=== PATIENT | male | born 1955 | race Caucasian/White ===

== ENCOUNTER → 2017-04-30 05:19 | Outpatient (REF) | payer OTHER, MEDICAID, SELFPAY ==
[2017-04-30 08:34] LABS: Hematocrit 39.9 % (40-54); Hemoglobin 13.7 g/dl (13.0-16.5); Mean Corp Hgb Conc 34.3 g/gl (32-36); Mean Corpuscular Hgb 29.6 pg (27.0-32.0); Mean Corpuscular Volume 86.2 fL (80-94); Mean Platelet Vol. 10.7 fl (6.2-12.0); Platelet Count 256 K/mm3 (150-450); RBC Distribution Width CV 13.8 % (11.6-14.6); RBC Distribution Width SD 42.2 fl (35.1-43.9); Red Blood Count 4.63 M/mm3 (4.6-6.2); White Blood Count 5.7 K/mm3 (4.4-11.0)
[2017-04-30 08:37] LABS: Scan Indicated on CBC? Y/N NO
[2017-04-30 08:46] LABS: Anion Gap 9 (5-15); BUN 22 mg/dL (7-18); BUN/Creat Ratio 26.9 RATIO (10-20); Calcium,Total 8.9 mg/dL (8.5-10.1); Chloride 104 mmol/L (98-107); Creatinine, Serum 0.82 mg/dL (0.70-1.30); EST Glomerular Filtration Rate 102 mL/min (>60); Est Glom Filt Rate - Afr Amer 124 mL/min (>60); Glucose 76 mg/dL (70-110); Magnesium 2.1 mg/dL (1.8-2.4); Potassium 4.1 mmol/L (3.5-5.1); Sodium Level 140 mmol/L (136-145)
[2017-04-30 09:16] LABS: Vitamin D,25 Hydroxy 65.8 ng/mL
== END ==
LOC: OLS.WCC 05:19
PROVIDERS: Visit Provider Family Medicine
DX: I48.91 Unspecified atrial fibrillation (principal); I50.9 Heart failure, unspecified
CPT/HCPCS: 36415; 80048; 82306; 83735; 85027

== ENCOUNTER → 2017-07-31 12:29 | Outpatient (CLI) | payer OTHER, MEDICAID, SELFPAY | PROVIDERS: Family Provider Family Medicine; PCP Family Medicine; Visit Provider Anesthesiology Pain Medicine | DX: Z01.818 Encounter for other preprocedural examination (principal) ==

== ENCOUNTER → 2017-08-03 11:13 | Outpatient (CLI) | payer OTHER, MEDICAID, SELFPAY ==
--- NOTE | 2017-08-03 11:14 | ECHOCS_ITS ---
Reason For Study: Abn.EKG Procedure This was a 2D Doppler, Color Flow transthoracic echocardiogram. The study was technically difficult. Contrast injection was performed. Exam performed in department. Left Ventricle Normal LV size. Left ventricular systolic function is normal. The estimated ejection fraction is 60 %. Transmitral doppler flow suggestive of impaired relaxation of left ventricle. No regional wall motion abnormalities noted. Right Ventricle Normal RV size. Normal systolic function. Atria Normal left atrium. Normal right atrium. No doppler evidence for ASD. Mitral Valve There is no mitral annular calcification. Normal mitral valve. Tricuspid Valve Normal tricuspid valve. Aortic Valve Trisinus/trileaflet aortic valve. Normal aortic valve. Pulmonic Valve The pulmonic valve is not well visualized. Great Vessels Normal sized aortic root. Pericardium/Pleural No pericardial effusion. Medication 22 gauge I.V. with prn adaptor inserted into right arm. Definity0.4ml given slow IV push to enhance endocardial definition. MMode/2D Measurements & Calculations LVIDd: 3.5 cm IVSd: 1.5 cm Ao root diam: 3.6 cm LVIDs: 1.9 cm LVPWd: 0.82 cm LA dimension: 3.5 cm FS: 46.8 % Doppler Measurements & Calculations MV E max matias: 49.4 cm/sec Lat Peak E' Matias: 7.0 cm/sec Med Peak E' Matias: 4.7 cm/sec MV A max matias: 87.9 cm/sec E/E' lat: 7.1 E/E' med: 10.5 MV E/A: 0.56 Ao V2 max: 115.6 cm/sec LV V1 max: 106.1 cm/sec PA V2 max: 64.1 cm/sec Ao max P.3 mmHg LV V1 max P.5 mmHg Interpretation Summary The study was technically difficult. Contrast injection was performed. Left ventricular systolic function is normal. The estimated ejection fraction is 60 %. Transmitral doppler flow suggestive of impaired relaxation of left ventricle Ordering Physician: Ritesh Patel Referring Physician: Odell Morton M.D. Performed By: Keila Patel RDCS
== END ==
PROVIDERS: Family Provider Family Medicine; PCP Family Medicine; Visit Provider Internal Medicine Cardiovascular Disease
DX: R94.31 Abnormal electrocardiogram [ECG] [EKG] (principal)
CPT/HCPCS: 93306; Q9957; A4216; C8929

== ENCOUNTER → 2017-10-11 05:00 | Outpatient (REF) | payer OTHER, MEDICAID, SELFPAY ==
[2017-10-11 07:33] LABS: Hematocrit 40.9 % (40-54); Hemoglobin 13.7 g/dl (13.0-16.5); Mean Corp Hgb Conc 33.5 g/gl (32-36); Mean Corpuscular Hgb 28.9 pg (27.0-32.0); Mean Corpuscular Volume 86.3 fL (80-94); Mean Platelet Vol. 10.4 fl (6.2-12.0); Platelet Count 305 K/mm3 (150-450); RBC Distribution Width CV 14.9 % (11.6-14.6); RBC Distribution Width SD 46.4 fl (35.1-43.9); Red Blood Count 4.74 M/mm3 (4.6-6.2); White Blood Count 6.3 K/mm3 (4.4-11.0)
[2017-10-11 07:36] LABS: Scan Indicated on CBC? Y/N NO
[2017-10-11 07:50] LABS: Anion Gap 6 (5-15); BUN 16 mg/dL (7-18); BUN/Creat Ratio 18.8 RATIO (10-20); Calcium,Total 8.6 mg/dL (8.5-10.1); Chloride 106 mmol/L (98-107); Creatinine, Serum 0.85 mg/dL (0.70-1.30); EST Glomerular Filtration Rate 97 mL/min (>60); Est Glom Filt Rate - Afr Amer 118 mL/min (>60); Glucose 74 mg/dL (74-106); Potassium 4.1 mmol/L (3.5-5.1); Sodium Level 141 mmol/L (136-145)
[2017-10-12 08:42] LABS: Vitamin D,25 Hydroxy 35.2 ng/mL (29.95-100.01)
== END ==
LOC: OLS.WCC 05:00
PROVIDERS: Visit Provider Family Medicine
DX: G35 Multiple sclerosis (principal); M62.838 Other muscle spasm; F41.9 Anxiety disorder, unspecified; F32.9 Major depressive disorder, single episode, unspecified
CPT/HCPCS: 36415; 80048; 82306; 83735; 85027

== ENCOUNTER → 2018-03-01 09:45 | Outpatient (REF) | payer MEDICAID, SELFPAY ==
[2018-03-01 10:19] LABS: Absolute Lymphocyte Count 1.21 X10^3/ul (0.83-4.51); Absolute Neutrophil Count 4.5 X10^3/uL (2.0-7.7); Basophil# 0.06 X10^3/uL; Basophil% 0.9 % (0-1); Eosinophil# 0.28 X10^3/uL; Eosinophils% 4.2 % (0-5); Hematocrit 43.4 % (40-54); Hemoglobin 14.2 g/dl (13.0-16.5); Lymphocyte # 1.21 X10^3/ul (4.0); Lymphocyte % 18.3 % (19-41); Mean Corp Hgb Conc 32.7 g/gl (32-36); Mean Corpuscular Hgb 28.2 pg (27.0-32.0); Mean Corpuscular Volume 86.3 fL (80-94); Mean Platelet Vol. 9.5 fl (6.2-12.0); Monocyte# 0.56 X10^3/uL; Monocyte% 8.5 % (0-10); Neutrophil # 4.48 X10^3/uL (2.7-7.7); Neutrophil % 67.6 % (47-70); Platelet Count 410 K/mm3 (150-450); RBC Distribution Width CV 13.7 % (11.6-14.6); RBC Distribution Width SD 43.2 fl (35.1-43.9); Red Blood Count 5.03 M/mm3 (4.6-6.2); White Blood Count 6.6 K/mm3 (4.4-11.0)
[2018-03-01 10:22] LABS: POSITIVE COUNT NO; POSITIVE DIFFERENTIAL NO; POSITIVE MORPHOLOGY NO
[2018-03-01 10:50] LABS: ALB/GLOB Ratio 0.9 RATIO (0.9-2.4); AST(SGOT) 17 U/L (15-37); Alanine Aminotransfer ALT/SGPT 34 U/L (16-61); Albumin, Serum 3.4 g/dL (3.2-5.0); Alkaline Phosphatase 65 U/L (45-117); Anion Gap 8 (5-15); BUN 14 mg/dL (7-18); BUN/Creat Ratio 16.1 RATIO (10-20); Chloride 103 mmol/L (98-107); Creatinine, Serum 0.87 mg/dL (0.70-1.30); EST Glomerular Filtration Rate 95 mL/min (>60); Est Glom Filt Rate - Afr Amer 115 mL/min (>60); Globulin 3.6 g/dL (2.2-4.2); Glucose 119 mg/dL (74-106); Potassium 4.3 mmol/L (3.5-5.1); Sodium Level 138 mmol/L (136-145)
== END ==
LOC: OLS.WCC 09:45
PROVIDERS: Visit Provider Family Medicine
DX: Z79.899 Other long term (current) drug therapy (principal)
CPT/HCPCS: 36415; 80053; 85025

== ENCOUNTER → 2018-03-15 05:00 | Outpatient (REF) | payer OTHER, MEDICAID, SELFPAY | LOC: OLS.WCC 05:00 | PROVIDERS: Visit Provider Family Medicine | DX: E55.9 Vitamin D deficiency, unspecified (principal) | CPT/HCPCS: 36415; 82306 ==

== ENCOUNTER → 2018-04-29 05:00 | Outpatient (REF) | payer MEDICARE, MEDICAID, OTHER, SELFPAY ==
[2018-04-29 07:44] LABS: Hematocrit 42.9 % (40-54); Hemoglobin 14.5 g/dl (13.0-16.5); Mean Corp Hgb Conc 33.8 g/gl (32-36); Mean Corpuscular Hgb 28.5 pg (27.0-32.0); Mean Corpuscular Volume 84.3 fL (80-94); Mean Platelet Vol. 10.3 fl (6.2-12.0); Platelet Count 293 K/mm3 (150-450); RBC Distribution Width CV 14.5 % (11.6-14.6); RBC Distribution Width SD 44.1 fl (35.1-43.9); Red Blood Count 5.09 M/mm3 (4.6-6.2); White Blood Count 6.7 K/mm3 (4.4-11.0)
[2018-04-29 07:48] LABS: Scan Indicated on CBC? Y/N NO
[2018-04-29 07:59] LABS: Anion Gap 7 (5-15); BUN 12 mg/dL (7-18); BUN/Creat Ratio 16.9 RATIO (10-20); Calcium,Total 8.7 mg/dL (8.5-10.1); Chloride 107 mmol/L (98-107); Creatinine, Serum 0.71 mg/dL (0.70-1.30); EST Glomerular Filtration Rate 120 mL/min (>60); Est Glom Filt Rate - Afr Amer 145 mL/min (>60); Glucose 86 mg/dL (74-106); Potassium 4.1 mmol/L (3.5-5.1); Sodium Level 141 mmol/L (136-145)
[2018-04-29 09:03] LABS: Vitamin D,25 Hydroxy 45.4 ng/mL (29.95-100.01)
== END ==
LOC: OLS.WCC 05:00
PROVIDERS: Visit Provider Family Medicine
DX: E55.9 Vitamin D deficiency, unspecified (principal); Z79.899 Other long term (current) drug therapy
CPT/HCPCS: 36415; 80048; 82306; 83735; 85027

== ENCOUNTER → 2018-06-18 05:00 | Outpatient (REF) | payer MEDICARE, MEDICAID, SELFPAY ==
[2018-06-18 08:40] LABS: ALB/GLOB Ratio 1.1 RATIO (0.9-2.4); AST(SGOT) 22 U/L (15-37); Alanine Aminotransfer ALT/SGPT 33 U/L (16-61); Albumin, Serum 3.2 g/dL (3.2-5.0); Alkaline Phosphatase 52 U/L (45-117); Anion Gap 10 (5-15); BUN 14 mg/dL (7-18); BUN/Creat Ratio 18.8 RATIO (10-20); CRP < 2.90 mg/L (0.0-3.0); Calcium,Total 8.6 mg/dL (8.5-10.1); Chloride 108 mmol/L (98-107); Creatinine, Serum 0.74 mg/dL (0.70-1.30); EST Glomerular Filtration Rate 114 mL/min (>60); Est Glom Filt Rate - Afr Amer 137 mL/min (>60); Globulin 2.9 g/dL (2.2-4.2); Glucose 88 mg/dL (74-106); Potassium 4.4 mmol/L (3.5-5.1); Protein, Total 6.1 g/dL (6.4-8.2); Sodium Level 142 mmol/L (136-145)
[2018-06-18 09:20] LABS: Vitamin B12 962 pg/mL (211-911)
== END ==
LOC: OLS.WCC 05:00
PROVIDERS: Visit Provider Family Medicine
DX: G35 Multiple sclerosis (principal); R29.898 Other symptoms and signs involving the musculoskeletal system
CPT/HCPCS: 36415; 80053; 82607; 84443; 86140

== ENCOUNTER → 2018-06-19 17:30 | Outpatient (REF) | payer MEDICARE, MEDICAID, SELFPAY ==
[2018-06-20 08:09] LABS: Color, Urine Yellow (Yellow); Glucose, Dipstick Normal (Normal); Ketone-Dipstick Negative (Negative); Leukocyte Esterase-Dipstick Negative /ul (Negative); Nitrite-Dipstick Negative (Negative); Occult Blood-Urine Negative /ul (Negative); Protein-Dipstick Negative (Negative); Specific Gravity, Urine 1.015 (1.002-1.030); Urine Bilirubin Dipstick Negative (Negative); Urine Clarity Clear (Clear); Urine Urobilinogen Normal (Normal)
== END ==
LOC: OLS.WCC 17:30
PROVIDERS: Visit Provider Family Medicine
DX: G35 Multiple sclerosis (principal); R53.1 Weakness
CPT/HCPCS: 81002; 87077; 87086; 87088; 87186

== ENCOUNTER → 2018-07-15 04:00 | Outpatient (REF) | payer MEDICARE, MEDICAID, SELFPAY ==
[2018-07-15 08:28] LABS: T4 Free Direct 0.93 ng/dL (0.76-1.46); Thyroid Stim Hormone (TSH) 6.16 uIU/mL (0.358-3.74)
== END ==
LOC: OLS.WCC 04:00
PROVIDERS: Visit Provider Family Medicine
DX: R53.1 Weakness (principal)
CPT/HCPCS: 36415; 84439; 84443

== ENCOUNTER → 2018-08-12 10:30 | Outpatient (CLI) | payer MEDICARE, SELFPAY ==
[2018-08-12 13:13] LABS: Free T3 2.7 pg/mL (2.18-3.98); T4 Total, Thyroxin 8.9 ug/dL (4.5-12.1); Thyroid Stim Hormone (TSH) 5.69 uIU/mL (0.358-3.74)
== END ==
PROVIDERS: Family Provider Family Medicine; PCP Family Medicine; Referring Provider Family Medicine; Visit Provider Family Medicine
DX: E03.9 Hypothyroidism, unspecified (principal)
CPT/HCPCS: 36415; 84436; 84443; 84481

== ENCOUNTER → 2018-09-30 | Outpatient (CLI) | payer MEDICARE, SELFPAY ==
[2018-09-30 12:30] LABS: Absolute Lymphocyte Count 1.43 X10^3/ul (0.83-4.51); Basophil# 0.07 X10^3/uL; Basophil% 1.1 % (0-1); Eosinophil# 0.23 X10^3/uL; Eosinophils% 3.5 % (0-5); Hematocrit 45.7 % (40-54); Hemoglobin 15.7 g/dl (13.0-16.5); Lymphocyte # 1.43 X10^3/ul (4.0); Lymphocyte % 21.7 % (19-41); Mean Corp Hgb Conc 34.4 g/gl (32-36); Mean Corpuscular Hgb 30.4 pg (27.0-32.0); Mean Corpuscular Volume 88.6 fL (80-94); Mean Platelet Vol. 9.9 fl (6.2-12.0); Monocyte# 0.83 X10^3/uL; Monocyte% 12.6 % (0-10); Neutrophil # 4.01 X10^3/uL (2.7-7.7); Neutrophil % 60.9 % (47-70); Platelet Count 287 K/mm3 (150-450); RBC Distribution Width CV 14.2 % (11.6-14.6); RBC Distribution Width SD 45.7 fl (35.1-43.9); Red Blood Count 5.16 M/mm3 (4.6-6.2); White Blood Count 6.6 K/mm3 (4.4-11.0)
[2018-09-30 12:31] LABS: POSITIVE COUNT NO; POSITIVE DIFFERENTIAL NO; POSITIVE MORPHOLOGY NO
[2018-09-30 12:56] LABS: ALB/GLOB Ratio 1.3 RATIO (0.9-2.4); AST(SGOT) 26 U/L (15-37); Alanine Aminotransfer ALT/SGPT 31 U/L (16-61); Alkaline Phosphatase 69 U/L (45-117); Anion Gap 4 (5-15); BUN 13 mg/dL (7-18); BUN/Creat Ratio 15.6 RATIO (10-20); Chloride 107 mmol/L (98-107); Creatinine, Serum 0.84 mg/dL (0.70-1.30); EST Glomerular Filtration Rate 99 mL/min (>60); Est Glom Filt Rate - Afr Amer 120 mL/min (>60); Glucose 106 mg/dL (74-106); Potassium 4.2 mmol/L (3.5-5.1); Sodium Level 138 mmol/L (136-145)
[2018-09-30 14:23] LABS: Color, Urine Yellow (Yellow); Glucose, Dipstick Normal (Normal); Ketone-Dipstick Negative (Negative); Leukocyte Esterase-Dipstick 500 /ul (Negative); Nitrite-Dipstick Positive (Negative); Occult Blood-Urine 25 /ul (Negative); Protein-Dipstick 30 mg/dl (Negative); Specific Gravity, Urine 1.015 (1.002-1.030); Urine Bilirubin Dipstick Negative (Negative); Urine Clarity Sl. Cloudy (Clear); Urine Urobilinogen Normal (Normal)
== END | disposition home or self-care (01) ==
LOC: MTLAB 10:43
PROVIDERS: Family Provider Family Medicine; PCP Family Medicine
DX: G35 Multiple sclerosis (principal)
CPT/HCPCS: 36415; 80053; 81002; 85025

== ENCOUNTER → 2018-11-06 | Outpatient (CLI) | payer MEDICARE, SELFPAY ==
--- NOTE | 2018-11-06 08:47 | RAD_ITS ---
STUDY: X-RAY - RIGHT ANKLE REASON FOR EXAM: Male, 63 years old. Trauma. TECHNIQUE: 3 view(s) of the ankle. COMPARISON: None. FINDINGS: There is diffuse heterogeneous osteoporosis. Otherwise normal visualized distal tibia and fibula. Otherwise normal medial and lateral malleoli. Normal tibiotalar articulation and ankle mortise. Normal visualized talus and calcaneus. The visualized subtalar, talonavicular, calcaneocuboid and tarsal articulations are normal. There is no demonstrated fracture. The soft tissue structures are unremarkable. RAD/Ankle min 3 Views IMPRESSION: Demineralization. No acute abnormality. Electronically Signed: Adam Ramirez MD at 18:01 EDT , Service support ,
== END | disposition home or self-care (01) ==
LOC: MTRAD 08:40
PROVIDERS: Family Provider Family Medicine; PCP Family Medicine; Referring Provider Family Medicine; Visit Provider Family Medicine
DX: S99.911A Unspecified injury of right ankle, initial encounter (principal)
CPT/HCPCS: 73610

== ENCOUNTER 2018-12-23 13:00 | Outpatient (RCR) | payer MEDICARE, SELFPAY ==
--- NOTE | 2018-08-19 17:04 | HP.PTEVAL ---
Patient's Visit Information NICOLASA FISCHER is a 63 year old M referred to Physical Therapy by Odell Morton MD with a diagnosis of MULTIPLE SCLEROSIS WITH LOWER EXTREMITY PARESIS.. Date of Evaluation: 08/19/18 Physical Therapist: Madie Mukherjee PT, Cert MDT - Visit Plan Frequency: 1-2x /Week Duration: 2 Months Plan: GOES BY RYLEE. GAIT TRAINING. TRANSFER TRAINING. FOCUS ON HOME STRENGTHENING PROGRAM. 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 Disability: ABOUT 3 YEARS AGO. MULTIPLE SCLEROSIS. Present symptoms: WEAKNESS LEE LE'S LEFT > RIGHT. CONSTANT PAIN FROM KNEE'S TO ANKLES. PATIENT REPORTS HE IS NOT HERE FOR HIS PAIN - HE IS HERE FOR STRENGTHENING. PATIENT REPORTS THAT STANDING AND WAKLING DO NOT SEEM TO MAKE HIS PAIN WORSE - IN OTHER WORDS THE PAIN DOES NOT LIMIT HIS STANDING/WALKING. Present since: ABOUT 5 YEARS - DX'D 2013. Pain Scale: CONSTANT 3/10. Currently: WORSENING - GETTING WEAKER. Symptoms at onset: LEG WEAKNESS AND SPASM. Previous history/Previous treatment: MEDICATION, PHYSICAL THERPAY - INCLUDING E-STIM WHICH HELPED A LOT. GETTING INFUSIONS EVERY 6 MONTHS. HAS A BACLAFEN PUMP PLACE FEB 2018. Gait/Transfers: PATIENT REPORTS HE CAN STAND WITH +1 ASSIST FROM SOME CHAIRS AND THEN PIVOT ON HIS OWN. STATES HE STRUGGLES TO GET OUT OF THE WHEEL CHAIR EVEN WITH HELP BECAUSE IT DOES NOT RAISE LIKE HIS CHAIR. UNABLE TO STAND WITHOUT LEFT FOOT AFO. Accidents: NO. PMH/Recent major surgery: LEFT SHOULDER - SX OF MS OR FROZEN SHOULDER. LEFT UE APR 2018 WITH MORE LEFT UE INJECTIONS PENDING 09/06/18. NO CANCER. NO STROKE. NO HEART DZ. NO OTHER MAJOR SURGERIES OTHER THAN PUMP PLACEMENT. SOCIAL: LIVES A LONE IN AN BING'T WITH AID 8 HOURS A DAY THAT HELPS WITH COOKING, CLEANING, TOLIETING. OTHER: WAS IN [facility] FROM SEPTEMBER 2016 TO AUG 05 2018. HAS BEEN HOME ABOUT 2 WEEKS. HE REPORTS EACH DAY IS GETTING BETTER. WAITING ON. NEW SHOES FROM [employer] FOR NEW AFO'S. PATIENT REPORTS HE HAS AN BING'T WITH OT AFTER PT. STATES HIS LUE IS LIMITING HIS USE OF A WALKER. PATIENT REPORTS THE PUMP HAS HELPED A LOT WITH HIS LE TONE. HAS SPIN DISC FOR TRANSFERS. HAS SIT TO STAND DEVICE AT HOME NEEDED. NO ACTUAL PHYSICAL THERAPY SINCE JUN 2018 BUT HAS BEEN DOING INDEP EX ABLE/RESTORATIVE. NO WEIGHTS AT HOME FOR EX BUT TRIES TO STAY ACTIVE AND EX MUCH POSSIBLE. THE FURTHEST HE REPORTS HE HAS WALKED WITH A WALKER IS ABOUT 35 FEET IN THERAP[facility] [place] [facility] WITH +2 ASSIST FOR ADVANCING LLE (SLIDING FOOT) AND SAFETY IN JUN 2018. WALKED NO MORE THAN 2 FEET OR SO IN JUL. - Objective THIS PATIENT COMES TO PT SELF PROPELLING HIMSELF BACK TO PT WITH A MOTORIZED WHEELCHAIR. HE IS ALERT AND ORIENTED. HE FOLLOWS COMMANDS WELL AND IS A GOOD HISTORIAN. HE IS PLANNING TO HAVE AN OT CONSULT FOR HIS UE'S POST PT TODAY. HE IS PLEASANT AND COOPERATIVE TO WORK WITH. HE IS WEARING A BRACE ON THE LEFT ANKLE BUT NOT THE RIGHT. ONLY TRACE MVMT IS SEEN IN THE LEFT LE BUT HE HAS RIGHT LE STRENGTH FOLLOWS: HIP 3-/5, KNEE EXT 2/5, ANKLE DORSIFLEX 2-/5. WE DISCUSSED THE PRO'S AND CON'S OF HOLDING THERAPY UNTIL LEFT SHOULDER IS ADDRESSED AND SHOES/AFO'S ARE RECEIVED. THIS THERAPIST RECOMMENDS SCHEDULING ONE TIME A WEEK X 3-4 WEEKS TO MAXIMIZE HOME EX PROGRAM WHILE WAITING FOR SHOULDER TREATMENT AND SHOES/AFO'S. PATIENT IS AGREEABLE. HE HAD ACCESS TO WEIGHTS AND NUSTEP UP UNTIL THE TIME HE WAS DISCHARGE FROM THE [facility] BUT HAS BEEN ABLE TO DO VERY LITTLE IN TERMS OF EX AT HOME SINCE DISCHARGE. PATIENT DEMONSTRATES KNOWLEGE OF AAROM WITH USE OF CANE AT HOME FOR LE'S BUT THIS HAS VERY LIMITED BENEFIT. PATIENT WOULD BENEFIT FROM SKILLED PT FOR GAIT TRAINING, TRANSFER TRAINING AND HOME EX INSTRUCTION FOCUSING ON STRENGTHEING OF LE'S. - Goals Goal 1:: STAND PIVOT TRANSFERS FROM BED TO W/C, W/C TO CHAIR AND W/C TO CAMODE AND REVERSE WITH LEAST ASSIST/SUPERVISION. Goal Time Frame: 8-12 Weeks Goal 2:: INDEP HEP FOR CONTINUED IMPROVEMENT ONCE FORMAL PHYSICAL THERAPY CONCLUDES. Goal Time Frame: 8-12 Weeks Goal 3:: IMPROVE LEE LE FUNCTIONAL STRENGTH Goal Time Frame: 8-12 Weeks - Rehabilitation Potential Rehabilitation Potential: Questionable - Anticipated Interventions Patient/Client Instruction: Educate patient on: Condition, Plan of Care, Risk Factors, Benefits of Fitness Program For the Purpose of:: To improve self management Therapeutic Exercise to Include: Strength training, Endurance training, Balance training, Body mechanics, Postural training, Gait and locomotor training, Active ROM For the Purpose of:: To improve muscle performance and motor function, To increase tolerance to activity/condition/position, To improve performance and independence with ADL's, To improve gait and locomotor functions Thank you for the opportunity to evaluate your patient. For Medicare and Medicare HMO plans, please review the plan of care and approve it. It will need to be FAXED BACK to us at [phone] for Medicare purposes. For Medicare only, by signing this I certify the plan of care. Please let me know if there are questions or concerns regarding this plan of care. Physician Signature: Date:
--- NOTE | 2018-08-21 09:03 | HP.OTEVAL ---
Patient's Visit Information NICOLASA FISCHER is a 63 year old M, referred to Occupational Therapy by Odell Motron MD, with a diagnosis of MS. Date of Evaluation: 08/19/18 Occupational Therapist: JOSE MIGUEL Bhatt/Bhavani, CHT - Subjective Subjective: pt states 2016 pt was injected with some medication to decrease his tone in his left UE. Pt dx. in 2013. Left side more affected pt was left handed- left arm affected in the last year and a half- pt does have a baclafen pump- pt has recently moved in a [employer] [place] apt- states he has aid for 8 hours a day 7 days a week- use of shower chair for bathing- no braces for left UE. - ADLs Comments: pt has assist from HH aids 7x a week for dressing/bathing/meals and home mtg - ROM Shoulder: AROM left shoulder limited to 80* Elbow: left elbow 0/125* Forearm: left foream 45 Wrist: left wrist WNL ROM Comments: pt demo weak left grasp/release - Strength Implement Mechanic: right 75# left 10# Lateral Pinch: right 20# left 2# Tripod Pinch: right 18# left unable - Sensation Sensation Comments: deniens - Movement Muscle Tone: pt demo Mod tone in left shoulder Movement Comments: pt demo with min tone in left wrist and foream - Quick DASH-Disab of Arm,Shoulder& Hand Quick DASH Score: 47.7250 - Goals Goal:: pt will demo a increase in left UE MMT by 1 muscle grade to increase assist with ADLs and IADLS by d/c. PT will demo an increase in supervisor pile driving strength by 20# to increase independent with basic occupations of daily living to return pt to PLOF by D/C. Pt will demo an increase in lateral and tripod pinch by 2# to increase pts independent with opening baggies, containers at PLOF by D/C. Goal:: pt will demo a increase in left UE ROM by 50* or greater to increase pts ind with ADLs by d/c Goal:: pt will demo ability to pickling drum operator large, med. and small objects with left hand demo improvment in left domin. FMS - Rehabilitation General Assessment: pt demo with left UE weakness increasing need of assist from others for self care tasks. pt would benefit from skilled OT services 2x week for 4 weeks to increase pts functional use of left UE for ADLs, ed. on ad. eq for ADLs etc. pt agrees to POC. Rehabilitation Potential: Fair - Anticipated Interventions Anticipated Interventions: A/AAROM/PROM, Strengthening, Modalities, Orthoses, Ergonomic Education, Neuro Reeducation, ADL Training, Education re assistive Equipment, Education re Diagnosis - Visit Plan Frequency: 1x/Week Duration: 4 Weeks TEXT: Thank you for the opportunity to evaluate your patient. For Medicare and Medicare HMO plans, please review the plan of care and approve it. It will need to be FAXED BACK to us at [phone] for Medicare purposes. Please let me know if there are questions or concerns regarding this plan of care. Physician Signature: Date:
--- NOTE | 2018-11-08 09:42 | OTREVAL_ITS ---
Odell Morton MD, It has been my pleasure to treat NICOLASA FISCHER over the last 13 visits for MS. Please see the progress note below for an update on the occupational therapy plan of care! Subjective: Pt states his ankle is a little sore but doing ok. has no questions - states he will have a new aide starting next . Objective/Function: pt arrives following Physical therapy and is tired this AM. Right 75#. left 5#. pt demo a decline in left custodian supervisor strength by 5#. pt demo active shoulder flex to 80* PROM therapist can get pt to 135*. active shoulder abd 90*. active elbow flex at 120( able to touch nose). pt demo better AROM of shoulder abd, and elbow flex when tone is minimal. Pt to cont. with his HEP as he has made gains and not lost ROM or function at this time. Your concerns are with LE at this time. Plan Plan: Due to limited insurance and pt doing well with his HEP- pt to be seen for follow up 1x in november and 1 x in Jan. if pt has concerns prior to apt. pt to call in and schedule earlier. Goals - Goals Goal:: pt will demo a increase in left UE MMT by 1 muscle grade to increase assist with ADLs and IADLS by d/c. PT will demo an increase in custodian supervisor strength by 20# to increase independent with basic occupations of daily living to return pt to PLOF by D/C. Pt will demo an increase in lateral and tripod pinch by 2# to increase pts independent with opening baggies, containers at PLOF by D/C. Goal:: pt will demo a increase in left UE ROM by 50* or greater to increase pts ind with ADLs by d/c Goal:: pt will demo ability to excelsior picker large, med. and small objects with left hand demo improvment in left domin. FMS Anticipated Interventions Anticipated Interventions: A/AAROM/PROM, Strengthening, Modalities, Orthoses, Ergonomic Education, Neuro Reeducation, ADL Training, Education re assistive Equipment, Education re Diagnosis Please do not hesitate to contact me at [phone] by phone or if you have questions or concerns regarding this new plan of care! Sincerely, Marianna Wall, DUYENR/L, CHT
--- NOTE | 2018-11-18 17:25 | HP.PTREVAL ---
Odell Morton MD, It has been my pleasure to treat NICOLASA FISCHER over the last 10 visits for MULTIPLE SCLEROSIS WITH LOWER EXTREMITY PARESIS.. Please see the progress note below for an update on the physical therapy plan of care! Subjective: PATIENT REPORTS THAT SINCE HE HAS COME HOME FROM THE [facility] AND STARTED OUTPATIENT PT HIS LEFT LEG IS STRONGER WHICH IS ALLOWING HIM TO HELP WITH TRANSFERS MORE. HE ALSO FEELS LIKE THE EXERCISES WE HAVE TAUGHT HIM FOR HOME ARE HELPING HIS CORE GET STRONGER HELPING HIM WITH ALL ADLS AND TRANSFERS. HE ALSO REPORTS FEELING IMPROVED STRENGTH AND MOBILITY IN HIS RIGHT LEG. SAW AND HAD X-RAY OF RIGHT ANKLE SUNDAY AND WAS TOLD IF HE DIDN'T HEAR ANYTHING ASSUME NO FX AND SOFT TISSUE DAMAGE ONLY. RECOMMENDED ICE AND ELEVATION AND LIMIT TRANSFERS TOLERATED. ABLE TO GET AFO ON YESTERDAY FOR THE FIRST TIME IN ABOUT A WEEK. PATIENT REPORTS HE ALSO HAS A LOT LESS PAIN IN THE LEFT SHOULDER NOW THAN WHEN HE STARTED PT AND HE FEELS THE MOBILITY IS A LITTLE BETTER TOO. Objective/Function: THIS PATIENT PATIENT HAS MADE SLOW BUT MINIMAL PROGRESS WITH THIS EPISODE OF CARE OF PT. HE IS INDEP WITH MORE HOME EX'S NOW AND ON SOME DAYS IS DOING BETTER WITH TRANSFERS AND STANDING TOLERANCE. HE. COMES TO PT SELF PROPELLING HIMSELF BACK TO PT WITH A MOTORIZED WHEELCHAIR. HE IS ALERT AND ORIENTED. HE FOLLOWS COMMANDS WELL AND IS A GOOD HISTORIAN. HE IS PLEASANT AND COOPERATIVE TO WORK WITH. HE IS WEARING HIS NEW LEE AFO'S AND SHOES. ONLY TRACE MVMT IS SEEN IN THE LEFT LE BUT HE HAS RIGHT LE STRENGTH FOLLOWS: HIP 3-/5, KNEE EXT 2/5, ANKLE DORSIFLEX 2-/5. WE DISCUSSED THE PRO'S AND CON'S OF HOLDING THERAPY UNTIL HIS ANKLE IS FEELING BETTER. THIS PT RECOMMENDS CONTINUED PT ANKLE SYMPTOMS ALLOW DUE TO PROGRESS MADE. PATIENT IS AGREEABLE. PATIENT WOULD BENEFIT FROM CONTINUED SKILLED PT FOR GAIT TRAINING, TRANSFER TRAINING AND HOME EX INSTRUCTION FOCUSING ON STRENGTHEING OF LE'S. CURRENTLY PATIENT REQUIRES +2 ASSIST IN CLINIC WITH TRANSFERS FOR SAFETY ALTHOUGH ONE PERSON DOES MOST OF THE TRANSFER MOD TO MAX ASSIST. Plan Plan: CONT PT 1-2 TIMES A WEEK PER ORIGINAL POC WORKING TOWARD SAME GOALS. Goals Goal 1:: STAND PIVOT TRANSFERS FROM BED TO W/C, W/C TO CHAIR AND W/C TO CAMODE AND REVERSE WITH LEAST ASSIST/SUPERVISION. Goal Time Frame: 8-12 Weeks Goal 2:: INDEP HEP FOR CONTINUED IMPROVEMENT ONCE FORMAL PHYSICAL THERAPY CONCLUDES. Goal Time Frame: 8-12 Weeks Goal 3:: IMPROVE LEE LE FUNCTIONAL STRENGTH Goal Time Frame: 8-12 Weeks Anticipated Interventions Patient/Client Instruction: Educate patient on: Condition, Plan of Care, Risk Factors, Benefits of Fitness Program For the Purpose of:: To improve self management Therapeutic Exercise to Include: Strength training, Endurance training, Balance training, Body mechanics, Postural training, Gait and locomotor training, Active ROM For the Purpose of:: To improve muscle performance and motor function, To increase tolerance to activity/condition/position, To improve performance and independence with ADL's, To improve gait and locomotor functions Please do not hesitate to contact me at [phone] by phone or if you have questions or concerns regarding this new plan of care! Sincerely, Madie Mukherjee, PT, Cert MDT
--- NOTE | 2018-12-16 14:47 | HP.PTREVAL ---
Odell Meza MD, It has been my pleasure to treat NICOLASA FISCHER over the last 12 visits for MULTIPLE SCLEROSIS WITH LOWER EXTREMITY PARESIS.. Please see the progress note below for an update on the physical therapy plan of care! Subjective: PATIENT REPORTS IF HE SNEEZES, COUGHS OR STRETCHES HE GOES INTO FULL BODY SPASMS AND HE IS REALLY SORE FROM IT. HE REPORTS HIS LEGS AND HIS LEFT ARM GO UP AND START SHAKING. HIS DOCTORS HAVE TOLD HIM IT IS THE MS AND THERE IS NOTHING ELSE THEY CAN DO. PATIENT REPORTS HIS PAIN IS USUALLY ABOUT A 3/10 IN HIS LEGS ALL DAY EVERYDAY BUT HE RATES IT A 5/10 NOW FROM ALL THE SPASMS THIS MORNING ALL THE WAY UP BOTH LEGS. STILL HAS HOME HEALTH AIDES ABOUT 3 HOURS IN THE MORNINGS AND ABOUT 3 HOURS AT NIGHT. PATIENT REPORTS HE IS WORKING ON LEG STRENGTHEING AT HOME MUCH HE CAN WITH THE HELP OF HIS BED AND LIFT CHAIR AND SIT TO STAND AND HEP. REPORTS HIS RIGHT ANKLE PAIN AND SWELLING IS A LOT BETTER AND NOT LIMITING HIM WITH TRANSFERS AT HOME NOW. STATES HE HAD TO MISS AN BING'T DUE TO TRYING TO SEE FRIEND ON HOSPICE AND THAT FRIEND . PATIENT REPORTS THAT AT THIS POINT HE FEELS LIKE HE IS LESS FUNCTIONAL THAN HE WAS WHEN HE LEFT [facility]. WAS USING SPIN DISC AT [facility] EVERY DAY TWICE A DAY WITH THE WALKER. PATIENT REPORTS HE ISN'T WEARING HIS RIGHT AFO BECAUSE IT BOTHERS HIM AND IT DOESN'T HELP. PATIENT REPORTS HE DOESN'T THINK THE NUSTEP IS WHAT HE NEEDS BECAUSE HE FEELS HOBBLED LIKE A HORSE AND HIS RIGHT ARM ENDS UP DOING ALL THE WORK. Objective/Function: PATIENT REALLY WANTS TO PURSUE HOME PHYSICAL THERAPY AT THIS TIME. THIS PHYSICAL THERAPIST AGREES. PATIENT MAY BENEFIT FROM AT LEAST A HOME PHYSICAL THERAPY EVALUATION AND HOME HEALTH AIDE TRAINING IN TRANSFERS AND LOWER EXTREMITY ROM AND HEP. UPON EXAM TODAY THERE ARE NO SIGNIFICANT CHANGES SINCE LAST RE-CHECK HOWEVER LE TESTING DID PROVOKE MUSCLE SPASMS THAT HAVE NOT BEEN TYPICAL WITH TESTING IN THE PAST. PATIENT REPORTS THE SPASMS ARE HAPPENING MORE OFTEN AND HIS DOCTORS ARE AWARE AND TRYING MEDICATION CHANGES. I WAS ABLE TO SPEAK WITH AMY AT DR. JARQUIN'S OFFICE TODAY ABOUT THESE RECOMMENDATIONS. SHE REPORTS DR. JARQUIN IS ON MEDICAL LEAVE AND SHE WILL FORWARD THE INFORMATION TO DR. MEZA AND THEN GET BACK WITH ME AND MR. FISCHER. Plan Plan: AWAIT RESPONSE FROM DR. MEZA REGUARDING POSSABILITY OF HOME PHYSICAL THERAPY WITH DR. JARQUIN. OTHERWISE PATIENT IS AGREEABLE TO CONTINUE OUT PATIENT PHYSICAL THERAPY. NEW POC: NO NUSTEP. START SESSIONS WITH A FEW MINUTES OF LE STRETCHING AND STRENGTHENING EX'S TO TRY TO LOOSEN UP A LITTLE BIT THEN FOCUS REST OF APPOINTMENT TIME ON TRANSFERS AND LE WEIGHT BEARING IN PARALLEL BARS TOLERATED. Goals Goal 1:: STAND PIVOT TRANSFERS FROM BED TO W/C, W/C TO CHAIR AND W/C TO CAMODE AND REVERSE WITH LEAST ASSIST/SUPERVISION. Goal Time Frame: 8-12 Weeks Goal Progress: Not Progressing Goal 2:: INDEP HEP FOR CONTINUED IMPROVEMENT ONCE FORMAL PHYSICAL THERAPY CONCLUDES. Goal Time Frame: 8-12 Weeks Goal Progress: Not Progressing Goal 3:: IMPROVE LEE LE FUNCTIONAL STRENGTH Goal Time Frame: 8-12 Weeks Goal Progress: Not Progressing Anticipated Interventions Patient/Client Instruction: Educate patient on: Condition, Plan of Care, Risk Factors, Benefits of Fitness Program For the Purpose of:: To improve self management Therapeutic Exercise to Include: Strength training, Endurance training, Balance training, Body mechanics, Postural training, Gait and locomotor training, Active ROM For the Purpose of:: To improve muscle performance and motor function, To increase tolerance to activity/condition/position, To improve performance and independence with ADL's, To improve gait and locomotor functions Please do not hesitate to contact me at [phone] by phone or if you have questions or concerns regarding this new plan of care! Sincerely, Madie Mukherjee, PT, Cert MDT
--- NOTE | 2019-01-08 16:12 | HP.OT.NRP ---
HP - Discharge Summary - Patient Information NICOLASA FISCHER was seen in my office for initial evaluation on 08/19/18. The following Plan of Care was established for this patient: Initial Frequency: 1x/Week Initial Duration: 4 Weeks Plan: pt demo good ability to keep his left UE PROM fair- - Anticipated Interventions Anticipated Interventions: A/AAROM/PROM, Strengthening, Modalities, Orthoses, Ergonomic Education, Neuro Reeducation, ADL Training, Education re assistive Equipment, Education re Diagnosis This patient was last seen in our office 12/03/18. Pertinent comments regarding their Occupational therapy will appear below: This pt was seen for 14 therapy sessions- He was demo good ability to perform his UB HEP but getting out to therapy services was more trying. It was discussed with pt getting home therapy services, which pt was receptive to and was able to obtain in home therapy services. Pt d/c at this time. At this point I will be discontinuing this patient from occupational therapy. I would be happy to see this patient again in the future if found appropriate by the physician. Thank you! Marianna Wall, OTR/L, CHT
--- NOTE | 2019-01-09 13:51 | HP.PT.NRP ---
HP - Discharge Summary (1) - Patient Information NICOLASA FISCHER was seen in my office for initial evaluation on 08/19/18. The following Plan of Care was established for this patient: Initial Frequency: 1-2x /Week Initial Duration: 2 Months - Anticipated Interventions Patient/Client Instruction: Educate patient on: Condition, Plan of Care, Risk Factors, Benefits of Fitness Program For the Purpose of:: To improve self management Therapeutic Exercise to Include: Strength training, Endurance training, Balance training, Body mechanics, Postural training, Gait and locomotor training, Active ROM For the Purpose of:: To improve muscle performance and motor function, To increase tolerance to activity/condition/position, To improve performance and independence with ADL's, To improve gait and locomotor functions This patient was last seen in our office . Pertinent comments regarding their Physical therapy will appear below: D/C DUE TO PATIENT STARTING HOME HEALTH PHYSICAL THERAPY. At this point I will be discontinuing this patient from physical therapy. I would be happy to see this patient again in the future if found appropriate by the physician. Thank you! Madie Mukherjee, PT, Cert MDT
== END 2018-12-23 19:00 | disposition home or self-care (01) ==
LOC: PT 13:00
PROVIDERS: Family Provider Family Medicine; PCP Family Medicine; Referring Provider Family Medicine; Visit Provider Family Medicine
DX: G35 Multiple sclerosis (principal); G83.10 Monoplegia of lower limb affecting unspecified side; G82.50 Quadriplegia, unspecified
CPT/HCPCS: 97014; 97110; 97162; 97166; 97168; 97530; G0283

== ENCOUNTER → 2019-02-03 | Outpatient (CLI) | payer MEDICARE, SELFPAY ==
--- NOTE | 2019-02-03 10:18 | RAD_ITS ---
STUDY: X-RAY CHEST REASON FOR EXAM: Male, 63 years old. Short of breath TECHNIQUE: PA and lateral COMPARISON: October 04, 2015 FINDINGS: There is minor scarring at the left base associated with pleural thickening.. Normal size heart. Normal mediastinum and vandana. Normal visualized pulmonary arteries. Normal visualized aortic arch and descending thoracic aorta. Dorsal spine demonstrates degenerative change. Normal visualized, clavicles, and shoulders. Multiple old healed left rib fractures There is no demonstrated abnormality of the visualized soft tissue structures of the upper abdomen. RAD/Chest PA and Lateral IMPRESSION: No acute cardiopulmonary pathology Electronically Signed: Colilns Root MD at 16:57 EDT , Service support ,
[2019-02-03 12:48] LABS: Absolute Lymphocyte Count 1.19 X10^3/uL (0.83-4.51); Absolute Neutrophil Count 5.2 X10^3/uL (2.0-7.7); Basophil# 0.09 X10^3/uL; Basophil% 1.2 % (0-1); Eosinophil# 0.36 X10^3/uL; Eosinophils% 4.7 % (0-5); Hematocrit 45.3 % (40-54); Lymphocyte # 1.19 X10^3/ul (4.0); Lymphocyte % 15.4 % (19-41); Mean Corp Hgb Conc 33.1 g/dL (32-36); Mean Corpuscular Hgb 29.5 pg (27.0-32.0); Mean Corpuscular Volume 89.2 fL (80-94); Mean Platelet Vol. 10.2 fl (6.2-12.0); Monocyte# 0.82 X10^3/uL; Monocyte% 10.6 % (0-10); NRBC Flagged by Analyzer 0 % (0-5); Neutrophil # 5.24 X10^3/uL (2.7-7.7); Neutrophil % 67.8 % (47-70); Platelet Count 294 K/mm3 (150-450); RBC Distribution Width CV 13.8 % (11.6-14.6); Red Blood Count 5.08 M/mm3 (4.6-6.2); White Blood Count 7.7 K/mm3 (4.4-11.0)
[2019-02-03 13:07] LABS: Albumin, Serum 3.9 g/dL (3.2-5.0); BUN 11 mg/dL (7-18); BUN/Creat Ratio 12.1 RATIO (10-20); Creatinine, Serum 0.91 mg/dL (0.70-1.30); EST Glomerular Filtration Rate 90 mL/min (>60); Est Glom Filt Rate - Afr Amer 109 mL/min (>60); Glucose 100 mg/dL (74-106); Protein, Total 7.3 g/dL (6.4-8.2)
[2019-02-03 13:08] LABS: ALB/GLOB Ratio 1.1 RATIO (0.9-2.4); AST(SGOT) 23 U/L (15-37); Alanine Aminotransfer ALT/SGPT 28 U/L (16-61); Alkaline Phosphatase 58 U/L (45-117); Anion Gap 6 (5-15); Calcium,Total 9.5 mg/dL (8.5-10.1); Chloride 107 mmol/L (98-107); Globulin 3.4 g/dL (2.2-4.2); Potassium 4.1 mmol/L (3.5-5.1); Sodium Level 139 mmol/L (136-145)
== END | disposition home or self-care (01) ==
LOC: RAD.FUTURE 10:16
PROVIDERS: Family Provider Family Medicine; PCP Family Medicine; Referring Provider Family Medicine; Visit Provider Family Medicine
DX: R06.02 Shortness of breath (principal); Z79.899 Other long term (current) drug therapy
CPT/HCPCS: 36415; 71046; 80053; 85025

== ENCOUNTER → 2019-04-04 10:35 | Outpatient (CLI) | payer MEDICARE, SELFPAY ==
--- NOTE | 2019-04-04 10:41 | VDLE_ITS ---
Reason For Study: edema Procedure LEFT Exam performed in department. GSV is normal. The exam was diagnostic. CFV is compressible, spontaneous, phasic, A preliminary report was called and/or faxed competent, and demonstrates normal to Selena Boyle. augmentation. FV is compressible, spontaneous, phasic, competent and demonstrates normal augmentation. POP V is compressible, spontaneous, phasic, competent and demonstrates normal augmentation. T/P Trunk is compressible. PTV is compressible. LT PerV is compressible. Interpretation Summary Deep veins of the left lower extremity are patent and compressible segmentally. There is no evidence of left lower extremity deep vein thrombosis. Valvular competence appears intact within the proximal deep venous system on the left . The left great saphenous vein appears patent and compressible segmentally. Ordering Physician: SELENA BOYLE Performed By: Moe Antonio RVArlette
== END ==
PROVIDERS: Family Provider Family Medicine; PCP Family Medicine
DX: R60.0 Localized edema (principal)
CPT/HCPCS: 93971

== ENCOUNTER → 2019-04-30 13:58 | Outpatient (CLI) | payer MEDICARE, SELFPAY | PROVIDERS: Family Provider Family Medicine; PCP Family Medicine; Referring Provider Family Medicine; Visit Provider Family Medicine | DX: R30.0 Dysuria (principal) | CPT/HCPCS: 87077; 87086; 87088; 87186 ==

== ENCOUNTER → 2019-08-15 09:46 | Outpatient (CLI) | payer MEDICARE, SELFPAY ==
[2019-08-15 12:55] LABS: Anion Gap 7 (5-15); BUN 15 mg/dL (7-18); BUN/Creat Ratio 18.3 RATIO (10-20); Calcium,Total 9.2 mg/dL (8.5-10.1); Chloride 104 mmol/L (98-107); Cholesterol 265 mg/dL (200); Creatinine, Serum 0.82 mg/dL (0.70-1.30); EST Glomerular Filtration Rate 101 mL/min (>60); Est Glom Filt Rate - Afr Amer 123 mL/min (>60); Free T3 2.4 pg/mL (2.18-3.98); Glucose 83 mg/dL (74-106); High Density Lipoprotein 39 mg/dL; PSA,Total - Annual Screen 0.79 ng/mL (0.00-4.00); Potassium 4.5 mmol/L (3.5-5.1); Sodium Level 137 mmol/L (136-145); Triglycerides 160 mg/dL; Very Low Density Lipoprotein 32 mg/dL (5-40)
== END ==
PROVIDERS: PCP Family Medicine; Referring Provider Family Medicine; Visit Provider Family Medicine
DX: Z00.00 Encounter for general adult medical examination without abnormal findings (principal); E03.9 Hypothyroidism, unspecified; Z12.5 Encounter for screening for malignant neoplasm of prostate
CPT/HCPCS: 36415; 80048; 80061; 82306; 84153; 84436; 84443; 84481; G0103

== ENCOUNTER → 2019-10-24 09:23 | Outpatient (CLI) | payer MEDICARE, MEDICAID, SELFPAY ==
[2019-10-24 13:23] LABS: Cholesterol 128 mg/dL (200); Free T3 2.7 pg/mL (2.18-3.98); High Density Lipoprotein 42 mg/dL; T4 Free Direct 0.98 ng/dL (0.76-1.46); Triglycerides 97 mg/dL; Very Low Density Lipoprotein 19 mg/dL (5-40)
== END ==
PROVIDERS: PCP Family Medicine; Referring Provider Family Medicine; Visit Provider Family Medicine
DX: E03.9 Hypothyroidism, unspecified (principal); E78.5 Hyperlipidemia, unspecified
CPT/HCPCS: 36415; 80061; 84439; 84443; 84481

== ENCOUNTER 2019-11-01 11:52 | Inpatient (IN) | payer MEDICARE, MEDICAID, SELFPAY ==
[2019-11-01] VITALS (19 sets, daily range): BP systolic 111–167; BP diastolic 62–99; PULSE 54–73; RESP 6–20; TEMP 35.7–37.2; O2SAT 93–100; BMI 33.2; BMI 98.2; BMI 32.1
[2019-11-01 12:16] LABS: Bedside Glucose 108 mg/dL (70-110)
--- NOTE | 2019-11-01 12:21 | CT_ITS ---
STUDY: CT BRAIN WITHOUT CONTRAST REASON FOR EXAM: Male, 64 years old. ALTERED MENTAL STATUS RADIATION DOSAGE (If Supplied By Facility): CTDIvol = ( 44.99 ) mGy, DLP = ( 880.47 ) mGycm TECHNIQUE: Transaxial CT imaging of the brain was performed without administration of intravenous contrast material. Individualized dose optimization techniques were used for this CT. COMPARISON: 08/21/2016 FINDINGS: Normal soft tissue structures. Normal calvarium. Normal size ventricles and extra-axial spaces for the patient''s age. Unchanged white matter tracts of the cerebral hemispheres. Normal basal ganglia and thalami. Normal brainstem. Normal cerebellum. There is no intracranial hemorrhage. There are no findings of an acute ischemic infarction. Mild calcifications of the carotid siphons. Normal visualized paranasal sinuses. CT/Brain/Head without Contrast IMPRESSION: No acute intracranial hemorrhage or mass effect. Stable exam. Electronically Signed: Zaid Collado MD (Brooks) at 14:28 EDT , Service support ,
--- NOTE | 2019-11-01 12:22 | EKG12_ITS ---
Test Reason : Blood Pressure : / mmHG Vent. Rate : 069 BPM Atrial Rate : 069 BPM P-R Int : 184 ms QRS Dur : 070 ms QT Int : 412 ms P-R-T Axes : 018 -22 009 degrees QTc Int : 441 ms Normal sinus rhythm Low voltage QRS Inferior infarct , age undetermined Cannot rule out Anterior infarct (cited on or before 04-MAY-2015) Abnormal ECG Confirmed by SHYLA FITCH, ESTHER ([id number]), telegraph editor PELON MEZA ([id number]) on 11/04/2019 3:06:20 PM Referred By: RADHAMES Confirmed By:ESTHER MANSFIELD MD
--- NOTE | 2019-11-01 12:24 | RAD_ITS ---
STUDY: X-RAY CHEST REASON FOR EXAM: Male, 64 years old. ALTERED MENTAL STATUS -- UNABLE TO FOLLOW BREATHING INSTRUCTIONS TECHNIQUE: AP COMPARISON: 12/04/2014 FINDINGS: EKG leads project over the chest. Lungs are less expanded as compared to the prior study. No airspace consolidation is seen. There is no demonstrated pleural abnormality. There is mild cardiac enlargement. Normal mediastinum and vandana. Normal visualized pulmonary arteries. Normal visualized aortic arch and descending thoracic aorta. No acute bony process. There is no demonstrated abnormality of the visualized soft tissue structures of the upper abdomen. RAD/Chest 1 View (Portable) IMPRESSION: 1. No airspace consolidation or pleural effusion. 2. Hypoinflation. 3. Cardiomegaly may be exaggerated by hypoinflation and portable technique. Electronically Signed: Zaid Collado MD (Brooks) at 14:36 EDT , Service support ,
--- NOTE | 2019-11-01 12:31 | ED.DCSUM_ITS ---
History of Present Illness Chief Complaint: Alt LOC Informant: Patient, Clinical Quality Rn Onset: Today Narrative: Is a 64-year-old male with history of MS, left-sided paralysis and intrathecal baclofen pump placed 02/18/2018 presenting with altered mental status. His home health aide came to his house today and found him to be minimally altered. 911 was called he was brought to the ER. Patient is sleeping in the room and denies any complaints at this time. Nursing staff is trying to get a hold of his daughter or home health aide for further information. Daughter is now at the bedside. She states he is normally very sharp and ANO x4. She does note that over the past 2 months he has had 2 intermittent episodes of acute confusion where he will call her to be very confused about everything going on. The last episode was about 3 weeks ago. He receives his neurologic care at the [facility]. Past Medical History - Allergies and Home Meds Allergies/Adverse Reactions: Allergies No Known Allergies Allergy (Verified 08/16/17 08:35) Primary Care Physician: Ritesh Castro MD [Primary Care Provider] - Past Medical History: - - MS, chronic pain, left-sided weakness, depression Surgical History: no surgical history Lives: Alone Smoking Status: Former smoker - Family History Maternal Family History: Family History (Last Reviewed 08/03/17 @ 10:08 by Marianna Hernandez) Mother CVA (cerebral vascular accident) Grandmother CVA (cerebral vascular accident) Family History: Reports: No pertinent history Paternal Family History: Family History (Last Reviewed 08/03/17 @ 10:08 by Marianna Hernandez) Mother CVA (cerebral vascular accident) Grandmother CVA (cerebral vascular accident) Family History: Reports: No pertinent history Review of Systems ROS: Unable to Obtain - Secondary to mental status change Physical Exam Vital Signs/Narrative: Vital Signs Temp Pulse Resp BP Pulse Ox 11/01/19 11:58 96.3 F L 73 16 111/73 98 Inital Vital Signs reviewed: Yes General: Well nourished, Well developed, No Acute Distress Head: Normocephalic, Atraumatic Eyes: Perrl, EOMI, - - No Pinpoint pupils ENT: Moist mucous membranes, No rhinorrhea, TM's clear, Dry mucous membranes, - - No signs of facial trauma Neck: Supple, Nontender, No JVD Cardiovascular: Regular rate, Regular rhythm, No murmurs Respiratory: No distress, CTA bilaterally, Chest nontender Abdomen: Soft, Nontender, Nondistended, Normal bowel sounds Back: Nontender, Normal Inspection Extremities: Nontender. Negative for: Calf Tenderness Skin: Normal color, No rash Neurological: Cranial nerves II-XII grossly intact, Normal Sensation, Disoriented, Lethargic - Patient is obtunded but arousable with strong verbal stimuli or tactile stimuli. His respirations are intermittently sonorous. When he does speak his speech is clear but he answers most things yes or no and does not elaborate, Weakness - Left-sided?chronic, - Psychological: Normal affect, Normal Mood Diagnostic/Tx/Re-eval Chest X-Ray - ED: 1 View, Read by ED Physician, Read by Radiologist, No Acute Disease Clinical Impression(s) from Imaging Studies Brain CT 11/01/19 12:21 IMPRESSION: No acute intracranial hemorrhage or mass effect. Stable exam. Electronically Signed: Zaid Collado MD (Brooks) at 14:28 EDT , Service support , Chest X-Ray 11/01/19 12:24 IMPRESSION: 1. No airspace consolidation or pleural effusion. 2. Hypoinflation. 3. Cardiomegaly may be exaggerated by hypoinflation and portable technique. Electronically Signed: Zaid Collado MD (Brooks) at 14:36 EDT , Service support , Laboratory Data 11/01/19 11/01/19 11/01/19 12:10 12:10 12:10 WBC 7.5 RBC 4.80 Hgb 14.2 Hct 43.1 MCV 89.8 MCH 29.6 MCHC 32.9 RDW Std Deviation 47.3 H RDW Coeff of Isha 14.6 Plt Count 263 MPV 9.3 Immature Gran % (Auto) 0.300 Neut % (Auto) 64.9 Lymph % (Auto) 16.7 L [place] % (Auto) 13.4 H Eos % (Auto) 3.9 Baso % (Auto) 0.8 Absolute Neuts (auto) 4.9 Absolute Lymphs (auto) 1.25 Nucleated RBC % 0 Specimen Type Sample Site pH Bicarbonate Actual POC Total CO2 Base Excess O2 Saturation ABG pCO2 ABG pO2 Joel Test O2 Delivery Device Blood Gas Notified Whom Blood Gas Notified Time Sodium 142 Potassium 4.4 Chloride 110 H Carbon Dioxide 27.0 Anion Gap 5 BUN 11 Creatinine 0.80 Estim Creat Clear Calc 95.74 Est GFR (MDRD) Af Amer 125 Est GFR (MDRD) Non-Af 103 BUN/Creatinine Ratio 13.7 Glucose 107 H Lactic Acid Calcium 8.7 Total Bilirubin 0.50 AST 54 H ALT 32 Alkaline Phosphatase 61 Troponin I 6.880 H* Total Protein 6.5 Albumin 3.2 Globulin 3.3 Albumin/Globulin Ratio 1.0 Urine Color Urine Clarity Urine pH Ur Specific [place] Urine Protein Urine Glucose (UA) Urine Ketones Urine Occult Blood Urine Nitrite Urine Bilirubin Urine Urobilinogen Ur Leukocyte Esterase Ur Drug Screen Comment Ethyl Alcohol POC Glucose 108 11/01/19 11/01/19 11/01/19 12:10 12:10 12:33 WBC RBC Hgb Hct MCV MCH MCHC RDW Std Deviation RDW Coeff of Isha Plt Count MPV Immature Gran % (Auto) Neut % (Auto) Lymph % (Auto) [place] % (Auto) Eos % (Auto) Baso % (Auto) Absolute Neuts (auto) Absolute Lymphs (auto) Nucleated RBC % Specimen Type ART Sample Site L RADIAL pH 7.30 L Bicarbonate Actual 26.6 H POC Total CO2 28 Base Excess 0 O2 Saturation 91 L ABG pCO2 54.2 H ABG pO2 68 L Joel Test POS O2 Delivery Device Room Air Blood Gas Notified Whom ED Blood Gas Notified Time 1233 Sodium Potassium Chloride Carbon Dioxide Anion Gap BUN Creatinine Estim Creat Clear Calc Est GFR (MDRD) Af Amer Est GFR (MDRD) Non-Af BUN/Creatinine Ratio Glucose Lactic Acid 1.2 Calcium Total Bilirubin AST ALT Alkaline Phosphatase Troponin I Total Protein Albumin Globulin Albumin/Globulin Ratio Urine Color Urine Clarity Urine pH Ur Specific [place] Urine Protein Urine Glucose (UA) Urine Ketones Urine Occult Blood Urine Nitrite Urine Bilirubin Urine Urobilinogen Ur Leukocyte Esterase Ur Drug Screen Comment Ethyl Alcohol < 3.0 POC Glucose 11/01/19 11/01/19 15:00 15:00 WBC RBC Hgb Hct MCV MCH MCHC RDW Std Deviation RDW Coeff of Isha Plt Count MPV Immature Gran % (Auto) Neut % (Auto) Lymph % (Auto) [place] % (Auto) Eos % (Auto) Baso % (Auto) Absolute Neuts (auto) Absolute Lymphs (auto) Nucleated RBC % Specimen Type Sample Site pH Bicarbonate Actual POC Total CO2 Base Excess O2 Saturation ABG pCO2 ABG pO2 Joel Test O2 Delivery Device Blood Gas Notified Whom Blood Gas Notified Time Sodium Potassium Chloride Carbon Dioxide Anion Gap BUN Creatinine Estim Creat Clear Calc Est GFR (MDRD) Af Amer Est GFR (MDRD) Non-Af BUN/Creatinine Ratio Glucose Lactic Acid Calcium Total Bilirubin AST ALT Alkaline Phosphatase Troponin I Total Protein Albumin Globulin Albumin/Globulin Ratio Urine Color Yellow Urine Clarity Clear Urine pH 6.0 Ur Specific [place] 1.010 Urine Protein Negative Urine Glucose (UA) Normal Urine Ketones Negative Urine Occult Blood Negative Urine Nitrite Negative Urine Bilirubin Negative Urine Urobilinogen Normal Ur Leukocyte Esterase Negative Ur Drug Screen Comment Ethyl Alcohol POC Glucose - Rhythm Strip Rhythm Strip: Sinus Rhythm Rate: 69 Ectopy: None - EKG Initial EKG Interpretation: Sinus Rhythm, - - Normal sinus rhythm at a rate of 69 Normal intervals Left axis deviation Low voltage amplitude throughout Compared to prior EKG on 10/04/2015 patient's amplitude is diminished throughout but no significant ST segment changes - Medical Decision Making Patient is a 64-year-old male presenting from home for mental status change. He is a nonfocal neurologic exam. He does not have pinpoint pupils or other findings immediately concerning for an opioid overdose. Patient does have a baclofen pump and I question if he could be baclofen overdose. ABG shows a mild respiratory acidosis. Patient is placed on 4 L oxygen. He does not have any improvement of his mentation. EKG does not show any acute ischemic changes. His troponin is 6.88. Discussed this with Dr. Garza who also reviewed his EKG. He recommends a weight-based dose of Lovenox but does not recommend heparin drip or further immediate intervention given his clinical presentation. Lovenox is held until after his head CT comes back negative. Patient is also given ordered rectal aspirin. He is given a dose of Narcan with minimal change in his symptoms. Patient will be admitted to ICU for further logic and cardiopulmonary evaluation. Daughter is agreeable with this plan. Patient remains hemodynamically stable and protecting his airway so i do not that emergent intubation is indicated at this time. - Critical Care Time Critical care time (excluding procedures): 30-74 minutes - 34-, Including time spent:, Discussing w/Patient &/or Family/Lathe Tender, Discussing w/Consultants, Performing Direct Patient Care at Bedside - Patient is encephalopathic with an end STEMI. Discussed the case with cardiology as well as admitting physician. Arranged admission to the ICU. Patient required frequent re-evaluations. ED Disposition - Plan for ED Patient: Disposition: Acute Care [facility] Diagnosis: NSTEMI (non-ST elevated myocardial infarction), AMS (altered mental status) Referrals: Ritesh Castro MD [Primary Care Provider] -
[2019-11-01 12:40] LABS: Base Excess 0 mmol/L (-2 to +2); Bicarbonate 26.6 mmol/L (22-26); PO2 68 mmHG (75-100); SO2 91 % (95-99); Total Carbon Dioxide 28 mmol/L; pCO2 54.2 mmHg (35-45)
[2019-11-01 12:42] LABS: Absolute Lymphocyte Count 1.25 X10^3/uL (0.83-4.51); Absolute Neutrophil Count 4.9 X10^3/uL (2.0-7.7); Alcohol, Blood (Medical)-Serum < 3.0 mg/dL; Basophil# 0.06 X10^3/uL; Basophil% 0.8 % (0-1); Eosinophil# 0.29 X10^3/uL; Eosinophils% 3.9 % (0-5); Hematocrit 43.1 % (40-54); Hemoglobin 14.2 g/dL (13.0-16.5); Lymphocyte # 1.25 X10^3/ul (4.0); Lymphocyte % 16.7 % (19-41); Mean Corp Hgb Conc 32.9 g/dL (32-36); Mean Corpuscular Hgb 29.6 pg (27.0-32.0); Mean Corpuscular Volume 89.8 fL (80-94); Mean Platelet Vol. 9.3 fl (6.2-12.0); Monocyte% 13.4 % (0-10); NRBC Flagged by Analyzer 0 % (0-5); Neutrophil # 4.85 X10^3/uL (2.7-7.7); Neutrophil % 64.9 % (47-70); Platelet Count 263 K/mm3 (150-450); RBC Distribution Width CV 14.6 % (11.6-14.6); RBC Distribution Width SD 47.3 fl (35.1-43.9); White Blood Count 7.5 K/mm3 (4.4-11.0)
[2019-11-01 12:45] LABS: Lactic Acid 1.2 mmol/L (0.4-1.9)
[2019-11-01 12:45] LABS: Allen Test POS; Blood Gas Specimen Type ART; SITE L RADIAL
[2019-11-01 12:46] LABS: O2 Delivery Device Room Air; Time Given 1233
[2019-11-01 12:55] LABS: AST(SGOT) 54 U/L (15-37); Alanine Aminotransfer ALT/SGPT 32 U/L (16-61); Albumin, Serum 3.2 g/dL (3.2-5.0); Alkaline Phosphatase 61 U/L (45-117); Anion Gap 5 (5-15); BUN 11 mg/dL (7-18); BUN/Creat Ratio 13.7 RATIO (10-20); Calcium,Total 8.7 mg/dL (8.5-10.1); Chloride 110 mmol/L (98-107); EST Glomerular Filtration Rate 103 mL/min (>60); Est Glom Filt Rate - Afr Amer 125 mL/min (>60); Estimated Creatinine Clearance 95.74 ml/min; Globulin 3.3 g/dL (2.2-4.2); Glucose 107 mg/dL (74-106); Potassium 4.4 mmol/L (3.5-5.1); Protein, Total 6.5 g/dL (6.4-8.2); Sodium Level 142 mmol/L (136-145)
--- NOTE | 2019-11-01 15:05 | NURSING ---
DR LINDY HOLMAN
--- NOTE | 2019-11-01 15:10 | HP.PCM_ITS ---
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 He was admitted through the ED on 11/01/2019 with a complaint of altered mental status. Patient was found by his home health aide today lethargic and minimally responsive. For called his daughter and called the EMS and he was brought into the ED. History was mainly taken from daughter who was by his bedside. She does not live with him and states she last spoke to him a couple of days ago when he seemed fine and had no complaints. She has over the past month or so he has been calling her occasionally very confused and not knowing where he was there he was at home. He subsequently able to get his bearings. She is however never seen him like this before. Unable to do review of systems as patient is not able to answer questions. Patient was lethargic but arousable; however he could not answer any questions and only answered with hmmm and aaaahh when asked any question. On admission, vitals were essentially stable though when he was being reviewed in the ED, he was noted to be hypopneic with respiratory rate down to as low as 7. However when patient was awoken, respiratory rate went up to 15 and 68. He was saturating at 93% on 4 L of oxygen. Chemistry was unremarkable. Initial troponin was 6.88. CBC was essentially unremarkable. Brain CT showed no acute intracranial hemorrhage or mass-effect. Chest x-ray showed no airspace consolidation or pleural effusion and showed hypoinflation and cardiomegaly which may have been exacerbated by hyperinflation and portable technique. EKG done showed no acute ST changes. Patient is being admitted to be managed for non-STEMI and acute metabolic encephalopathy. Patient also has a baclofen pump and was concerned that his acute metabolic encephalopathy and hypopnea may be due to accidental baclofen overdose. He did receive Narcan in the ED. 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 (Inactive) F32.9, G35 Multiple sclerosis (Inactive) G35 Multiple sclerosis exacerbation (Inactive) G35 Multiple sclerosis, primary chronic progressive (Inactive) G[address] Fernandez at the [facility] Muscle spasticity (Inactive) M62.[address] Ashton for an implanted baclofen pump for spasticity to left upper and lower extremities Neuromyelitis optica (Inactive) G36.0 Allergies No Known Allergies Allergy (Verified 08/16/17 08:35) Home Medications: Ambulatory Orders Medication Instructions Recorded Levothyroxine [Synthroid] 25 mcg PO DAILY 11/01/19 Rosuvastatin Calcium [Crestor] 5 mg PO QHS 11/01/19 Surgical History: Surgical History (Last Reviewed 08/03/17 @ 10:08 by Marianna Hernandez) Hx of appendectomy Z98.890, Z90.49 Surgical History: no surgical history Psychiatric History: No pertinent psych hx Smoking Status: Unknown if ever smoked - *Family History Maternal Family History: Family History (Last Reviewed 08/03/17 @ 10:08 by Marianna Hernandez) Mother CVA (cerebral vascular accident) Grandmother CVA (cerebral vascular accident) History Items: No pertinent history Paternal Family History: Family History (Last Reviewed 08/03/17 @ 10:08 by Marianna Hernandez) Mother CVA (cerebral vascular accident) Grandmother CVA (cerebral vascular accident) History Items: No pertinent history Review of Systems Neurological: Reports: Confusion Unable to obtain accurate/complete ROS d/t: patient's altered mental status VTE Information - Inpt Only VTE Present on Admission: No VTE Pharm Prophylaxis ordered?: Yes Patient Problems: Active and Suspected Problems (Last Reviewed 08/03/17 @ 10:08 by Marianna Hernandez) NSTEMI (non-ST elevated myocardial infarction) (Acute) AMS (altered mental status) (Acute) - Physical Exam Vitals/I&O's: Vital Signs Temp Pulse Resp BP Pulse Ox 98.9 F 66 10 L 123/78 H 100 11/01/19 14:18 11/01/19 14:41 11/01/19 14:41 11/01/19 14:41 11/01/19 14:41 Oxygen Flow Rate (L/min) 4 Oxygen Delivery Method Nasal Cannula Weight: 224 lb 13.944 oz Body Mass Index (BMI) 33.2 Finger Stick Blood Glucose 108 Intake and Output for Last 24 Hours 10/30/19 10/31/19 11/01/19 23:59 23:59 23:59 Intake Total 500 / 500 Balance 500 / 500 General: Confused, Disoriented, Lethargic HEENT: Atraumatic, PERRLA, EOMI, Normocephalic Oral: Dry Mucosa Neck: Supple, No JVD, Negative Carotid Bruits Lungs: Clear to auscultation, Normal air movement, No rhonchi, No wheeze, Periods of apnea, - - on 4L of oxygen Cardiovascular: Regular rate, Regular Rhythm, Normal S1, Normal S2 Abdomen: Bowel Sounds Present, Soft, Non Tender Extremities: No clubbing, No cyanosis, No edema, Capillary Refill Less than 3 Seconds Skin: No rashes, No breakdown Musculoskeletal: No Tenderness to Palpation of Joints or Extremities Lymphatic: No Cervical, Supraclavicular, or Inguinal Adenopathy Neurological: - - has left UE and LLE residual weakness, from MS. Patient very lethargic, CN II-XII appear grossly intact Laboratory Results 11/01/19 12:10: POC Glucose 108 11/01/19 12:10: WBC 7.5, RBC 4.80, Hgb 14.2, Hct 43.1, MCV 89.8, MCH 29.6, MCHC 32.9, RDW Std Deviation 47.3 H, RDW Coeff of Isha 14.6, Plt Count 263, MPV 9.3, Immature Gran % (Auto) 0.300, Neut % (Auto) 64.9, Lymph % (Auto) 16.7 L, [place] % (Auto) 13.4 H, Eos % (Auto) 3.9, Baso % (Auto) 0.8, Absolute Neuts (auto) 4.9, Absolute Lymphs (auto) 1.25, Nucleated RBC % 0 11/01/19 12:10: Sodium 142, Potassium 4.4, Chloride 110 H, Carbon Dioxide 27.0, Anion Gap 5, BUN 11, Creatinine 0.80, Estim Creat Clear Calc 95.74, Est GFR (MDRD) Af Amer 125, Est GFR (MDRD) Non-Af 103, BUN/Creatinine Ratio 13.7, Glucose 107 H, Calcium 8.7, Total Bilirubin 0.50, AST 54 H, ALT 32, Alkaline Phosphatase 61, Troponin I 6.880 H*, Total Protein 6.5, Albumin 3.2, Globulin 3.3, Albumin/Globulin Ratio 1.0 11/01/19 12:10: Ethyl Alcohol < 3.0 11/01/19 12:10: Lactic Acid 1.2 11/01/19 12:33: Specimen Type ART, Sample Site L RADIAL, pH 7.30 L, Bicarbonate Actual 26.6 H, POC Total CO2 28, Base Excess 0, O2 Saturation 91 L, ABG pCO2 54.2 H, ABG pO2 68 L, Joel Test POS, O2 Delivery Device Room Air, Blood Gas Notified Whom ED MD, Blood Gas Notified Time [address] 11/01/19 12:21 IMPRESSION: No acute intracranial hemorrhage or mass effect. Stable exam. Electronically Signed: Zaid Collado MD (Brooks) at 14:28 EDT , Service support , Chest X-Ray 11/01/19 12:24 IMPRESSION: 1. No airspace consolidation or pleural effusion. 2. Hypoinflation. 3. Cardiomegaly may be exaggerated by hypoinflation and portable technique. Electronically Signed: Zaid Collado MD (Brooks) at 14:36 EDT , Service support , Assessment/Plan All Active Problems (Last Reviewed 08/03/17 @ 10:08 by Marianna Hernandez) NSTEMI (non-ST elevated myocardial infarction) (Acute) AMS (altered mental status) (Acute) Abnormal EKG (Acute) Fall (Resolved) Ribs, multiple fractures (Resolved) 64 y/o admitted with a complaint of altered mental status, and found to have elevated troponins 1. Acute metabolic encephalopathy * Due to non-STEMI and probable accidental baclofen overdose. * Admit to ICU for closer monitoring * ABG done showed pH of 7.3 with PCO2 of 54.2 and PO2 of 68. Oxygen saturation was 91%. * Patient received Narcan in the ED. He is arousable and respiratory rate goes up to the mid teens but when he is asleep and apneic, respiratory it goes down single digits. Daughter states apneic episodes have been present for a long time. * Admit to ICU on account of severe confusion and lethargy. * IV Narcan as needed for respiratory depression. * Keep n.p.o. for now until he is more arousable and alert. * Hydrated with IV fluid normal saline. * Critical care consult as he is in ICU. * 2. Nonstemi * admitting troponin was 6.88 * will cycle troponins x 3 * EKG showed no acute ST changes. * will give lovenox therapeutic dose, per cardiology, * SL nitroglycerin prn * rectal aspirin 325mg, as patient is very confused and unable to swallow * loading dose of plavix PO 300mg x 1 * cardiology consult * 2D echo * 3. Primary progessive multiple sclerosis * has residual left sided weakness * stable * has baclofen pump in place * DVT prophylaxis: on therapeutic lovenox o/a of nonstemi total time spent on critical care: 40 mins Code status: full code * Inpatient E&M: 89531 Init Hosp L3 Procedures: 17609 Critial Care 1st Hr
[2019-11-01 15:16] LABS: Bacteria 0 SEEN /hpf (None Seen); Mucous, Urine 0 SEEN /hpf (<or=2+); Red Blood Cells-Urine 0 SEEN /hpf (0-5); White Blood Cells 0 SEEN /hpf (0-5)
--- NOTE | 2019-11-01 15:16 | NURSING ---
ICU KORAM NONSTEMI, ACUTE METABOLIC ENCEPHALOPATHY
--- NOTE | 2019-11-01 15:17 | NURSING ---
ICU 8
[2019-11-01] MEDS: Enoxaparin 100 MG/ML Syringe SC ×2 (15:21→22:07)
[2019-11-01] MEDS: Naloxone 0.4 MG/ML Syringe IV (15:24)
[2019-11-01 15:25] LABS: Color, Urine Yellow (Yellow); Glucose, Dipstick Normal (Normal); Ketone-Dipstick Negative (Negative); Leukocyte Esterase-Dipstick Negative /ul (Negative); Nitrite-Dipstick Negative (Negative); Occult Blood-Urine Negative /ul (Negative); Protein-Dipstick Negative (Negative); Urine Bilirubin Dipstick Negative (Negative); Urine Clarity Clear (Clear); Urine Urobilinogen Normal (Normal)
[2019-11-01] MEDS: Naloxone 2 MG/2 ML Syringe 1 MG IV (15:37)
[2019-11-01 15:52] LABS: Squamous Epithelial Cells - UA 0-5 SEEN /hpf (0-5)
[2019-11-01 16:01] LABS: Amphetamine Urine VISTA NEGATIVE (<1000 ng/mL); Barbiturate Urine VISTA NEGATIVE (< 200 ng/mL); Benzodiazepine Urine VISTA NEGATIVE (< 200 ng/mL); Cocaine Urine VISTA NEGATIVE (< 300 ng/mL); Ecstacy Urine VISTA NEGATIVE (< 500 ng/mL); Methadone Urine VISTA NEGATIVE (< 300 ng/mL); PCP Urine VISTA NEGATIVE (< 25 ng/mL); THC Urine VISTA NEGATIVE (< 50 ng/mL); Vista UDS pH Range 6
[2019-11-01] MEDS: Aspirin 300 MG Suppository RECTAL (16:06)
--- NOTE | 2019-11-01 16:52 | EKG12_ITS ---
Test Reason : ELEVATED TROPONIN Blood Pressure : / mmHG Vent. Rate : 067 BPM Atrial Rate : 067 BPM P-R Int : 182 ms QRS Dur : 066 ms QT Int : 402 ms P-R-T Axes : 031 -28 010 degrees QTc Int : 424 ms Normal sinus rhythm Low voltage QRS Borderline ECG Confirmed by ROJELIO FITCH, NANCY ([id number]), tape editor PELON MEZA ([id number]) on 11/06/2019 2:58:13 PM Referred By: LINDY Confirmed By:NANCY SERRATO MD
--- NOTE | 2019-11-01 16:58 | ED.RN ---
Pt clothing list, dereck shirt, sock shoes, left leg brace all to floor. Daughter preferred to leave with pt.
[2019-11-01 17:40] LABS: Thyroid Stim Hormone (TSH) 5.18 uIU/mL (0.358-3.74)
--- NOTE | 2019-11-01 20:42 | NURSING ---
CARDIAC TROPONIN RESULT NOTED TO BE TRENDING DOWN, 5.42
[2019-11-02] VITALS (23 sets, daily range): BP systolic 115–157; BP diastolic 74–94; PULSE 66–98; RESP 9–17; TEMP 36.6–36.9; O2SAT 94–99
[2019-11-02 04:21] LABS: Absolute Lymphocyte Count 1.15 X10^3/uL (0.83-4.51); Absolute Neutrophil Count 5.2 X10^3/uL (2.0-7.7); Basophil# 0.05 X10^3/uL; Basophil% 0.7 % (0-1); Eosinophil# 0.19 X10^3/uL; Eosinophils% 2.6 % (0-5); Hematocrit 43.7 % (40-54); Hemoglobin 14.7 g/dL (13.0-16.5); Lymphocyte # 1.15 X10^3/ul (4.0); Lymphocyte % 15.6 % (19-41); Mean Corp Hgb Conc 33.6 g/dL (32-36); Mean Corpuscular Hgb 29.6 pg (27.0-32.0); Mean Corpuscular Volume 87.9 fL (80-94); Mean Platelet Vol. 8.8 fl (6.2-12.0); Monocyte% 10.8 % (0-10); NRBC Flagged by Analyzer 0 % (0-5); Neutrophil # 5.17 X10^3/uL (2.7-7.7); Neutrophil % 69.9 % (47-70); Platelet Count 258 K/mm3 (150-450); RBC Distribution Width CV 13.9 % (11.6-14.6); RBC Distribution Width SD 44.9 fl (35.1-43.9); Red Blood Count 4.97 M/mm3 (4.6-6.2); White Blood Count 7.4 K/mm3 (4.4-11.0)
[2019-11-02 04:35] LABS: Anion Gap 5 (5-15); BUN 11 mg/dL (7-18); Calcium,Total 8.9 mg/dL (8.5-10.1); Chloride 108 mmol/L (98-107); Creatinine, Serum 0.65 mg/dL (0.70-1.30); EST Glomerular Filtration Rate 133 mL/min (>60); Est Glom Filt Rate - Afr Amer 161 mL/min (>60); Glucose 86 mg/dL (74-106); Potassium 4.4 mmol/L (3.5-5.1); Sodium Level 141 mmol/L (136-145)
--- NOTE | 2019-11-02 05:55 | ECHOCS_ITS ---
Reason For Study: NSTEMI Procedure This was a 2D Doppler, Color Flow transthoracic echocardiogram. The exam was of poor technical quality due to suboptimal acoustic windows. Exam performed portable in patient room. Left Ventricle Normal LV size. Left ventricular systolic function is normal. The estimated ejection fraction is 65 %. Stage 1 diastolic dysfunction. No regional wall motion abnormalities noted. Right Ventricle Normal RV size. Normal systolic function. Atria Normal left atrium. Normal right atrium. Mitral Valve Normal mitral valve. Tricuspid Valve The tricuspid valve is not well visualized. Mild (1+) tricuspid valve insufficiency. Pulmonary artery systolic pressure is 30 mmHg. Aortic Valve The aortic valve is not well visualized. Pulmonic Valve The pulmonic valve is not well visualized. Great Vessels Normal aortic root. The pulmonary artery is normal size. Normal inferior vena cava. Pericardium/Pleural No pericardial effusion. Medication Diluted definity 5.0ml given slow IV push to enhance endocardial definition. MMode/2D Measurements & Calculations LVIDd: 3.9 cm IVSd: 1.1 cm Ao root diam: 4.0 cm LVIDs: 2.7 cm LVPWd: 0.93 cm FS: 30.5 % LVAd ap4: 32.4 cm2 SV(MOD-sp4): 42.0 ml SV(sp4-el): 45.6 ml EDV(MOD-sp4): 91.6 ml EDV(sp4-el): 101.0 ml LVAs ap4: 22.2 cm2 ESV(MOD-sp4): 49.6 ml ESV(sp4-el): 55.3 ml EF(MOD-sp4): 45.9 % EF(sp4-el): 45.2 % LA dimension(2D): 3.2 cm Time Measurements MV dec time: 0.21 sec Doppler Measurements & Calculations MV E max matias: 62.9 cm/sec Lat Peak E' Matias: 6.6 cm/sec Med Peak E' Matias: 4.6 cm/sec MV A max matias: 119.9 cm/sec E/E' lat: 9.6 E/E' med: 13.5 MV E/A: 0.52 Ao V2 max: 111.9 cm/sec LV V1 max: 110.6 cm/sec TV V2 max: 156.4 cm/sec Ao max P.0 mmHg LV V1 max P.9 mmHg TV max P.8 mmHg TV V2 mean: 95.7 cm/sec TV mean P.1 mmHg TR max matias: 262.0 cm/sec TR max P.4 mmHg Interpretation Summary Normal LV size. Left ventricular systolic function is normal. The estimated ejection fraction is 65 %. Stage 1 diastolic dysfunction. Mild (1+) tricuspid valve insufficiency. Contrast injection was performed. Ordering Physician: Michelle Beltre Referring Physician: NANCY JARQUIN Performed By: Vanessa Holt, ALLAN, RVT
--- NOTE | 2019-11-02 06:15 | CON.PCM_ITS ---
Reason for Consult Date of Consultation: 11/02/19 Reason for Consultation: Acute metabolic encephalopathy History of Present Illness: The patient is a 64-year-old male, with a history as outlined below, who presented to the emergency department on October 31 with encephalopathy. The patient has a baseline history of MS (primary progressive) and does have a baclofen pump in place. He is normally alert and oriented at his baseline. However, per documentation, the patient's daughter did report that the patient has been intermittently confused over the course of the last month. On presentation to the emergency department, the patient was noted to be afebrile and hemodynamically stable. He was maintaining appropriate oxygen saturations on room air. Laboratory evaluation revealed no evidence of leukocytosis. Arterial blood gas obtained on room air revealed a pH of 7.30 with a corresponding PCO2 of 54 and PO2 of 68. Chemistry profile was unremarkable. Initial troponin was elevated to 6.8. Urine analysis was unremarkable. Toxicology screen was unremarkable. CT head revealed no acute findings. Chest x-ray was suboptimal quality with poor inspiratory effort. No focal infiltrate was identified. The patient was placed on weight-based Lovenox therapy due to his troponin elevation, following discussion with cardiology. He was subsequently admitted to the medical intensive care unit for further management. 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 (Inactive) F32.9, G35 Multiple sclerosis (Inactive) G35 Multiple sclerosis exacerbation (Inactive) G35 Multiple sclerosis, primary chronic progressive (Inactive) G[address] Fernandez at the [facility] Muscle spasticity (Inactive) M62.[address] Ashton for an implanted baclofen pump for spasticity to left upper and lower extremities Neuromyelitis optica (Inactive) G36.0 Allergies No Known Allergies Allergy (Verified 08/16/17 08:35) Home Medications: Ambulatory Orders Medication Instructions Recorded Levothyroxine [Synthroid] 25 mcg PO DAILY 11/01/19 Rosuvastatin Calcium [Crestor] 5 mg PO QHS 11/01/19 Surgical History: Surgical History (Last Reviewed 08/03/17 @ 10:08 by Marianna Hernandez) Hx of appendectomy Z98.890, Z90.49 Surgical History: no surgical history Psychiatric History: No pertinent psych hx Lives: Alone Smoking Status: Unknown if ever smoked - *Family History Maternal Family History: Family History (Last Reviewed 08/03/17 @ 10:08 by Marianna Hernandez) Mother CVA (cerebral vascular accident) Grandmother CVA (cerebral vascular accident) History Items: No pertinent history Paternal Family History: Family History (Last Reviewed 08/03/17 @ 10:08 by Marianna Hernandez) Mother CVA (cerebral vascular accident) Grandmother CVA (cerebral vascular accident) History Items: No pertinent history Review of Systems Constitutional: Denies: Chills, Fever HEENT: Denies: Head Aches, Sinus Congestion, Sinus Drainage Cardiovascular: Denies: Chest Pain, Palpitations Respiratory: Denies: Shortness of Breath Gastrointestinal: Denies: Abdominal Pain Genitourinary: Denies: Dysuria Musculoskeletal: Denies: Joint Pain, Joint Tenderness Skin: Denies: Rash, Wounds Neurological: Reports: Confusion Psychiatric: Denies: Anxiety, Depression, Homicidal Ideations, Suicidal Ideations Hematologic/ Lymphatic: Denies: Easy Bruising, Easy Bleeding Patient Problems: Active and Suspected Problems (Last Reviewed 08/03/17 @ 10:08 by Marianna Hernandez) NSTEMI (non-ST elevated myocardial infarction) (Acute) AMS (altered mental status) (Acute) Objective: The patient's most recent lab work, culture data and imaging studies have all been personally reviewed. - Physical Exam Vitals/I&O's: Vital Signs Temp Pulse Resp BP Pulse Ox 97.8 F 66 12 139/94 H 99 11/02/19 04:50 11/02/19 05:00 11/02/19 05:00 11/02/19 05:00 11/02/19 04:50 Oxygen Flow Rate (L/min) 2 Oxygen Delivery Method Room Air Weight: 218 lb 0.595 oz Body Mass Index (BMI) 32.1 Finger Stick Blood Glucose 108 Intake and Output for Last 24 Hours 10/31/19 11/01/19 11/02/19 23:59 23:59 23:59 Intake Total 500 / 500 0 / 0 Balance 500 / 500 0 / 0 General: Alert, Cooperative, Confused, - - The patient is only oriented to person at the present time. HEENT: Atraumatic, Normocephalic Oral: No Gingival or Mucosal Lesions/ Ulcerations Neck: Supple, No Nodes, Trachea Midline Lungs: Normal air movement, No rhonchi, No wheeze, No rales Cardiovascular: Regular rate, Regular Rhythm, Normal S1, Normal S2 Abdomen: Bowel Sounds Present, Soft, Non Tender Extremities: No clubbing, No cyanosis, No edema Skin: No breakdown Musculoskeletal: No Tenderness to Palpation of Joints or Extremities Lymphatic: No Cervical, Supraclavicular, or Inguinal Adenopathy Neurological: - - Chronic left-sided weakness. Alert and appropriately interactive. Psych/Mental Status: Flat Affect Labs (Last 48 Hours) 11/01/19 11/01/19 11/01/19 12:10 12:10 12:10 WBC 7.5 RBC 4.80 Hgb 14.2 Hct 43.1 MCV 89.8 MCH 29.6 MCHC 32.9 RDW Std Deviation 47.3 H RDW Coeff of Isha 14.6 Plt Count 263 MPV 9.3 Immature Gran % (Auto) 0.300 Neut % (Auto) 64.9 Lymph % (Auto) 16.7 L [place] % (Auto) 13.4 H Eos % (Auto) 3.9 Baso % (Auto) 0.8 Absolute Neuts (auto) 4.9 Absolute Lymphs (auto) 1.25 Nucleated RBC % 0 Specimen Type Sample Site pH Bicarbonate Actual POC Total CO2 Base Excess O2 Saturation ABG pCO2 ABG pO2 Joel Test O2 Delivery Device Blood Gas Notified Whom Blood Gas Notified Time Sodium 142 Potassium 4.4 Chloride 110 H Carbon Dioxide 27.0 Anion Gap 5 BUN 11 Creatinine 0.80 Estim Creat Clear Calc 95.74 Est GFR (MDRD) Af Amer 125 Est GFR (MDRD) Non-Af 103 BUN/Creatinine Ratio 13.7 Glucose 107 H Lactic Acid Calcium 8.7 Total Bilirubin 0.50 AST 54 H ALT 32 Alkaline Phosphatase 61 Troponin I 6.880 H* Total Protein 6.5 Albumin 3.2 Globulin 3.3 Albumin/Globulin Ratio 1.0 TSH Urine Color Urine Clarity Urine pH Ur Specific [place] Urine Protein Urine Glucose (UA) Urine Ketones Urine Occult Blood Urine Nitrite Urine Bilirubin Urine Urobilinogen Ur Leukocyte Esterase Urine RBC Urine WBC Ur Squamous Epith Cells Urine Bacteria Urine Mucus Urine Opiates Screen Urine Methadone Screen Ur Barbiturates Screen Ur Phencyclidine Scrn Ur Amphetamines Screen U Methamphetamin-MDMA U Benzodiazepines Scrn Urine Cocaine Screen U Cannabinoids Screen Ur Drug Screen Comment Ethyl Alcohol POC Glucose 108 11/01/19 11/01/19 11/01/19 12:10 12:10 12:33 WBC RBC Hgb Hct MCV MCH MCHC RDW Std Deviation RDW Coeff of Isha Plt Count MPV Immature Gran % (Auto) Neut % (Auto) Lymph % (Auto) [place] % (Auto) Eos % (Auto) Baso % (Auto) Absolute Neuts (auto) Absolute Lymphs (auto) Nucleated RBC % Specimen Type ART Sample Site L RADIAL pH 7.30 L Bicarbonate Actual 26.6 H POC Total CO2 28 Base Excess 0 O2 Saturation 91 L ABG pCO2 54.2 H ABG pO2 68 L Joel Test POS O2 Delivery Device Room Air Blood Gas Notified Whom ED Blood Gas Notified Time 1233 Sodium Potassium Chloride Carbon Dioxide Anion Gap BUN Creatinine Estim Creat Clear Calc Est GFR (MDRD) Af Amer Est GFR (MDRD) Non-Af BUN/Creatinine Ratio Glucose Lactic Acid 1.2 Calcium Total Bilirubin AST ALT Alkaline Phosphatase Troponin I Total Protein Albumin Globulin Albumin/Globulin Ratio TSH Urine Color Urine Clarity Urine pH Ur Specific [place] Urine Protein Urine Glucose (UA) Urine Ketones Urine Occult Blood Urine Nitrite Urine Bilirubin Urine Urobilinogen Ur Leukocyte Esterase Urine RBC Urine WBC Ur Squamous Epith Cells Urine Bacteria Urine Mucus Urine Opiates Screen Urine Methadone Screen Ur Barbiturates Screen Ur Phencyclidine Scrn Ur Amphetamines Screen U Methamphetamin-MDMA U Benzodiazepines Scrn Urine Cocaine Screen U Cannabinoids Screen Ur Drug Screen Comment Ethyl Alcohol < 3.0 POC Glucose 11/01/19 11/01/19 11/01/19 15:00 15:00 17:05 WBC RBC Hgb Hct MCV MCH MCHC RDW Std Deviation RDW Coeff of Isha Plt Count MPV Immature Gran % (Auto) Neut % (Auto) Lymph % (Auto) [place] % (Auto) Eos % (Auto) Baso % (Auto) Absolute Neuts (auto) Absolute Lymphs (auto) Nucleated RBC % Specimen Type Sample Site pH Bicarbonate Actual POC Total CO2 Base Excess O2 Saturation ABG pCO2 ABG pO2 Joel Test O2 Delivery Device Blood Gas Notified Whom Blood Gas Notified Time Sodium Potassium Chloride Carbon Dioxide Anion Gap BUN Creatinine Estim Creat Clear Calc Est GFR (MDRD) Af Amer Est GFR (MDRD) Non-Af BUN/Creatinine Ratio Glucose Lactic Acid Calcium Total Bilirubin AST ALT Alkaline Phosphatase Troponin I 5.710 H* Total Protein Albumin Globulin Albumin/Globulin Ratio TSH 5.18 H Urine Color Yellow Urine Clarity Clear Urine pH 6.0 Ur Specific [place] 1.010 Urine Protein Negative Urine Glucose (UA) Normal Urine Ketones Negative Urine Occult Blood Negative Urine Nitrite Negative Urine Bilirubin Negative Urine Urobilinogen Normal Ur Leukocyte Esterase Negative Urine RBC 0 SEEN Urine WBC 0 SEEN Ur Squamous Epith Cells 0-5 SEEN Urine Bacteria 0 SEEN Urine Mucus 0 SEEN Urine Opiates Screen NEGATIVE Urine Methadone Screen NEGATIVE Ur Barbiturates Screen NEGATIVE Ur Phencyclidine Scrn NEGATIVE Ur Amphetamines Screen NEGATIVE U Methamphetamin-MDMA NEGATIVE U Benzodiazepines Scrn NEGATIVE Urine Cocaine Screen NEGATIVE U Cannabinoids Screen NEGATIVE Ur Drug Screen Comment Ethyl Alcohol POC Glucose 11/01/19 11/02/19 11/02/19 19:53 00:38 04:10 WBC 7.4 RBC 4.97 Hgb 14.7 Hct 43.7 MCV 87.9 MCH 29.6 MCHC 33.6 RDW Std Deviation 44.9 H RDW Coeff of Isha 13.9 Plt Count 258 MPV 8.8 Immature Gran % (Auto) 0.400 Neut % (Auto) 69.9 Lymph % (Auto) 15.6 L [place] % (Auto) 10.8 H Eos % (Auto) 2.6 Baso % (Auto) 0.7 Absolute Neuts (auto) 5.2 Absolute Lymphs (auto) 1.15 Nucleated RBC % 0 Specimen Type Sample Site pH Bicarbonate Actual POC Total CO2 Base Excess O2 Saturation ABG pCO2 ABG pO2 Joel Test O2 Delivery Device Blood Gas Notified Whom Blood Gas Notified Time Sodium Potassium Chloride Carbon Dioxide Anion Gap BUN Creatinine Estim Creat Clear Calc Est GFR (MDRD) Af Amer Est GFR (MDRD) Non-Af BUN/Creatinine Ratio Glucose Lactic Acid Calcium Total Bilirubin AST ALT Alkaline Phosphatase Troponin I 5.420 H* 4.790 H* Total Protein Albumin Globulin Albumin/Globulin Ratio TSH Urine Color Urine Clarity Urine pH Ur Specific [place] Urine Protein Urine Glucose (UA) Urine Ketones Urine Occult Blood Urine Nitrite Urine Bilirubin Urine Urobilinogen Ur Leukocyte Esterase Urine RBC Urine WBC Ur Squamous Epith Cells Urine Bacteria Urine Mucus Urine Opiates Screen Urine Methadone Screen Ur Barbiturates Screen Ur Phencyclidine Scrn Ur Amphetamines Screen U Methamphetamin-MDMA U Benzodiazepines Scrn Urine Cocaine Screen U Cannabinoids Screen Ur Drug Screen Comment Ethyl Alcohol POC Glucose 11/02/19 04:10 WBC RBC Hgb Hct MCV MCH MCHC RDW Std Deviation RDW Coeff of Isha Plt Count MPV Immature Gran % (Auto) Neut % (Auto) Lymph % (Auto) [place] % (Auto) Eos % (Auto) Baso % (Auto) Absolute Neuts (auto) Absolute Lymphs (auto) Nucleated RBC % Specimen Type Sample Site pH Bicarbonate Actual POC Total CO2 Base Excess O2 Saturation ABG pCO2 ABG pO2 Joel Test O2 Delivery Device Blood Gas Notified Whom Blood Gas Notified Time Sodium 141 Potassium 4.4 Chloride 108 H Carbon Dioxide 28.0 Anion Gap 5 BUN 11 Creatinine 0.65 L Estim Creat Clear Calc 114.00 Est GFR (MDRD) Af Amer 161 Est GFR (MDRD) Non-Af 133 BUN/Creatinine Ratio 17.0 Glucose 86 Lactic Acid Calcium 8.9 Total Bilirubin AST ALT Alkaline Phosphatase Troponin I Total Protein Albumin Globulin Albumin/Globulin Ratio TSH Urine Color Urine Clarity Urine pH Ur Specific [place] Urine Protein Urine Glucose (UA) Urine Ketones Urine Occult Blood Urine Nitrite Urine Bilirubin Urine Urobilinogen Ur Leukocyte Esterase Urine RBC Urine WBC Ur Squamous Epith Cells Urine Bacteria Urine Mucus Urine Opiates Screen Urine Methadone Screen Ur Barbiturates Screen Ur Phencyclidine Scrn Ur Amphetamines Screen U Methamphetamin-MDMA U Benzodiazepines Scrn Urine Cocaine Screen U Cannabinoids Screen Ur Drug Screen Comment Ethyl Alcohol POC Glucose Clinical Impression(s) from Imaging Studies Brain CT 11/01/19 12:21 IMPRESSION: No acute intracranial hemorrhage or mass effect. Stable exam. Electronically Signed: Zaid Collado MD ([place]) at 14:28 EDT , Service support , Chest X-Ray 11/01/19 12:24 IMPRESSION: 1. No airspace consolidation or pleural effusion. 2. Hypoinflation. 3. Cardiomegaly may be exaggerated by hypoinflation and portable technique. Electronically Signed: Zaid Collado MD ([place]) at 14:36 EDT , Service support , Current Medications Aspirin (Ecotrin) 81 mg PO DAILY@0800 [facility] Clopidogrel Bisulfate (Plavix) 75 mg PO DAILY [facility] Dextrose (D50w Syringe) 0 gm IV X1 PRN; Protocol PRN Reason: Hypoglycemia Enoxaparin Sodium (Lovenox) 100 mg 1 mg/kg (100 mg) SC Q12 [facility] Last Admin: 11/01/19 22:07 Dose: 100 mg Documented by: Glucagon () 1 mg IM .X1 PRN PRN Reason: Hypoglycemia Sodium Chloride () 250 mls @ 15 mls/hr IV .[id number] PRN PRN Reason: Saline Flush Sodium Chloride () 250 mls @ 15 mls/hr IV .[id number] PRN PRN Reason: Additional IVPB Infusion Nitroglycerin (Nitrostat) 0.4 mg SUBLINGUAL Q5M PRN PRN Reason: CARDIAC/CHEST PAIN Ondansetron HCl (Zofran) 4 mg IV Q8H PRN PRN PRN Reason: NAUSEA/VOMITING Pravastatin Sodium (Pravachol) 40 mg PO QHS [facility] Last Admin: 11/01/19 22:07 Dose: Not Given Documented by: Sodium Chloride () 10 - 40 ml IV UD PRN PRN Reason: SALINE FLUSH Assessment/Plan Active and Suspected Problems (Last Reviewed 08/03/17 @ 10:08 by Marianna Hernandez) NSTEMI (non-ST elevated myocardial infarction) (Acute) AMS (altered mental status) (Acute) RECOMMENDATIONS: 1. Avoid sedating medications. 2. Consider obtaining neurology consultation. 3. Await echocardiogram results. 4. Outpatient pulmonary follow-up to obtain baseline polysomnogram. 5. The patient is medically stable for transfer out of the intensive care unit. IMPRESSIONS: 1. Encephalopathy Unclear etiology. However, baclofen exposure could also be a contributing factor. There does not appear to be a focal source of infection anywhere. CT head was largely unrevealing. Patient does have baseline MS, and therefore, some of the symptoms could be related to his underlying disease. Consider obtaining neurology consultation for further evaluation. The patient is currently alert and appropriately interactive. He is still somewhat confused, nevertheless. 2. Non-ST segment elevation PR The patient has no known history of coronary artery disease. Cardiology is c urrently following. Echocardiogram will be obtained, with possible cardiac catheterization, depending on results. 3. History of primary progressive MS/hypothyroidism/hyperlipidemia/possible sleep disordered breathing Complicates care, management, recovery and prognosis. Continue home medications as indicated. The patient has had witnessed apneic episodes, raising the suspicion for underlying sleep disordered breathing. He should follow-up in the pulmonary medicine clinic upon discharge to undergo a formal sleep evaluation/diagnostic polysomnogram. This note was generated with [employer] dictation software. It may contain incorrect words, spelling, and punctuation that were not noted in checking the note before signing. Inpatient E&M: 68074 Init Hosp L3
[2019-11-02] MEDS: Aspirin E.C. 81 MG Tablet PO (08:45)
[2019-11-02] MEDS: Clopidogrel Bisulfate 300 MG Tablet PO (08:45)
--- NOTE | 2019-11-02 08:51 | CON.PCM_ITS ---
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 He was admitted through the emergency room on 11/01/2019 with altered mental status. He was found by his home health aide to be lethargic and minimally responsive. He was brought to the emergency room. He had denied any chest pain or shortness of breath or paroxysmal nocturnal dyspnea or pedal edema. He appeared to be mildly confused when he was seen in the emergency room. Remarkably his troponin was noted to be over 6 and his EKG was noted to be normal with nonspecific EKG changes. Brain CT demonstrated no evidence of hemorrhage or mass-effect and chest x-ray demonstrates no significant abnormality. He was admitted to the intensive care unit and cardiology was consulted from the emergency room. This morning he is free of any complaints his troponins are trending down and his EKG remains unchanged and normal. His vitals are stable. He still has no complaints. [] Past Medical History Allergies/Adverse Reactions: Allergies No Known Allergies Allergy (Verified 08/16/17 08:35) Home Medications: Ambulatory Orders Medication Instructions Recorded Levothyroxine [Synthroid] 25 mcg PO DAILY 11/01/19 Rosuvastatin Calcium [Crestor] 5 mg PO QHS 11/01/19 Surgical History: no surgical history Psychiatric History: No pertinent psych hx - *Family History Maternal Family History: Family History (Last Reviewed 08/03/17 @ 10:08 by Marianna Hernandez) Mother CVA (cerebral vascular accident) Grandmother CVA (cerebral vascular accident) History Items: No pertinent history Paternal Family History: Family History (Last Reviewed 08/03/17 @ 10:08 by Marianna Hernandez) Mother CVA (cerebral vascular accident) Grandmother CVA (cerebral vascular accident) History Items: No pertinent history Lives: Alone Smoking Status: Unknown if ever smoked Alcohol: None Drugs: None Review of Systems - Review of Systems General: Denies: Fever, Night Sweats, Fatigue HEENT: Denies: Blurred Vision Cardiovascular: Denies: Chest Discomfort, Shortness of Breath, Orthopnea, PND, Peripheral Edema, Palpitations, Lightheadedness, Dizziness, Near Syncope, Syncope Respiratory: Denies: Cough, Sputum Production, Hemoptysis Gastrointestinal: Denies: Hematemesis, Hematochezia, Melena Genitourinary: Denies: Dysuria, Hematuria Skin: Denies: Rash Neurological: Denies: Weakness Psychiatric: Denies: Anxiety Endocrine: Denies: Unexplained Weight Loss Subjectve: Pleasant gentleman in no distress. Pleasantly confused. Objective: Vital Signs Temp Pulse Resp BP Pulse Ox 98.0 F 95 17 144/83 H 95 11/02/19 07:00 11/02/19 08:00 11/02/19 08:00 11/02/19 08:00 11/02/19 08:00 Oxygen Flow Rate (L/min) 2 Oxygen Delivery Method Room Air Weight: 218 lb 0.595 oz Body Mass Index (BMI) 32.1 Finger Stick Blood Glucose 108 Intake and Output for Last 24 Hours 10/31/19 11/01/19 11/02/19 23:59 23:59 23:59 Intake Total 500 / 500 0 / 0 Balance 500 / 500 0 / 0 General: Awake, Alert HEENT: PERRL, EOMI, Sclera Non Icteric Neck: Supple, Good ROM, No Lymph Node Enlargement Lungs: Clear to auscultation Cardiovascular: Regular Rhythm, Normal S1, Normal S2, No Murmurs, No Rubs, No Gallops Vascular: No Carotid Bruits, Normal Femoral Pulses, Normal Radial Pulses, Normal Dorsalis Pedal Pulse, Normal Posterior Tibial Pulses Abdomen: Bowel Sounds Present, Soft, Non Tender, No HSM, No Organomegaly Extremities: No Cyanosis, No Clubbing, No edema Musculoskeletal: No Erythema Skin: No Rashes Lymphatic: No Lymph Node Enlargement Neurological: - - Left-sided hemiplegia Psych/Mental Status: Flat Affect 11/01/19 12:10: WBC 7.5, RBC 4.80, Hgb 14.2, Hct 43.1, MCV 89.8, MCH 29.6, MCHC 32.9, Plt Count 263, MPV 9.3, Immature Gran % (Auto) 0.300, Neut % (Auto) 64.9, Lymph % (Auto) 16.7 L, [place] % (Auto) 13.4 H, Eos % (Auto) 3.9, Baso % (Auto) 0.8, Absolute Neuts (auto) 4.9, Nucleated RBC % 0 11/01/19 12:10: Sodium 142, Potassium 4.4, Chloride 110 H, Carbon Dioxide 27.0, Anion Gap 5, BUN 11, Creatinine 0.80, Est GFR (MDRD) Af Amer 125, Est GFR (MDRD) Non-Af 103, BUN/Creatinine Ratio 13.7, Glucose 107 H, Calcium 8.7, Total Bilirubin 0.50, Troponin I 6.880 H* 11/01/19 12:10: Lactic Acid 1.2 11/01/19 12:33: pH 7.30 L, Bicarbonate Actual 26.6 H, POC Total CO2 28, Base Excess 0, O2 Saturation 91 L, ABG pCO2 54.2 H, ABG pO2 68 L, Joel Test POS 11/01/19 15:00: Urine Color Yellow, Urine Clarity Clear, Urine pH 6.0, Ur Specific [place] 1.010, Urine Protein Negative, Urine Glucose (UA) Normal, Urine Ketones Negative, Urine Occult Blood Negative, Urine Nitrite Negative, Urine Bilirubin Negative, Urine Urobilinogen Normal, Ur Leukocyte Esterase Negative, Urine RBC 0 SEEN, Urine WBC 0 SEEN 11/01/19 17:05: Troponin I 5.710 H* 11/01/19 19:53: Troponin I 5.420 H* 11/02/19 00:38: Troponin I 4.790 H* 11/02/19 04:10: WBC 7.4, RBC 4.97, Hgb 14.7, Hct 43.7, MCV 87.9, MCH 29.6, MCHC 33.6, Plt Count 258, MPV 8.8, Immature Gran % (Auto) 0.400, Neut % (Auto) 69.9, Lymph % (Auto) 15.6 L, [place] % (Auto) 10.8 H, Eos % (Auto) 2.6, Baso % (Auto) 0.7, Absolute Neuts (auto) 5.2, Nucleated RBC % 0 11/02/19 04:10: Sodium 141, Potassium 4.4, Chloride 108 H, Carbon Dioxide 28.0, Anion Gap 5, BUN 11, Creatinine 0.65 L, Est GFR (MDRD) Af Amer 161, Est GFR (MDRD) Non-Af 133, BUN/Creatinine Ratio 17.0, Glucose 86, Calcium 8.9 Rhythm: EKG: Normal sinus rhythm with no acute changes. ECHO: Stress Test: Cardiac Cath: PCI: CT Surgery: Holter monitor: EPS: PPM: CXR: Chest CT Scan: Assessment/Plan 1. Non-ST elevation myocardial infarction * Patient presents with non-ST elevation myocardial infarction. He has not had any prior history of coronary artery disease. * Recommendations will include obtaining an echocardiogram to assess the ventricular function * Will recommend loading with clopidogrel and standard clopidogrel dosing * Will start a beta-yoav, aspirin and high intensity statin. * Depending on the findings of the echocardiogram in a.m. further recommendations will be made as to whether he will be treated with an invasive approach with a left heart catheterization, or medical therapy. * Will discuss further with caregiver. * * Thank you for allowing me to participate in the care of your patient. Please don't hesitate to call if any issues arise.
[2019-11-02] MEDS: Metoprolol Tartrate 25 MG Tablet PO ×2 (09:35→21:03)
[2019-11-02] MEDS: Enoxaparin 100 MG/ML Syringe SC ×2 (09:35→21:03)
--- NOTE | 2019-11-02 10:52 | PN_ITS ---
Patient Problems: Active and Suspected Problems (Last Reviewed 08/03/17 @ 10:08 by Marianna Hernandez) NSTEMI (non-ST elevated myocardial infarction) (Acute) AMS (altered mental status) (Acute) Subjective: Patient seen and examined today. He is more alert today and able to answer questions. He is however alert and oriented to only self. He denied any headache, blurred vision, chest pain, shortness of breath, nausea vomiting or diarrhea. He does not remember how or why he was brought to the hospital. He has remained hemodynamically stable. Labs and vitals reviewed. Troponins trended downwards to a karyn of 4.790. TSH is mildly elevated at 5.18. CBC is unremarkable. Vitals/I&O's: Vital Signs Temp Pulse Resp BP Pulse Ox 98.3 F 98 14 138/89 H 94 11/02/19 10:00 11/02/19 10:00 11/02/19 10:00 11/02/19 10:00 11/02/19 10:00 Oxygen Flow Rate (L/min) 2 Oxygen Delivery Method Room Air Weight: 218 lb 0.595 oz Body Mass Index (BMI) 32.1 Finger Stick Blood Glucose 108 Intake and Output for Last 24 Hours 10/31/19 11/01/19 11/02/19 23:59 23:59 23:59 Intake Total 500 / 500 0 / 0 Balance 500 / 500 0 / 0 General: alert, oriented x 1 (to self), cooperative HEENT: Atraumatic, PERRLA, EOMI, Normocephalic Oral: Dry Mucosa Neck: Supple, No JVD, Negative Carotid Bruits Lungs: Clear to auscultation, Normal air movement, No rhonchi, No wheeze, on room air Cardiovascular: Regular rate, Regular Rhythm, Normal S1, Normal S2 Abdomen: Bowel Sounds Present, Soft, Non Tender Extremities: No clubbing, No cyanosis, No edema, Capillary Refill Less than 3 Seconds Skin: No rashes, No breakdown Musculoskeletal: No Tenderness to Palpation of Joints or Extremities Lymphatic: No Cervical, Supraclavicular, or Inguinal Adenopathy Neurological: - - has left UE and LLE residual weakness, from MS. alert, CN II- XII grossly intact Psychological: normal affect Laboratory Results 11/01/19 12:10: POC Glucose 108 11/01/19 12:10: WBC 7.5, RBC 4.80, Hgb 14.2, Hct 43.1, MCV 89.8, MCH 29.6, MCHC 32.9, RDW Std Deviation 47.3 H, RDW Coeff of Isha 14.6, Plt Count 263, MPV 9.3, Immature Gran % (Auto) 0.300, Neut % (Auto) 64.9, Lymph % (Auto) 16.7 L, [place] % (Auto) 13.4 H, Eos % (Auto) 3.9, Baso % (Auto) 0.8, Absolute Neuts (auto) 4.9, Absolute Lymphs (auto) 1.25, Nucleated RBC % 0 11/01/19 12:10: Sodium 142, Potassium 4.4, Chloride 110 H, Carbon Dioxide 27.0, Anion Gap 5, BUN 11, Creatinine 0.80, Estim Creat Clear Calc 95.74, Est GFR (MDRD) Af Amer 125, Est GFR (MDRD) Non-Af 103, BUN/Creatinine Ratio 13.7, G lucose 107 H, Calcium 8.7, Total Bilirubin 0.50, AST 54 H, ALT 32, Alkaline Phosphatase 61, Troponin I 6.880 H*, Total Protein 6.5, Albumin 3.2, Globulin 3.3, Albumin/Globulin Ratio 1.0 11/01/19 12:10: Ethyl Alcohol < 3.0 11/01/19 12:10: Lactic Acid 1.2 11/01/19 12:33: Specimen Type ART, Sample Site L RADIAL, pH 7.30 L, Bicarbonate Actual 26.6 H, POC Total CO2 28, Base Excess 0, O2 Saturation 91 L, ABG pCO2 54.2 H, ABG pO2 68 L, Joel Test POS, O2 Delivery Device Room Air, Blood Gas Notified Whom ED , Blood Gas Notified Time 1233 11/01/19 15:00: Urine Color Yellow, Urine Clarity Clear, Urine pH 6.0, Ur Specific [place] 1.010, Urine Protein Negative, Urine Glucose (UA) Normal, Urine Ketones Negative, Urine Occult Blood Negative, Urine Nitrite Negative, Urine Bilirubin Negative, Urine Urobilinogen Normal, Ur Leukocyte Esterase Negative, Urine RBC 0 SEEN, Urine WBC 0 SEEN, Ur Squamous Epith Cells 0-5 SEEN, Urine Bacteria 0 SEEN, Urine Mucus 0 SEEN 11/01/19 15:00: Urine Opiates Screen NEGATIVE, Urine Methadone Screen NEGATIVE, Ur Barbiturates Screen NEGATIVE, Ur Phencyclidine Scrn NEGATIVE, Ur Amphetamines Screen NEGATIVE, U Methamphetamin-MDMA NEGATIVE, U Benzodiazepines Scrn NEGATIVE, Urine Cocaine Screen NEGATIVE, U Cannabinoids Screen NEGATIVE, Ur Drug Screen Comment 11/01/19 17:05: Troponin I 5.710 H*, TSH 5.18 H 11/01/19 19:53: Troponin I 5.420 H* 11/02/19 00:38: Troponin I 4.790 H* 11/02/19 04:10: WBC 7.4, RBC 4.97, Hgb 14.7, Hct 43.7, MCV 87.9, MCH 29.6, MCHC 33.6, RDW Std Deviation 44.9 H, RDW Coeff of Isha 13.9, Plt Count 258, MPV 8.8, Immature Gran % (Auto) 0.400, Neut % (Auto) 69.9, Lymph % (Auto) 15.6 L, [place] % (Auto) 10.8 H, Eos % (Auto) 2.6, Baso % (Auto) 0.7, Absolute Neuts (auto) 5.2, Absolute Lymphs (auto) 1.15, Nucleated RBC % 0 11/02/19 04:10: Sodium 141, Potassium 4.4, Chloride 108 H, Carbon Dioxide 28.0, Anion Gap 5, BUN 11, Creatinine 0.65 L, Estim Creat Clear Calc 114.00, Est GFR (MDRD) Af Amer 161, Est GFR (MDRD) Non-Af 133, BUN/Creatinine Ratio 17.0, Glucose 86, Calcium 8.[address] 11/01/19 12:21 IMPRESSION: No acute intracranial hemorrhage or mass effect. Stable exam. Electronically Signed: Zaid Collado MD ([place]) at 14:28 EDT , Service support , Chest X-Ray 11/01/19 12:24 IMPRESSION: 1. No airspace consolidation or pleural effusion. 2. Hypoinflation. 3. Cardiomegaly may be exaggerated by hypoinflation and portable technique. Electronically Signed: Zaid Collado MD ([place]) at 14:36 EDT , Service support , Current Medications Aspirin (Ecotrin) 81 mg PO DAILY@0800 [facility] Last Admin: 11/02/19 08:45 Dose: 81 mg Documented by: Clopidogrel Bisulfate (Plavix) 75 mg PO DAILY [facility] Dextrose (D50w Syringe) 0 gm IV X1 PRN; Protocol PRN Reason: Hypoglycemia Enoxaparin Sodium (Lovenox) 100 mg 1 mg/kg (100 mg) SC Q12 [facility] Last Admin: 11/02/19 09:35 Dose: 100 mg Documented by: Glucagon () 1 mg IM .X1 PRN PRN Reason: Hypoglycemia Sodium Chloride () 250 mls @ 15 mls/hr IV .[id number] PRN PRN Reason: Saline Flush Sodium Chloride () 250 mls @ 15 mls/hr IV .[id number] PRN PRN Reason: Additional IVPB Infusion Metoprolol Tartrate (Lopressor (Beta Milton)) 25 mg PO BID [facility] Last Admin: 11/02/19 09:35 Dose: 25 mg Documented by: Nitroglycerin (Nitrostat) 0.4 mg SUBLINGUAL Q5M PRN PRN Reason: CARDIAC/CHEST PAIN Ondansetron HCl (Zofran) 4 mg IV Q8H PRN PRN PRN Reason: NAUSEA/VOMITING Pravastatin Sodium (Pravachol) 40 mg PO QHS [facility] Last Admin: 11/01/19 22:07 Dose: Not Given Documented by: Sodium Chloride () 10 - 40 ml IV UD PRN PRN Reason: SALINE FLUSH STROKE Vital Signs/Narrative: Vital Signs Temp Pulse Resp BP Pulse Ox 11/02/19 10:00 98.3 F 98 14 138/89 H 94 11/02/19 09:35 87 11/02/19 09:00 85 17 135/89 H 94 11/02/19 08:00 95 17 144/83 H 95 11/02/19 07:21 70 11/02/19 07:00 98.0 F 72 12 133/85 H 98 Medical Necessity - Tobacco Use Smoking Status: Unknown if ever smoked Assessment/Plan All Active Problems (Last Reviewed 08/03/17 @ 10:08 by Marianna Hernandez) NSTEMI (non-ST elevated myocardial infarction) (Acute) AMS (altered mental status) (Acute) Abnormal EKG (Acute) Fall (Resolved) Ribs, multiple fractures (Resolved) 64 y/o admitted with a complaint of altered mental status, and found to have elevated troponins 1. Acute metabolic encephalopathy * Due to non-STEMI and probable accidental baclofen overdose. * patient more alert and oriented today. Able to answer questions * PT/;OT consult * critical care on board * continue gentle hydration with IVF until he passes swallow exam * narcan prn. * 2. Nonstemi * admitting troponin was 6.88; trended down to a karyn of 4.790 * EKG showed no acute ST changes * received loading dose of plavix POO 300mg once today; couldnt take it yesterday as he was too lethargic * on therapeutic lovenox * Po aspirin 81mg daily * cardiology on board * for 2D echo tomorrow * high intensity atorvastatin * 3. Primary progessive multiple sclerosis * has residual left sided weakness * stable * has baclofen pump in place; may need to have baclofen pump reviewed by pain management tomorrow * DVT prophylaxis: on therapeutic lovenox o/a of nonstemi Code status: full code * Inpatient E&M: 02856 Subs Hosp L3
--- NOTE | 2019-11-02 11:20 | NURSING ---
Patient alert and oriented to person and that he is at a hospital. Discussed with patient about updating family on how well he was doing and he said he did not want that done at this time. When asked if I would be able to update them if they called in, and he was agreeable to that. Will discuss again with him later. Also asked patient if he had a POA and he said he does not.
[2019-11-02 12:08] LABS: Free T3 2.1 pg/mL (2.18-3.98); T4 Free Direct 1.11 ng/dL (0.76-1.46)
--- NOTE | 2019-11-02 13:29 | NURSING ---
Report given to Alen JENSEN on PCU. Discussed with pt about calling daughter, any other family, or friend to say he is going to a different floor, but he does not want me to at this time
[2019-11-02] MEDS: Pravastatin 40 MG Tablet PO (21:03)
[2019-11-03] VITALS (11 sets, daily range): BP systolic 145–152; BP diastolic 75–96; PULSE 81–96; RESP 16–18; TEMP 36.7–37.1; O2SAT 96–98
[2019-11-03 06:05] LABS: Absolute Lymphocyte Count 1.46 X10^3/uL (0.83-4.51); Basophil# 0.07 X10^3/uL; Basophil% 0.8 % (0-1); Eosinophils% 1.1 % (0-5); Hematocrit 44.1 % (40-54); Hemoglobin 14.7 g/dL (13.0-16.5); Lymphocyte # 1.46 X10^3/ul (4.0); Lymphocyte % 16.7 % (19-41); Mean Corp Hgb Conc 33.3 g/dL (32-36); Mean Corpuscular Hgb 29.1 pg (27.0-32.0); Mean Corpuscular Volume 87.3 fL (80-94); Mean Platelet Vol. 8.9 fl (6.2-12.0); Monocyte# 1.09 X10^3/uL; Monocyte% 12.4 % (0-10); NRBC Flagged by Analyzer 0 % (0-5); Neutrophil # 6.02 X10^3/uL (2.7-7.7); Neutrophil % 68.8 % (47-70); Platelet Count 293 K/mm3 (150-450); RBC Distribution Width SD 44.2 fl (35.1-43.9); Red Blood Count 5.05 M/mm3 (4.6-6.2); White Blood Count 8.8 K/mm3 (4.4-11.0)
[2019-11-03 06:29] LABS: Anion Gap 8 (5-15); BUN 14 mg/dL (7-18); BUN/Creat Ratio 18.4 RATIO (10-20); Calcium,Total 9.1 mg/dL (8.5-10.1); Chloride 103 mmol/L (98-107); Creatinine, Serum 0.76 mg/dL (0.70-1.30); EST Glomerular Filtration Rate 110 mL/min (>60); Est Glom Filt Rate - Afr Amer 133 mL/min (>60); Glucose 95 mg/dL (74-106); Potassium 3.9 mmol/L (3.5-5.1); Sodium Level 137 mmol/L (136-145)
[2019-11-03] MEDS: Aspirin E.C. 81 MG Tablet PO (08:58)
[2019-11-03] MEDS: Clopidogrel Bisulfate 75 MG Tablet PO (08:59)
[2019-11-03] MEDS: Enoxaparin 100 MG/ML Syringe SC ×2 (08:59→21:31)
[2019-11-03] MEDS: Metoprolol Tartrate 25 MG Tablet PO ×2 (09:01→21:31)
--- NOTE | 2019-11-03 09:19 | PN.CARD_ITS ---
Subjectve: Patient seen and evaluated. Appears to be doing well. Objective: Vital Signs Temp Pulse Resp BP Pulse Ox 98.0 F 94 18 152/96 H 96 11/03/19 04:00 11/03/19 09:01 11/03/19 04:00 11/03/19 04:00 11/03/19 04:00 Oxygen Flow Rate (L/min) 2 Oxygen Delivery Method Room Air Weight: 210 lb 1.608 oz Body Mass Index (BMI) 32.1 Finger Stick Blood Glucose 108 Intake and Output for Last 24 Hours 11/01/19 11/02/19 11/03/19 23:59 23:59 23:59 Intake Total 500 / 500 690 / 690 Output Total 550 / 550 Balance 500 / 500 690 / 690 -550 / -550 General: Awake, Alert, Oriented x 3 HEENT: PERRL, EOMI, Sclera Non Icteric Neck: Supple, Good ROM, No Lymph Node Enlargement Lungs: Clear to auscultation Cardiovascular: Regular Rhythm, Normal S1, Normal S2, No Murmurs, No Rubs, No Gallops Vascular: No Carotid Bruits, Normal Femoral Pulses, Normal Radial Pulses, Normal Dorsalis Pedal Pulse, Normal Posterior Tibial Pulses Abdomen: Bowel Sounds Present, Soft, Non Tender, No HSM, No Organomegaly Extremities: No Cyanosis, No Clubbing, No edema Musculoskeletal: No Erythema Skin: No Rashes Lymphatic: No Lymph Node Enlargement Neurological: No Focal Motor or Sensory Deficit Psych/Mental Status: Appropriate 11/03/19 05:56: WBC 8.8, RBC 5.05, Hgb 14.7, Hct 44.1, MCV 87.3, MCH 29.1, MCHC 33.3, Plt Count 293, MPV 8.9, Immature Gran % (Auto) 0.200, Neut % (Auto) 68.8, Lymph % (Auto) 16.7 L, [place] % (Auto) 12.4 H, Eos % (Auto) 1.1, Baso % (Auto) 0.8, Absolute Neuts (auto) 6.0, Nucleated RBC % 0 11/03/19 05:56: Sodium 137, Potassium 3.9, Chloride 103, Carbon Dioxide 26.0, Anion Gap 8, BUN 14, Creatinine 0.76, Est GFR (MDRD) Af Amer 133, Est GFR (MDRD) Non-Af 110, BUN/Creatinine Ratio 18.4, Glucose 95, Calcium 9.1 Rhythm: EKG: ECHO: Stress Test: Cardiac Cath: PCI: CT Surgery: Holter monitor: EPS: PPM: CXR: Chest CT Scan: Medical Necessity - Tobacco Use Smoking Status: Unknown if ever smoked Assessment/Plan 1. Non-ST elevation myocardial infarction * Patient presents with non-ST elevation myocardial infarction. He has not had any prior history of coronary artery disease. * Recommendations will include obtaining an echocardiogram to assess the ventricular function, which is being obtained today * Will recommend loading with clopidogrel and standard clopidogrel dosing * Will continue a beta-yoav, aspirin and high intensity statin. * Depending on the findings of the echocardiogram . further recommendations will be made as to whether he will be treated with an invasive approach with a left heart catheterization, or medical therapy. * Will discuss further with caregiver. * Tentative plans are for cardiac catheterization in a.m. * Thank you for allowing me to participate in the care of your patient. Please don't hesitate to call if any issues arise.
--- NOTE | 2019-11-03 09:29 | PCM.PN.HOSP ---
Patient Problems: Active and Suspected Problems (Last Reviewed 08/03/17 @ 10:08 by Marianna Hernandez) NSTEMI (non-ST elevated myocardial infarction) (Acute) AMS (altered mental status) (Acute) Subjective: Patient seen and examined. He has no complaints. Review of symptoms otherwise negative. He is awaiting 2D echo today. Labs and vitals reviewed. He has remained hemodynamically stable. Vitals/I&O's: Vital Signs Temp Pulse Resp BP Pulse Ox 98.0 F 94 18 152/96 H 96 11/03/19 04:00 11/03/19 09:01 11/03/19 04:00 11/03/19 04:00 11/03/19 04:00 Oxygen Flow Rate (L/min) 2 Oxygen Delivery Method Room Air Weight: 210 lb 1.608 oz Body Mass Index (BMI) 32.1 Finger Stick Blood Glucose 108 Intake and Output for Last 24 Hours 11/01/19 11/02/19 11/03/19 23:59 23:59 23:59 Intake Total 500 / 500 690 / 690 Output Total 550 / 550 Balance 500 / 500 690 / 690 -550 / -550 General: alert, oriented , cooperative HEENT: Atraumatic, PERRLA, EOMI, Normocephalic Oral: Dry Mucosa Neck: Supple, No JVD, Negative Carotid Bruits Lungs: Clear to auscultation, Normal air movement, No rhonchi, No wheeze, on room air Cardiovascular: Regular rate, Regular Rhythm, Normal S1, Normal S2 Abdomen: Bowel Sounds Present, Soft, Non Tender Extremities: No clubbing, No cyanosis, No edema, Capillary Refill Less than 3 Seconds Skin: No rashes, No breakdown Musculoskeletal: No Tenderness to Palpation of Joints or Extremities Lymphatic: No Cervical, Supraclavicular, or Inguinal Adenopathy Neurological: - - has residual left UE and LLE residual weakness, from MS. alert, CN II-XII grossly intact Psychological: normal affect Laboratory Results 11/02/19 00:38: Free T4 1.11, Free T3 pg/dL 2.1 L 11/03/19 05:56: WBC 8.8, RBC 5.05, Hgb 14.7, Hct 44.1, MCV 87.3, MCH 29.1, MCHC 33.3, RDW Std Deviation 44.2 H, RDW Coeff of Isha 14.0, Plt Count 293, MPV 8.9, Immature Gran % (Auto) 0.200, Neut % (Auto) 68.8, Lymph % (Auto) 16.7 L, [place] % (Auto) 12.4 H, Eos % (Auto) 1.1, Baso % (Auto) 0.8, Absolute Neuts (auto) 6.0, Absolute Lymphs (auto) 1.46, Nucleated RBC % 0 11/03/19 05:56: Sodium 137, Potassium 3.9, Chloride 103, Carbon Dioxide 26.0, Anion Gap 8, BUN 14, Creatinine 0.76, Estim Creat Clear Calc 97.50, Est GFR (MDRD) Af Amer 133, Est GFR (MDRD) Non-Af 110, BUN/Creatinine Ratio 18.4, Glucose 95, Calcium 9.1 Current Medications Aspirin (Ecotrin) 81 mg PO DAILY@0800 [facility] Last Admin: 11/03/19 08:58 Dose: 81 mg Documented by: Clopidogrel Bisulfate (Plavix) 75 mg PO DAILY [facility] Last Admin: 11/03/19 08:59 Dose: 75 mg Documented by: Dextrose (D50w Syringe) 0 gm IV X1 PRN; Protocol PRN Reason: Hypoglycemia Enoxaparin Sodium (Lovenox) 100 mg 1 mg/kg (100 mg) SC Q12 [facility] Last Admin: 11/03/19 08:59 Dose: 100 mg Documented by: Glucagon () 1 mg IM .X1 PRN PRN Reason: Hypoglycemia Sodium Chloride () 250 mls @ 15 mls/hr IV .[id number] PRN PRN Reason: Saline Flush Sodium Chloride () 250 mls @ 15 mls/hr IV .[id number] PRN PRN Reason: Additional IVPB Infusion Sodium Chloride () 1,000 mls @ 0 mls/hr IV .Q0M [facility] Metoprolol Tartrate (Lopressor (Beta Milton)) 25 mg PO BID [facility] Last Admin: 11/03/19 09:01 Dose: 25 mg Documented by: Nitroglycerin (Nitrostat) 0.4 mg SUBLINGUAL Q5M PRN PRN Reason: CARDIAC/CHEST PAIN Ondansetron HCl (Zofran) 4 mg IV Q8H PRN PRN PRN Reason: NAUSEA/VOMITING Pravastatin Sodium (Pravachol) 40 mg PO QHS [facility] Last Admin: 11/02/19 21:03 Dose: 40 mg Documented by: Sodium Chloride () 10 - 40 ml IV UD PRN PRN Reason: SALINE FLUSH STROKE Vital Signs/Narrative: Vital Signs Pulse 11/03/19 09:01 94 Medical Necessity - Tobacco Use Smoking Status: Unknown if ever smoked Assessment/Plan All Active Problems (Last Reviewed 08/03/17 @ 10:08 by Marianna Hernandez) NSTEMI (non-ST elevated myocardial infarction) (Acute) AMS (altered mental status) (Acute) Abnormal EKG (Acute) Fall (Resolved) Ribs, multiple fractures (Resolved) 64 y/o admitted with a complaint of altered mental status, and found to have elevated troponins 1. Acute metabolic encephalopathy Due to non-STEMI and probable accidental baclofen overdose. resolved. patient awake, alert and communicating well PT/OT on board patient tells me he doesnt think there is anything wrong with his baclofen pump, as he just had it changed ~ 1 week ago. wants to follow up with pain management on outpatient basis narcan prn. 2. Nonstemi admitting troponin was 6.88; trended down to a karyn of 4.790 EKG showed no acute ST changes on plavix 75mg daily on therapeutic lovenox Po aspirin 81mg daily cardiology on board for 2D echo today; cardiology to decide further management after reviewing 2D echo high intensity atorvastatin 3. Primary progessive multiple sclerosis has residual left sided weakness stable has baclofen pump in place DVT prophylaxis: on therapeutic lovenox o/a of nonstemi Code status: full code Inpatient E&M: 82892 Subs Hosp L2
--- NOTE | 2019-11-03 10:00 | PN_ITS ---
Subjective: Patient did okay overnight. Patient has remained hemodynamically stable on room air. Patient with no complaints this morning, but does appear to be slightly confused. Patient does understand that he is in the hospital. No abdominal pain is been reported. General: Alert, Cooperative, No apparent distress, - - No conversational dyspnea HEENT: Atraumatic, PERRLA, EOMI, Normocephalic, - - No scleral icterus or injection noted Oral: Moist Mucosa, No Gingival or Mucosal Lesions/ Ulcerations Neck: Supple, No JVD, No Nodes, Trachea Midline Lungs: Clear to auscultation, Normal air movement, No rhonchi, No wheeze, No ral es, - - Symmetric expansion. No dullness to percussion. Cardiovascular: Regular rate, Regular Rhythm, Normal S1, Normal S2, No murmurs, No rub noted, No Gallop Abdomen: Bowel Sounds Present, Soft, Non Tender, Non-Distended Extremities: No clubbing, No cyanosis, No edema Skin: No rashes, No breakdown Musculoskeletal: No Tenderness to Palpation of Joints or Extremities Lymphatic: No Cervical, Supraclavicular, or Inguinal Adenopathy Neurological: Cranial nerves II-XII grossly intact, - - Chronic left-sided weakness. Alert and tracks appropriately. Psych/Mental Status: Flat Affect Vital Signs Temp Pulse Resp BP Pulse Ox 36.7 C 94 18 152/96 H 96 11/03/19 04:00 11/03/19 09:01 11/03/19 04:00 11/03/19 04:00 11/03/19 04:00 Oxygen Flow Rate (L/min) 2 Oxygen Delivery Method Room Air Weight: 95.3 kg Body Mass Index (BMI) 32.1 Finger Stick Blood Glucose 108 Intake and Output for Last 24 Hours 11/01/19 11/02/19 11/03/19 23:59 23:59 23:59 Intake Total 500 / 500 690 / 690 Output Total 550 / 550 Balance 500 / 500 690 / 690 -550 / -550 Labs (Last 48 Hours) 11/01/19 11/01/19 11/01/19 12:10 12:10 12:10 WBC 7.5 RBC 4.80 Hgb 14.2 Hct 43.1 MCV 89.8 MCH 29.6 MCHC 32.9 RDW Std Deviation 47.3 H RDW Coeff of Isha 14.6 Plt Count 263 MPV 9.3 Immature Gran % (Auto) 0.300 Neut % (Auto) 64.9 Lymph % (Auto) 16.7 L Wright % (Auto) 13.4 H Eos % (Auto) 3.9 Baso % (Auto) 0.8 Absolute Neuts (auto) 4.9 Absolute Lymphs (auto) 1.25 Nucleated RBC % 0 Specimen Type Sample Site pH Bicarbonate Actual POC Total CO2 Base Excess O2 Saturation ABG pCO2 ABG pO2 Joel Test O2 Delivery Device Blood Gas Notified Whom Blood Gas Notified Time Sodium 142 Potassium 4.4 Chloride 110 H Carbon Dioxide 27.0 Anion Gap 5 BUN 11 Creatinine 0.80 Estim Creat Clear Calc 95.74 Est GFR (MDRD) Af Amer 125 Est GFR (MDRD) Non-Af 103 BUN/Creatinine Ratio 13.7 Glucose 107 H Lactic Acid Calcium 8.7 Total Bilirubin 0.50 AST 54 H ALT 32 Alkaline Phosphatase 61 Troponin I 6.880 H* Total Protein 6.5 Albumin 3.2 Globulin 3.3 Albumin/Globulin Ratio 1.0 TSH Free T4 Free T3 pg/dL Urine Color Urine Clarity Urine pH Ur Specific [place] Urine Protein Urine Glucose (UA) Urine Ketones Urine Occult Blood Urine Nitrite Urine Bilirubin Urine Urobilinogen Ur Leukocyte Esterase Urine RBC Urine WBC Ur Squamous Epith Cells Urine Bacteria Urine Mucus Urine Opiates Screen Urine Methadone Screen Ur Barbiturates Screen Ur Phencyclidine Scrn Ur Amphetamines Screen U Methamphetamin-MDMA U Benzodiazepines Scrn Urine Cocaine Screen U Cannabinoids Screen Ur Drug Screen Comment Ethyl Alcohol POC Glucose 108 11/01/19 11/01/19 11/01/19 12:10 12:10 12:33 WBC RBC Hgb Hct MCV MCH MCHC RDW Std Deviation RDW Coeff of Isha Plt Count MPV Immature Gran % (Auto) Neut % (Auto) Lymph % (Auto) Wright % (Auto) Eos % (Auto) Baso % (Auto) Absolute Neuts (auto) Absolute Lymphs (auto) Nucleated RBC % Specimen Type ART Sample Site L RADIAL pH 7.30 L Bicarbonate Actual 26.6 H POC Total CO2 28 Base Excess 0 O2 Saturation 91 L ABG pCO2 54.2 H ABG pO2 68 L Joel Test POS O2 Delivery Device Room Air Blood Gas Notified Whom ED Blood Gas Notified Time 1233 Sodium Potassium Chloride Carbon Dioxide Anion Gap BUN Creatinine Estim Creat Clear Calc Est GFR (MDRD) Af Amer Est GFR (MDRD) Non-Af BUN/Creatinine Ratio Glucose Lactic Acid 1.2 Calcium Total Bilirubin AST ALT Alkaline Phosphatase Troponin I Total Protein Albumin Globulin Albumin/Globulin Ratio TSH Free T4 Free T3 pg/dL Urine Color Urine Clarity Urine pH Ur Specific [place] Urine Protein Urine Glucose (UA) Urine Ketones Urine Occult Blood Urine Nitrite Urine Bilirubin Urine Urobilinogen Ur Leukocyte Esterase Urine RBC Urine WBC Ur Squamous Epith Cells Urine Bacteria Urine Mucus Urine Opiates Screen Urine Methadone Screen Ur Barbiturates Screen Ur Phencyclidine Scrn Ur Amphetamines Screen U Methamphetamin-MDMA U Benzodiazepines Scrn Urine Cocaine Screen U Cannabinoids Screen Ur Drug Screen Comment Ethyl Alcohol < 3.0 POC Glucose 11/01/19 11/01/19 11/01/19 15:00 15:00 17:05 WBC RBC Hgb Hct MCV MCH MCHC RDW Std Deviation RDW Coeff of Isha Plt Count MPV Immature Gran % (Auto) Neut % (Auto) Lymph % (Auto) Wright % (Auto) Eos % (Auto) Baso % (Auto) Absolute Neuts (auto) Absolute Lymphs (auto) Nucleated RBC % Specimen Type Sample Site pH Bicarbonate Actual POC Total CO2 Base Excess O2 Saturation ABG pCO2 ABG pO2 Joel Test O2 Delivery Device Blood Gas Notified Whom Blood Gas Notified Time Sodium Potassium Chloride Carbon Dioxide Anion Gap BUN Creatinine Estim Creat Clear Calc Est GFR (MDRD) Af Amer Est GFR (MDRD) Non-Af BUN/Creatinine Ratio Glucose Lactic Acid Calcium Total Bilirubin AST ALT Alkaline Phosphatase Troponin I 5.710 H* Total Protein Albumin Globulin Albumin/Globulin Ratio TSH 5.18 H Free T4 Free T3 pg/dL Urine Color Yellow Urine Clarity Clear Urine pH 6.0 Ur Specific [place] 1.010 Urine Protein Negative Urine Glucose (UA) Normal Urine Ketones Negative Urine Occult Blood Negative Urine Nitrite Negative Urine Bilirubin Negative Urine Urobilinogen Normal Ur Leukocyte Esterase Negative Urine RBC 0 SEEN Urine WBC 0 SEEN Ur Squamous Epith Cells 0-5 SEEN Urine Bacteria 0 SEEN Urine Mucus 0 SEEN Urine Opiates Screen NEGATIVE Urine Methadone Screen NEGATIVE Ur Barbiturates Screen NEGATIVE Ur Phencyclidine Scrn NEGATIVE Ur Amphetamines Screen NEGATIVE U Methamphetamin-MDMA NEGATIVE U Benzodiazepines Scrn NEGATIVE Urine Cocaine Screen NEGATIVE U Cannabinoids Screen NEGATIVE Ur Drug Screen Comment Ethyl Alcohol POC Glucose 11/01/19 11/02/19 11/02/19 19:53 00:38 00:38 WBC RBC Hgb Hct MCV MCH MCHC RDW Std Deviation RDW Coeff of Isha Plt Count MPV Immature Gran % (Auto) Neut % (Auto) Lymph % (Auto) Wright % (Auto) Eos % (Auto) Baso % (Auto) Absolute Neuts (auto) Absolute Lymphs (auto) Nucleated RBC % Specimen Type Sample Site pH Bicarbonate Actual POC Total CO2 Base Excess O2 Saturation ABG pCO2 ABG pO2 Joel Test O2 Delivery Device Blood Gas Notified Whom Blood Gas Notified Time Sodium Potassium Chloride Carbon Dioxide Anion Gap BUN Creatinine Estim Creat Clear Calc Est GFR (MDRD) Af Amer Est GFR (MDRD) Non-Af BUN/Creatinine Ratio Glucose Lactic Acid Calcium Total Bilirubin AST ALT Alkaline Phosphatase Troponin I 5.420 H* 4.790 H* Total Protein Albumin Globulin Albumin/Globulin Ratio TSH Free T4 1.11 Free T3 pg/dL 2.1 L Urine Color Urine Clarity Urine pH Ur Specific [place] Urine Protein Urine Glucose (UA) Urine Ketones Urine Occult Blood Urine Nitrite Urine Bilirubin Urine Urobilinogen Ur Leukocyte Esterase Urine RBC Urine WBC Ur Squamous Epith Cells Urine Bacteria Urine Mucus Urine Opiates Screen Urine Methadone Screen Ur Barbiturates Screen Ur Phencyclidine Scrn Ur Amphetamines Screen U Methamphetamin-MDMA U Benzodiazepines Scrn Urine Cocaine Screen U Cannabinoids Screen Ur Drug Screen Comment Ethyl Alcohol POC Glucose 11/02/19 11/02/19 11/03/19 04:10 04:10 05:56 WBC 7.4 8.8 RBC 4.97 5.05 Hgb 14.7 14.7 Hct 43.7 44.1 MCV 87.9 87.3 MCH 29.6 29.1 MCHC 33.6 33.3 RDW Std Deviation 44.9 H 44.2 H RDW Coeff of Isha 13.9 14.0 Plt Count 258 293 MPV 8.8 8.9 Immature Gran % (Auto) 0.400 0.200 Neut % (Auto) 69.9 68.8 Lymph % (Auto) 15.6 L 16.7 L Wright % (Auto) 10.8 H 12.4 H Eos % (Auto) 2.6 1.1 Baso % (Auto) 0.7 0.8 Absolute Neuts (auto) 5.2 6.0 Absolute Lymphs (auto) 1.15 1.46 Nucleated RBC % 0 0 Specimen Type Sample Site pH Bicarbonate Actual POC Total CO2 Base Excess O2 Saturation ABG pCO2 ABG pO2 Joel Test O2 Delivery Device Blood Gas Notified Whom Blood Gas Notified Time Sodium 141 Potassium 4.4 Chloride 108 H Carbon Dioxide 28.0 Anion Gap 5 BUN 11 Creatinine 0.65 L Estim Creat Clear Calc 114.00 Est GFR (MDRD) Af Amer 161 Est GFR (MDRD) Non-Af 133 BUN/Creatinine Ratio 17.0 Glucose 86 Lactic Acid Calcium 8.9 Total Bilirubin AST ALT Alkaline Phosphatase Troponin I Total Protein Albumin Globulin Albumin/Globulin Ratio TSH Free T4 Free T3 pg/dL Urine Color Urine Clarity Urine pH Ur Specific [place] Urine Protein Urine Glucose (UA) Urine Ketones Urine Occult Blood Urine Nitrite Urine Bilirubin Urine Urobilinogen Ur Leukocyte Esterase Urine RBC Urine WBC Ur Squamous Epith Cells Urine Bacteria Urine Mucus Urine Opiates Screen Urine Methadone Screen Ur Barbiturates Screen Ur Phencyclidine Scrn Ur Amphetamines Screen U Methamphetamin-MDMA U Benzodiazepines Scrn Urine Cocaine Screen U Cannabinoids Screen Ur Drug Screen Comment Ethyl Alcohol POC Glucose 11/03/19 05:56 WBC RBC Hgb Hct MCV MCH MCHC RDW Std Deviation RDW Coeff of Isha Plt Count MPV Immature Gran % (Auto) Neut % (Auto) Lymph % (Auto) Wright % (Auto) Eos % (Auto) Baso % (Auto) Absolute Neuts (auto) Absolute Lymphs (auto) Nucleated RBC % Specimen Type Sample Site pH Bicarbonate Actual POC Total CO2 Base Excess O2 Saturation ABG pCO2 ABG pO2 Joel Test O2 Delivery Device Blood Gas Notified Whom Blood Gas Notified Time Sodium 137 Potassium 3.9 Chloride 103 Carbon Dioxide 26.0 Anion Gap 8 BUN 14 Creatinine 0.76 Estim Creat Clear Calc 97.50 Est GFR (MDRD) Af Amer 133 Est GFR (MDRD) Non-Af 110 BUN/Creatinine Ratio 18.4 Glucose 95 Lactic Acid Calcium 9.1 Total Bilirubin AST ALT Alkaline Phosphatase Troponin I Total Protein Albumin Globulin Albumin/Globulin Ratio TSH Free T4 Free T3 pg/dL Urine Color Urine Clarity Urine pH Ur Specific [place] Urine Protein Urine Glucose (UA) Urine Ketones Urine Occult Blood Urine Nitrite Urine Bilirubin Urine Urobilinogen Ur Leukocyte Esterase Urine RBC Urine WBC Ur Squamous Epith Cells Urine Bacteria Urine Mucus Urine Opiates Screen Urine Methadone Screen Ur Barbiturates Screen Ur Phencyclidine Scrn Ur Amphetamines Screen U Methamphetamin-MDMA U Benzodiazepines Scrn Urine Cocaine Screen U Cannabinoids Screen Ur Drug Screen Comment Ethyl Alcohol POC Glucose Medical Necessity - Tobacco Use Smoking Status: Unknown if ever smoked Assessment/Plan All Active Problems (Last Reviewed 08/03/17 @ 10:08 by Marianna Hernandez) NSTEMI (non-ST elevated myocardial infarction) (Acute) AMS (altered mental status) (Acute) Abnormal EKG (Acute) Fall (Resolved) Ribs, multiple fractures (Resolved) RECOMMENDATIONS: 1. Avoid sedating medications. 2. Consider obtaining neurology consultation. 3. Await heart catheterization results. 4. Outpatient pulmonary follow-up to obtain baseline polysomnogram. 5. Patient is hemodynamically stable on room air. Will sign off from a critical care perspective IMPRESSIONS: 1. Encephalopathy Unclear etiology. However, baclofen exposure could also be a contributing factor. There does not appear to be a focal source of infection anywhere. CT head was largely unrevealing. Patient does have baseline MS, and therefore, some of the symptoms could be related to his underlying disease. Consider obtaining neurology consultation for further evaluation. The patient is currently alert and appropriately interactive. Patient is slightly confused, but redirectable. 2. Non-ST segment elevation IN The patient has no known history of coronary artery disease. Cardiology is currently following. Echocardiogram will be obtained, with cardiac catheterization tomorrow per nursing and patient. 3. History of primary progressive MS/hypothyroidism/hyperlipidemia/possible sleep disordered breathing Complicates care, management, recovery and prognosis. Continue home medications as indicated. The patient has had witnessed apneic episodes, raising the suspicion for underlying sleep disordered breathing. He should follow-up in the pulmonary medicine clinic upon discharge to undergo a formal sleep evaluation/diagnostic polysomnogram. Inpatient E&M: [id number] [facility] Hosp L2
[2019-11-03 11:44] LABS: Bacteria 0 SEEN /hpf (None Seen); Mucous, Urine 0 SEEN /hpf (<or=2+); Red Blood Cells-Urine 0 SEEN /hpf (0-5); Squamous Epithelial Cells - UA 0 SEEN /hpf (0-5); White Blood Cells 0 SEEN /hpf (0-5)
[2019-11-03 11:47] LABS: Color, Urine Yellow (Yellow); Glucose, Dipstick Normal (Normal); Ketone-Dipstick 15 mg/dl (Negative); Leukocyte Esterase-Dipstick Negative /ul (Negative); Nitrite-Dipstick Negative (Negative); Occult Blood-Urine Negative /ul (Negative); Protein-Dipstick Negative (Negative); Specific Gravity, Urine 1.005 (1.002-1.030); Urine Bilirubin Dipstick Negative (Negative); Urine Clarity Clear (Clear); Urine Urobilinogen Normal (Normal)
--- NOTE | 2019-11-03 14:16 | NURSING ---
called daughter ahmet, to obtain consent for heart catheterization. verified with jordon owens RN
[2019-11-03] MEDS: Acetaminophen 325 MG Tablet 650 MG PO ×2 (15:19→21:29)
[2019-11-03] MEDS: Pravastatin 40 MG Tablet PO (21:30)
[2019-11-03] MEDS: Ondansetron 4 MG/2 ML Vial IV (22:31)
[2019-11-03] MEDS: 0.9% Saline Lock 10 ML Syringe IV (22:31)
[2019-11-04] VITALS (20 sets, daily range): BP systolic 136–169; BP diastolic 85–104; PULSE 73–94; RESP 16–18; TEMP 36.6–37.1; O2SAT 96–98
[2019-11-04] MEDS: Clopidogrel Bisulfate 75 MG Tablet PO (05:19)
[2019-11-04] MEDS: Aspirin E.C. 81 MG Tablet PO (05:19)
[2019-11-04] MEDS: Metoprolol Tartrate 25 MG Tablet PO (05:25)
--- NOTE | 2019-11-04 07:38 | NURSING ---
Report called to CAMILA Martinez in [employer].
--- NOTE | 2019-11-04 08:23 | CASEMGMT ---
According to the [facility] website, the following are in-network tertiary facilities: [facility], [place], [facility], [facility], [facility], and . Saul JENSEN CM
--- NOTE | 2019-11-04 08:23 | PN.CARD_ITS ---
Subjectve: Patient seen and evaluated. Appears to be doing well. Objective: Vital Signs Temp Pulse Resp BP Pulse Ox 98.8 F 82 16 153/94 H 98 11/04/19 06:34 11/04/19 06:56 11/04/19 06:34 11/04/19 06:34 11/04/19 06:34 Oxygen Flow Rate (L/min) 2 Oxygen Delivery Method Room Air Weight: 210 lb 11.2 oz Body Mass Index (BMI) 32.1 Finger Stick Blood Glucose 108 Intake and Output for Last 24 Hours 11/02/19 11/03/19 11/04/19 23:59 23:59 23:59 Intake Total 690 / 690 820 / 820 0 / 0 Output Total 1675 / 1675 400 / 400 Balance 690 / 690 -855 / -855 -400 / -400 General: Awake, Alert, Oriented x 3 HEENT: PERRL, EOMI, Sclera Non Icteric Neck: Supple, Good ROM, No Lymph Node Enlargement Lungs: Clear to auscultation Cardiovascular: Regular Rhythm, Normal S1, Normal S2, No Murmurs, No Rubs, No Gallops Vascular: No Carotid Bruits, Normal Femoral Pulses, Normal Radial Pulses, Normal Dorsalis Pedal Pulse, Normal Posterior Tibial Pulses Abdomen: Bowel Sounds Present, Soft, Non Tender, No HSM, No Organomegaly Extremities: No Cyanosis, No Clubbing, No edema Musculoskeletal: No Erythema Skin: No Rashes Lymphatic: No Lymph Node Enlargement Psych/Mental Status: Appropriate 11/03/19 11:05: Urine Color Yellow, Urine Clarity Clear, Urine pH 7.0, Ur Specific [place] 1.005, Urine Protein Negative, Urine Glucose (UA) Normal, Urine Ketones 15 H, Urine Occult Blood Negative, Urine Nitrite Negative, Urine Bilirubin Negative, Urine Urobilinogen Normal, Ur Leukocyte Esterase Negative, Urine RBC 0 SEEN, Urine WBC 0 SEEN Rhythm: EKG: ECHO: Stress Test: Cardiac Cath: PCI: CT Surgery: Holter monitor: EPS: PPM: CXR: Chest CT Scan: Medical Necessity - Tobacco Use Smoking Status: Unknown if ever smoked Assessment/Plan 1. Non-ST elevation myocardial infarction * Patient presents with non-ST elevation myocardial infarction. He has not had any prior history of coronary artery disease. * Cardiac catheterization today demonstrated the following. * Normal left main coronary artery * Diffusely diseased left anterior descending artery with significant calcification with areas of stenosis of up to 70 to 80% * Dominant left circumflex artery with proximal moderate disease, first obtuse marginal branch with 70% stenosis, branch of first obtuse marginal branch which is subtotally occluded; distal circumflex artery with trifurcating 80% stenotic lesion * Nondominant right coronary artery which is subtotally occluded proximally * Preserved left ventricular systolic function * Dilated aortic root * * Based on the above angiographic findings it may be more appropriate for the p atient to undergo coronary bypass surgery. The timing of the above vis-?-vis his overall general condition will need to be taken into consideration. * Will discuss with family members. * Thank you for allowing me to participate in the care of your patient. Please don't hesitate to call if any issues arise.
--- NOTE | 2019-11-04 08:35 | CL.D_ITS ---
Patient Name: NICOLASA FISCHER Study Date: 11/04/2019 Performing: Tye Garza MD Ht: 69 inches 175 cm : 1955 Wt: 211.9 lbs 96 kg Age: 64 Gender: male BSA: 2.11 PROCEDURE(S) PERFORMED [id number] CLINICAL PROFILE AND INDICATIONS Indications: Suspected CAD Heart Failure: None Stress/Imaging Stress/Image Study Performed: No CONCLUSIONS Severe triple-vessel disease involving calcified left anterior descending artery, calcified circumfle x artery with multiple areas of stenosis, and a subtotally occluded nondominant right coronary artery with preserved ejection fraction RECOMMENDATIONS Surgery consult for coronary revascularization DESCRIPTION OF PROCEDURE The patient arrived to the procedure lab. The risks and benefits of the procedure as well as a full d escription of our services here and current unavailability of surgical backup were fully explained to the patient and/or their significant other prior to the catheterization. The Timeout was completed, verifying the correct patient and procedure. The patient's procedural site was prepped and draped in the usual fashion. Local anesthetic was given subcutaneously to right radial region with Lidocaine 2% . Using a modified Seldinger technique, arterial access was obtained via the right radial artery, a 6 Fr sheath was inserted. Left Coronary Artery selective angiography was performed in multiple views u sing a 5 Fr. 4.0 Tarkio catheter. Right Coronary Artery selective angiography was then performed in mu ltiple views using a 5 Fr. 4.0 Tarkio catheter. Left Ventriculography was performed in ELLISON projection using a 5 Fr. Pigtail catheter. LV to AO pullback pressures were then recorded.The arterial sheath was pulled and a TR Band was applied for hemostasis CORONARY ANGIOGRAPHY DOMINANCE: Left Dominant LEFT HEART ASSESSMENT Left Ventricular Ejection Fraction: by LV Gram 70 % Normal LV wall motion Normal Left Ventricular systolic function LEFT MAIN: Mild calcification LEFT ANTERIOR DESCENDING ARTERY: Diffusely calcified and diffusely diseased LAD with moderate proxima l stenosis approximately 50% mid stenosis for long 70 to 80% lesions CIRCUMFLEX ARTERY: Dominant circumflex artery with moderate proximal disease, first obtuse marginal b ranch with 70 to 80% ostial stenosis, side branch of this vessel which is subtotally occluded, mid ci rcumflex artery with 80% stenosis at the trifurcation of the distal circumflex artery.. RIGHT CORONARY ARTERY: PROX RCA: is occluded AORTIC ROOT: Dilated COMPLICATIONS No Complications PROCEDURE MEDICATIONS Versed 1 mg IV Fentanyl 50 mcg IV Oxygen: 2 L/min via nasal cannula Heparin diluted in 23cc Heparinized saline. Patient given 10cc IA of this solution. 11/04/2019 08:05: 17 Verapamil 2.5mg, Ntg 100mcgs, 2000 units of Heparin diluted in 23cc Heparinized saline. Patient give n 10cc IA of this solution. 11/04/2019 08:05:17 SUMMARY OF HEMODYNAMIC DATA Time AIR REST ECG 07:48:24 AO 104/79 (91) SA 08:06:32 LV 110/0, 1 08:14:37 LV 119/0, 2 08:14:43 LV 124/3, 5 08:15:48 LVp 128/4, 0 08:15:51 AOp 131/86 (107) 08:15:56 Signed By Tye Garza MD On 11/04/2019 08:34:56 Tye Garza MD
[2019-11-04] MEDS: 0.9% Normal Saline 1,000 ML 75 ML IV (08:53)
[2019-11-04] MEDS: Enoxaparin 100 MG/ML Syringe SC (09:26)
--- NOTE | 2019-11-04 11:50 | PCM.DC ---
- Discharge Diagnoses Current Active Problems: Current Active and Chronic Problems (Last Reviewed 08/03/17 @ 10:08 by Marianna Hernandez) NSTEMI (non-ST elevated myocardial infarction) (Acute) AMS (altered mental status) (Acute) You will use the following diet at home:: Cardiac Your food should be the consistency of: Regular Your liquids should be the consistency of: Regular/Thin Discharge Activity: Return to Normal Activity Weight Bearing Status: Weight bearing as tolerated Call your doctor if you observe: Shortness of breath, Dizziness, Swelling in the ankles, Chest pain, Increased palpitations (irregular heartbeat) Instructions: ED Heart Disease Risk Factors, ED Confusion, ED ALOC, Heart Attack, Recognizing a Heart Attack or Angina, Medications for Heart Disease Additional Instructions: [facility] will contact patient about CABG Allergies/Adverse Reactions: Allergies No Known Allergies Allergy (Verified 08/16/17 08:35) Medications to take at Discharge Levothyroxine [Synthroid] 25 mcg PO DAILY 11/01/19 Aspirin E.C. [Ecotrin] 81 mg PO DAILY@0800 #30 tab 11/04/19 Atorvastatin Calcium 40 mg PO QHS #30 tab 11/04/19 Metoprolol Tartrate [Lopressor (beta yoav)] 25 mg PO BID #60 tab 11/04/19 The following prescriptions were given: Atorvastatin Calcium 40 mg PO QHS #30 tab Transmission Status: Pending to [facility] Aspirin E.C. [Ecotrin] 81 mg PO DAILY@0800 #30 tab Transmission Status: Pending to [facility] Metoprolol Tartrate [Lopressor (beta yoav)] 25 mg PO BID #60 tab Transmission Status: Pending to [facility] Primary Care Physician: Ritesh Castro MD [Primary Care Provider] - Please follow up with your Primary Care Physician in: 1-2 weeks Test Results: Test results from this visit will be discussed in further detail at your follow-up appointment, if applicable. Please Follow Up With: Tye Garza MD When: 1-2 weeks Proposed Discharge Date: 11/04/19
--- NOTE | 2019-11-04 11:54 | DS.PCM_ITS ---
Discharge Date and Diagnosis - Problem List Patient Problems: Active and Suspected Problems (Last Reviewed 08/03/17 @ 10:08 by Marianna Hernandez) NSTEMI (non-ST elevated myocardial infarction) (Acute) AMS (altered mental status) (Acute) Date of Admission: 11/01/19 Date of Discharge: 11/04/19 - Primary Discharge Diagnosis Acute Problems: Active Problems (Last Reviewed 08/03/17 @ 10:08 by Marianna Hernandez) NSTEMI (non-ST elevated myocardial infarction) (Acute) acute metabolic encephalopathy due to NOnstemi Hospital Course and Treatment Imaging Results: Diagnostic Data Brain CT 11/01/19 12:21 IMPRESSION: No acute intracranial hemorrhage or mass effect. Stable exam. Electronically Signed: Zaid Collado MD (Brooks) at 14:28 EDT , Service support , Chest X-Ray 11/01/19 12:24 IMPRESSION: 1. No airspace consolidation or pleural effusion. 2. Hypoinflation. 3. Cardiomegaly may be exaggerated by hypoinflation and portable technique. 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 He was admitted through the ED on 11/01/2019 with a complaint of altered mental status. Patient was found by his home health aide today lethargic and minimally responsive. For called his daughter and called the EMS and he was brought into the ED. History was mainly taken from daughter who was by his bedside. She does not live with him and states she last spoke to him a couple of days ago when he seemed fine and had no complaints. She has over the past month or so he has been calling her occasionally very confused and not knowing where he was there he was at home. He subsequently able to get his bearings. She is however never seen him like this before. Unable to do review of systems as patient is not able to answer questions. Patient was lethargic but arousable; however he could not answer any questions and only answered [facility] and a[facility]ah when asked any question. On admission, vitals were essentially stable though when he was being reviewed in the ED, he was noted to be hypopneic with respiratory rate do wn to as low as 7. However when patient was awoken, respiratory rate went up to 15 and 68. He was saturating at 93% on 4 L of oxygen. Chemistry was unremarkable. Initial troponin was 6.88. CBC was essentially unremarkable. Brain CT showed no acute intracranial hemorrhage or mass-effect. Chest x-ray showed no airspace consolidation or pleural effusion and showed hypoinflation and cardiomegaly which may have been exacerbated by hyperinflation and portable technique. EKG done showed no acute ST changes. Patient was admitted to be managed for non-STEMI and acute metabolic encephalopathy. Patient also has a baclofen pump and was concerned that his acute metabolic encephalopathy and hypopnea may be due to accidental baclofen overdose. He did receive Narcan in the ED. he was admitted to the ICU. Troponins gradually trended downwards to a karyn of 4.790. he was started on aspirin and plavix, as well as carvedilol and placed on heparin drip.Cardiology was consulted and critical care was also consulted. Patient's acute metabolic encephalopathy gradually resolved and his mentation improved markedly and was back to his baseline. He had 2D echocardiogram which showed EF of 65% with stage I diastolic dysfunction no regional wall motion abnormalities seen. He had cardiac cath on 11/04/2019 which showed severe triple-vessel disease involving calcified left anterior descending artery, calcified circumflex artery with multiple areas of stenosis and subtotally occluded nondominant right coronary artery with preserved ejection fraction. Per discussion with cardiology, decision was made that patient could be discharged home and it will be contacted by [facility] to arrange for CABG. He was discharged home on p.o. aspirin 81 mg daily, p.o. atorvastatin 40 mg nightly and p.o. metoprolol 25 mg twice daily. He is to follow-up with his primary care doctor and cardiology within 1 to 2 weeks. Patient seen and examined prior to discharge. He had no complaints and felt well. Review of systems otherwise negative. Labs and vitals reviewed. Medication reviewed and reconciled. O/E: Vital Signs Temp Pulse Resp BP Pulse Ox 98.6 F 77 16 147/87 H 97 11/04/19 11:00 11/04/19 11:03 11/04/19 11:00 11/04/19 11:00 11/04/19 11:00 General: alert, oriented , cooperative HEENT: Atraumatic, PERRLA, EOMI, Normocephalic Oral: Dry Mucosa Neck: Supple, No JVD, Negative Carotid Bruits Lungs: Clear to auscultation, Normal air movement, No rhonchi, No wheeze, on room air Cardiovascular: Regular rate, Regular Rhythm, Normal S1, Normal S2 Abdomen: Bowel Sounds Present, Soft, Non Tender Extremities: No clubbing, No cyanosis, No edema, Capillary Refill Less than 3 Seconds Skin: No rashes, No breakdown Musculoskeletal: No Tenderness to Palpation of Joints or Extremities Lymphatic: No Cervical, Supraclavicular, or Inguinal Adenopathy Neurological: - - has residual left UE and LLE residual weakness, from MSPalmer segura, CN II-XII grossly intact Psychological: normal affect Plan is for discharge home today, and lucie will be contacted by [facility] to arrange CABG. Patient Problems: Active and Suspected Problems (Last Reviewed 08/03/17 @ 10:08 by Marianna Hernandez) NSTEMI (non-ST elevated myocardial infarction) (Acute) AMS (altered mental status) (Acute) - Physical Exam Vitals/I&O's: Vital Signs Temp Pulse Resp BP Pulse Ox 98.6 F 77 16 147/87 H 97 11/04/19 11:00 11/04/19 11:03 11/04/19 11:00 11/04/19 11:00 11/04/19 11:00 Oxygen Flow Rate (L/min) 2 Oxygen Delivery Method Room Air Weight: 210 lb 11.2 oz Body Mass Index (BMI) 32.1 Finger Stick Blood Glucose 108 Intake and Output for Last 24 Hours 11/02/19 11/03/19 11/04/19 23:59 23:59 23:59 Intake Total 690 / 690 820 / 820 240 / 240 Output Total 1675 / 1675 700 / 700 Balance 690 / 690 -855 / -855 -460 / -460 Microbiology Past 72 Hours 11/03/19 11:05 Urine, Clean Catch Urine Culture - Preliminary Gram negative tommy Current Medications Acetaminophen (Tylenol) 650 mg PO Q6H PRN PRN PRN Reason: Pain Score 1-10/10 Last Admin: 11/03/19 21:29 Dose: 650 mg Documented by: Aspirin (Ecotrin) 81 mg PO DAILY@0800 [facility] Last Admin: 11/04/19 05:19 Dose: 81 mg Documented by: Dextrose (D50w Syringe) 0 gm IV X1 PRN; Protocol PRN Reason: Hypoglycemia Enoxaparin Sodium (Lovenox) 100 mg 1 mg/kg (100 mg) SC Q12 [facility] Last Admin: 11/04/19 09:26 Dose: 100 mg Documented by: Glucagon () 1 mg IM .X1 PRN PRN Reason: Hypoglycemia Sodium Chloride () 250 mls @ 15 mls/hr IV .[id number] PRN PRN Reason: Saline Flush Sodium Chloride () 250 mls @ 15 mls/hr IV .[id number] PRN PRN Reason: Additional IVPB Infusion Sodium Chloride () 1,000 mls @ 0 mls/hr IV .Q0M SCOOTER Sodium Chloride () 1,000 mls @ 75 mls/hr IV .[id number] [facility] Last Admin: 11/04/19 08:53 Dose: 75 mls/hr Documented by: Metoprolol Tartrate (Lopressor (Beta Milton)) 25 mg PO BID [facility] Last Admin: 11/04/19 05:25 Dose: 25 mg Documented by: Nitroglycerin (Nitrostat) 0.4 mg SUBLINGUAL Q5M PRN PRN Reason: CARDIAC/CHEST PAIN Ondansetron HCl (Zofran) 4 mg IV Q8H PRN PRN PRN Reason: NAUSEA/VOMITING Last Admin: 11/03/19 22:31 Dose: 4 mg Documented by: Pravastatin Sodium (Pravachol) 40 mg PO QHS [facility] Last Admin: 11/03/19 21:30 Dose: 40 mg Documented by: Sodium Chloride () 10 - 40 ml IV UD PRN PRN Reason: SALINE FLUSH Last Admin: 11/03/19 22:31 Dose: 10 ml Documented by: Discharge Diet: Low fat/ Low Cholesterol Discharge Activity: Return to Normal Activity Weight Bearing Status: Weight bearing as tolerated Call your doctor if you observe: Shortness of breath, Dizziness, Swelling in the ankles, Chest pain, Increased palpitations (irregular heartbeat) Home Medications: Medications to take at Discharge Levothyroxine [Synthroid] 25 mcg PO DAILY 11/01/19 Aspirin E.C. [Ecotrin] 81 mg PO DAILY@0800 #30 tab 11/04/19 Atorvastatin Calcium 40 mg PO QHS #30 tab 11/04/19 Metoprolol Tartrate [Lopressor (beta milton)] 25 mg PO BID #60 tab 11/04/19 Following Prescrptions Were Given to Patient: Atorvastatin Calcium 40 mg PO QHS #30 tab Transmission Status: Received by [employer] Aspirin E.C. [Ecotrin] 81 mg PO DAILY@0800 #30 tab Transmission Status: Received by [employer] Metoprolol Tartrate [Lopressor (beta milton)] 25 mg PO BID #60 tab Transmission Status: Received by [employer] Primary Care Physician: Ritesh Castro MD [Primary Care Provider] - Please follow up with your Primary Care Physician in: 1-2 weeks Please Follow Up With: Tye Garza MD When: 1-2 weeks Patient Instructions: Recognizing a Heart Attack or Angina, Heart Attack, Medications for Heart Disease, ED ALOC, ED Confusion, ED Heart Disease Risk Factors Disposition: Home with Home Health Minutes spent on discharge:: 45 Patient Condition:: Stable Medical Necessity - Tobacco Use Smoking Status: Unknown if ever smoked Meaningful Use Info Meaningful Use Diagnoses (Choose all that apply): AMI - AMI/Post PCI/Angioplasty Aspirin given w/in 24hrs of arrival?: Yes ASA at discharge?: Yes Antiplatelet Therapy at Discharge:: No Reason Antiplatelet Therapy not ordered:: cardiology decision Statins at discharge?: Yes Jem/ARB at discharge?: Yes Beta Milton at discharge?: Yes Done w/ Acute VA measure.: Yes Documented LVEF (%): 65 Inpatient E&M: 07403 Disch Hosp
--- NOTE | 2019-11-04 12:10 | PHA.DC.MC ---
Pharmacy Service has performed discharge medication reconciliation and counseling for this patient. The patient's discharge medication list was reviewed for discrepancies and discrepancies were resolved. The patient was counseled on the following discharge medications and changes in medications for homegoing were reviewed. 1. LOPRESSOR 2. ATORVASTATIN 3. ASPIRIN The Reason for Use, instructions for use, and potential side effects were reviewed for all new medications. The patient's questions regarding all of their medications were answered. The patient demonstrated some understanding but would benefit from further education and reinforcement. Home Medications Levothyroxine [Synthroid] 25 mcg PO DAILY 11/01/19 Aspirin E.C. [Ecotrin] 81 mg PO DAILY@0800 #30 tab 11/04/19 Atorvastatin Calcium 40 mg PO QHS #30 tab 11/04/19 Metoprolol Tartrate [Lopressor (beta yoav)] 25 mg PO BID #60 tab 11/04/19
--- NOTE | 2019-11-04 12:23 | CASEMGMT ---
Social Work Spoke with pt regarding Advance Directives. Pt confirms he does not have a living will nor a health care POA. SW offered information and pt states he has a packet of information at home and just needs to complete it. Denies assistance at this time. JENNY Huitron
--- NOTE | 2019-11-04 12:27 | CASEMGMT ---
Social Work SW met with pt and introduced self and role. Pt sitting in bed A&Ox3 and willing to speak with SW. Demographics, insurance and providers confirmed. Pt states he does see Dr. Duarte to manage his MS and Jennifer Rodgers for Pump. Pt prefers to use [facility] in [place] for pharmacy. Pt is disabled and has services through the Waiver program and Lucio is his Well Tester. Pt receives aids 4 hours daily with [place] that assist with ADL. Pt also has a emergency response system and receives 14 meals every other week. Pt uses [facility] for transportation and DME includes an electric wheelchair, spin disc, shower chair, cane and walker. Pt lives alone in a one story apartment with no steps to get in. Pt has previously been at [facility] but has not had home health services. Pt plans to return home at time of discharge. Pt expressing that his wheelchair is at his house and he would need time for his children to black pickler his wheelchair and get it here so he can get home. Pt would use [facility] for transportation. Update provided to ZACKERY Oquendo. TAVO spoke with Lucio at [facility] and confirmed pt is in hospital. TAVO will continue to follow for resumption of services. JENNY Huitron
--- NOTE | 2019-11-04 13:56 | CASEMGMT ---
Social Work Phone call placed to [facility] and they would be able to transport pt home today. Lilia at [facility] spoke with pt on the phone and confirms [facility] will shrimp picker at 4:00 and will use their wheelchair. [facility] staff to assist pt with transfer into chair and once home pt can use his sit to stand lift to transfer out of [facility] chair and into his own power chair. Phone call to Natividad at [facility] who confirms that home health aids will be at pt house tomorrow at regularly scheduled time. Pt informed and agreeable to discharge plan. Phone call to Laury at [facility] ([facility]) and made referral for insurance coverage of transport. Laury to be in contact with [facility]. Phone call to Lucio at [facility] and informed of discharge plan. D/C orders faxed to Lucio. JENNY Huitron
[2019-11-04] MEDS: Acetaminophen 325 MG Tablet 650 MG PO (15:42)
== END 2019-11-04 16:45 | disposition home health service (06) | DRG 280 ==
LOC: ED 13:33 → ICU 15:30 → PCU 11-04 07:40
PROVIDERS: Admitting Provider Student in an Organized Health Care Education/Training Program; Emergency Provider Emergency Medicine; PCP Family Medicine; Visit Provider Student in an Organized Health Care Education/Training Program
DX: I21.4 Non-ST elevation (NSTEMI) myocardial infarction (principal); G93.41 Metabolic encephalopathy; T42.8X1A Poisoning by antiparkinsonism drugs and other central muscle-tone depressants, accidental (unintentional), initial encounter; G35 Multiple sclerosis; F32.9 Major depressive disorder, single episode, unspecified; E78.5 Hyperlipidemia, unspecified; E03.9 Hypothyroidism, unspecified; R06.81 Apnea, not elsewhere classified; Z96.89 Presence of other specified functional implants; Z87.891 Personal history of nicotine dependence
CPT/HCPCS: 36415; 36600; 70450; 71045; 80048; 80053; 80307; 80320; 81001; 82803; 82962; 83605; 84439; 84443; 84481; 84484; 85025; 87077; 87086; 87088; 87186; 93005; 93306; 93458; 97802; 99152; 99153; 99285; J7030; J7040; Q9957; A4216; C1769; C1894; C8929; G0480; J2310; J2405; Q9967

== ENCOUNTER → 2019-12-03 20:00 | Outpatient (CLI) | payer MEDICARE, SELFPAY ==
[2019-11-01 16:37] VITALS: BMI 32.1
== END ==
PROVIDERS: PCP Family Medicine; Referring Provider Family Medicine; Visit Provider Family Medicine
DX: G47.30 Sleep apnea, unspecified (principal)
CPT/HCPCS: 95811

== ENCOUNTER → 2019-12-16 09:00 | Outpatient (CLI) | payer MEDICARE, SELFPAY ==
[2019-11-28 10:06] VITALS: BMI 28.5
== END ==
PROVIDERS: PCP Family Medicine; Visit Provider Family Medicine
DX: G47.30 Sleep apnea, unspecified (principal)

== ENCOUNTER → 2019-12-18 14:07 | Outpatient (CLI) | payer MEDICARE, MEDICAID, SELFPAY ==
[2019-11-28 10:06] VITALS: BMI 28.5
== END ==
PROVIDERS: PCP Family Medicine; Visit Provider Family Medicine
DX: G47.30 Sleep apnea, unspecified (principal)

== ENCOUNTER → 2020-02-19 09:42 | Outpatient (CLI) | payer MEDICARE, MEDICAID, SELFPAY ==
[2019-11-28 10:06] VITALS: BMI 28.5
[2020-02-19 13:06] LABS: AST(SGOT) 23 U/L (15-37); Alanine Aminotransfer ALT/SGPT 24 U/L (16-61); Albumin, Serum 3.5 g/dL (3.2-5.0); Alkaline Phosphatase 58 U/L (45-117); Anion Gap 5 (5-15); BUN 16 mg/dL (7-18); BUN/Creat Ratio 19.7 RATIO (10-20); Chloride 105 mmol/L (98-107); Cholesterol 133 mg/dL (200); Creatinine, Serum 0.81 mg/dL (0.70-1.30); EST Glomerular Filtration Rate 102 mL/min (>60); Est Glom Filt Rate - Afr Amer 123 mL/min (>60); Free T3 2.1 pg/mL (2.18-3.98); Globulin 3.4 g/dL (2.2-4.2); Glucose 88 mg/dL (74-106); High Density Lipoprotein 32 mg/dL; Potassium 4.1 mmol/L (3.5-5.1); Protein, Total 6.9 g/dL (6.4-8.2); Sodium Level 140 mmol/L (136-145); T4 Total, Thyroxin 9.6 ug/dL (4.5-12.1); Thyroid Stim Hormone (TSH) 5.06 uIU/mL (0.358-3.74); Triglycerides 160 mg/dL; Very Low Density Lipoprotein 32 mg/dL (5-40)
== END ==
PROVIDERS: PCP Family Medicine; Referring Provider Family Medicine; Visit Provider Family Medicine
DX: E78.5 Hyperlipidemia, unspecified (principal); E03.9 Hypothyroidism, unspecified
CPT/HCPCS: 36415; 80053; 80061; 84436; 84443; 84481

== ENCOUNTER 2020-05-15 06:46 | Observation (INO) | payer MEDICARE, MEDICAID, SELFPAY ==
[2020-03-03 13:24] VITALS: BMI 28.5
[2020-05-15] VITALS (16 sets, daily range): BP systolic 85–160; BP diastolic 55–100; PULSE 96–116; RESP 12–20; TEMP 36.4–37.2; O2SAT 94–99; BMI 27.4; BMI 27.1
--- NOTE | 2020-05-15 06:48 | EKG12_ITS ---
Test Reason : CP Blood Pressure : / mmHG Vent. Rate : 144 BPM Atrial Rate : 101 BPM P-R Int : 146 ms QRS Dur : 064 ms QT Int : 326 ms P-R-T Axes : 022 -23 038 degrees QTc Int : 504 ms Sinus tachycardia with frequent Premature ventricular complexes Low voltage QRS Cannot rule out Anterior infarct , age undetermined Abnormal ECG Confirmed by ROJELIO FITCH, NANCY ([id number]), make up editor PANCHO FONTENOT ([id number]) on 05/17/2020 1:31:28 PM Referred By: Confirmed By:NANCY SERRATO MD
--- NOTE | 2020-05-15 06:48 | RAD_ITS ---
HISTORY: CHEST PAIN AND TIGHTNESS THAT STARTED LAST NIGHT ADDITIONAL HISTORY: None provided. EXAMINATION/TECHNIQUE: XR Chest 1 View AP/PA Number of images including paperwork: 1 COMPARISON: 11/01/2019, 02/03/2019 FINDINGS: LUNGS AND PLEURA: No consolidation, mass or pleural effusion. Linear left basilar opacity appears similar compatible with scarring. CARDIAC SILHOUETTE: Stable. MEDIASTINUM AND PALLAVI: Stable. UPPER ABDOMEN: Unremarkable. SKELETON AND SOFT TISSUES: No acute skeletal findings. Degenerative changes. OTHER DEVICES AND HARDWARE: None. RAD/Chest 1 View (Portable) IMPRESSION: No acute cardiopulmonary abnormality. at 0731 Reported and signed by: Jennifer Briseno MD Electronically Signed: Jennifer Briseno MD at 7:31 EST Tel , Service support ,
[2020-05-15 06:58] LABS: Absolute Lymphocyte Count 1.17 X10^3/uL (0.83-4.51); Absolute Neutrophil Count 6.8 X10^3/uL (2.0-7.7); Basophil# 0.08 X10^3/uL; Basophil% 0.9 % (0-1); Eosinophil# 0.23 X10^3/uL; Eosinophils% 2.5 % (0-5); Hematocrit 42.4 % (40-54); Hemoglobin 14.3 g/dL (13.0-16.5); Lymphocyte # 1.17 X10^3/ul (4.0); Lymphocyte % 12.7 % (19-41); Mean Corp Hgb Conc 33.7 g/dL (32-36); Mean Corpuscular Hgb 30.8 pg (27.0-32.0); Mean Corpuscular Volume 91.2 fL (80-94); Mean Platelet Vol. 9.4 fl (6.2-12.0); Monocyte# 0.88 X10^3/uL; Monocyte% 9.5 % (0-10); NRBC Flagged by Analyzer 0 % (0-5); Neutrophil # 6.83 X10^3/uL (2.7-7.7); Platelet Count 365 K/mm3 (150-450); RBC Distribution Width CV 13.8 % (11.6-14.6); Red Blood Count 4.65 M/mm3 (4.6-6.2); White Blood Count 9.2 K/mm3 (4.4-11.0)
[2020-05-15] MEDS: Ondansetron 4 MG/2 ML Vial IV (07:12)
[2020-05-15] MEDS: Aspirin 325 MG Tablet PO (07:12)
[2020-05-15] MEDS: Morphine 4 MG/ML Syringe IV ×2 (07:12→07:37)
[2020-05-15 07:19] LABS: Anion Gap 6 (5-15); BUN 33 mg/dL (7-18); BUN/Creat Ratio 38.8 RATIO (10-20); Calcium,Total 9.9 mg/dL (8.5-10.1); Chloride 100 mmol/L (98-107); Creatinine, Serum 0.85 mg/dL (0.70-1.30); EST Glomerular Filtration Rate 97 mL/min (>60); Est Glom Filt Rate - Afr Amer 117 mL/min (>60); Estimated Creatinine Clearance 97.63 ml/min; Glucose 64 mg/dL (74-106); Magnesium 2.1 mg/dL (1.6-2.6); Potassium 5.6 mmol/L (3.5-5.1); Sodium Level 130 mmol/L (136-145)
--- NOTE | 2020-05-15 07:21 | ED.VISSUMM ---
- ER Visit Summary Date of Service: 05/15/20 Chief Complaint: Chest pain History of Present Illness: The patient is a 65 M presenting with chest pain. He states it started last night around 10 PM. He had intermittent pain throughout the night. Pain is midsternal and squeezing pain. He also complains of spasms in his left arm. He has chronic left arm weakness secondary to MS. He has history of hypertension, hypercholesterolemia. He had an NSTEMI in October 2019. He is not a smoker. No PE/DVT risk factors. Denies fever or cough. Denies known exposure to Covid. Physical Examination: Vitals are stable. Patient is afebrile. Alert no acute distress. HEENT exam is unremarkable. Neck is supple. Lungs are clear and equal bilaterally. Heart is regular rate and rhythm. Abdomen is soft nontender nondistended. Extremities are unremarkable. Skin is warm and dry. Chronic left arm weakness Remainder of exam is unremarkable. Emergency Department Course and Treatment: EKG is sinus rhythm with no acute ischemic changes. Chest xray shows no acute cardiopulmonary abnormality. CBC, chemistries unremarkable other than sodium 130, potassium 5.6, BUN 33, glucose 64. Troponin is negative. Patient given aspirin, morphine, Zofran. Patient's pain is improved on reevaluation. Discussed with hospitalist for observation. Disposition: Observation Impression: Chest pain This note was generated with [employer] dictation software. It may contain incorrect words, spelling, and punctuation that were not noted in review of the chart prior to signing ED Disposition - Plan for ED Patient: Referrals: Ritesh Castro MD [Primary Care Provider] -
[2020-05-15 07:25] LABS: Bedside Glucose 62 mg/dL (70-110)
--- NOTE | 2020-05-15 07:40 | HP.PCM_ITS ---
History of Present Illness Date of Admission: 05/15/20 Chief Complaint: chest pain The patient is a 65 year old M with an extensive past medical history as outlined was admitted through the ED on 05/15/2020 with a complaint of chest pain. Chest pain started on the night before admission and was retrosternal, p ressure-like and associated with spasms in his left upper arm. He also complained of spasms in his left lower extremity with assisted stiffness which he said was not usually that bad. He does have a history of multiple sclerosis and has chronic left arm weakness due to this. Patient had a non-STEMI in 2019 and he had cardiac cath which showed that he was a candidate for CABG. However in light of his numerous comorbidities, decision was made not to do CABG. He states he was told that he would benefit from medical management and was told that if he had chest pain again, he would need his medication optimized. The ED, vitals show temperature of 97.5 Fahrenheit with blood pressure of 129/85, pulse rate of 100 and respiratory of 18. He was saturating at 94% on room air. Chemistry showed sodium of 130 with potassium of 5.6. Initial troponin was negative and CBC was unremarkable. EKG showed no acute ST changes and chest x- ray showed no acute cardiopulmonary process. He has been admitted to be managed for chest pain to rule out ACS. 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, G35 Muscle spasticity M62.[address] Ashton for an implanted baclofen pump for spasticity to left upper and lower extremities Multiple sclerosis G35 Multiple sclerosis, primary chronic progressive G35 follows [address] Dr Fernandez at the [facility] 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 Depression (Inactive) F32.9 new medication started during admission, lexapro 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 (Inactive) F32.9, G35 Multiple sclerosis (Inactive) G35 Multiple sclerosis exacerbation (Inactive) G35 Multiple sclerosis, primary chronic progressive (Inactive) G[address] Fernandez at the [facility] Muscle spasticity (Inactive) M62.[address] Ashton for an implanted baclofen pump for spasticity to left upper and lower extremities Neuromyelitis optica (Inactive) G36.0 Allergies No Known Allergies Allergy (Verified 03/03/20 12:57) Home Medications: Ambulatory Orders Medication Instructions Recorded baclofen 90 mcg INTRATH DAILY 11/28/19 baclofen 10 mg tablet 10 mg PO TID 11/28/19 cholecalciferol (vitamin D3) 125 125 mcg PO DAILY 11/28/19 mcg (5,000 unit) capsule gabapentin 400 mg capsule 400 mg PO Q6H PRN cap 11/28/19 psyllium husk 3.4 gram/5.4 gram 1 tbsp PO BID g 11/28/19 oral powder sennosides 8.6 mg capsule 8.6 mg PO BID PRN 11/28/19 aspirin 81 mg tablet,delayed 81 mg PO DAILY@0800 #30 tab 12/31/19 release atorvastatin 40 mg tablet 40 mg PO QHS #30 tab 12/31/19 lisinopril 10 mg tablet 10 mg PO DAILY #30 tab 12/31/19 metoprolol tartrate 25 mg tablet 25 mg PO BID #60 tab 12/31/19 Levothyroxine [Synthroid] 50 mcg PO DAILY 05/15/20 Surgical History: Surgical History (Last Reviewed 11/28/19 @ 10:13 by Marianna Hernandez) Hx of appendectomy Z98.890, Z90.49 Surgical History: no surgical history Psychiatric History: No pertinent psych hx Smoking Status: Never smoker - *Family History Maternal Family History: Family History (Last Reviewed 11/28/19 @ 10:13 by Marianna Hernandez) Mother CVA (cerebral vascular accident) Grandmother CVA (cerebral vascular accident) History Items: No pertinent history Paternal Family History: Family History (Last Reviewed 11/28/19 @ 10:13 by Marianna Hernandez) Mother CVA (cerebral vascular accident) Grandmother CVA (cerebral vascular accident) History Items: No pertinent history Review of Systems Constitutional: Denies: Chills, Fever, Malaise, Weakness, Weight Change Eyes: Denies: Blurred vision HEENT: Denies: Head Aches, Sinus Congestion, Sinus Drainage Cardiovascular: Reports: Chest Pain, Chest Pressure, Chest Tightness. Denies: Heaviness, Light Headedness, Orthopnea, Palpitations, Paroxysmal Noc. Dyspnea, Syncope Respiratory: Denies: Cough, Shortness of Breath, Shortness of breath at rest, Sputum production Gastrointestinal: Denies: Abdominal Pain, Nausea, Vomiting Genitourinary: Denies: Dysuria Musculoskeletal: Denies: Joint Pain, Joint Tenderness Skin: Denies: Rash, Wounds Neurological: Denies: Numbness, Tingling, Focal weakness Psychiatric: Denies: Anxiety, Depression, Homicidal Ideations, Suicidal Ideations Hematologic/ Lymphatic: Denies: Easy Bruising, Easy Bleeding VTE Information - Inpt Only VTE Present on Admission: No VTE Pharm Prophylaxis ordered?: Yes - Physical Exam Vitals/I&O's: Vital Signs Temp Pulse Resp BP Pulse Ox 98.9 F 96 17 135/99 H 95 05/15/20 06:47 05/15/20 06:47 05/15/20 06:47 05/15/20 06:47 05/15/20 07:20 Oxygen Delivery Method Room Air Weight: 202 lb 9.677 oz Body Mass Index (BMI) 27.4 Finger Stick Blood Glucose 108 General: Alert, Oriented x3, Cooperative, No apparent distress HEENT: Atraumatic, PERRLA, EOMI, Normocephalic Oral: Dry Mucosa Neck: Supple, No JVD, Negative Carotid Bruits Lungs: Clear to auscultation, Normal air movement, No rhonchi, No wheeze, No rales Cardiovascular: Regular rate, Regular Rhythm, Normal S1, Normal S2, No murmurs Abdomen: Bowel Sounds Present, Soft, Non Tender, Non-Distended, No Hepato- splenomegaly Extremities: No clubbing, No cyanosis, No edema, Capillary Refill Less than 3 Seconds Skin: No rashes, No breakdown Musculoskeletal: No Tenderness to Palpation of Joints or Extremities Lymphatic: No Cervical, Supraclavicular, or Inguinal Adenopathy Neurological: Cranial nerves II-XII grossly intact, Neuro grossly intact, - - spasticity of LUE and LLE. Chronic weakness of LLE Psych/Mental Status: Normal Affect, Appropriate, Alert and oriented to time, place, person, mood and affect Laboratory Results 05/15/20 06:50: WBC 9.2, RBC 4.65, Hgb 14.3, Hct 42.4, MCV 91.2, MCH 30.8, MCHC 33.7, RDW Std Deviation 46.0 H, RDW Coeff of Isha 13.8, Plt Count 365, MPV 9.4, Immature Gran % (Auto) 0.400, Neut % (Auto) 74.0 H, Lymph % (Auto) 12.7 L, [place] % (Auto) 9.5, Eos % (Auto) 2.5, Baso % (Auto) 0.9, Absolute Neuts (auto) 6.8, Absolute Lymphs (auto) 1.17, Nucleated RBC % 0 05/15/20 06:50: Sodium 130 L, Potassium 5.6 H, Chloride 100, Carbon Dioxide 24.0, Anion Gap 6, BUN 33 H, Creatinine 0.85, Estim Creat Clear Calc 97.63, Est GFR (MDRD) Af Amer 117, Est GFR (MDRD) Non-Af 97, BUN/Creatinine Ratio 38.8 H, Glucose 64 L, Calcium 9.9, Magnesium 2.1, Troponin I < 0.015 05/15/20 07:21: POC Glucose 62 L Diagnostic Data Chest X-Ray 05/15/20 06:48 IMPRESSION: No acute cardiopulmonary abnormality. at 0731 Reported and signed by: Jennifer Briseno MD Electronically Signed: Jennifer Briseno MD at 7:31 EST Tel , Service support , Assessment/Plan All Active Problems (Last Reviewed 11/28/19 @ 10:13 by Marianna Hernandez) NSTEMI (non-ST elevated myocardial infarction) (Resolved 11/01/19) AMS (altered mental status) (Acute) Abnormal EKG (Acute) Fall (Resolved) Ribs, multiple fractures (Resolved) 65 y/o admitted with a complaint of chest pain. #Chest pain * Admit to PCU with telemetry. Cycle troponins x3. * Consult cardiology as patient had non-STEMI in October 2019 and was told he needed CABG but surgery was not done in light of his numerous comorbidities as was not felt he would do well with surgery. He is for medical management and will need optimization of his medical management. * I do not see the utility in doing a stress test in light of patient's symptoms and known history of CAD requiring CABG. * Sinew aspirin, statin and beta-yoav as well as SAMI inhibitor. * Cardiology consulted to adjust medications as needed. * Sublingual nitroglycerin as needed. * #Multiple sclerosis * Has a baclofen pump in place. Patient complains of increased spasticity of his left upper and left lower extremity. He did say was more stiff than usual. * Neurology consulted to review patient in light of increased stiffness. However per neurology, this appears to be a chronic problem. * Neurology recommends that patient gets increase in his baclofen dose by 10 mg as needed for worsening spasticity. Neurology also recommends that patient should have an MRI of his brain and thoracic and lumbar spine as follow-up for his MS as he has not had this in a long time. He is also to follow-up with his neurologist on outpatient basis for medications to be adjusted as needed. * #Hyperkalemia: Potassium is 5.6. Will hold lisinopril and give Kayexalate as needed. *Hypothyroidism: On Synthroid DVT prophylaxis: Lovenox OBSV E&M: [id number] Initial observation care L2
[2020-05-15 08:16] LABS: Bedside Glucose 77 mg/dL (70-110)
--- NOTE | 2020-05-15 08:31 | EKG12_ITS ---
Test Reason : CP Blood Pressure : / mmHG Vent. Rate : 183 BPM Atrial Rate : 102 BPM P-R Int : 000 ms QRS Dur : 066 ms QT Int : 278 ms P-R-T Axes : 000 -22 010 degrees QTc Int : 485 ms Supraventricular tachycardia with frequent Premature ventricular complexes Low voltage QRS Abnormal ECG Confirmed by ROJELIO FITCH, NANCY ([id number]), newspaper photo editor MICHAEL SULLIVAN ([id number]) on 05/19/2020 1:19:46 PM Referred By: LINDY Confirmed By:NANCY SERRATO MD
--- NOTE | 2020-05-15 08:41 | TELEMED_ITS ---
[facility] has confirmed receipt of a request for visit. This document confirms receipt of the order initiating the consult. To find the results of the consultation, please view the patient's reports for the scanned Telemed Consult.
--- NOTE | 2020-05-15 11:22 | CON.PCM_ITS ---
Problem List (1) Atherosclerosis of coronary artery without angina pectoris Status: Chronic Qualifiers: Coronary Disease-Associated Artery/Lesion type: samish artery [place] vs. transplanted heart: samish heart Qualified Code(s): I25.10 - Atherosclerotic heart disease of samish coronary artery without angina pectoris Reason for Consult Date of Consultation: 05/15/20 History of Present Illness: The patient is a 65 year old white male with a past medical history of CAD status post non-ST segment elevation [place]-remote, status post referral for CABG- declined secondary to patient's noncardiovascular comorbidities, who presents for evaluation of chest discomfort superimposed upon his multiple comorbidities. He states that recently he took an generic Cymbalta agent. Since that time he noted not feeling right, having visual changes, having issues with his left upper extremity and hand, feeling stiffer in the lower extremities, and then having intermittent lower sternal chest discomfort. He states there was no radiation of his discomfort. He had no associated acute nausea, emesis, diaphoresis, or dyspnea. He denies any loss of consciousness. Based upon his symptoms he elected to present to the emergency department for further evaluation. He was brought into the hospital for further evaluation and care per internal medicine with cardiovascular consultation based on his cardiovascular history and his symptoms while he undergoes neurologic evaluation as well. [] Past Medical History Allergies/Adverse Reactions: Allergies No Known Allergies Allergy (Verified 03/03/20 12:57) Home Medications: Ambulatory Orders Medication Instructions Recorded baclofen 90 mcg INTRATH DAILY 11/28/19 baclofen 10 mg tablet 10 mg PO TID 11/28/19 cholecalciferol (vitamin D3) 125 125 mcg PO DAILY 11/28/19 mcg (5,000 unit) capsule gabapentin 400 mg capsule 400 mg PO Q6H PRN cap 11/28/19 psyllium husk 3.4 gram/5.4 gram 1 tbsp PO BID g 11/28/19 oral powder sennosides 8.6 mg capsule 8.6 mg PO BID PRN 11/28/19 aspirin 81 mg tablet,delayed 81 mg PO DAILY@0800 #30 tab 12/31/19 release atorvastatin 40 mg tablet 40 mg PO QHS #30 tab 12/31/19 lisinopril 10 mg tablet 10 mg PO DAILY #30 tab 12/31/19 metoprolol tartrate 25 mg tablet 25 mg PO BID #60 tab 12/31/19 Levothyroxine [Synthroid] 50 mcg PO DAILY 05/15/20 Past Medical History (Chronic Problems): Chronic Problems (Last Reviewed 11/28/19 @ 10:13 by Marianna Hernandez) Atherosclerosis of coronary artery without angina pectoris (Chronic) Surgical History: no surgical history Psychiatric History: No pertinent psych hx - *Family History Maternal Family History: Family History (Last Reviewed 11/28/19 @ 10:13 by Marianna Hernandez) Mother CVA (cerebral vascular accident) Grandmother CVA (cerebral vascular accident) History Items: No pertinent history Paternal Family History: Family History (Last Reviewed 11/28/19 @ 10:13 by Marianna Hernandez) Mother CVA (cerebral vascular accident) Grandmother CVA (cerebral vascular accident) History Items: No pertinent history Smoking Status: Never smoker Alcohol: None Drugs: None Review of Systems - Review of Systems General: Denies: Fever, Night Sweats, Fatigue Cardiovascular: Reports: Chest Discomfort, Chest Discomfort at Rest. Denies: Shortness of Breath, Orthopnea, PND, Peripheral Edema, Palpitations, Lightheadedness, Dizziness, Near Syncope, Syncope Respiratory: Denies: Cough, Sputum Production, Hemoptysis Gastrointestinal: Denies: Hematemesis, Hematochezia, Melena Genitourinary: Denies: Dysuria, Hematuria Skin: Denies: Rash Subjectve: This is a 65-year-old white male who appears to be resting comfortably at the moment in no acute distress. Objective: Vital Signs Temp Pulse Resp BP Pulse Ox 97.5 F L 100 18 129/85 H 94 05/15/20 08:57 05/15/20 08:57 05/15/20 08:57 05/15/20 08:57 05/15/20 08:57 Oxygen Delivery Method Room Air Weight: 200 lb Body Mass Index (BMI) 27.4 Finger Stick Blood Glucose 108 General: Awake, Alert, Oriented x 3, Cooperative, No Acute Distress HEENT: Atraumatic, Normocephalic, PERRL, EOMI, Sclera Non Icteric Neck: No JVD Lungs: Clear to auscultation Cardiovascular: Regular Rhythm, Normal S1, Normal S2 Vascular: No Carotid Bruits Abdomen: Bowel Sounds Present, Soft Extremities: No edema Psych/Mental Status: Appropriate 05/15/20 06:50: WBC 9.2, RBC 4.65, Hgb 14.3, Hct 42.4, MCV 91.2, MCH 30.8, MCHC 33.7, Plt Count 365, MPV 9.4, Immature Gran % (Auto) 0.400, Neut % (Auto) 74.0 H , Lymph % (Auto) 12.7 L, [place] % (Auto) 9.5, Eos % (Auto) 2.5, Baso % (Auto) 0.9, Absolute Neuts (auto) 6.8, Nucleated RBC % 0 05/15/20 06:50: Sodium 130 L, Potassium 5.6 H, Chloride 100, Carbon Dioxide 24.0, Anion Gap 6, BUN 33 H, Creatinine 0.85, Est GFR (MDRD) Af Amer 117, Est GFR (MDRD) Non-Af 97, BUN/Creatinine Ratio 38.8 H, Glucose 64 L, Calcium 9.9, Magnesium 2.1, Troponin I < 0.015 05/15/20 09:50: Troponin I < 0.015 Rhythm: Sinus rhythm EKG: Sinus rhythm; leftward axis; low voltage QRS; poor R wave progression- anterior my of indeterminate age cannot be excluded ECHO: 11-02-2019 Interpretation Summary Normal LV size. Left ventricular systolic function is normal. The estimated ejection fraction is 65 %. Stage 1 diastolic dysfunction. Mild (1+) tricuspid valve insufficiency. Contrast injection was performed. Cardiac Cath: 11-04-2019 CONCLUSIONS Severe triple-vessel disease involving calcified left anterior descending artery, calcified circumflex artery with multiple areas of stenosis, and a subtotally occluded nondominant right coronary artery with preserved ejection fraction RECOMMENDATIONS Surgery consult for coronary revascularization DESCRIPTION OF PROCEDURE The patient arrived to the procedure lab. The risks and benefits of the procedure as well as a full description of our services here and current unavailability of surgical backup were fully explained to the patient and/or their significant other prior to the catheterization. The Timeout was completed, verifying the correct patient and procedure. The patient's procedural site was prepped and draped in the usual fashion. Local anesthetic was given subcutaneously to right radial region with Lidocaine 2%. Using a modified Seldinger technique, arterial access was obtained via the right radial artery, a 6Fr sheath was inserted. Left Coronary Artery selective angiography was performed in multiple views using a 5 Fr. 4.0 [place] catheter. Right Coronary Artery selective angiography was then performed in multiple views using a 5 Fr. 4.0 [place] catheter. Left Ventriculography was performed in ELLISON projection using a 5 Fr. Pigtail catheter. LV to AO pullback pressures were then recorded.The arterial sheath was pulled and a TR Band was applied for hemostasis CORONARY ANGIOGRAPHY DOMINANCE: Left Dominant LEFT HEART ASSESSMENT Left Ventricular Ejection Fraction: by LV Gram 70 % Normal LV wall motion Normal Left Ventricular systolic function LEFT MAIN: Mild calcification LEFT ANTERIOR DESCENDING ARTERY: Diffusely calcified and diffusely diseased LAD with moderate proximal stenosis approximately 50% mid stenosis for long 70 to 80% lesions CIRCUMFLEX ARTERY: Dominant circumflex artery with moderate proximal disease, first obtuse marginal branch with 70 to 80% ostial stenosis, side branch of this vessel which is subtotally occluded, mid circumflex artery with 80% stenosis at the trifurcation of the distal circumflex artery.. RIGHT CORONARY ARTERY: PROX RCA: is occluded AORTIC ROOT: Dilated CXR: Preliminary evaluation: No acute cardiopulmonary disease process appreciated: Please see official report Assessment/Plan 1. CAD The patient has a history of CAD. He has experienced previous non-ST segment elevation [place]. He was referred to [facility] for evaluation for CABG. He was declined at that time based upon his multiple comorbidities with respect to a history of multiple sclerosis, wheelchair confinement, inability to utilize his upper extremities with concerns of postoperative/recovery related issues, etc. He states all in all he has been content to continue medical therapy. He states he does not want to pursue repeat aggressive cardiovascular evaluation or repeat tertiary care center evaluation for revascularization therapy. Thus with respect to his symptoms, which are somewhat atypical, he will continue to be monitored. His cardiac enzymes will be followed. His ECG can be followed. He will continue medical therapy. Based upon his previous outpatient cardiovascular visit he had been on medications including aspirin, beta- blockers, SAMI inhibitor's, and lipid-lowering agents/statins. His medicines can be continued with agents such as those noted with adjustment of dose as needed as well as additional agents if needed such as nitrates or Ranexa to assist with symptom relief. Comment: The above was discussed and reviewed with the patient. He was agreeable to this approach.
[2020-05-15] MEDS: Baclofen 10 MG Tablet PO ×2 (14:40→23:03)
[2020-05-15] MEDS: Gabapentin 400 MG Capsule PO ×2 (14:40→23:03)
[2020-05-15] MEDS: Isosorbide Mononitrate 30 MG Tablet PO (14:40)
[2020-05-15] MEDS: 0.9% Normal Saline 1,000 ML 999 ML IV (15:10)
[2020-05-15] MEDS: 0.9% Normal Saline 1,000 ML 150 ML IV ×2 (17:32→23:52)
[2020-05-15] MEDS: Sodium Polystyrene Sulfonate 15 GM/60 ML UDC PO (17:32)
[2020-05-15 17:45] LABS: Bedside Glucose 92 mg/dL (70-110)
[2020-05-15] MEDS: Menthol/Lanolin/Calamine/Znox 113 GM Tube 1 APPLIC TOPICAL (23:02)
[2020-05-15] MEDS: Metoprolol Tartrate 50 MG Tablet PO (23:02)
[2020-05-15] MEDS: Psyllium 1 PACKET PO (23:02)
[2020-05-15] MEDS: Atorvastatin Calcium 40 MG Tablet PO (23:03)
[2020-05-16] VITALS (11 sets, daily range): BP systolic 108–116; BP diastolic 59–67; PULSE 66–96; RESP 14–18; TEMP 36.3–36.9; O2SAT 94–95
[2020-05-16] MEDS: Baclofen 10 MG Tablet PO ×3 (05:12→22:15)
[2020-05-16] MEDS: Levothyroxine 25 MCG TABLET PO (05:12)
[2020-05-16 05:46] LABS: Absolute Lymphocyte Count 1.01 X10^3/uL (0.83-4.51); Absolute Neutrophil Count 6.3 X10^3/uL (2.0-7.7); Basophil# 0.06 X10^3/uL; Basophil% 0.7 % (0-1); Eosinophil# 0.11 X10^3/uL; Eosinophils% 1.3 % (0-5); Hematocrit 35.4 % (40-54); Hemoglobin 11.6 g/dL (13.0-16.5); Lymphocyte # 1.01 X10^3/ul (4.0); Lymphocyte % 11.8 % (19-41); Mean Corp Hgb Conc 32.8 g/dL (32-36); Mean Corpuscular Hgb 30.3 pg (27.0-32.0); Mean Corpuscular Volume 92.4 fL (80-94); Mean Platelet Vol. 9.7 fl (6.2-12.0); Monocyte# 1.03 X10^3/uL; NRBC Flagged by Analyzer 0 % (0-5); Neutrophil # 6.32 X10^3/uL (2.7-7.7); Platelet Count 309 K/mm3 (150-450); RBC Distribution Width CV 14.1 % (11.6-14.6); RBC Distribution Width SD 47.2 fl (35.1-43.9); Red Blood Count 3.83 M/mm3 (4.6-6.2); White Blood Count 8.6 K/mm3 (4.4-11.0)
[2020-05-16 06:06] LABS: Anion Gap 7 (5-15); BUN 26 mg/dL (7-18); BUN/Creat Ratio 32.2 RATIO (10-20); Calcium,Total 8.8 mg/dL (8.5-10.1); Chloride 102 mmol/L (98-107); Creatinine, Serum 0.81 mg/dL (0.70-1.30); EST Glomerular Filtration Rate 103 mL/min (>60); Est Glom Filt Rate - Afr Amer 124 mL/min (>60); Estimated Creatinine Clearance 102.46 ml/min; Glucose 90 mg/dL (74-106); Sodium Level 133 mmol/L (136-145)
[2020-05-16] MEDS: Acetaminophen 325 MG Tablet 650 MG PO ×3 (08:52→22:24)
[2020-05-16] MEDS: Aspirin E.C. 81 MG Tablet PO (08:53)
--- NOTE | 2020-05-16 09:47 | PN.CARD_ITS ---
Subjectve: The patient is awake and alert. He denies any acute cardiovascular symptoms at this time. Objective: Vital Signs Temp Pulse Resp BP Pulse Ox 97.8 F 77 15 116/67 95 05/16/20 09:06 05/16/20 09:06 05/16/20 09:06 05/16/20 09:06 05/16/20 09:06 Oxygen Delivery Method Room Air Weight: 200 lb Body Mass Index (BMI) 27.4 Finger Stick Blood Glucose 108 Intake and Output for Last 24 Hours 05/14/20 05/15/20 05/16/20 23:59 23:59 23:59 Intake Total 2490 / 2490 1000 / 1000 Output Total 600 / 600 1000 / 1000 Balance 1890 / 1890 0 / 0 General: Awake, Alert, Oriented x 3, Cooperative, No Acute Distress HEENT: Atraumatic, Normocephalic, PERRL, EOMI, Sclera Non Icteric Neck: Supple, Good ROM, No JVD Lungs: Clear to auscultation Cardiovascular: Regular Rhythm, Normal S1, Normal S2 Abdomen: Bowel Sounds Present, Soft Extremities: No edema Psych/Mental Status: Appropriate 05/15/20 09:50: Troponin I < 0.015 05/15/20 12:50: Troponin I < 0.015 05/16/20 04:54: WBC 8.6, RBC 3.83 L, Hgb 11.6 L, Hct 35.4 L, MCV 92.4, MCH 30.3, MCHC 32.8, Plt Count 309, MPV 9.7, Immature Gran % (Auto) 0.200, Neut % (Auto) 74.0 H, Lymph % (Auto) 11.8 L, [place] % (Auto) 12.0 H, Eos % (Auto) 1.3, Baso % (Auto) 0.7, Absolute Neuts (auto) 6.3, Nucleated RBC % 0 05/16/20 04:54: Sodium 133 L, Potassium 5.0, Chloride 102, Carbon Dioxide 24.0, Anion Gap 7, BUN 26 H, Creatinine 0.81, Est GFR (MDRD) Af Amer 124, Est GFR (MD RD) Non-Af 103, BUN/Creatinine Ratio 32.2 H, Glucose 90, Calcium 8.8 Rhythm: Sinus rhythm Medical Necessity - Tobacco Use Smoking Status: Never smoker Assessment/Plan 1. CAD The patient has a history of CAD. He has experienced previous non-ST segment elevation [place]. He was referred to [facility] for evaluation for CABG. He was declined at that time based upon his multiple comorbidities with respect to a history of multiple sclerosis, wheelchair confinement, inability to utilize his upper extremities with concerns of postoperative/recovery related issues, etc. He states all in all he has been content to continue medical therapy. He states he does not want to pursue repeat aggressive cardiovascular evaluation or repeat tertiary care center evaluation for revascularization therapy. He will continue medical therapy. This has included the addition of nitrates and the elevation of his beta-yoav dose. He is to be tolerating both thus far. Overall he will continue conservative medical management at this time. He has undergone, from a noncardiac standpoint a neurology consultation. He states he is pending further evaluation with an MRI. Comment: The above was discussed and reviewed with the patient. He was agreeable to this approach. This note was generated using a voice recognition system and there may be incorrect words, spelling or punctuation that were not noted when reviewing the office note prior to saving.
[2020-05-16] MEDS: Menthol/Lanolin/Calamine/Znox 113 GM Tube 1 APPLIC TOPICAL ×2 (10:52→22:16)
[2020-05-16] MEDS: Isosorbide Mononitrate 30 MG Tablet PO (10:52)
[2020-05-16] MEDS: Psyllium 1 PACKET PO ×2 (10:53→22:15)
[2020-05-16] MEDS: Metoprolol Tartrate 50 MG Tablet PO ×2 (10:53→22:15)
[2020-05-16] MEDS: Gabapentin 400 MG Capsule PO ×3 (11:00→23:33)
--- NOTE | 2020-05-16 13:11 | PN_ITS ---
<KgMackenzie CAREER GUIDANCE COUNSELOR - Last Filed: 05/16/20 13:18> Subjective: Patient seen and examined. Denies further chest pain. Reports ongoing lower extremity stiffness which she is very concerned about. Denies new symptoms or complaints. - Physical Exam Vitals/I&O's: Vital Signs Temp Pulse Resp BP Pulse Ox 97.8 F 70 15 116/67 95 05/16/20 09:06 05/16/20 12:00 05/16/20 09:06 05/16/20 09:06 05/16/20 09:06 Oxygen Delivery Method Room Air Weight: 200 lb Body Mass Index (BMI) 27.4 Finger Stick Blood Glucose 108 Intake and Output for Last 24 Hours 05/14/20 05/15/20 05/16/20 23:59 23:59 23:59 Intake Total 2490 / 2490 1480 / 1480 Output Total 600 / 600 2800 / 2800 Balance 1890 / 1890 -1320 / -1320 General: Alert, Oriented x3, Cooperative HEENT: Atraumatic, PERRLA, EOMI, Normocephalic Neck: Supple, No JVD, Negative Carotid Bruits Lungs: Clear to auscultation, Normal air movement Cardiovascular: Regular rate, No murmurs Abdomen: Bowel Sounds Present, Soft, Non Tender Extremities: No clubbing, No cyanosis, No edema, Capillary Refill Less than 3 Seconds Skin: No rashes, No breakdown Musculoskeletal: No Tenderness to Palpation of Joints or Extremities, Muscle Wasting, - - Chronic lower extremity and upper extremity weakness secondary to MS Neurological: Cranial nerves II-XII grossly intact, Neuro grossly intact Psych/Mental Status: Normal Affect, Appropriate Laboratory Results 05/15/20 17:41: POC Glucose 92 05/16/20 04:54: WBC 8.6, RBC 3.83 L, Hgb 11.6 L, Hct 35.4 L, MCV 92.4, MCH 30.3, MCHC 32.8, RDW Std Deviation 47.2 H, RDW Coeff of Isha 14.1, Plt Count 309, MPV 9.7, Immature Gran % (Auto) 0.200, Neut % (Auto) 74.0 H, Lymph % (Auto) 11.8 L, [place] % (Auto) 12.0 H, Eos % (Auto) 1.3, Baso % (Auto) 0.7, Absolute Neuts (auto) 6.3, Absolute Lymphs (auto) 1.01, Nucleated RBC % 0 05/16/20 04:54: Sodium 133 L, Potassium 5.0, Chloride 102, Carbon Dioxide 24.0, Anion Gap 7, BUN 26 H, Creatinine 0.81, Estim Creat Clear Calc 102.46, Est GFR (MDRD) Af Amer 124, Est GFR (MDRD) Non-Af 103, BUN/Creatinine Ratio 32.2 H, Glucose 90, Calcium 8.8 Current Medications Acetaminophen (Acetaminophen 325 Mg Tablet) 650 mg PO Q6H PRN PRN PRN Reason: Pain 1-10 or Fever Last Admin: 05/16/20 08:52 Dose: 650 mg Documented by: Aspirin (Aspirin E.C. 81 Mg Tablet) 81 mg PO DAILY@0800 [facility] Last Admin: 05/16/20 08:53 Dose: 81 mg Documented by: Atorvastatin Calcium (Atorvastatin Calcium 40 Mg Tablet) 40 mg PO QHS [facility] Last Admin: 05/15/20 23:03 Dose: 40 mg Documented by: Baclofen (Baclofen 10 Mg Tablet) 10 mg PO TID [facility] Last Admin: 05/16/20 05:12 Dose: 10 mg Documented by: Calamine/Phenol (Menthol/Lanolin/Calamine/Znox 113 Gm Tube) 1 applic TOPICAL BID [facility]; Protocol Last Admin: 05/16/20 10:52 Dose: 1 applicatio Documented by: Gabapentin (Gabapentin 400 Mg Capsule) 400 mg PO Q6H PRN PRN Reason: Leg pain Last Admin: 05/15/20 23:03 Dose: 400 mg Documented by: Isosorbide Mononitrate (Isosorbide Mononitrate 30 Mg Tablet) 30 mg PO DAILY [facility] Last Admin: 05/16/20 10:52 Dose: 30 mg Documented by: Levothyroxine Sodium (Levothyroxine 25 Mcg Tablet) 25 mcg PO DAILY@0600 [facility] Last Admin: 05/16/20 05:12 Dose: 25 mcg Documented by: Metoprolol Tartrate (Metoprolol Tartrate 50 Mg Tablet) 50 mg PO BID [facility] Last Admin: 05/16/20 10:53 Dose: 50 mg Documented by: Nitroglycerin (Nitroglycerin (Inpatient Use) 0.4 Mg Tab.Subl) 0.4 mg SUBLINGUAL Q5M PRN PRN Reason: CARDIAC/CHEST PAIN Non-Formulary Medication (Baclofen) 90 mcg [facility] DAILY [facility] Last Admin: 05/16/20 10:50 Dose: Not Given Documented by: Ondansetron HCl (Ondansetron 4 Mg/2 Ml Vial) 4 mg IV Q8H PRN PRN PRN Reason: NAUSEA/VOMITING Psyllium Hydrophilic Mucilloid (Psyllium 1 Packet) 1 packet PO BID [facility] Last Admin: 05/16/20 10:53 Dose: 1 packet Documented by: Senna (Senna Tablet) 8.6 tablet PO BID PRN PRN Reason: Constipation Sodium Chloride (0.9% Saline Lock 10 Ml Syringe) 10 - 40 ml IV UD PRN PRN Reason: SALINE FLUSH Medical Necessity - Tobacco Use Smoking Status: Never smoker Assessment/Plan All Active Problems (Last Reviewed 11/28/19 @ 10:13 by Marianna Hernandez) NSTEMI (non-ST elevated myocardial infarction) (Resolved 11/01/19) AMS (altered mental status) (Acute) Abnormal EKG (Acute) Fall (Resolved) Ribs, multiple fractures (Resolved) 1. Chest pain, known CAD-troponin negative. Cardiology consulted. Patient previously evaluated for CABG at [facility] however was declined due to his underlying comorbidities. Continue medical management. Continue home aspirin, statin, metoprolol, lisinopril. Patient initiated on isosorbide. 2. MS with chronic debility-patient reports increasing lower extremity stiffness and weakness. Neurology consulted. Recommending full spine MRI and brain MRI for further evaluation however unclear if baclofen pump is compatible. Will attempt to call patient's primary neurologist, Dr. Duarte as well as discuss with MRI staff in a.m. Increase as needed baclofen regimen. PT/OT. Patient lives home alone and has home health aides, denies further home needs at this time. 3. Hypertension-stable, continue isosorbide, metoprolol. 4. Hyperlipidemia-continue statin. 5. Hypothyroidism-continue Synthroid regimen. DVT prophylaxis-Lovenox subcu This patient was seen by SAMARA Arrington under the supervision of Dr. Beltre. <Michelle Beltre - Last Filed: 05/16/20 14:31> - Physical Exam Vitals/I&O's: Vital Signs Temp Pulse Resp BP Pulse Ox 97.8 F 70 15 116/67 95 05/16/20 09:06 05/16/20 12:00 05/16/20 09:06 05/16/20 09:06 05/16/20 09:06 Oxygen Delivery Method Room Air Weight: 200 lb Body Mass Index (BMI) 27.4 Finger Stick Blood Glucose 108 Intake and Output for Last 24 Hours 05/14/20 05/15/20 05/16/20 23:59 23:59 23:59 Intake Total 2490 / 2490 1480 / 1480 Output Total 600 / 600 2800 / 2800 Balance 1890 / 1890 -1320 / -1320 Laboratory Results 05/15/20 17:41: POC Glucose 92 05/16/20 04:54: WBC 8.6, RBC 3.83 L, Hgb 11.6 L, Hct 35.4 L, MCV 92.4, MCH 30.3, MCHC 32.8, RDW Std Deviation 47.2 H, RDW Coeff of Isha 14.1, Plt Count 309, MPV 9.7, Immature Gran % (Auto) 0.200, Neut % (Auto) 74.0 H, Lymph % (Auto) 11.8 L, [place] % (Auto) 12.0 H, Eos % (Auto) 1.3, Baso % (Auto) 0.7, Absolute Neuts (auto) 6.3, Absolute Lymphs (auto) 1.01, Nucleated RBC % 0 05/16/20 04:54: Sodium 133 L, Potassium 5.0, Chloride 102, Carbon Dioxide 24.0, Anion Gap 7, BUN 26 H, Creatinine 0.81, Estim Creat Clear Calc 102.46, Est GFR (MDRD) Af Amer 124, Est GFR (MDRD) Non-Af 103, BUN/Creatinine Ratio 32.2 H, Glucose 90, Calcium 8.8 Current Medications Acetaminophen (Acetaminophen 325 Mg Tablet) 650 mg PO Q6H PRN PRN PRN Reason: Pain 1-10 or Fever Last Admin: 05/16/20 08:52 Dose: 650 mg Documented by: Aspirin (Aspirin E.C. 81 Mg Tablet) 81 mg PO DAILY@0800 [facility] Last Admin: 05/16/20 08:53 Dose: 81 mg Documented by: Atorvastatin Calcium (Atorvastatin Calcium 40 Mg Tablet) 40 mg PO QHS [facility] Last Admin: 05/15/20 23:03 Dose: 40 mg Documented by: Baclofen (Baclofen 10 Mg Tablet) 10 mg PO TID [facility] Last Admin: 05/16/20 05:12 Dose: 10 mg Documented by: Calamine/Phenol (Menthol/Lanolin/Calamine/Znox 113 Gm Tube) 1 applic TOPICAL BID [facility]; Protocol Last Admin: 05/16/20 10:52 Dose: 1 applicatio Documented by: Gabapentin (Gabapentin 400 Mg Capsule) 400 mg PO Q6H PRN PRN Reason: Leg pain Last Admin: 05/15/20 23:03 Dose: 400 mg Documented by: Isosorbide Mononitrate (Isosorbide Mononitrate 30 Mg Tablet) 30 mg PO DAILY [facility] Last Admin: 05/16/20 10:52 Dose: 30 mg Documented by: Levothyroxine Sodium (Levothyroxine 25 Mcg Tablet) 25 mcg PO DAILY@0600 [facility] Last Admin: 05/16/20 05:12 Dose: 25 mcg Documented by: Metoprolol Tartrate (Metoprolol Tartrate 50 Mg Tablet) 50 mg PO BID [facility] Last Admin: 05/16/20 10:53 Dose: 50 mg Documented by: Nitroglycerin (Nitroglycerin (Inpatient Use) 0.4 Mg Tab.Subl) 0.4 mg SUBLINGUAL Q5M PRN PRN Reason: CARDIAC/CHEST PAIN Non-Formulary Medication (Baclofen) 90 mcg [facility] DAILY [facility] Last Admin: 05/16/20 10:50 Dose: Not Given Documented by: Ondansetron HCl (Ondansetron 4 Mg/2 Ml Vial) 4 mg IV Q8H PRN PRN PRN Reason: NAUSEA/VOMITING Psyllium Hydrophilic Mucilloid (Psyllium 1 Packet) 1 packet PO BID [facility] Last Admin: 05/16/20 10:53 Dose: 1 packet Documented by: Senna (Senna Tablet) 8.6 tablet PO BID PRN PRN Reason: Constipation Sodium Chloride (0.9% Saline Lock 10 Ml Syringe) 10 - 40 ml IV UD PRN PRN Reason: SALINE FLUSH Assessment/Plan Patient seen by SAMARA Arrington under my supervision Patient seen and examined. He still complains of stiffness in the left upper and left lower extremities. Chest pain did not recur overnight. Neurology reviewed patient and recommended a full spine MRI and brain MRI for evaluation of multiple sclerosis. Review of systems otherwise negative. O/E: Vital Signs Temp Pulse Resp BP Pulse Ox 97.8 F 70 15 116/67 95 05/16/20 09:06 05/16/20 12:00 05/16/20 09:06 05/16/20 09:06 05/16/20 09:06 General: Alert, Oriented x3, Cooperative HEENT: Atraumatic, PERRLA, EOMI, Normocephalic Neck: Supple, No JVD, Negative Carotid Bruits Lungs: Clear to auscultation, Normal air movement Cardiovascular: Regular rate, No murmurs Abdomen: Bowel Sounds Present, Soft, Non Tender Extremities: No clubbing, No cyanosis, No edema, Capillary Refill Less than 3 Seconds Skin: No rashes, No breakdown Musculoskeletal: No Tenderness to Palpation of Joints or Extremities, Muscle Wasting, - - Chronic lower extremity and upper extremity weakness secondary to MS Neurological: Cranial nerves II-XII grossly intact, Neuro grossly intact Psych/Mental Status: Normal Affect, Appropriate Plan is continue aspirin and high intensity statin/metoprolol and Imdur. Lisinopril was held on admission on account of elevated potassium. To consider resuming upon discharge. Neurology reviewed patient and recommend full spine MRI and brain MRI to stay severity of multiple sclerosis. Patient states he has not had an MRI in 2 years and was told after his baclofen pump insertion that having an MRI could affect the baclofen pump. We will therefore need to clarify if the baclofen pump is compatible with having an MRI. We may need to consult pain management for review of baclofen pump if he is able to have the MRI. PT OT on board. Of note, patient would prefer to be discharged on Sunday so he can arrange all the help he needs at home prior to going home. He lives alone and has home health aide to come in to help. Rest as per SAMARA Arrington's notes which I have reviewed and endorsed. OBSV E&M: 70413 Subsequent observation care L2
[2020-05-16] MEDS: Ondansetron 4 MG/2 ML Vial IV (20:21)
[2020-05-16] MEDS: 0.9% Saline Lock 10 ML Syringe IV (20:21)
[2020-05-16] MEDS: Atorvastatin Calcium 40 MG Tablet PO (22:15)
[2020-05-17] VITALS (10 sets, daily range): BP systolic 118–133; BP diastolic 63–77; PULSE 57–81; RESP 15–16; TEMP 36.4–37; O2SAT 94–96
[2020-05-17] MEDS: Magnesium Hydroxide 30 ML UDC 15 ML PO (01:56)
[2020-05-17] MEDS: Polyethylene Glycol 3350 17 GM PACKET PO ×2 (01:57→10:06)
[2020-05-17] MEDS: Gabapentin 400 MG Capsule PO ×3 (06:06→20:18)
[2020-05-17] MEDS: Levothyroxine 25 MCG TABLET PO (06:06)
[2020-05-17] MEDS: Baclofen 10 MG Tablet PO ×3 (06:06→20:18)
[2020-05-17 06:42] LABS: Hematocrit 34.5 % (40-54); Hemoglobin 11.7 g/dL (13.0-16.5); Mean Corp Hgb Conc 33.9 g/dL (32-36); Mean Corpuscular Hgb 30.7 pg (27.0-32.0); Mean Corpuscular Volume 90.6 fL (80-94); Mean Platelet Vol. 9.2 fl (6.2-12.0); Platelet Count 270 K/mm3 (150-450); RBC Distribution Width CV 13.6 % (11.6-14.6); RBC Distribution Width SD 45.1 fl (35.1-43.9); Red Blood Count 3.81 M/mm3 (4.6-6.2); White Blood Count 8.3 K/mm3 (4.4-11.0)
[2020-05-17 07:15] LABS: Anion Gap 6 (5-15); BUN 12 mg/dL (7-18); BUN/Creat Ratio 19.9 RATIO (10-20); Calcium,Total 9.1 mg/dL (8.5-10.1); Chloride 100 mmol/L (98-107); EST Glomerular Filtration Rate 144 mL/min (>60); Est Glom Filt Rate - Afr Amer 174 mL/min (>60); Estimated Creatinine Clearance 138.31 ml/min; Glucose 85 mg/dL (74-106); Potassium 4.4 mmol/L (3.5-5.1); Sodium Level 132 mmol/L (136-145)
[2020-05-17] MEDS: Aspirin E.C. 81 MG Tablet PO (08:19)
[2020-05-17] MEDS: Acetaminophen 325 MG Tablet 650 MG PO ×3 (08:20→23:44)
--- NOTE | 2020-05-17 09:30 | CASEMGMT ---
TAVO called [facility] and spoke with person on the coverage line and SW was told he is not active with them. Siria GIRALDO SEAT COVER CUTTER
[2020-05-17] MEDS: Senna Tablet 8.6 TABLET PO (10:07)
[2020-05-17] MEDS: Isosorbide Mononitrate 30 MG Tablet PO (10:07)
[2020-05-17] MEDS: Metoprolol Tartrate 50 MG Tablet PO ×2 (10:07→20:17)
[2020-05-17] MEDS: Psyllium 1 PACKET PO ×2 (10:08→20:17)
[2020-05-17] MEDS: Fluticasone 0.05% 1 SPRAY NASAL.SRY NASAL (10:08)
[2020-05-17] MEDS: Menthol/Lanolin/Calamine/Znox 113 GM Tube 1 APPLIC TOPICAL ×2 (10:09→20:18)
--- NOTE | 2020-05-17 12:51 | PCM.PROGNOTE ---
<KgMackenzie IMPORT/EXPORT ADMINISTRATOR - Last Filed: 05/17/20 12:55> Subjective: Patient seen and examined. Denies further chest pain. Reports continued lower extremity stiffness and spasticity which he reports has been ongoing for the past few months however worsened recently. Unable to complete MRI at this time due to baclofen pump. Patient requesting discussion with primary neurologist on treatment prior to discharge. - Physical Exam Vitals/I&O's: Vital Signs Temp Pulse Resp BP Pulse Ox 98.5 F 81 15 118/63 94 05/17/20 10:03 05/17/20 12:10 05/17/20 10:03 05/17/20 10:07 05/17/20 10:03 Oxygen Delivery Method Room Air Weight: 200 lb Body Mass Index (BMI) 27.4 Finger Stick Blood Glucose 108 Intake and Output for Last 24 Hours 05/15/20 05/16/20 05/17/20 23:59 23:59 23:59 Intake Total 2490 / 2490 1960 / 1960 1280 / 1280 Output Total 600 / 600 5050 / 5050 1475 / 1475 Balance 1890 / 1890 -3090 / -3090 -195 / -195 General: Alert, Oriented x3, Cooperative HEENT: Atraumatic, PERRLA, EOMI, Normocephalic Neck: Supple, No JVD, Negative Carotid Bruits Lungs: Clear to auscultation, Normal air movement Cardiovascular: Regular rate, No murmurs Abdomen: Bowel Sounds Present, Soft, Non Tender Extremities: No clubbing, No cyanosis, No edema, Capillary Refill Less than 3 Seconds Skin: No rashes, No breakdown Musculoskeletal: No Tenderness to Palpation of Joints or Extremities, Cachexia, Muscle Wasting Neurological: Cranial nerves II-XII grossly intact, Neuro grossly intact, - - Chronic lower extremity and upper extremity weakness secondary to MS Psych/Mental Status: Flat Affect Laboratory Results 05/17/20 06:23: WBC 8.3, RBC 3.81 L, Hgb 11.7 L, Hct 34.5 L, MCV 90.6, MCH 30.7, MCHC 33.9, RDW Std Deviation 45.1 H, RDW Coeff of Isha 13.6, Plt Count 270, MPV 9.2 05/17/20 06:23: Sodium 132 L, Potassium 4.4, Chloride 100, Carbon Dioxide 26.0, Anion Gap 6, BUN 12, Creatinine 0.60 L, Estim Creat Clear Calc 138.31, Est GFR (MDRD) Af Amer 174, Est GFR (MDRD) Non-Af 144, BUN/Creatinine Ratio 19.9, Glucose 85, Calcium 9.1 Current Medications Acetaminophen (Acetaminophen 325 Mg Tablet) 650 mg PO Q6H PRN PRN PRN Reason: Pain 1-10 or Fever Last Admin: 05/17/20 08:20 Dose: 650 mg Documented by: Aspirin (Aspirin E.C. 81 Mg Tablet) 81 mg PO DAILY@0800 [facility] Last Admin: 05/17/20 08:19 Dose: 81 mg Documented by: Atorvastatin Calcium (Atorvastatin Calcium 40 Mg Tablet) 40 mg PO QHS [facility] Last Admin: 05/16/20 22:15 Dose: 40 mg Documented by: Baclofen (Baclofen 10 Mg Tablet) 10 mg PO TID [facility] Last Admin: 05/17/20 06:06 Dose: 10 mg Documented by: Calamine/Phenol (Menthol/Lanolin/Calamine/Znox 113 Gm Tube) 1 applic TOPICAL BID [facility]; Protocol Last Admin: 05/17/20 10:09 Dose: 1 applicatio Documented by: Fluticasone Propionate (Fluticasone 0.05% 1 [place] Nasal.Sry) 1 spray NASAL BID [facility] Last Admin: 05/17/20 10:08 Dose: 1 spray Documented by: Gabapentin (Gabapentin 400 Mg Capsule) 400 mg PO Q6H PRN PRN Reason: Leg pain Last Admin: 05/17/20 06:06 Dose: 400 mg Documented by: Isosorbide Mononitrate (Isosorbide Mononitrate 30 Mg Tablet) 30 mg PO DAILY [facility] Last Admin: 05/17/20 10:07 Dose: 30 mg Documented by: Levothyroxine Sodium (Levothyroxine 25 Mcg Tablet) 25 mcg PO DAILY@0600 [facility] Last Admin: 05/17/20 06:06 Dose: 25 mcg Documented by: Metoprolol Tartrate (Metoprolol Tartrate 50 Mg Tablet) 50 mg PO BID [facility] Last Admin: 05/17/20 10:07 Dose: 50 mg Documented by: Nitroglycerin (Nitroglycerin (Inpatient Use) 0.4 Mg Tab.Subl) 0.4 mg SUBLINGUAL Q5M PRN PRN Reason: CARDIAC/CHEST PAIN Non-Formulary Medication (Baclofen) 90 mcg MC DAILY [facility] Last Admin: 05/17/20 10:14 Dose: Not Given Documented by: Nutritional Formula (Lactose Free) (Ensure Enlive 120 Ml Liquid) 120 ml PO 4X/DAY [facility] Last Admin: 05/17/20 09:47 Dose: Not Given Documented by: Ondansetron HCl (Ondansetron 4 Mg/2 Ml Vial) 4 mg IV Q8H PRN PRN PRN Reason: NAUSEA/VOMITING Last Admin: 05/16/20 20:21 Dose: 4 mg Documented by: Polyethylene Glycol (Polyethylene Glycol 3350 17 Gm Packet) 17 gm PO DAILY [facility] Last Admin: 05/17/20 10:06 Dose: 17 gm Documented by: Psyllium Hydrophilic Mucilloid (Psyllium 1 Packet) 1 packet PO BID [facility] Last Admin: 05/17/20 10:08 Dose: 1 packet Documented by: Senna (Senna Tablet) 8.6 tablet PO BID PRN PRN Reason: Constipation Last Admin: 05/17/20 10:07 Dose: 1 tablet Documented by: Sodium Chloride (0.9% Saline Lock 10 Ml Syringe) 10 - 40 ml IV UD PRN PRN Reason: SALINE FLUSH Last Admin: 05/16/20 20:21 Dose: 10 ml Documented by: Medical Necessity - Tobacco Use Smoking Status: Never smoker Assessment/Plan All Active Problems (Last Reviewed 11/28/19 @ 10:13 by Marianna Hernandez) NSTEMI (non-ST elevated myocardial infarction) (Resolved 11/01/19) AMS (altered mental status) (Acute) Abnormal EKG (Acute) Fall (Resolved) Ribs, multiple fractures (Resolved) 1. Chest pain, known CAD-troponin negative. Cardiology consulted. Patient previously evaluated for CABG at [facility] however was declined due to his underlying comorbidities. Continue medical management. Continue home aspirin, statin, metoprolol, lisinopril. Patient initiated on isosorbide. 2. MS with chronic debility-patient reports increasing lower extremity stiffness and weakness. Neurology consulted. Recommending full spine MRI and brain MRI for further evaluation however unclear if baclofen pump is compatible. MRI is continuing to look into baclofen compatibility although it appears doubtful this can be completed at this time. Left message with patient's primary neurologist, Dr. Duarte to discuss patient's worsening symptoms. Increase as needed baclofen regimen. PT/OT. Patient lives home alone and has home health aides, denies further home needs at this time. Anticipate discharge 05/18/2020. 3. Hypertension-stable, continue isosorbide, metoprolol. 4. Hyperlipidemia-continue statin. 5. Hypothyroidism-continue Synthroid regimen. DVT prophylaxis-Lovenox subcu This patient was seen by SAMARA Arrington under the supervision of Dr. Bhardwaj. <Wilber Bhardwaj F - Last Filed: 05/17/20 17:43> - Physical Exam Vitals/I&O's: Vital Signs Temp Pulse Resp BP Pulse Ox 98.6 F 64 16 119/71 96 05/17/20 15:54 05/17/20 15:54 05/17/20 15:54 05/17/20 15:54 05/17/20 15:54 Oxygen Delivery Method Room Air Weight: 200 lb Body Mass Index (BMI) 27.4 Finger Stick Blood Glucose 108 Intake and Output for Last 24 Hours 05/15/20 05/16/20 05/17/20 23:59 23:59 23:59 Intake Total 2490 / 2490 1960 / 1960 1280 / 1280 Output Total 600 / 600 5050 / 5050 1475 / 1475 Balance 1890 / 1890 -3090 / -3090 -195 / -195 Laboratory Results 05/17/20 06:23: WBC 8.3, RBC 3.81 L, Hgb 11.7 L, Hct 34.5 L, MCV 90.6, MCH 30.7, MCHC 33.9, RDW Std Deviation 45.1 H, RDW Coeff of Isha 13.6, Plt Count 270, MPV 9.2 05/17/20 06:23: Sodium 132 L, Potassium 4.4, Chloride 100, Carbon Dioxide 26.0, Anion Gap 6, BUN 12, Creatinine 0.60 L, Estim Creat Clear Calc 138.31, Est GFR (MDRD) Af Amer 174, Est GFR (MDRD) Non-Af 144, BUN/Creatinine Ratio 19.9, Glucose 85, Calcium 9.1 Current Medications Acetaminophen (Acetaminophen 325 Mg Tablet) 650 mg PO Q6H PRN PRN PRN Reason: Pain 1-10 or Fever Last Admin: 05/17/20 16:17 Dose: 650 mg Documented by: Aspirin (Aspirin E.C. 81 Mg Tablet) 81 mg PO DAILY@0800 [facility] Last Admin: 05/17/20 08:19 Dose: 81 mg Documented by: Atorvastatin Calcium (Atorvastatin Calcium 40 Mg Tablet) 40 mg PO QHS [facility] Last Admin: 05/16/20 22:15 Dose: 40 mg Documented by: Baclofen (Baclofen 10 Mg Tablet) 10 mg PO TID [facility] Last Admin: 05/17/20 13:40 Dose: 10 mg Documented by: Calamine/Phenol (Menthol/Lanolin/Calamine/Znox 113 Gm Tube) 1 applic TOPICAL BID [facility]; Protocol Last Admin: 05/17/20 10:09 Dose: 1 applicatio Documented by: Enoxaparin Sodium (Enoxaparin 40 Mg/0.4 Ml Syringe) 40 mg SC DAILY [facility] Fluticasone Propionate (Fluticasone 0.05% 1 [place] Nasal.Sry) 1 spray NASAL BID [facility] Last Admin: 05/17/20 10:08 Dose: 1 spray Documented by: Gabapentin (Gabapentin 400 Mg Capsule) 400 mg PO Q6H PRN PRN Reason: Leg pain Last Admin: 05/17/20 13:40 Dose: 400 mg Documented by: Isosorbide Mononitrate (Isosorbide Mononitrate 30 Mg Tablet) 30 mg PO DAILY [facility] Last Admin: 05/17/20 10:07 Dose: 30 mg Documented by: Levothyroxine Sodium (Levothyroxine 25 Mcg Tablet) 25 mcg PO DAILY@0600 [facility] Last Admin: 05/17/20 06:06 Dose: 25 mcg Documented by: Metoprolol Tartrate (Metoprolol Tartrate 50 Mg Tablet) 50 mg PO BID [facility] Last Admin: 05/17/20 10:07 Dose: 50 mg Documented by: Nitroglycerin (Nitroglycerin (Inpatient Use) 0.4 Mg Tab.Subl) 0.4 mg SUBLINGUAL Q5M PRN PRN Reason: CARDIAC/CHEST PAIN Non-Formulary Medication (Baclofen) 90 mcg MC DAILY [facility] Last Admin: 05/17/20 10:14 Dose: Not Given Documented by: Nutritional Formula (Lactose Free) (Ensure Enlive 120 Ml Liquid) 120 ml PO 4X/DAY [facility] Last Admin: 05/17/20 13:40 Dose: Not Given Documented by: Ondansetron HCl (Ondansetron 4 Mg/2 Ml Vial) 4 mg IV Q8H PRN PRN PRN Reason: NAUSEA/VOMITING Last Admin: 05/16/20 20:21 Dose: 4 mg Documented by: Polyethylene Glycol (Polyethylene Glycol 3350 17 Gm Packet) 17 gm PO DAILY [facility] Last Admin: 05/17/20 10:06 Dose: 17 gm Documented by: Psyllium Hydrophilic Mucilloid (Psyllium 1 Packet) 1 packet PO BID [facility] Last Admin: 05/17/20 10:08 Dose: 1 packet Documented by: Senna (Senna Tablet) 8.6 tablet PO BID PRN PRN Reason: Constipation Last Admin: 05/17/20 10:07 Dose: 1 tablet Documented by: Sodium Chloride (0.9% Saline Lock 10 Ml Syringe) 10 - 40 ml IV UD PRN PRN Reason: SALINE FLUSH Last Admin: 05/16/20 20:21 Dose: 10 ml Documented by: Addendum: Dr. Bhardwaj I personally examined the patient and reviewed the chart. I agree with the above. 65-year-old male with a history of multiple sclerosis with a baclofen pump in place as well as coronary artery disease presents to the hospital with chest pain. He had a history of needing a CABG however given his condition one was not performed at an outside hospital. He does not want any aggressive cardiac intervention, and states that his chest pain is much improved. Cardiology was consulted and made medication improvements. We were able to get in touch with his neurologist who did not feel that prednisone was necessary at this time and did not think that MRIs would make any changes to his course. Inpatient E&M: [id number] [facility] L2
--- NOTE | 2020-05-17 13:13 | PN.CARD_ITS ---
Subjectve: The patient appears to be awake and alert. He denies any acute cardiovascular symptoms or concerns. Objective: Vital Signs Temp Pulse Resp BP Pulse Ox 98.5 F 81 15 118/63 94 05/17/20 10:03 05/17/20 12:10 05/17/20 10:03 05/17/20 10:07 05/17/20 10:03 Oxygen Delivery Method Room Air Weight: 200 lb Body Mass Index (BMI) 27.4 Finger Stick Blood Glucose 108 Intake and Output for Last 24 Hours 05/15/20 05/16/20 05/17/20 23:59 23:59 23:59 Intake Total 2490 / 2490 1960 / 1960 1280 / 1280 Output Total 600 / 600 5050 / 5050 1475 / 1475 Balance 1890 / 1890 -3090 / -3090 -195 / -195 General: Awake, Alert, Oriented x 3, Cooperative, No Acute Distress HEENT: Atraumatic, Normocephalic, PERRL, EOMI, Sclera Non Icteric Neck: Supple, Good ROM, No JVD Lungs: Clear to auscultation Cardiovascular: Regular Rhythm, Normal S1, Normal S2 Abdomen: Bowel Sounds Present, Soft Extremities: No edema Psych/Mental Status: Appropriate 05/17/20 06:23: WBC 8.3, RBC 3.81 L, Hgb 11.7 L, Hct 34.5 L, MCV 90.6, MCH 30.7, MCHC 33.9, Plt Count 270, MPV 9.2 05/17/20 06:23: Sodium 132 L, Potassium 4.4, Chloride 100, Carbon Dioxide 26.0, Anion Gap 6, BUN 12, Creatinine 0.60 L, Est GFR (MDRD) Af Amer 174, Est GFR (MDRD) Non-Af 144, BUN/Creatinine Ratio 19.9, Glucose 85, Calcium 9.1 Rhythm: Sinus rhythm Medical Necessity - Tobacco Use Smoking Status: Never smoker Assessment/Plan 1. CAD The patient has a history of CAD. He has experienced previous non-ST segment elevation AL. He was referred to [facility] for evaluation for CABG. He was declined at that time based upon his multiple comorbidities with respect to a history of multiple sclerosis, wheelchair confinement, inability to utilize his upper extremities with concerns of postoperative/recovery related issues, etc. He states all in all he has been content to continue medical therapy. He states he does not want to pursue repeat aggressive cardiovascular evaluation or repeat tertiary care center evaluation for revascularization therapy. He will continue medical therapy. He has been placed on nitrates and his beta- yoav dose has been adjusted. He is to be tolerating both thus far. Overall he will continue conservative medical management at this time. At the present time there are no immediate plans for any additional cardiovascular diagnostic studies/therapeutic intervention. He will continue to be followed by internal medicine for his noncardiovascular issues. He will be asked to have continued future outpatient cardiovascular follow-up. Comment: The above was discussed and reviewed with the patient. He was agreeable to this approach. This note was generated using a voice recognition system and there may be incorrect words, spelling or punctuation that were not noted when reviewing the office note prior to saving.
--- NOTE | 2020-05-17 14:10 | CASEMGMT ---
CAMILA ESPINOZA ASSESSMENT 1050: CAMILA ESPINOZA to room to meet with patient for initial transition planning/care coordination assessment. CAMILA ESPINOZA introduced self and role at [facility]. Pt voices understanding and consents to assessment at this time. Pt resting in bed in no distress at this time. Pt is A/O at this time and answers all questions appropriately. Care providers, pharmacy, and demographics verified/updated at this time. PCP: Dr Castro Specialists: Dr Randal Zamora--[facility] for MS, Dr Ritesh Delong--neurologist, Dr Mendoza--for Baclofen pump Preferred Pharmacy: [facility] retail @ d/c. Otherwise, uses [facility] [place]. Insurance:My Care [facility] Community Plan/[facility] Prescription Benefit: Yes Living Will/HPOA: Pt does not currently have LW/HCPOA but states his daughter Rose is working on it now. He was provided w/[employer] card if further assistance is needed. He states he would like Rose to be his POA. LNOK: 4 adult children. Rose Maurer is listed on demographics. Living Arrangements: Lives alone in one-story home w/no steps to enter. Pt is W/C bound. Uses [id number] device. Has aides from [facility] through Waiver program: 2 x's/day from 7-11 AM and 4-8 PM. They assist w/bathing/dressing, getting OOB in AM, and assisting to bed @ HS, meals, grocery shopping, laundry, and other household tasks. Transportation: [place] DME: States has the following DME: shower chair, hospital bed, grab bars, hand held shower, walker, W/C, medical alert, [id number] device, CPAP. Pt states no need for further DME at this time. HHC/SNF: Hx: [facility], [facility]. Pt states would like [facility] @ d/c. Call placed to Yue @ [facility] and referral made for SN, PT/OT. She states they are able to accept pt. Pt wishes to return home w/[facility] and resumption of aides through [facility]. He states concerns w/being discharged today and not having aides available when he gets home to assist him. CAMILA ESPINOZA to work on coordinating transportation and aides through [facility] to ensure a safe discharge once pt is medically ready for d/c. CM to follow for any further discharge planning/needs. Pt voices no further concerns/needs at this time. Advised pt to ask for CM if any further questions/concerns/needs arise. Voices understanding. 1410: Plan is for discharge home tomorrow. Spoke w/Erma @ [facility]. She states she can arrange to have aide available at pt's home at any time tomorrow. Pt states he prefers to arrive home @ 4 PM, if possible and if transportation can be arranged at that time. Erma made aware of tentative d/c time. PHARMACEUTICAL SALES REPRESENTATIVE, Mackenzie Saul, made aware and states will plan on this tomorrow. CAMILA CM to contact [facility] once d/c time is known tomorrow 05/18 so aides can be arranged at pt's home when he arrives. Yue @ [facility] made anticipate pt will discharge home tomorrow 05/18. Brittney FLORES RN CM
[2020-05-17] MEDS: Atorvastatin Calcium 40 MG Tablet PO (20:18)
[2020-05-18 02:59] VITALS: PULSE 53
[2020-05-18 03:00] VITALS: BP 136/77; PULSE 69; RESP 16; TEMP 36.6; O2SAT 96
[2020-05-18] MEDS: Levothyroxine 25 MCG TABLET PO (06:13)
[2020-05-18] MEDS: Baclofen 10 MG Tablet PO ×2 (06:13→14:55)
[2020-05-18 06:59] VITALS: PULSE 60
--- NOTE | 2020-05-18 08:32 | CASEMGMT ---
Addendum entered by Siria Floyd 05/18/20 08:53: Chad also said patient has 14 meals delivered every other week, 56 hours of aide services through [place], medical alert button, and incontinence supplies. Siria CAMPBELL Original Note: SW looked back at patient's previous admission and he was active with [facility] and his case repairer was Chad. SW called her and left her a voice mail requesting a return call. TAVO received a voice mail from Chad and she confirmed patient is one of her clients. Siria CAMPBELL
[2020-05-18 08:41] VITALS: BP 132/76; PULSE 66; RESP 16; TEMP 36.8; O2SAT 96
--- NOTE | 2020-05-18 08:58 | CASEMGMT ---
TAVO called [employer] and arranged for patient to get picked up at 1530. TAVO notified them that patient does not have his wheelchair with him so they will need to bring one. [facility] as patient has [place] and they require transport be set up through this company. TAVO was told they do not provide wheelchairs. TAVO told her never mind and patient will utilize his taxi passes. Siria GIRALDO MSW
[2020-05-18] MEDS: Menthol/Lanolin/Calamine/Znox 113 GM Tube 1 APPLIC TOPICAL (09:00)
[2020-05-18] MEDS: Fluticasone 0.05% 1 SPRAY NASAL.SRY NASAL (09:00)
--- NOTE | 2020-05-18 09:01 | CASEMGMT ---
CAMILA ESPINOZA NOTE: Transportation has been arranged through [employer]--draft roller picker @ 3:30. Call placed to Erma @ [place] ([phone]) and she was made aware. She states she will have aides at his home when he arrives. Call placed to Yue @ [facility] and she was made aware of plan for pt discharge home today @ 3:30 PM. She states start of care will be tomorrow. Pt made aware of all of the above. He denies having any other concerns/needs at this time. Brittney FLORES RN CM
[2020-05-18 09:02] VITALS: BP 132/76; PULSE 66
[2020-05-18] MEDS: Polyethylene Glycol 3350 17 GM PACKET PO (09:02)
[2020-05-18] MEDS: Isosorbide Mononitrate 30 MG Tablet PO (09:02)
[2020-05-18] MEDS: Aspirin E.C. 81 MG Tablet PO (09:02)
[2020-05-18] MEDS: Metoprolol Tartrate 50 MG Tablet PO (09:02)
[2020-05-18] MEDS: Psyllium 1 PACKET PO (09:03)
[2020-05-18] MEDS: Gabapentin 400 MG Capsule PO (09:06)
[2020-05-18] MEDS: Acetaminophen 325 MG Tablet 650 MG PO (11:09)
--- NOTE | 2020-05-18 11:30 | PCM.DC ---
- Discharge Diagnoses Current Active Problems: Current Active and Chronic Problems (Last Reviewed 11/28/19 @ 10:13 by Marianna Hernandez) Atherosclerosis of coronary artery without angina pectoris (Chronic) You will use the following diet at home:: Cardiac Discharge Activity: Return to Normal Activity Call your doctor if you observe: Shortness of breath, Dizziness, Fainting spells, Chest pain Allergies/Adverse Reactions: Allergies No Known Allergies Allergy (Verified 03/03/20 12:57) Medications to take at Discharge baclofen 90 mcg INTRATH DAILY 11/28/19 cholecalciferol (vitamin D3) 125 mcg (5,000 unit) capsule 125 mcg PO DAILY 11/28/19 gabapentin 400 mg capsule 400 mg PO Q6H PRN cap 11/28/19 psyllium husk 3.4 gram/5.4 gram oral powder 1 tbsp PO BID g 11/28/19 sennosides 8.6 mg capsule 8.6 mg PO BID PRN 11/28/19 aspirin 81 mg tablet,delayed release 81 mg PO DAILY@0800 #30 tab 12/31/19 atorvastatin 40 mg tablet 40 mg PO QHS #30 tab 12/31/19 Levothyroxine [Synthroid] 50 mcg PO DAILY 05/15/20 Baclofen 15 mg PO TID #30 tab 05/18/20 Isosorbide Mononitrate [Imdur] 30 mg PO DAILY #60 tab 05/18/20 Lisinopril 2.5 mg PO DAILY #60 tab 05/18/20 Metoprolol Tartrate [Lopressor (beta yoav)] 50 mg PO BID #120 tab 05/18/20 The following prescriptions were given: Baclofen 15 mg PO TID #30 tab Transmission Status: Pending to [facility] Isosorbide Mononitrate [Imdur] 30 mg PO DAILY #60 tab Transmission Status: Pending to [facility] Lisinopril 2.5 mg PO DAILY #60 tab Transmission Status: Pending to [facility] Metoprolol Tartrate [Lopressor (beta yoav)] 50 mg PO BID #120 tab Transmission Status: Pending to [facility] Primary Care Physician: Ritesh Castro MD [Primary Care Provider] - Please follow up with your Primary Care Physician in: 1 Week Test Results: Test results from this visit will be discussed in further detail at your follow-up appointment, if applicable. Please Follow Up With: Neurology/Dr. Mendoza When: As scheduled 05/28 Please Follow Up With: Marianna Rashid, PA When: As scheduled 07/23/2020 Proposed Discharge Date: 05/18/20
--- NOTE | 2020-05-18 11:33 | CASEMGMT ---
Per RN patient needs cot transport home as he usually utilizes a sit to stand to get in his wheelchair. We do not have one readily available so he needs a cot. TAVO called [facility] and canceled. TAVO called [facility] and arranged for patient to get picked up via cot at 1530. SW notified RN. TAVO completed ambulance form and gave to psychiatric secretary. SW to fax d/c information to [facility] once completed. Siria GIRALDO MSW
--- NOTE | 2020-05-18 11:34 | PCM.DC.SUM ---
<Mackenzie Saul [employer] EXAMINER MACHINE - Last Filed: 05/18/20 11:46> Discharge Date and Diagnosis Date of Admission: 05/15/20 Date of Discharge: 05/18/20 - Primary Discharge Diagnosis Acute Problems: 1. Chest pain, known CAD-ACS ruled out 2. MS with chronic debility 3. Hypertension 4. Hyperlipidemia 5. Hypothyroidism - Secondary Discharge Diagnosis Chronic Problems: Chronic Problems (Last Reviewed 11/28/19 @ 10:13 by Marianna Hernandez) Atherosclerosis of coronary artery without angina pectoris (Chronic) Hospital Course and Treatment Imaging Results: Diagnostic Data Chest X-Ray 05/15/20 06:48 IMPRESSION: No acute cardiopulmonary abnormality. at 0731 Reported and signed by: Jennifer Briseno MD Electronically Signed: Jennifer Briseno MD at 7:31 EST Tel , Service support , Dr. Patel- Cardiology SOC neurology Operations: None Procedures: None Summary of Care Provided: The patient is a 65 year old M admitted 05/15/2020 due to chest pain. 1. Chest pain, known CAD-troponin negative. Cardiology consulted during admission. Patient previously evaluated for CABG at [facility] however was declined due to his underlying comorbidities. Patient does not want further aggressive evaluation or intervention at this time. Continue medical management. Continue home aspirin, statin, metoprolol. Initiated on isosorbide. Metoprolol increased to 50 mg twice a day. Due to increased beta-yoav and addition of nitrate, home lisinopril decreased to 2.5 mg daily to avoid hypotension. Patient has follow-up with cardiology 07/23/2020. 2. MS with chronic debility-patient reports increasing lower extremity stiffness and weakness for the past few months. SOC Neurology consulted. Recommending full spine MRI and brain MRI for further evaluation however baclofen pump is not compatible. Spoke with patient's primary neurologist, Dr. Duarte who does not feel imaging is necessary at this time. He also did not recommend any treatment with steroids. Patient has follow-up with Dr. Mendoza who manages his baclofen pump 05/28/2020. Patient's primary neurologist feels stiffness and spasticity will improve with adjustment of baclofen pump. In the meantime, we will increase oral baclofen regimen to 15 mg 3 times daily pending scheduled follow-up. Home with home care attendant services and addition of home health at discharge. 3. Hypertension-stable, medication adjustments per #1. 4. Hyperlipidemia-continue statin. 5. Hypothyroidism-continue Synthroid regimen. General: Alert, Oriented x3, Cooperative HEENT: Atraumatic, PERRLA, EOMI, Normocephalic Neck: Supple, No JVD, Negative Carotid Bruits Lungs: Clear to auscultation, Normal air movement Cardiovascular: Regular rate, No murmurs Abdomen: Bowel Sounds Present, Soft, Non Tender Extremities: No clubbing, No cyanosis, No edema, Capillary Refill Less than 3 Seconds Skin: No rashes, No breakdown Musculoskeletal: No Tenderness to Palpation of Joints or Extremities, Cachexia, Muscle Wasting Neurological: Cranial nerves II-XII grossly intact, Neuro grossly intact, Chronic lower extremity and upper extremity weakness secondary to MS Psych/Mental Status: Flat Affect Patient seen and examined prior to discharge. Physical assessment as noted above. Patient is stable for discharge with follow up recommendations as noted above. This patient was seen by SAMARA Arrington under the supervision of Dr. Bhardwaj. - Physical Exam Vitals/I&O's: Vital Signs Temp Pulse Resp BP Pulse Ox 98.2 F 66 16 132/76 H 96 05/18/20 08:41 05/18/20 09:02 05/18/20 08:41 05/18/20 09:02 05/18/20 08:41 Oxygen Delivery Method Room Air Weight: 200 lb Body Mass Index (BMI) 27.4 Finger Stick Blood Glucose 108 Intake and Output for Last 24 Hours 05/16/20 05/17/20 05/18/20 23:59 23:59 23:59 Intake Total 1960 / 1960 1280 / 1280 50 / 50 Output Total 5050 / 5050 2325 / 2650 825 / 825 Balance -3090 / -3090 -1045 / -1370 -775 / -775 Current Medications Acetaminophen (Acetaminophen 325 Mg Tablet) 650 mg PO Q6H PRN PRN PRN Reason: Pain 1-10 or Fever Last Admin: 05/18/20 11:09 Dose: 650 mg Documented by: Aspirin (Aspirin E.C. 81 Mg Tablet) 81 mg PO DAILY@0800 COUNTS INCLUDE 234 BEDS AT THE [facility] Last Admin: 05/18/20 09:02 Dose: 81 mg Documented by: Atorvastatin Calcium (Atorvastatin Calcium 40 Mg Tablet) 40 mg PO QHS COUNTS INCLUDE 234 BEDS AT THE [facility] Last Admin: 05/17/20 20:18 Dose: 40 mg Documented by: Baclofen (Baclofen 10 Mg Tablet) 10 mg PO TID COUNTS INCLUDE 234 BEDS AT THE [facility] Last Admin: 05/18/20 06:13 Dose: 10 mg Documented by: Calamine/Phenol (Menthol/Lanolin/Calamine/Znox 113 Gm Tube) 1 applic TOPICAL BID COUNTS INCLUDE 234 BEDS AT THE [facility]; Protocol Last Admin: 05/18/20 09:00 Dose: 1 applicatio Documented by: Enoxaparin Sodium (Enoxaparin 40 Mg/0.4 Ml Syringe) 40 mg SC DAILY COUNTS INCLUDE 234 BEDS AT THE [facility] Last Admin: 05/18/20 10:52 Dose: Not Given Documented by: Fluticasone Propionate (Fluticasone 0.05% 1 Pringle Nasal.Sry) 1 spray NASAL BID COUNTS INCLUDE 234 BEDS AT THE [facility] Last Admin: 05/18/20 09:00 Dose: 1 spray Documented by: Gabapentin (Gabapentin 400 Mg Capsule) 400 mg PO Q6H PRN PRN Reason: Leg pain Last Admin: 05/18/20 09:06 Dose: 400 mg Documented by: Isosorbide Mononitrate (Isosorbide Mononitrate 30 Mg Tablet) 30 mg PO DAILY COUNTS INCLUDE 234 BEDS AT THE [facility] Last Admin: 05/18/20 09:02 Dose: 30 mg Documented by: Levothyroxine Sodium (Levothyroxine 25 Mcg Tablet) 25 mcg PO DAILY@0600 COUNTS INCLUDE 234 BEDS AT THE [facility] Last Admin: 05/18/20 06:13 Dose: 25 mcg Documented by: Metoprolol Tartrate (Metoprolol Tartrate 50 Mg Tablet) 50 mg PO BID COUNTS INCLUDE 234 BEDS AT THE [facility] Last Admin: 05/18/20 09:02 Dose: 50 mg Documented by: Nitroglycerin (Nitroglycerin (Inpatient Use) 0.4 Mg Tab.Subl) 0.4 mg SUBLINGUAL Q5M PRN PRN Reason: CARDIAC/CHEST PAIN Non-Formulary Medication (Baclofen) 90 mcg MC DAILY COUNTS INCLUDE 234 BEDS AT THE [facility] Last Admin: 05/18/20 10:52 Dose: Not Given Documented by: Nutritional Formula (Lactose Free) (Ensure Enlive 120 Ml Liquid) 120 ml PO 4X/DAY COUNTS INCLUDE 234 BEDS AT THE [facility] Last Admin: 05/18/20 10:52 Dose: Not Given Documented by: Ondansetron HCl (Ondansetron 4 Mg/2 Ml Vial) 4 mg IV Q8H PRN PRN PRN Reason: NAUSEA/VOMITING Last Admin: 05/16/20 20:21 Dose: 4 mg Documented by: Polyethylene Glycol (Polyethylene Glycol 3350 17 Gm Packet) 17 gm PO DAILY COUNTS INCLUDE 234 BEDS AT THE [facility] Last Admin: 05/18/20 09:02 Dose: 17 gm Documented by: Psyllium Hydrophilic Mucilloid (Psyllium 1 Packet) 1 packet PO BID COUNTS INCLUDE 234 BEDS AT THE [facility] Last Admin: 05/18/20 09:03 Dose: 1 packet Documented by: Senna (Senna Tablet) 8.6 tablet PO BID PRN PRN Reason: Constipation Last Admin: 05/17/20 10:07 Dose: 1 tablet Documented by: Sodium Chloride (0.9% Saline Lock 10 Ml Syringe) 10 - 40 ml IV UD PRN PRN Reason: SALINE FLUSH Last Admin: 05/16/20 20:21 Dose: 10 ml Documented by: Discharge Diet: Low fat/ Low Cholesterol Discharge Activity: Return to Normal Activity Call your doctor if you observe: Shortness of breath, Dizziness, Fainting spells, Chest pain Home Medications: Medications to take at Discharge baclofen 90 mcg INTRATH DAILY 11/28/19 cholecalciferol (vitamin D3) 125 mcg (5,000 unit) capsule 125 mcg PO DAILY 11/28/19 gabapentin 400 mg capsule 400 mg PO Q6H PRN cap 11/28/19 psyllium husk 3.4 gram/5.4 gram oral powder 1 tbsp PO BID g 11/28/19 sennosides 8.6 mg capsule 8.6 mg PO BID PRN 11/28/19 aspirin 81 mg tablet,delayed release 81 mg PO DAILY@0800 #30 tab 12/31/19 atorvastatin 40 mg tablet 40 mg PO QHS #30 tab 12/31/19 Levothyroxine [Synthroid] 50 mcg PO DAILY 05/15/20 Baclofen 15 mg PO TID #30 tab 05/18/20 Isosorbide Mononitrate [Imdur] 30 mg PO DAILY #60 tab 05/18/20 Lisinopril 2.5 mg PO DAILY #60 tab 05/18/20 Metoprolol Tartrate [Lopressor (beta yoav)] 50 mg PO BID #120 tab 12/08/20 Following Prescriptions Were Given to Patient: Baclofen 15 mg PO TID #30 tab Transmission Status: Received by [facility] Isosorbide Mononitrate [Imdur] 30 mg PO DAILY #60 tab Transmission Status: Received by [facility] Lisinopril 2.5 mg PO DAILY #60 tab Transmission Status: Received by [facility] Metoprolol Tartrate [Lopressor (beta yoav)] 50 mg PO BID #120 tab Transmission Status: Received by [facility] Primary Care Physician: Ritesh Castro MD [Primary Care Provider] - Please follow up with your Primary Care Physician in: 1 Week Please Follow Up With: Neurology/Dr. Mendoza When: As scheduled 05/28 Please Follow Up With: Marianna Rashid, PA When: As scheduled 07/23/2020 Disposition: Home with Home Health Minutes spent on discharge:: 35 Patient Condition:: Stable Medical Necessity - Tobacco Use Smoking Status: Never smoker Meaningful Use Info Meaningful Use Diagnoses (Choose all that apply): None applicable <Wilber Bhardwaj - Last Filed: 05/18/20 12:36> Discharge Date and Diagnosis - Secondary Discharge Diagnosis Chronic Problems: Chronic Problems (Last Reviewed 11/28/19 @ 10:13 by Marianna Hernandez) Atherosclerosis of coronary artery without angina pectoris (Chronic) Hospital Course and Treatment Summary of Care Provided: The patient is a 65 year old M [] - Physical Exam Vitals/I&O's: Vital Signs Temp Pulse Resp BP Pulse Ox 98.2 F 66 16 132/76 H 96 05/18/20 08:41 05/18/20 09:02 05/18/20 08:41 05/18/20 09:02 05/18/20 08:41 Oxygen Delivery Method Room Air Weight: 200 lb Body Mass Index (BMI) 27.4 Finger Stick Blood Glucose 108 Intake and Output for Last 24 Hours 05/16/20 05/17/20 05/18/20 23:59 23:59 23:59 Intake Total 1960 / 1960 1280 / 1280 50 / 50 Output Total 5050 / 5050 2325 / 2650 825 / 825 Balance -3090 / -3090 -1045 / -1370 -775 / -775 Current Medications Acetaminophen (Acetaminophen 325 Mg Tablet) 650 mg PO Q6H PRN PRN PRN Reason: Pain 1-10 or Fever Last Admin: 05/18/20 11:09 Dose: 650 mg Documented by: Aspirin (Aspirin E.C. 81 Mg Tablet) 81 mg PO DAILY@0800 COUNTS INCLUDE 234 BEDS AT THE [facility] Last Admin: 05/18/20 09:02 Dose: 81 mg Documented by: Atorvastatin Calcium (Atorvastatin Calcium 40 Mg Tablet) 40 mg PO QHS COUNTS INCLUDE 234 BEDS AT [facility] Last Admin: 05/17/20 20:18 Dose: 40 mg Documented by: Baclofen (Baclofen 10 Mg Tablet) 10 mg PO TID COUNTS INCLUDE 234 BEDS AT THE [facility] Last Admin: 05/18/20 06:13 Dose: 10 mg Documented by: Calamine/Phenol (Menthol/Lanolin/Calamine/Znox 113 Gm Tube) 1 applic TOPICAL BID COUNTS INCLUDE 234 BEDS AT THE [facility]; Protocol Last Admin: 05/18/20 09:00 Dose: 1 applicatio Documented by: Enoxaparin Sodium (Enoxaparin 40 Mg/0.4 Ml Syringe) 40 mg SC DAILY COUNTS INCLUDE 234 BEDS AT THE [facility] Last Admin: 05/18/20 10:52 Dose: Not Given Documented by: Fluticasone Propionate (Fluticasone 0.05% 1 Pringle Nasal.Sry) 1 spray NASAL BID COUNTS INCLUDE 234 BEDS AT THE [facility] Last Admin: 05/18/20 09:00 Dose: 1 spray Documented by: Gabapentin (Gabapentin 400 Mg Capsule) 400 mg PO Q6H PRN PRN Reason: Leg pain Last Admin: 05/18/20 09:06 Dose: 400 mg Documented by: Isosorbide Mononitrate (Isosorbide Mononitrate 30 Mg Tablet) 30 mg PO DAILY COUNTS INCLUDE 234 BEDS AT [facility] Last Admin: 05/18/20 09:02 Dose: 30 mg Documented by: Levothyroxine Sodium (Levothyroxine 25 Mcg Tablet) 25 mcg PO DAILY@0600 COUNTS INCLUDE 234 BEDS AT THE [facility] Last Admin: 05/18/20 06:13 Dose: 25 mcg Documented by: Metoprolol Tartrate (Metoprolol Tartrate 50 Mg Tablet) 50 mg PO BID COUNTS INCLUDE 234 BEDS AT THE [facility] Last Admin: 05/18/20 09:02 Dose: 50 mg Documented by: Nitroglycerin (Nitroglycerin (Inpatient Use) 0.4 Mg Tab.Subl) 0.4 mg SUBLINGUAL Q5M PRN PRN Reason: CARDIAC/CHEST PAIN Non-Formulary Medication (Baclofen) 90 mcg MC DAILY COUNTS INCLUDE 234 BEDS AT THE [facility] Last Admin: 05/18/20 10:52 Dose: Not Given Documented by: Nutritional Formula (Lactose Free) (Ensure Enlive 120 Ml Liquid) 120 ml PO 4X/DAY COUNTS INCLUDE 234 BEDS AT THE [facility] Last Admin: 05/18/20 10:52 Dose: Not Given Documented by: Ondansetron HCl (Ondansetron 4 Mg/2 Ml Vial) 4 mg IV Q8H PRN PRN PRN Reason: NAUSEA/VOMITING Last Admin: 05/16/20 20:21 Dose: 4 mg Documented by: Polyethylene Glycol (Polyethylene Glycol 3350 17 Gm Packet) 17 gm PO DAILY SCOOTER Last Admin: 05/18/20 09:02 Dose: 17 gm Documented by: Psyllium Hydrophilic Mucilloid (Psyllium 1 Packet) 1 packet PO BID SCOOTER Last Admin: 05/18/20 09:03 Dose: 1 packet Documented by: Senna (Senna Tablet) 8.6 tablet PO BID PRN PRN Reason: Constipation Last Admin: 05/17/20 10:07 Dose: 1 tablet Documented by: Sodium Chloride (0.9% Saline Lock 10 Ml Syringe) 10 - 40 ml IV UD PRN PRN Reason: SALINE FLUSH Last Admin: 05/16/20 20:21 Dose: 10 ml Documented by: Addendum: Dr. Bhardwaj I personally examined the patient and reviewed the chart. I agree with the above. 65-year-old male with a history of multiple sclerosis with a baclofen pump in place as well as coronary artery disease presents to the hospital with chest pain. He had a history of needing a CABG however given his condition one was not performed at an outside hospital. He does not want any aggressive cardiac intervention, and states that his chest pain is much improved. Cardiology was consulted and made medication improvements. We were able to get in touch with his neurologist who did not feel that prednisone was necessary at this time and did not think that MRIs would make any changes to his course. 05/18/2020: Feels about the same today as he did yesterday. No further chest pain therefore discussed the discharge plan with him and he expressed understanding the risk benefits of going home. He will be discharged with the medication adjustments made by cardiology. Furthermore, will increase his p.o. baclofen to 15 3 times daily on discharge he says that he has follow-up next Sunday for increased baclofen from his baclofen pump, however will increase his baclofen to tide him over as he is having increasing spasms in his upper extremity. He states that he the physician who put in his baclofen pump told him that it works by gravity and therefore it only affects a spasticity in his lower extremities. I did discuss with him that he could increase his baclofen to 20 mg p.o. 3 times daily and to let his neurologist know of the changes as well as the doctor who could will evaluate him for increasing his baclofen pump next Sunday. OBSV E&M: [id number] Observation care discharge
--- NOTE | 2020-05-18 12:10 | CASEMGMT ---
TAVO faxed d/c instructions and summary to Chad with [facility]. Siria GIRALDO MSW
--- NOTE | 2020-05-18 12:19 | PHA.DC.MC ---
Pharmacy Service has performed discharge medication reconciliation and counseling for this patient. 1. ISOSORBIDE MONONITRATE 30MG PO DAILY The patient's discharge medication list was reviewed for discrepancies and discrepancies were resolved. Home Medications baclofen 90 mcg INTRATH DAILY 11/28/19 cholecalciferol (vitamin D3) 125 mcg (5,000 unit) capsule 125 mcg PO DAILY 11/28/19 gabapentin 400 mg capsule 400 mg PO Q6H PRN cap 11/28/19 psyllium husk 3.4 gram/5.4 gram oral powder 1 tbsp PO BID g 11/28/19 sennosides 8.6 mg capsule 8.6 mg PO BID PRN 11/28/19 aspirin 81 mg tablet,delayed release 81 mg PO DAILY@0800 #30 tab 12/31/19 atorvastatin 40 mg tablet 40 mg PO QHS #30 tab 12/31/19 Levothyroxine [Synthroid] 50 mcg PO DAILY 05/15/20 Baclofen 15 mg PO TID #30 tab 05/18/20 Isosorbide Mononitrate [Imdur] 30 mg PO DAILY #60 tab 05/18/20 Lisinopril 2.5 mg PO DAILY #60 tab 05/18/20 Metoprolol Tartrate [Lopressor (beta yoav)] 50 mg PO BID #120 tab 05/18/20 The patient was counseled on the following discharge medications and changes in medications for homegoing were reviewed. The Reason for Use, instructions for use, and potential side effects were reviewed for all new medications. The patient's questions regarding all of their medications were answered. The patient was able to verbally demonstrate an understanding of their discharge medications.
[2020-05-18 14:48] VITALS: BP 123/77; PULSE 62; RESP 14; TEMP 36.7; O2SAT 95
== END 2020-05-18 16:03 | disposition home health service (06) ==
LOC: ED 07:43 → PCU 08:08
PROVIDERS: Emergency Medicine; Nurse Practitioner Family; Admitting Provider Student in an Organized Health Care Education/Training Program; Emergency Provider Emergency Medicine; PCP Family Medicine; Visit Provider Family Medicine
DX: R07.89 Other chest pain (principal); G35 Multiple sclerosis; I10 Essential (primary) hypertension; I25.2 Old myocardial infarction; Z79.899 Other long term (current) drug therapy; I25.10 Atherosclerotic heart disease of native coronary artery without angina pectoris; Z79.82 Long term (current) use of aspirin; E87.5 Hyperkalemia; E03.9 Hypothyroidism, unspecified; E78.5 Hyperlipidemia, unspecified
CPT/HCPCS: 36415; 71045; 80048; 82962; 83735; 84484; 85025; 85027; 93005; 96361; 96374; 96375; 96376; 97110; 97162; 97166; 97530; 97535; 97802; 99218; 99285; J7030; A4216; G0378; J2405

== ENCOUNTER → 2020-05-24 12:02 | Outpatient (CLI) | payer MEDICARE, MEDICAID, SELFPAY ==
[2020-05-15 06:47] VITALS: BMI 27.4
[2020-05-24 16:07] LABS: Free T3 2.1 pg/mL (2.18-3.98); T4 Total, Thyroxin 9.5 ug/dL (4.5-12.1); Thyroid Stim Hormone (TSH) 4.85 uIU/mL (0.358-3.74)
== END ==
PROVIDERS: PCP Family Medicine; Referring Provider Family Medicine; Visit Provider Family Medicine
DX: E03.9 Hypothyroidism, unspecified (principal)
CPT/HCPCS: 36415; 84436; 84443; 84481

== ENCOUNTER 2020-07-08 13:30 | Outpatient (RCR) | payer MEDICARE, MEDICAID, SELFPAY ==
[2020-05-15 06:47] VITALS: BMI 27.4
[2020-06-24 13:06] VITALS: BP 96/60; PULSE 48; TEMP 36.1; BMI 27.4
--- NOTE | 2020-06-24 14:41 | HP.PCM_ITS ---
(1) Excoriation of multiple sites of buttock Status: Acute Code(s): S30.810A - Abrasion of lower back and pelvis, initial encounter (2) Multiple sclerosis Status: Acute Code(s): G35 - Multiple sclerosis (3) Candidal dermatitis Status: Acute Code(s): B37.2 - Candidiasis of skin and nail (4) Atherosclerosis of coronary artery without angina pectoris Status: Chronic Qualifiers: Code(s): I25.10 - Atherosclerotic heart disease of [place] coronary artery without angina pectoris (5) NSTEMI (non-ST elevated myocardial infarction) Status: Resolved Code(s): I21.4 - Non-ST elevation (NSTEMI) myocardial infarction History of Present Illness Date of Service: 06/24/20 Chief Complaint: Excoriation of buttocks since April 2020 History of Wound: This is a 65-year-old white male who presents to the wound healing center today after being referred from his primary care for excoriation of buttock since April 2020. He has a past medical history significant for hypertension, previous STEMI and CAD, and multiple sclerosis currently nonambulatory and wheelchair-bound. He states that since April 2020 he had a red moist appearing rash on his bilateral buttocks. He states that he was diagnosed with a yeast infection and was placed on an oral course of fluconazole and then on nystatin powder. He states that symptomatically his excoriation/rash to the bilateral buttocks is gradually improving. There is no open areas. He denies any systemic signs of infection such as fever, chills, or large amounts of drainage. Denies any other wound treatments. Denies any other aggravating relieving factors. Past medical, family, and social history reviewed and not pertinent to the current visit and all other systems reviewed and negative with exception of those listed above. Past Medical History Past Medical History: Chronic Problems (Last Reviewed 11/28/19 @ 10:13 by Marianna Hernandez) Atherosclerosis of coronary artery without angina pectoris (Chronic) Surgical History: no surgical history Allergies/Adverse Reactions: Allergies No Known Allergies Allergy (Verified 03/03/20 12:57) Home Medications: Ambulatory Orders Medication Instructions Recorded baclofen 90 mcg INTRATH DAILY 11/28/19 cholecalciferol (vitamin D3) 125 125 mcg PO DAILY 11/28/19 mcg (5,000 unit) capsule gabapentin 400 mg capsule 400 mg PO Q6H PRN cap 11/28/19 psyllium husk 3.4 gram/5.4 gram 1 tbsp PO BID g 11/28/19 oral powder aspirin 81 mg tablet,delayed 81 mg PO DAILY@0800 #30 tab 12/31/19 release atorvastatin 40 mg tablet 40 mg PO QHS #30 tab 12/31/19 Levothyroxine [Synthroid] 50 mcg PO DAILY 05/15/20 Baclofen 15 mg PO TID #30 tab 05/18/20 Isosorbide Mononitrate [Imdur] 30 mg PO DAILY #60 tab 05/18/20 Lisinopril 2.5 mg PO DAILY #60 tab 05/18/20 Metoprolol Tartrate [Lopressor 50 mg PO BID #120 tab 05/18/20 (beta yoav)] - Family History Maternal Family History: Family History (Last Reviewed 11/28/19 @ 10:13 by Marianna Hernandez) Mother CVA (cerebral vascular accident) Grandmother CVA (cerebral vascular accident) No pertinent history Paternal Family History: Family History (Last Reviewed 11/28/19 @ 10:13 by Marianna Hernandez) Mother CVA (cerebral vascular accident) Grandmother CVA (cerebral vascular accident) No pertinent history Smoking Status: Never smoker Review of Systems Constitutional: Denies: Chills, Fever, Weight Change Eyes: Denies: Pain, Vision Change HEENT: Denies: Difficulty Hearing, Difficulty Swallowing, Sinus Congestion Cardiovascular: Denies: Chest Pain, Palpitations Respiratory: Denies: Cough, Shortness of Breath Gastrointestinal: Denies: Diarrhea, Nausea, Vomiting Genitourinary: Denies: Dysuria, Hematuria Skin: Reports: Wounds - Excoriation on bilateral buttocks, see HPI Endocrine: Denies: Heat/ Cold Intolerance, Polydipsia, Polyuria Hematologic/ Lymphatic: Denies: Easy Bruising, Easy Bleeding - Physical Exam Vital Signs Temp Pulse BP 97.0 F L 48 L 96/60 06/24/20 13:06 06/24/20 13:06 06/24/20 13:06 General: Alert, Oriented x3, Cooperative, No apparent distress HEENT: Atraumatic Oral: Moist Mucosa Neck: Supple Lungs: Clear to auscultation, Normal air movement Cardiovascular: Regular rate, Regular Rhythm Abdomen: Soft, Non Tender, Obese Extremities: No clubbing, No cyanosis, No edema Skin: Ulcer/ Wound - Mild excoriation noted to bilateral buttocks, no open wounds at this time Wound Measurements and Assessment WC - Nurse 1 - General Ulcer Measurement Start: 06/24/20 13:06 Freq: Status: Active Protocol: Activity Type Activity Date Activity User E-Sign Co-Sign Detail Recorded Client Recorded Date Recorded By Document 06/24/20 13:06 KR [id number] 06/24/20 13:35 KR 06/24/20 13:06 Wound Center Nurse 1 [Ulcer Assessment] #1 Bi Lateral Buttocks Cluster -Current Size (cm) - Length 13.5 -Current Size (cm) - Width 13 -Current Size (cm) - Depth 0.1 -Total Square Cm 175.5 -Wound Margin Flat & Intact -Granulation Amt Medium (34-66%) -Granulation Quality Red -Necrosis Amt None Present (0 %) -Texture (Odilia-wound Skin Appearance) Assessed, Scarring,Rash -Moisture (Od[place]-wound Skin Appearance No Abnormality, ) Assessed -Color (Od[place]-wound Skin Appearance) No Abnormality, Assessed -Temperature (Od[place]-wound Skin No Abnormality Appearance) (Pt Warm) -Tenderness on Palpation (Odilia-wound No Skin Appearance) -Ulcer Cleansing soap and water -Foul Odor after Cleansing No -Anesthetic Used 4% Lidocaine Solution WC - Nurse 2 - General Ulcer CM Notes Start: 06/24/20 13:06 Freq: Status: Active Protocol: Activity Type Activity Date Activity User E-Sign Co-Sign Detail Recorded Client Recorded Date Recorded By Document 06/24/20 13:59 MW [id number] 06/24/20 14:04 MW 06/24/20 13:59 Wound Center Nurse 2 [Procedure/Treatment] -Time 14:01 -Correct Patient Yes -Correct Side, Site, Position Yes -Correct Procedure Yes -Procedure Performed No -Wound/Ulcer Outcome Not Healed [See Physician Procedure note for Specifics] Pain Scale: 0-10 Numeric [Pain] -Is Patient Pain Free? Yes KARMA - Nurse 3 - General Ulcer D/C NN Start: 06/24/20 13:06 Freq: Status: Active Protocol: Activity Type Activity Date Activity User E-Sign Co-Sign Detail Recorded Client Recorded Date Recorded By Document 06/24/20 14:14 DL [id number] 06/24/20 14:16 DL 06/24/20 14:14 Wound Care Nurse 3 [Wound Dressing] #1 Bi Lateral Buttocks Cluster -Ulcer Cleansing Rinsed/ Irrigated with Saline -Foul Odor after Cleansing No -Other Dressing Alterenate Nystatin powder and Barrier cream QOD -Other Covering Calmoseptine today [Post Procedure Tolerated] -Treatment Response Procedure Tolerated Well Pain Scale: 0-10 Numeric [Pain] -Is Patient Pain Free? Yes - Visit Discharge [Visit Discharge Information] -Discharge Condition Stable -Ambulatory Status Wheelchair -Transportation Private Auto Musculoskeletal: Arthritic Changes, Muscle Wasting Neurological: Neuro grossly intact Psych/Mental Status: Normal Affect, Appropriate, Alert and oriented to time, place, person, mood and affect Debridement Note Post-Debridement Measurements/Treatment - Nurse 2 - General Ulcer CM Notes Start: 06/24/20 13:06 Freq: Status: Active Protocol: Activity Type Activity Date Activity User E-Sign Co-Sign Detail Recorded Client Recorded Date Recorded By Document 06/24/20 13:59 MW [id number] 06/24/20 14:04 MW 06/24/20 13:59 Wound Center Nurse 2 #1 Bi Lateral Buttocks Cluster -Time 14:01 -Correct Patient Yes -Correct Side, Site, Position Yes -Correct Procedure Yes -Procedure Performed No -Wound/Ulcer Outcome Not Healed Pain Scale: 0-10 Numeric Is Patient Pain Free? Yes - Nurse 3 - General Ulcer D/C NN Start: 06/24/20 13:06 Freq: Status: Active Protocol: Activity Type Activity Date Activity User E-Sign Co-Sign Detail Recorded Client Recorded Date Recorded By Document 06/24/20 14:14 DL [id number] 06/24/20 14:16 DL 06/24/20 14:14 Wound Care Nurse 3 #1 Bi Lateral Buttocks Cluster -Ulcer Cleansing Rinsed/ Irrigated with Saline -Foul Odor after Cleansing No -Other Dressing Alterenate Nystatin powder and Barrier cream QOD -Other Covering Calmoseptine today Treatment Response Procedure Tolerated Well Pain Scale: 0-10 Numeric Is Patient Pain Free? Yes - Visit Discharge Discharge Condition Stable Ambulatory Status Wheelchair Transportation Private Auto No debridement was completed today - No debridement was indicated Assessment/Plan Assessment: Excoriation of bilateral buttocks. Candidal dermatitis of bilateral buttocks. Multiple sclerosis/immobility/CAD Plan: The patient was seen and examined at the wound center today and was updated on the plan of care. No debridement was indicated today. The patients wound care will consist of: Alternating days between applying the nystatin powder and then applying the barrier cream, hopefully this controls moisture balance. Educated on the importance of offloading. Patient educated on the importance of diet on wound healing and instructed to increase protein and vitamin C intake. Patient verbalized understanding. Patient will follow up at wound healing center in 2 week or sooner if needed. This note was generated with [employer] dictation software. It may contain incorrect words, spelling, and punctuation that were not noted in checking the note before signing. I spent 35 minutes today educating patient on plan of care, reviewing past medical history, and documentation. Office Visits / Consults: [id number] OV L4 Est
[2020-07-08 13:28] VITALS: BP 97/70; PULSE 62; RESP 18; TEMP 36.2; BMI 27.4
--- NOTE | 2020-07-08 14:41 | PCM.WC.PN ---
(1) Excoriation of multiple sites of buttock Status: Acute Code(s): S30.810A - Abrasion of lower back and pelvis, initial encounter (2) Multiple sclerosis Status: Acute Code(s): G35 - Multiple sclerosis (3) Candidal dermatitis Status: Acute Code(s): B37.2 - Candidiasis of skin and nail (4) Atherosclerosis of coronary artery without angina pectoris Status: Chronic Qualifiers: Code(s): I25.10 - Atherosclerotic heart disease of [place] coronary artery without angina pectoris (5) NSTEMI (non-ST elevated myocardial infarction) Status: Resolved Code(s): I21.4 - Non-ST elevation (NSTEMI) myocardial infarction Type of Wound Date of Service: 07/08/20 Chief Complaint: Excoriation of buttocks since April 2020 History of Wound: This is a 65-year-old white male who presents to the wound healing center today after being referred from his primary care for excoriation of buttock since April 2020. He has a past medical history significant for hypertension, previous STEMI and CAD, and multiple sclerosis currently nonambulatory and wheelchair-bound. He states that since April 2020 he had a red moist appearing rash on his bilateral buttocks. He states that he was diagnosed with a yeast infection and was placed on an oral course of fluconazole and then on nystatin powder. He states that symptomatically his excoriation/rash to the bilateral buttocks is gradually improving. There is no open areas. He denies any systemic signs of infection such as fever, chills, or large amounts of drainage. Denies any other wound treatments. Denies any other aggravating relieving factors. Past medical, family, and social history reviewed and not pertinent to the current visit and all other systems reviewed and negative with exception of those listed above. Progress of Wound: Stable, surrounding dermatitis is somewhat improved. Patient does note increased in itching and dryness of skin around the buttocks. He does have an open pressure injury on the right buttock now. Cultures collected, no other concerns. - Physical Exam Vital Signs Temp Pulse Resp BP 97.2 F L 62 18 97/70 07/08/20 13:28 07/08/20 13:28 07/08/20 13:28 07/08/20 13:28 General: Alert, Oriented x3, Cooperative, No apparent distress HEENT: Atraumatic Oral: Moist Mucosa Lungs: Clear to auscultation Cardiovascular: Regular rate Abdomen: Soft, Obese Extremities: No clubbing, No cyanosis, No edema Skin: Ulcer/ Wound - See nursing documentation, slough and devitalized tissue present, patient does have surrounding area of dermatitis around the bilateral buttocks that appears somewhat improved from his last visit, however there are still patchy dry and erythematous areas Wound Measurements and Assessment WC - Nurse 1 - General Ulcer Measurement Start: 06/24/20 13:06 Freq: Status: Active Protocol: Activity Type Activity Date Activity User E-Sign Co-Sign Detail Recorded Client Recorded Date Recorded By Document 07/08/20 13:28 PL [id number] 07/08/20 13:40 PL 07/08/20 13:28 Wound Center Nurse 1 [Ulcer Assessment] #1 Right Buttock -Combined with other wound No -Current Size (cm) - Length 0.2 -Current Size (cm) - Width 0.5 -Current Size (cm) - Depth 0.1 -Total Square Cm 0.10 -Photo Taken No -Epithelialization None Present -Tunneling No -Undermining/Tunneling No -Circular Undermining No -Exudate Amt Small -Exudate Type Serosanguineous -Granulation Amt Large (67-100%) -Granulation Quality [place] -Slough/Fibrin Yes -Necrosis Amt Small (1-33%) -Necrotic Tissue Type Adherent Slough -Texture (Odilia-wound Skin Appearance) Excoriation -Moisture (Odilia-wound Skin Appearance No Abnormality ) -Color (Odilia-wound Skin Appearance) Erythema -Temperature (Odilia-wound Skin No Abnormality Appearance) (Pt Warm) -Ulcer Cleansing Rinsed/ Irrigated with Saline -Foul Odor after Cleansing No WC - Nurse 2 - General Ulcer CM Notes Start: 06/24/20 13:06 Freq: Status: Active Protocol: Activity Type Activity Date Activity User E-Sign Co-Sign Detail Recorded Client Recorded Date Recorded By Document 07/08/20 13:48 MW [id number] 07/08/20 13:54 MW 07/08/20 13:48 Wound Center Nurse 2 [Procedure/Treatment] -Time 13:48 -Correct Patient Yes -Correct Side, Site, Position Yes -Correct Procedure Yes -Procedure Performed Yes -Type of Procedure Debridement -Clinical Debridement Subcutaneous -Tissue Removed Subcutaneous -Post Debridement (cm) - Length 4.5 -Post Debridement (cm) - Width 0.5 -Post Debridement (cm) - Depth 0.1 -Total Square (Post) (cm) 2.25 -Area of Debridement (cm) - Length 4.5 -Area of Debridement (cm) - Width 0.5 -Total Square (Area) (cm) 2.25 -Tunneling No -Undermining/Tunneling No -Circular Undermining No -Wound/Ulcer Outcome Not Healed -Ulcer Cleansing Rinsed/ Irrigated with Saline -Foul Odor after Cleansing No -Bioengineered Tissue No -Bleeding Controlled with Pressure -Offloading No -Debridement - Subq, 1st 20sq cm Yes [See Physician Procedure note for Specifics] Pain Scale: 0-10 Numeric [Pain] -Is Patient Pain Free? Yes Musculoskeletal: Arthritic Changes, Muscle Wasting Neurological: Neuro grossly intact Psych/Mental Status: Normal Affect, Appropriate, Alert and oriented to time, place, person, mood and affect Debridement Note Post-Debridement Measurements/Treatment WC - Nurse 2 - General Ulcer CM Notes Start: 06/24/20 13:06 Freq: Status: Active Protocol: Activity Type Activity Date Activity User E-Sign Co-Sign Detail Recorded Client Recorded Date Recorded By Document 06/24/20 13:59 MW [id number] 06/24/20 14:04 MW Document 07/08/20 13:48 MW [id number] 07/08/20 13:54 MW 06/24/20 07/08/20 13:59 13:48 Wound Center Nurse 2 #1 Right Buttock -Time 14:01 13:48 -Correct Patient Yes Yes -Correct Side, Site, Position Yes Yes -Correct Procedure Yes Yes -Procedure Performed No Yes -Type of Procedure Debridement -Clinical Debridement Subcutaneous -Tissue Removed Subcutaneous -Post Debridement (cm) - Length 4.5 -Post Debridement (cm) - Width 0.5 -Post Debridement (cm) - Depth 0.1 -Total Square (Post) (cm) 2.25 -Area of Debridement (cm) - Length 4.5 -Area of Debridement (cm) - Width 0.5 -Total Square (Area) (cm) 2.25 -Tunneling No -Undermining/Tunneling No -Circular Undermining No -Wound/Ulcer Outcome Not Healed Not Healed -Ulcer Cleansing Rinsed/ Irrigated with Saline -Foul Odor after Cleansing No -Bioengineered Tissue No -Bleeding Controlled with Pressure -Offloading No -Debridement - Subq, 1st 20sq cm Yes Pain Scale: 0-10 Numeric Is Patient Pain Free? Yes Yes WC - Nurse 3 - General Ulcer D/C NN Start: 06/24/20 13:06 Freq: Status: Active Protocol: Activity Type Activity Date Activity User E-Sign Co-Sign Detail Recorded Client Recorded Date Recorded By Document 06/24/20 14:14 DL [id number] 06/24/20 14:16 DL 06/24/20 14:14 Wound Care Nurse 3 #1 Right Buttock -Ulcer Cleansing Rinsed/ Irrigated with Saline -Foul Odor after Cleansing No -Other Dressing Alterenate Nystatin powder and Barrier cream QOD -Other Covering Calmoseptine today Treatment Response Procedure Tolerated Well Pain Scale: 0-10 Numeric Is Patient Pain Free? Yes WC - Visit Discharge Discharge Condition Stable Ambulatory Status Wheelchair Transportation Private Auto Wound debrided: Stage II pressure injury right buttock Laterality: Right Type of Debridement: Excisional debridement Anesthesia Used: 5% Lidocaine Gel Depth: in the subcutaneous layer Percentage of wound debrided: 100 Instrument Used: 5mm curette Tissue Removed: Slough and devitalized tissue Severity: Fat Layer Exposed Amount of bleeding with debridement: Mild Bleeding Controlled with: Pressure Patient tolerated procedure well Assessment/Plan Active Problems (Last Reviewed 11/28/19 @ 10:13 by Marianna Hernandez) Multiple sclerosis (Acute) Candidal dermatitis (Acute) Excoriation of multiple sites of buttock (Acute) Atherosclerosis of coronary artery without angina pectoris (Chronic) Assessment: Excoriation of bilateral buttocks. Candidal dermatitis of bilateral buttocks. Multiple sclerosis/immobility/CAD Plan: The patient was seen and examined at the wound center today and was updated on the plan of care. A subcutaneous debridement was done today and patient tolerated well. The patients wound care will consist of: Applying Fibracol and covering with gauze to the pressure injury and with the surrounding chronic dermatitis, trialing clotrimazole betamethasone cream apply sparingly daily. Educated on the importance of offloading, he does currently utilize an offloading pressure-relief cushion for his wheelchair. Patient educated on the importance of diet on wound healing and instructed to increase protein and vitamin C intake. Patient verbalized understanding. Patient will follow up at wound healing center in 1 week or sooner if needed. This note was generated with [employer] software. It may contain incorrect words, spelling, and punctuation that were not noted in checking the note before signing. [id number]: [id number] Liliya subq tissue 20 sq cm/<
== END 2020-07-11 23:59 ==
LOC: WC 13:30
PROVIDERS: PCP Family Medicine; Referring Provider Family Medicine; Visit Provider Nurse Practitioner Family
DX: L89.312 Pressure ulcer of right buttock, stage 2 (principal); S30.810A Abrasion of lower back and pelvis, initial encounter; B37.2 Candidiasis of skin and nail; G35 Multiple sclerosis; I25.10 Atherosclerotic heart disease of native coronary artery without angina pectoris; I25.2 Old myocardial infarction; I10 Essential (primary) hypertension; Z99.3 Dependence on wheelchair; Z79.82 Long term (current) use of aspirin; Z79.890 Hormone replacement therapy; Z79.899 Other long term (current) drug therapy
CPT/HCPCS: 11042; 87070; 87075; 87077; 87186; 87205; 99213; G0463

== ENCOUNTER 2020-07-15 13:30 | Outpatient (RCR) | payer MEDICARE, MEDICAID, SELFPAY ==
[2020-07-12 00:36] VITALS: BP 97/70; PULSE 62; RESP 18; TEMP 36.2
[2020-07-15 13:42] VITALS: BP 120/75; PULSE 54; RESP 18; TEMP 36.6; BMI 27.4
--- NOTE | 2020-07-15 15:12 | PCM.WC.PN ---
(1) Excoriation of multiple sites of buttock Status: Acute Code(s): S30.810A - Abrasion of lower back and pelvis, initial encounter (2) Candidal dermatitis Status: Acute Code(s): B37.2 - Candidiasis of skin and nail (3) Multiple sclerosis Status: Acute Code(s): G35 - Multiple sclerosis (4) Atherosclerosis of coronary artery without angina pectoris Status: Chronic Qualifiers: Code(s): I25.10 - Atherosclerotic heart disease of [place] coronary artery without angina pectoris (5) NSTEMI (non-ST elevated myocardial infarction) Status: Resolved Code(s): I21.4 - Non-ST elevation (NSTEMI) myocardial infarction Type of Wound Date of Service: 07/15/20 Chief Complaint: Excoriation of buttocks since April 2020 History of Wound: This is a 65-year-old white male who presents to the wound healing center today after being referred from his primary care for excoriation of buttock since April 2020. He has a past medical history significant for hypertension, previous STEMI and CAD, and multiple sclerosis currently nonambulatory and wheelchair-bound. He states that since April 2020 he had a red moist appearing rash on his bilateral buttocks. He states that he was diagnosed with a yeast infection and was placed on an oral course of fluconazole and then on nystatin powder. He states that symptomatically his excoriation/rash to the bilateral buttocks is gradually improving. There is no open areas. He denies any systemic signs of infection such as fever, chills, or large amounts of drainage. Denies any other wound treatments. Denies any other aggravating relieving factors. Past medical, family, and social history reviewed and not pertinent to the current visit and all other systems reviewed and negative with exception of those listed above. Progress of Wound: wound has healed, dermatitis has improved, patient wound cultures were reviewed and patient was placed on cipro and doxy which he is tolerating. He denies any signs of infection at this time. Past medical, family, and social history reviewed and not pertinent to the current visit and all other systems reviewed and negative with exception of those listed above. - Physical Exam Vital Signs Temp Pulse Resp BP 97.8 F 54 L 18 120/75 07/15/20 13:42 07/15/20 13:42 07/15/20 13:42 07/15/20 13:42 General: Alert, Oriented x3, Cooperative, No apparent distress HEENT: Atraumatic Oral: Moist Mucosa Lungs: Clear to auscultation, Normal air movement Cardiovascular: Regular rate, Regular Rhythm Abdomen: Soft Extremities: No clubbing, No cyanosis, No edema Skin: Ulcer/ Wound - wound have healed, surrounding dermatitis improving, still some dark purple areas around the b/l buttocks relating to pressure Wound Measurements and Assessment WC - Nurse 1 - General Ulcer Measurement Start: 07/15/20 13:42 Freq: Status: Discharge Protocol: Activity Type Activity Date Activity User E-Sign Co-Sign Detail Recorded Client Recorded Date Recorded By Document 07/15/20 13:42 PL [id number] 07/15/20 13:44 PL Edit Status 07/15/20 14:32 BKG DAEMON Active=>Discharge [id number] 07/15/20 14:32 BKG DAEMON 07/15/20 13:42 Wound Center Nurse 1 [Ulcer Assessment] #1 Right Buttock -Current Size (cm) - Length 0 -Current Size (cm) - Width 0 -Current Size (cm) - Depth 0 -Total Square Cm 0 -Exudate Amt None Present -Granulation Amt Large (67-100%) -Granulation Quality Patriot -Slough/Fibrin No -Necrosis Amt None Present (0 %) -Texture ([place]-wound Skin Appearance) No Abnormality -Moisture ([place]-wound Skin Appearance No Abnormality ) -Color ([place]-wound Skin Appearance) No Abnormality -Temperature ([place]-wound Skin No Abnormality Appearance) (Pt Warm) -Ulcer Cleansing Rinsed/ Irrigated with Saline -Foul Odor after Cleansing No WC - Nurse 2 - General Ulcer CM Notes Start: 07/15/20 13:42 Freq: Status: Discharge Protocol: Activity Type Activity Date Activity User E-Sign Co-Sign Detail Recorded Client Recorded Date Recorded By Document 07/15/20 13:52 MW [id number] 07/15/20 13:53 MW Edit Status 07/15/20 14:32 BKG DAEMON Active=>Discharge [id number] 07/15/20 14:32 BKG DAEMON 07/15/20 13:52 Wound Center Nurse 2 [Procedure/Treatment] -Time 13:52 -Correct Patient Yes -Correct Side, Site, Position Yes -Correct Procedure Yes -Procedure Performed No -Post Debridement (cm) - Length 0 -Post Debridement (cm) - Width 0 -Post Debridement (cm) - Depth 0 -Total Square (Post) (cm) 0 -Wound/Ulcer Outcome Healed- Epithelialized [See Physician Procedure note for Specifics] Pain Scale: 0-10 Numeric [Pain] -Is Patient Pain Free? Yes - Nurse 3 - General Ulcer D/C NN Start: 07/15/20 13:42 Freq: Status: Discharge Protocol: Activity Type Activity Date Activity User E-Sign Co-Sign Detail Recorded Client Recorded Date Recorded By Document 07/15/20 13:54 MW [id number] 07/15/20 13:55 MW Edit Status 07/15/20 14:32 BKG DAEMON Active=>Discharge [id number] 07/15/20 14:32 BKG DAEMON 07/15/20 13:54 Wound Care Nurse 3 [Post Procedure Tolerated] -Treatment Response Procedure Tolerated Well Pain Scale: 0-10 Numeric [Pain] -Is Patient Pain Free? Yes Teaching: Wound Center [Wound Center Education] (Items with an * have Printed Materials Available- Please identify what is given to patient under the Teaching materials given to patient and caregiver Section. Discharge Instructions -Person Taught Patient -Teaching Method Discussion -Response to teaching Verbalize understanding - Visit Discharge [Visit Discharge Information] -Discharge Condition Stable -Ambulatory Status Ambulatory -Transportation [place] -Accompanied by self -Medication Reconcilliation completed No & provided to patient/care provider -Clinical Summary of Care Provided Yes Neurological: Neuro grossly intact Psych/Mental Status: Normal Affect, Appropriate, Alert and oriented to time, place, person, mood and affect Debridement Note Post-Debridement Measurements/Treatment - Nurse 2 - General Ulcer CM Notes Start: 07/15/20 13:42 Freq: Status: Discharge Protocol: Activity Type Activity Date Activity User E-Sign Co-Sign Detail Recorded Client Recorded Date Recorded By Document 07/15/20 13:52 MW [id number] 07/15/20 13:53 MW 07/15/20 13:52 Wound Center Nurse 2 #1 Right Buttock -Time 13:52 -Correct Patient Yes -Correct Side, Site, Position Yes -Correct Procedure Yes -Procedure Performed No -Post Debridement (cm) - Length 0 -Post Debridement (cm) - Width 0 -Post Debridement (cm) - Depth 0 -Total Square (Post) (cm) 0 -Wound/Ulcer Outcome Healed- Epithelialized Pain Scale: 0-10 Numeric Is Patient Pain Free? Yes WC - Nurse 3 - General Ulcer D/C NN Start: 07/15/20 13:42 Freq: Status: Discharge Protocol: Activity Type Activity Date Activity User E-Sign Co-Sign Detail Recorded Client Recorded Date Recorded By Document 07/15/20 13:54 MW [id number] 07/15/20 13:55 MW 07/15/20 13:54 Wound Care Nurse 3 Treatment Response Procedure Tolerated Well Pain Scale: 0-10 Numeric Is Patient Pain Free? Yes Teaching: Wound Center Discharge Instructions -Person Taught Patient -Teaching Method Discussion -Response to teaching Verbalize understanding WC - Visit Discharge Discharge Condition Stable Ambulatory Status Ambulatory Transportation [place] Accompanied by self Medication Reconcilliation completed & No provided to patient/care provider Clinical Summary of Care Provided Yes No debridement was completed today Assessment/Plan Assessment: Excoriation of bilateral buttocks. Candidal dermatitis of bilateral buttocks. Multiple sclerosis/immobility/CAD Plan: The patient was seen and examined at the wound center today and was updated on the plan of care. The patient's wounds are now healed without any signs of infection at this time. Did discuss in detail the patient's wound culture results and that he should continue the entire course of antibiotics as prescribed to him. He does have some surrounding dermatitis and therefore was instructed that he may continue to utilize as needed clotrimazole betamethasone cream apply sparingly daily. Educated on the importance of offloading, he does currently utilize an offloading pressure-relief cushion for his wheelchair. Patient educated on the importance of diet on wound healing and instructed to increase protein and vitamin C intake. Patient verbalized understanding. Patient will be discharged from the wound healing center. This note was generated with [employer] dictation software. It may contain incorrect words, spelling, and punctuation that were not noted in checking the note before signing. 35 minutes was spent today on discussing with patient the plan of care and also physically examining the patient. Office Visits / Consults: [id number] OV L4 Est
== END 2020-07-15 14:32 | disposition home or self-care (01) ==
LOC: WC 13:30
PROVIDERS: PCP Family Medicine; Referring Provider Family Medicine; Visit Provider Nurse Practitioner Family
DX: Z09 Encounter for follow-up examination after completed treatment for conditions other than malignant neoplasm (principal); B37.2 Candidiasis of skin and nail; I25.10 Atherosclerotic heart disease of native coronary artery without angina pectoris; I10 Essential (primary) hypertension; I25.2 Old myocardial infarction; G35 Multiple sclerosis; Z99.3 Dependence on wheelchair; Z79.82 Long term (current) use of aspirin; Z79.899 Other long term (current) drug therapy
CPT/HCPCS: 99213; G0463

== ENCOUNTER 2020-08-20 13:42 | Outpatient (RCR) | payer MEDICARE, SELFPAY ==
[2020-08-02 15:51] VITALS: BMI 28.5
[2020-08-20] MEDS: COVID-19 VACC, MRNA(PFIZER)/PF 30 MCG/0.3 ML SYRINGE IM (13:43)
[2020-09-10] MEDS: COVID-19 VACC, MRNA(PFIZER)/PF 30 MCG/0.3 ML SYRINGE IM (13:20)
== END 2020-11-16 23:59 ==
LOC: IMMUN 13:42
PROVIDERS: PCP Family Medicine; Visit Provider Family Medicine
DX: Z23 Encounter for immunization (principal)
CPT/HCPCS: 0001A; 0002A; 91300

== ENCOUNTER 2020-09-23 13:00 | Outpatient (RCR) | payer MEDICARE, MEDICAID, SELFPAY ==
[2020-08-02 15:51] VITALS: BMI 28.5
--- NOTE | 2020-08-16 12:24 | HP.OTEVAL_ITS ---
Patient's Visit Information NICOLASA FISCHER is a 65 year old M, referred to Occupational Therapy by OK BERKOWITZ, with a diagnosis of MS left UE. Date of Evaluation: 08/16/20 Occupational Therapist: Marianna Wall, JOSE MIGUEL/Bhavani, CHT - Subjective This 65 year old male was seen for OT eval with dx. of MS spasticity s/p dysport treatment. Pt states he may have spastic/cramping that can last one day and not return for a few. Pt states since he started wearing night brace he feels his hand has less cramping. pt states he gets dysport injections every 12 weeks. last injection was done to left forearm for flexion and this was done 6 weeks ago. pt states since the injection he has noticed a improvement in his muslce contractures/spacticity. pt would like to increase his grasp function for increase ind. with meal prep and ADLS. - ADLs Comments: pt states he has an aide 2x week for a total of 6 hours MW TTH 8 hours Sat. & sunday for about 2 hours. ( hour in am and pm). live in ind. handicap acessible apt. uses power chair-. pt states aides perform his bathing/dressing/ dishes/ laundry/cleaning as needed. pt orders food on line and staff picks up his groceries. and staff puts them away. - ROM Shoulder: right WFL left PROM increase tone limites flex at 90* Elbow: right WNL left PROM 0/125 tone limites PROM Forearm: right WNL left supination to 0 pronation to 70 Wrist: right 70/70 left 10/35 ROM Comments: pt demo need to support left UE with right to demo left digit ROM pt demo left composite fist. delayed response and increase time needed to complete task. pt demo with no active scapular retraction or protraction and min. scapular elevation - Strength Drier Tender Naphthalene: right 60 # left attempted but pt unable Lateral Pinch: right 18# left unable Tripod Pinch: right 14# left unable - Sensation Sensation Comments: denies - Movement Muscle Tone: left shoulder MOD/MAX elbow MOD forearm min wrist min digits min - Quick DASH-Disab of Arm,Shoulder& Hand Quick DASH Score: 37.5000 - Goals Goal:: Pt will pravin full ROM of left shoulder/elbow to decrase tone and prevent muscle contractures of left UE to increase pts ease of dressing/bating etc. by d/c. pt will demo a increase in left wrist ext by 40* to increase assist with ADLs and IADLs by d/c. pt will demo tenodesis of left wirst to allow for a grasp release of med/and large object. Goal:: pt will demo a reduction in shoulder/elbow tone to min/mod to allow for staff to perform PROM to left UE with good ability. - Rehabilitation General Assessment: pt c/o of left hand cramp/spaaums limited his PROM or active use of his left UE as an assistive devices with ADLs. Pts increase spacticity increases difficulty with using his left hand with meal prep. pt would benefit from skilled OT services 2x week for 4 weeks to initiate left wrist extensor strengthening to counter flexion contracture. Rehabilitation Potential: Questionable - Anticipated Interventions A/AAROM/PROM, Strengthening, Neuro Reeducation, Education re assistive Equip ment, Home Program - Visit Plan Frequency: 2-3x /Week Duration: 4 Weeks TEXT: Thank you for the opportunity to evaluate your patient. For Medicare and Medicare HMO plans, please review the plan of care and approve it. It will need to be FAXED BACK to us at [phone] for Medicare purposes. Please let me know if there are questions or concerns regarding this plan of care. Physician Signature: Date:
--- NOTE | 2020-09-23 13:32 | HP.OTDCSUM ---
It has been my pleasure to treat NICOLASA FISCHER under orders from OK BERKOWITZ, for the diagnosis of MS left UE for a total of 8 visit(s). Please see the following information for a summary of their discharge status. % Improvement: 50 Objective/Function: pt demo need to support left UE with right to demo left digit ROM pt demo left composite fist. delayed response and increase time needed to complete task. pt demo with no active scapular retraction or protraction and min. scapular elevation-. pt demo with PROM of left shoulder to 90* with MOD. elbow flex/ext at mod tone. foearm supination at mod tone and wrist flex/ext at min tone- pt demo wrist ext and closure of fingers but no ability to have forced charging operator for grasping objects. Patient Goals: Regain Mobility, Increase ROM, Decrease Muscle Tone Goal:: Pt will pravin full ROM of left shoulder/elbow to decrase tone and prevent muscle contractures of left UE to increase pts ease of dressing/bating etc. by d/c. pt will demo a increase in left wrist ext by 40* to increase assist with ADLs and IADLs by d/c. pt will demo tenodesis of left wirst to allow for a grasp release of med/and large object. Goal:: pt will demo a reduction in shoulder/elbow tone to min/mod to allow for staff to perform PROM to left UE with good ability. Plan: D/C with [facility]P Discharge Comments: pt was seen for 8 OT visits. Therapy focus on PROM and AAROM to initiate grasp/release of left hand for ADls- pt made little progress and would benefit from HEP at this time.pt communicated he would teach his care staff to perform the PROM 2 x a day as they are there for 8 hours 5x week and less time on weekends- pt demo good understanding and is d/c with HEP. If there are questions or concerns regarding this patient's occupational therapy, please fell free to call me at [phone]. Thank you for the referral of this patient. Sincerely, Marianna Wall, OTR/L, CHT
== END 2020-09-23 14:16 | disposition home or self-care (01) ==
LOC: OT 13:00
PROVIDERS: PCP Family Medicine
DX: R25.2 Cramp and spasm (principal)
CPT/HCPCS: 97140; 97166; 97530

== ENCOUNTER → 2020-11-24 10:38 | Outpatient (CLI) | payer MEDICARE, MEDICAID, SELFPAY ==
[2020-08-02 15:51] VITALS: BMI 28.5
[2020-11-24 12:32] LABS: Absolute Lymphocyte Count 1.29 X10^3/uL (0.83-4.51); Absolute Neutrophil Count 6.2 X10^3/uL (2.0-7.7); Basophil# 0.07 X10^3/uL; Basophil% 0.8 % (0-1); Eosinophil# 0.28 X10^3/uL; Eosinophils% 3.3 % (0-5); Hematocrit 40.4 % (40-54); Hemoglobin 13.2 g/dL (13.0-16.5); Lymphocyte # 1.29 X10^3/ul (0.83-4.51); Lymphocyte % 15.1 % (19-41); Mean Corp Hgb Conc 32.7 g/dL (32-36); Mean Corpuscular Hgb 29.5 pg (27.0-32.0); Mean Corpuscular Volume 90.4 fL (80-94); Mean Platelet Vol. 10.4 fl (6.2-12.0); Monocyte# 0.71 X10^3/uL; Monocyte% 8.3 % (0-10); NRBC Flagged by Analyzer 0 % (0-5); Neutrophil # 6.17 X10^3/uL (2.7-7.7); Platelet Count 286 K/mm3 (150-450); RBC Distribution Width CV 13.4 % (11.6-14.6); RBC Distribution Width SD 44.5 fl (35.1-43.9); Red Blood Count 4.47 M/mm3 (4.6-6.2); White Blood Count 8.6 K/mm3 (4.4-11.0)
[2020-11-24 13:02] LABS: AST(SGOT) 24 U/L (15-37); Alanine Aminotransfer ALT/SGPT 26 U/L (16-61); Albumin, Serum 3.5 g/dL (3.2-5.0); Alkaline Phosphatase 76 U/L (45-117); Anion Gap 5 (5-15); BUN 22 mg/dL (7-18); BUN/Creat Ratio 25.1 RATIO (10-20); Calcium,Total 9.2 mg/dL (8.5-10.1); Chloride 107 mmol/L (98-107); Creatinine, Serum 0.88 mg/dL (0.70-1.30); EST Glomerular Filtration Rate 93 mL/min (>60); Est Glom Filt Rate - Afr Amer 113 mL/min (>60); Globulin 3.6 g/dL (2.2-4.2); Glucose 95 mg/dL (74-106); LDH 175 U/L (87-241); Phosphorus 3.3 mg/dL (2.5-4.9); Potassium 4.8 mmol/L (3.5-5.1); Protein, Total 7.1 g/dL (6.4-8.2); Sodium Level 138 mmol/L (136-145); Uric Acid 6.4 mg/dL (3.5-7.2)
[2020-11-24 13:06] LABS: Hepatitis B Surface Antibody Non-Reactive
[2020-11-24 13:17] LABS: Cholesterol 127 mg/dL (200); Free T3 1.6 pg/mL (2.18-3.98); High Density Lipoprotein 34 mg/dL; T4 Free Direct 1.13 ng/dL (0.76-1.46); Triglycerides 118 mg/dL; Very Low Density Lipoprotein 24 mg/dL (5-40)
[2020-11-25 13:48] LABS: Hepatitis B Surface Antigen Non-Reactive (Nonreactive)
[2020-11-25 14:00] LABS: Hepatitis B Core Ab Total Negative (Negative)
== END ==
PROVIDERS: PCP Family Medicine; Referring Provider Family Medicine
DX: Z00.00 Encounter for general adult medical examination without abnormal findings (principal); G35 Multiple sclerosis; E03.9 Hypothyroidism, unspecified
CPT/HCPCS: 36415; 80053; 80061; 83615; 83735; 84100; 84439; 84443; 84481; 84550; 85025; 86704; 86706; 87340

== ENCOUNTER → 2021-05-25 09:39 | Outpatient (CLI) | payer MEDICARE, MEDICAID, SELFPAY ==
[2021-05-25 12:39] LABS: Anion Gap 5 (5-15); BUN 18 mg/dL (7-18); BUN/Creat Ratio 23.3 RATIO (10-20); Calcium,Total 9.6 mg/dL (8.5-10.1); Chloride 103 mmol/L (98-107); Cholesterol 159 mg/dL (200); Creatinine, Serum 0.77 mg/dL (0.70-1.30); EST Glomerular Filtration Rate 107 mL/min (>60); Est Glom Filt Rate - Afr Amer 130 mL/min (>60); Free T3 2.2 pg/mL (2.18-3.98); Glucose 101 mg/dL (74-106); High Density Lipoprotein 53 mg/dL; Potassium 5.2 mmol/L (3.5-5.1); Sodium Level 136 mmol/L (136-145); T4 Free Direct 1.33 ng/dL (0.76-1.46); Thyroid Stim Hormone (TSH) 4.59 uIU/mL (0.358-3.74); Triglycerides 61 mg/dL; Very Low Density Lipoprotein 12 mg/dL (5-40)
== END ==
PROVIDERS: PCP Family Medicine; Referring Provider Family Medicine; Visit Provider Family Medicine
DX: E78.5 Hyperlipidemia, unspecified (principal); E03.9 Hypothyroidism, unspecified
CPT/HCPCS: 36415; 80048; 80061; 84439; 84443; 84481

== ENCOUNTER 2021-07-05 18:38 | Emergency (ER) | payer MEDICAID, SELFPAY ==
[2021-07-05] VITALS (10 sets, daily range): BP systolic 127–177; BP diastolic 84–99; PULSE 72–111; RESP 10–18; TEMP 36.2–36.9; O2SAT 94–98; BMI 33.4
--- NOTE | 2021-07-05 19:05 | EKG12_ITS ---
Test Reason : CP Blood Pressure : / mmHG Vent. Rate : 063 BPM Atrial Rate : 063 BPM P-R Int : 194 ms QRS Dur : 062 ms QT Int : 370 ms P-R-T Axes : 011 -24 001 degrees QTc Int : 378 ms Normal sinus rhythm Low voltage QRS Inferior infarct (cited on or before 05-JUL-2021) Abnormal ECG Confirmed by SHYLA FITCH, ESTHER ([id number]), editor newspaper SETH MUNOZ ([id number]) on 07/07/2021 9:07:55 AM Referred By: DAVID Confirmed By:ESTHER MANSFIELD MD
--- NOTE | 2021-07-05 19:06 | ED.VIS.CHEST ---
HPI History of Present Illness Chief Complaint: Chest Pain Informant: patient Narrative Narrative: 66-year-old male states that today he has been experiencing a tightness in his chest. He notes tightness in his neck like his muscles are tight and into the left arm. He states it is hard for him to take a breath because of the tightness. He has a history of an NSTEMI and multiple sclerosis. No fevers or cough. He states that he does not know what type of symptoms he had when he had his NSTEMI. Family in the room tells me that it was silent. He notes that he has had tightness in the shoulder which is related to the progression of his MS. The tightness in his neck and his chest and certainly no. He is worried that he is having another WI. He sees Dr. Patel and he was evaluated for CABG but is not a surgical candidate due to his MS. [facility] Medical History (Updated 07/05/21 @ 21:[address] 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 Multiple sclerosis Multiple sclerosis Multiple sclerosis exacerbation Multiple sclerosis, primary chronic progressive Multiple sclerosis, primary chronic progressive Muscle spasticity Muscle spasticity Neuromyelitis optica Neuromyelitis optica NSTEMI (non-ST elevated myocardial infarction) (11/01/19) Home Medications baclofen 90 mcg INTRATH DAILY 11/28/19 [History Last Taken Unknown] cholecalciferol (vitamin D3) 125 mcg (5,000 unit) capsule 125 mcg PO DAILY 11/28/19 [History Last Taken Unknown] psyllium husk 3.4 gram/5.4 gram oral powder 1 tbsp PO BID g 11/28/19 [History Last Taken Unknown] aspirin 81 mg tablet,delayed release 81 mg PO DAILY@0800 #30 tab 12/31/19 [Rx Last Taken Unknown] isosorbide mononitrate 30 mg tablet,extended release 24 hr 30 mg PO DAILY #90 tab 07/14/20 [Rx Last Taken Unknown] lisinopril 2.5 mg tablet 2.5 mg PO DAILY #90 tab 07/14/20 [Rx Last Taken Unknown] levothyroxine 75 mcg capsule 75 mcg PO DAILY 07/23/20 [History Last Taken Unknown] atorvastatin 40 mg tablet See Rx Instructions .ROUTE .COMPLEX #30 tab 12/31/20 [Rx Last Taken Unknown] baclofen 5 mg tablet 15 mg PO Q6H PRN tab 03/10/21 [History Last Taken Unknown] gabapentin 400 mg capsule 400 mg PO Q8H PRN cap 03/10/21 [History Last Taken Unknown] metoprolol tartrate 25 mg tablet 25 mg PO BID #60 tab 06/27/21 [Rx Last Taken Unknown] Allergy/AdvReac Type Severity Reaction Status Date / Time No Known Allergies Allergy Verified 03/10/21 11:25 Family History Mother CVA (cerebral vascular accident) Grandmother CVA (cerebral vascular accident) Surgical History Hx of appendectomy Social History Smoking Status: Never smoker alcohol intake: current details: rare substance use type: does not use ROS ROS ED Constitutional Constitutional ED: Denies chills or weight loss Eyes Eyes: Denies change in vision or diplopia ENT ENT ED: Denies ear pain, rhinorrhea or sore throat Cardiovascular Cardiovascular: Reports chest pain; Denies orthopnea, palpitations or racing heartbeat Respiratory/Chest Respiratory/Chest: Reports dyspnea; Denies cough or orthopnea Gastrointestinal Gastrointestinal: Denies abdominal pain, diarrhea, nausea or vomiting Genitourinary Genitourinary ED: Denies dysuria, hematuria or urinary frequency Musculoskeletal Musculoskeletal: Reports neck pain; Denies arthralgias or myalgias Integumentary Denies abscess or rash Neurologic Neurologic: Reports other Details: Confusion ; Denies headache(s) or weakness Psychiatric Psychiatric: Denies anxiety, depression, suicidal ideation or suicidal thoughts Endocrine Endocrinology: Denies polydipsia, polyphagia or polyuria Allergic/Immunologic Allergic/Immunologic ED: Denies mouth swelling, tongue swelling or urticaria EXAM Physical Exam Const Vital Signs: 07/05/21 18:40 07/05/21 18:44 07/05/21 18:46 Temperature 97.1 F L 97.1 F L Temperature Source Temporal Temporal Pulse Rate 72 79 Respiratory Rate 18 18 Respiratory Effort Normal Respiratory Pattern Normal Blood Pressure 177/99 H Blood Pressure Mean 125 Pulse Ox 95 96 Oxygen Delivery Method Room Air Room Air 07/05/21 19:28 07/05/21 19:33 07/05/21 19:39 Temperature Temperature Source Pulse Rate 110 H 111 H 111 H Respiratory Rate Respiratory Effort Respiratory Pattern Blood Pressure 163/93 H 154/95 H 149/96 H Blood Pressure Mean Pulse Ox Oxygen Delivery Method 07/05/21 19:40 07/05/21 19:41 07/05/21 20:10 Temperature 98.5 F Temperature Source Temporal Pulse Rate 86 97 Respiratory Rate 13 10 L Respiratory Effort Respiratory Pattern Blood Pressure 141/94 H Blood Pressure Mean 109 Pulse Ox 94 96 Oxygen Delivery Method Room Air Room Air 07/05/21 21:11 Temperature Temperature Source Pulse Rate 87 Respiratory Rate 14 Respiratory Effort Respiratory Pattern Blood Pressure 139/93 H Blood Pressure Mean 108 Pulse Ox 98 Oxygen Delivery Method Room Air Positive well nourished, well developed and obese General Appearance ED: well developed Nutritional Appearance: obese HEENT Reports normocephalic, head/scalp atraumatic, TM's clear and moist mucous membranes normocephalic and atraumatic Tympanic Membrane ED: Yes TM's clear Eyes PERRL and EOMs intact bilaterally Neck no lymphadenopathy, supple and no JVD Resp normal respiratory effort and clear to auscultation bilaterally Cardio regular rate, regular rhythm and no murmurs GI normal to inspection, nondistended, normoactive bowel sounds and non-tender Palpation: soft Back/Spine no CVA tenderness and normal ROM Extremity General Extremety ED: Negative for edema or tenderness General Extremity: Negative for edema Neuro oriented x3 Sensorium / Orientation: alert Psych mental status grossly normal Mood & Affect: Negative for depressed or tearful Skin no rashes or lesions noted Heart Score History: Slightly/Non-Suspicious ECG: Normal Age: >45 - <65 years Risk Factors: >/= 3 Risk Factors or History of CAD Troponin: </= Normal Limit Score: 3 MDM MDM MDM Narrative Medical decision making narrative: My interpretation of the chest x-ray is no acute process. CBC is normal. D-dimer is elevated 1.97 and a CTA of the chest was obtained which is negative for dissection/pulmonary embolism. 2 sets of high-sensitivity troponins are negative. Patient received baclofen and Ativan for his muscle spasms. This point I would recommend the patient talk to his neurologist. He has known coronary artery disease and is not a candidate for surgical intervention (CABG). Given his history and 2 sets of heart enzymes I think it is reasonable to discharge the patient home. Lab Data Attestation: I reviewed the patient's lab results. Labs: Laboratory Results - last 24 hr 07/05/21 07/05/21 07/05/21 18:46 18:46 18:46 WBC 7.6 RBC 4.44 L Hgb 13.8 Hct 39.9 L MCV 89.9 MCH 31.1 MCHC 34.6 RDW Std Deviation 48.8 H RDW Coeff of Isha 15.0 H Plt Count 249 MPV 10.2 Immature Gran % (Auto) 0.300 Neut % (Auto) 78.3 H Lymph % (Auto) 12.1 L [place] % (Auto) 6.6 Eos % (Auto) 2.2 Baso % (Auto) 0.5 Absolute Neuts (auto) 6.0 Absolute Lymphs (auto) 0.92 Nucleated RBC % 0 D-Dimer Quant (PE/DVT) Cancelled Sodium 132 L Potassium 5.5 H Chloride 100 Carbon Dioxide 26.0 Anion Gap 6 BUN 19 H Creatinine 0.89 Estim Creat Clear Calc 92.03 Est GFR (MDRD) Af Amer 111 Est GFR (MDRD) Non-Af 91 BUN/Creatinine Ratio 21.3 H Glucose 96 Calcium 9.3 Troponin I High Sens 8 07/05/21 07/05/21 19:17 20:57 WBC RBC Hgb Hct MCV MCH MCHC RDW Std Deviation RDW Coeff of Isha Plt Count MPV Immature Gran % (Auto) Neut % (Auto) Lymph % (Auto) [place] % (Auto) Eos % (Auto) Baso % (Auto) Absolute Neuts (auto) Absolute Lymphs (auto) Nucleated RBC % D-Dimer Quant (PE/DVT) 1.97 H* Sodium Potassium Chloride Carbon Dioxide Anion Gap BUN Creatinine Estim Creat Clear Calc Est GFR (MDRD) Af Amer Est GFR (MDRD) Non-Af BUN/Creatinine Ratio Glucose Calcium Troponin I High Sens 11 Radiography Diagnostic Testing: Clinical Impression(s) from Imaging Studies Chest X-Ray 07/05/21 19:12 IMPRESSION: Question mild cardiomegaly. There is no acute pulmonary disease or other interval change. Electronically Signed: Chris Rabago DO at 19:30 EST Reading Location ID and State: [address] [place] [address] Tel [phone], Service support , Chest CTA 07/05/21 20:02 IMPRESSION: 1. Normal CTA chest examination, without a demonstrated pulmonary embolism or arterial dissection. Electronically Signed: Chris Rabago DO at 20:51 EST Reading Location ID and State: [address] [place] [address] Tel [phone], Service support , EKG Initial EKG: Attestation: I personally reviewed and interpreted this EKG as follows: Comments: Normal sinus rhythm with a ventricular rate of 63 bpm. No concerning features of ACS noted Discharge Plan Triage Chief Complaint: Chest Pain ED Provider: Orlin La Dx/Rx/DC Orders Clinical Impression: Multiple sclerosis, Chest pain Prescriptions: No Action baclofen 10,000 mcg/20mL (500 mcg/mL) solution 90 mcg INTRATH DAILY RF: 0 cholecalciferol (vitamin D3) 125 mcg (5,000 unit) capsule 125 mcg PO DAILY RF: 0 Metamucil 3.4 gram/5.4 gram powder 1 tbsp PO BID RF: 0 gabapentin 400 mg capsule 400 mg PO Q8H PRN (Reason: Leg pain) RF: 0 levothyroxine 75 mcg capsule 75 mcg PO DAILY RF: 0 baclofen 5 mg tablet 15 mg PO Q6H PRNRF: 0 aspirin 81 mg tablet,delayed release (DR/EC) 81 mg PO DAILY@0800 Qty: 30 RF: 11 lisinopril 2.5 mg tablet 2.5 mg PO DAILY Qty: 90 RF: 3 isosorbide mononitrate 30 mg tablet extended release 24 hr 30 mg PO DAILY Qty: 90 RF: 3 atorvastatin 40 mg tablet See Rx Instructions .ROUTE .COMPLEX Qty: 30 RF: 11 metoprolol tartrate 25 mg tablet 25 mg PO BID Qty: 60 RF: 11 Primary Care Provider: Ritesh Castro Referrals: Ritesh Castro MD [Primary Care Provider] -
--- NOTE | 2021-07-05 19:12 | RAD_ITS ---
STUDY: X-RAY CHEST REASON FOR EXAM: Male, 66 years old. Chest pain and tightness. Tightness in the neck. TECHNIQUE: Single AP portable view of the chest. COMPARISON: 05/15/2020. FINDINGS: Decreased inspiratory effort. There is no new mass or infiltrate. There is no demonstrated pleural abnormality. The heart appears mildly enlarged on this poor inspiratory AP portable projection. Normal mediastinum and vandana. Normal visualized pulmonary arteries. Normal visualized aortic arch and descending thoracic aorta. There are diffuse degenerative changes of the visualized thoracic spine. There is degenerative osteoarthritis of the bilateral shoulders. There is no demonstrated abnormality of the visualized soft tissue structures of the upper abdomen. RAD/Chest 1 View (Portable) IMPRESSION: Question mild cardiomegaly. There is no acute pulmonary disease or other interval change. Electronically Signed: Chris Rabago DO at 19:30 EST ,
[2021-07-05 19:17] LABS: Absolute Lymphocyte Count 0.92 X10^3/uL (0.83-4.51); Basophil# 0.04 X10^3/uL; Basophil% 0.5 % (0-1); Eosinophil# 0.17 X10^3/uL; Eosinophils% 2.2 % (0-5); Hematocrit 39.9 % (40-54); Hemoglobin 13.8 g/dL (13.0-16.5); Lymphocyte # 0.92 X10^3/ul (0.83-4.51); Lymphocyte % 12.1 % (19-41); Mean Corp Hgb Conc 34.6 g/dL (32-36); Mean Corpuscular Hgb 31.1 pg (27.0-32.0); Mean Corpuscular Volume 89.9 fL (80-94); Mean Platelet Vol. 10.2 fl (6.2-12.0); Monocyte% 6.6 % (0-10); NRBC Flagged by Analyzer 0 % (0-5); Neutrophil # 5.97 X10^3/uL (2.7-7.7); Neutrophil % 78.3 % (47-70); Platelet Count 249 K/mm3 (150-450); RBC Distribution Width SD 48.8 fl (35.1-43.9); Red Blood Count 4.44 M/mm3 (4.6-6.2); White Blood Count 7.6 K/mm3 (4.4-11.0)
[2021-07-05] MEDS: Aspirin 325 MG Tablet PO (19:28)
[2021-07-05] MEDS: Nitroglycerin SL (ED/IMG/CATH) 0.4 MG TABLET SL ×3 (19:28→19:39)
[2021-07-05 19:56] LABS: D-Dimer Quantitative (DVT/PE) 1.97 FEU/ug/m (0.27-0.49)
[2021-07-05 19:59] LABS: Anion Gap 6 (5-15); BUN 19 mg/dL (7-18); BUN/Creat Ratio 21.3 RATIO (10-20); Calcium,Total 9.3 mg/dL (8.5-10.1); Chloride 100 mmol/L (98-107); Creatinine, Serum 0.89 mg/dL (0.70-1.30); EST Glomerular Filtration Rate 91 mL/min (>60); Est Glom Filt Rate - Afr Amer 111 mL/min (>60); Estimated Creatinine Clearance 92.03 ml/min; Glucose 96 mg/dL (74-106); Potassium 5.5 mmol/L (3.5-5.1); Sodium Level 132 mmol/L (136-145); Troponin-I HS 8 pg/mL (3.0-78.0)
--- NOTE | 2021-07-05 20:02 | CT_ITS ---
STUDY: CTA CHEST REASON FOR EXAM: Male, 66 years old. Pulmonary embolism. Chest tightness. Patient takes anticoagulant. RADIATION DOSAGE (If Supplied By Facility): CTDIvol = ( 18.44 ) mGy, DLP = ( 489.90 ) mGycm TECHNIQUE: The examination was performed with the intravenous administration of IV 100mL Isovue-370. Post-processing of the angiographic images was performed, with multiplanar reformation and 3D reconstruction. Individualized dose optimization techniques were used for this CT. COMPARISON: Chest, 07/05/2021. FINDINGS: Normal enhancement of the main pulmonary artery and right and left pulmonary arteries. Normal enhancement of the bilateral peripheral pulmonary arteries. There is no demonstrated pulmonary embolism. Mild atherosclerotic changes of the thoracic aorta without aneurysm. There is no demonstrated aortic dissection. Normal heart and pericardium. There are calcifications of the coronary arteries. Normal mediastinum. Normal hilar regions. Normal visualized trachea and bronchi. The lungs are well expanded. Normal pulmonary parenchyma. Normal pleura. Normal chest wall structures. There are degenerative changes of thoracic spine. Normal visualized upper abdomen. CT/CTA Chest W/WO Contrast IMPRESSION: 1. Normal CTA chest examination, without a demonstrated pulmonary embolism or arterial dissection. Electronically Signed: Chris Rabago DO at 20:51 EST ,
[2021-07-05] MEDS: LORazepam 2 MG/ML Syringe 1 MG IV (21:08)
[2021-07-05] MEDS: Baclofen 10 MG Tablet 15 MG PO (21:08)
[2021-07-05 21:20] LABS: Troponin-I HS 11 pg/mL (3.0-78.0)
--- NOTE | 2021-07-05 21:51 | ED.RN ---
CALLED [facility] SO THE ETA WOULD BE EITHER THEY TAKE THIS PERSON BEFORE ALL OUR PSYCHS, OR HE WILL HAVE TO WAIT UNTIL THE 6AM CREW TO COME IN.
== END 2021-07-05 23:13 | disposition home or self-care (01) ==
PROVIDERS: Emergency Provider Emergency Medicine; PCP Family Medicine; Visit Provider Emergency Medicine
DX: R07.9 Chest pain, unspecified (principal); G35 Multiple sclerosis; I25.10 Atherosclerotic heart disease of native coronary artery without angina pectoris; I25.2 Old myocardial infarction; E66.9 Obesity, unspecified; Z79.899 Other long term (current) drug therapy; Z79.82 Long term (current) use of aspirin
CPT/HCPCS: 71045; 71275; 80048; 84484; 85025; 85379; 93005; 96374; 99285; Q9967; A4216

== ENCOUNTER 2021-07-06 20:19 | Observation (INO) | payer MEDICARE, MEDICAID, SELFPAY ==
[2021-07-06] VITALS (8 sets, daily range): BP systolic 127–169; BP diastolic 80–114; PULSE 77–90; RESP 16–18; TEMP 36.4–36.6; O2SAT 94–99; BMI 32.8; BMI 31.4
--- NOTE | 2021-07-06 20:31 | EKG12_ITS ---
Test Reason : CP Blood Pressure : / mmHG Vent. Rate : 090 BPM Atrial Rate : 090 BPM P-R Int : 186 ms QRS Dur : 072 ms QT Int : 338 ms P-R-T Axes : 039 -24 005 degrees QTc Int : 413 ms Normal sinus rhythm Low voltage QRS Borderline ECG Confirmed by HUMBERTO FITCH, JACK ([id number]), medical transcription editor MICHAEL SULLIVAN ([id number]) on 07/08/2021 1:09:12 PM Referred By: PAULO Confirmed By:VICKY PAUL MD
--- NOTE | 2021-07-06 20:41 | EDS_ITS ---
HPI History of Present Illness Chief Complaint: Chest Pain Informant: patient Onset/Context/Timing Onset: Today and Yesterday Timing: Intermittent Quality: Positive for Heaviness Location: Substernal Current Severity: Mild Maximum Severity: Mild Worsened By: Nothing Relieved By: Nothing Associated Symptoms: Negative for Vomiting, Diaphoresis, Dyspnea, Cough, Fever, Lightheadedness, Acid Reflux and Palpitations Narrative Narrative: 66-year-old male with severe MS to the point that he is in a powered wheelchair he is unable to walk and has almost no use of his left arm. Also history of a prior non-ST elevation PA. He had a prior cardiac cath but did not need any stenting. He has been treated medically for his PA. Was seen last night had a negative work-up including a CTA of his chest showing no PE nor dissection. He describes chest heaviness like a weight. Really limited. No pain. Took a nitro at home which he did not think it made a significant difference. He denies any hemoptysis. Prior Similar Symptoms: Yes Recent Illness/Hospitalization: No CVD Risk Factors: Negative for Diabetes, Hypercholesterolemia and Smoking PE Risk Factors: Negative for Recent Travel/Surgery, Recent Immobilization, Pr ior DVT or PE, Cancer and OCP + Smoking + >/=35 TAD Risk Factors: Negative for Marfan's Syndrome [facility] Medical History (Updated 07/06/21 @ 22:[address] 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 Multiple sclerosis Multiple sclerosis Multiple sclerosis exacerbation Multiple sclerosis, primary chronic progressive Multiple sclerosis, primary chronic progressive Muscle spasticity Muscle spasticity Neuromyelitis optica Neuromyelitis optica NSTEMI (non-ST elevated myocardial infarction) (11/01/19) Home Medications baclofen 90 mcg INTRATH DAILY 11/28/19 [History Last Taken Unknown] cholecalciferol (vitamin D3) 125 mcg (5,000 unit) capsule 125 mcg PO DAILY 11/28/19 [History Last Taken Unknown] psyllium husk 3.4 gram/5.4 gram oral powder 1 tbsp PO BID g 11/28/19 [History Last Taken Unknown] aspirin 81 mg tablet,delayed release 81 mg PO DAILY@0800 #30 tab 12/31/19 [Rx Last Taken Unknown] lisinopril 2.5 mg tablet 2.5 mg PO DAILY #90 tab 07/14/20 [Rx Last Taken Unknown] levothyroxine 75 mcg capsule 88 mcg PO DAILY 07/23/20 [History Last Taken Unknown] atorvastatin 40 mg tablet See Rx Instructions .ROUTE .COMPLEX #30 tab 12/31/20 [Rx Last Taken Unknown] baclofen 5 mg tablet 15 mg PO Q6H PRN tab 03/10/21 [History Last Taken Unknown] gabapentin 400 mg capsule 400 mg PO Q8H PRN cap 03/10/21 [History Last Taken Unknown] metoprolol tartrate 25 mg tablet 25 mg PO BID #60 tab 06/27/21 [Rx Last Taken Unknown] isosorbide mononitrate 60 mg tablet,extended release 24 hr 60 mg PO DAILY #90 tab 07/06/21 [Rx Last Taken Unknown] nitroglycerin 0.4 mg sublingual tablet 0.4 mg SUBLINGUAL Q5M PRN #25 tab 07/06/21 [Rx Last Taken Unknown] Allergy/AdvReac Type Severity Reaction Status Date / Time No Known Allergies Allergy Verified 07/06/21 20:21 Family History Mother CVA (cerebral vascular accident) Grandmother CVA (cerebral vascular accident) Surgical History Hx of appendectomy Social History Smoking Status: Never smoker alcohol intake: current details: rare substance use type: does not use ROS ROS ED ROS Narrative Chest discomfort. Review of Systems ROS Unobtainable: Denies due to encephalopathy Constitutional Constitutional ED: Denies chills, fever(s) or subjective Eyes Eyes: Denies none ENT ENT ED: Denies ear pain or rhinorrhea Cardiovascular Cardiovascular: Reports as per HPI and chest pain; Denies palpitations Respiratory/Chest Respiratory/Chest: Denies cough or dyspnea Gastrointestinal Gastrointestinal: Denies abdominal pain, diarrhea, nausea or vomiting Genitourinary Genitourinary ED: Denies dysuria Musculoskeletal Musculoskeletal: Denies myalgias Integumentary Denies rash Neurologic Neurologic: Reports weakness; Denies headache(s) Psychiatric Psychiatric: Denies depression Endocrine Endocrinology: Denies polyuria Hematologic/Lymphatic Hematologic/Lymphatic: Denies easy bruising Allergic/Immunologic Allergic/Immunologic ED: Denies urticaria EXAM Physical Exam Narrative Exam Narrative: 66-year-old male no acute distress. Vital signs stable afebrile. Pulse ox 94% on room air no hypoxia. H EENT exam unremarkable. Neck nontender. No lymphadenopathy. Lungs clear to auscultation bilaterally. Heart regular rhythm rate about 90 no murmur. Chest wall nontender. No ecchymosis or bruising. No sign abdomen soft nontender normal bowel sounds no peritoneal signs. Nondistended. Extremities are nontender. Extremely weak in his left upper extremity and both legs. He cannot lift any of those off the bed. He has 4-5 strength in his right hand. Equal symmetrical radial pulses. Calves are nontender without edema. Neurologically is awake and alert. He has severe weakness to the left upper both lower extremities from his MS. He is awake alert answering questions and following commands. Const Vital Signs: 07/06/21 20:21 07/06/21 20:48 07/06/21 21:20 Temperature 98 F Temperature Source Temporal Pulse Rate 90 Respiratory Rate 16 17 Blood Pressure 169/97 H 155/94 H Blood Pressure Mean 121 114 Pulse Ox 94 94 99 Oxygen Delivery Method Room Air Room Air 07/06/21 22:00 07/06/21 22:05 07/06/21 22:13 Temperature Temperature Source Pulse Rate 85 90 Respiratory Rate Blood Pressure 150/114 H 139/83 H 132/85 H Blood Pressure Mean 100 Pulse Ox 96 Oxygen Delivery Method Room Air Positive well nourished, well developed and obese; Negative for cachectic, contractures or unkempt General Appearance ED: well developed and NAD; Negative for unkempt, cachectic, contractures or pallor Nutritional Appearance: obese; Negative for cachectic HEENT Reports moist mucous membranes normocephalic and atraumatic; Negative for trauma or tenderness Eyes PERRL and EOMs intact bilaterally Neck no lymphadenopathy, supple and no JVD General: Negative for tenderness Chest Wall inspection of chest normal and palpation of chest normal Chest: Negative for tenderness or other Resp normal respiratory effort and clear to auscultation bilaterally Effort and Inspection: respiratory distress Auscultation: Negative for rales, rhonchi or wheezes Cardio regular rate, regular rhythm, S1 normal heart sound, S2 normal heart sound and no murmurs Rate: Negative for bradycardia or tachycardic Rhythm: Negative for abnormal rhythm GI normal to inspection, nondistended, normoactive bowel sounds, soft to palpation, non-tender, non-distended and no masses; Negative for hepatosplenomegaly Auscultation: Negative for hyperactive bowel sounds Palpation: Negative for mass Neuro oriented x3 Neuro Narrative: Severe weakness left arm and both lower extremities from his MS. Sensorium / Orientation: awake, alert, oriented to person, oriented to place and oriented to time; Negative for lethargic or stuporous Motor Exam: strength abnormal; Negative for strength 5/5 throughout Psych mental status grossly normal Appearance: Negative for unkempt Mood & Affect: Negative for depressed or tearful Skin no rashes or lesions noted and no wounds General Skin Exam: Negative for jaundice or pallor Heart Score History: Moderately Suspicious ECG: Normal Age: >45 - <65 years Risk Factors: >/= 3 Risk Factors or History of CAD Troponin: </= Normal Limit Score: 4 MDM MDM MDM Narrative Medical decision making narrative: 66-year-old male prior non-ST elevation PA treated medically. No stents. Also history of severe MS. Has chest discomfort. Underwent a work-up last night that was unremarkable. Including a CTA of his chest that showed no dissection or PE. He will undergo a cardiac work-up again tonight. His imaging yesterday was unremarkable CTA of his chest. Patient was treated with sublingual nitro on repeat exam. He has improved his pain. Second EKG was unremarkable. Second troponin is pending. I reviewed his old cath report he had significant coronary disease. Lesions of 80%. I spoke with the hospitalist he will be admitted overnight for further evaluation and cardiology consultation. Lab Data Attestation: I reviewed the patient's lab results. Lab results narrative: CBC White count 8. Hemoglobin 13.7. Hematocrit 40. Electrolytes sodium 133. Potassium 5.3. Gap of 8. Normal BUN and creatinine is 0.9. Glucose 91. Troponin 13. Labs: Laboratory Results - last 24 hr 07/06/21 07/06/21 20:35 20:35 WBC 8.0 RBC 4.46 L Hgb 13.7 Hct 40.0 MCV 89.7 MCH 30.7 MCHC 34.3 RDW Std Deviation 48.3 H RDW Coeff of Isha 14.8 H Plt Count 300 MPV 10.0 Immature Gran % (Auto) 0.400 Neut % (Auto) 78.4 H Lymph % (Auto) 11.3 L [place] % (Auto) 8.5 Eos % (Auto) 0.8 Baso % (Auto) 0.6 Absolute Neuts (auto) 6.3 Absolute Lymphs (auto) 0.90 Nucleated RBC % 0 Sodium 133 L Potassium 5.3 H Chloride 100 Carbon Dioxide 25.0 Anion Gap 8 BUN 16 Creatinine 0.90 Estim Creat Clear Calc 91.01 Est GFR (MDRD) Af Amer 110 Est GFR (MDRD) Non-Af 91 BUN/Creatinine Ratio 17.9 Glucose 91 Calcium 9.4 Troponin I High Sens 13 Radiography Diagnostic Testing: I reviewed the patient's x-rays from last night these were unremarkable. Rhythm Strip Rhythm Strip: Sinus Rhythm Rate: 90 Ectopy: None EKG Initial EKG: Attestation: I personally reviewed and interpreted this EKG as follows: Interpretation: Sinus Rhythm and No Acute Injury Pattern Comments: Normal sinus rhythm rate of 90 no acute signs of PA or ischemia. Prior EKG tracings: available for review Prior: Unchanged Follow-up EKG: Attestation: I personally reviewed and interpreted this EKG as follows: Interpretation: Sinus Rhythm and No Acute Injury Pattern Comments: Repeat EKG showed a sinus rhythm rate of 87 no acute signs of PA or ischemia. Low voltage and unchanged from the initial EKG done tonight at 826. Prior EKG tracings: available for review Prior: Unchanged Discharge Plan Triage Chief Complaint: Chest Pain ED Provider: Ildefonso Daley Dx/Rx/DC Orders Clinical Impression: Chest pain, History of PA (myocardial infarction), History of acquired heart disease, History of muscular dystrophy Prescriptions: No Action baclofen 10,000 mcg/20mL (500 mcg/mL) solution 90 mcg INTRATH DAILY RF: 0 cholecalciferol (vitamin D3) 125 mcg (5,000 unit) capsule 125 mcg PO DAILY RF: 0 Metamucil 3.4 gram/5.4 gram powder 1 tbsp PO BID RF: 0 gabapentin 400 mg capsule 400 mg PO Q8H PRN (Reason: Leg pain) RF: 0 levothyroxine 75 mcg capsule 88 mcg PO DAILY RF: 0 baclofen 5 mg tablet 15 mg PO Q6H PRNRF: 0 aspirin 81 mg tablet,delayed release (DR/EC) 81 mg PO DAILY@0800 Qty: 30 RF: 11 lisinopril 2.5 mg tablet 2.5 mg PO DAILY Qty: 90 RF: 3 atorvastatin 40 mg tablet See Rx Instructions .ROUTE .COMPLEX Qty: 30 RF: 11 metoprolol tartrate 25 mg tablet 25 mg PO BID Qty: 60 RF: 11 isosorbide mononitrate 60 mg tablet extended release 24 hr 60 mg PO DAILY Qty: 90 RF: 3 nitroglycerin 0.4 mg tablet, sublingual 0.4 mg sublingual Q5M PRN (Reason: chest pain) Qty: 25 RF: 3 Primary Care Provider: Ritesh Castro Referrals: Ritesh Castro MD [Primary Care Provider] - Disposition Disposition: Acute Care Hospital [facility]
[2021-07-06 20:48] LABS: Absolute Neutrophil Count 6.3 X10^3/uL (2.0-7.7); Basophil# 0.05 X10^3/uL; Basophil% 0.6 % (0-1); Eosinophil# 0.06 X10^3/uL; Eosinophils% 0.8 % (0-5); Hemoglobin 13.7 g/dL (13.0-16.5); Lymphocyte % 11.3 % (19-41); Mean Corp Hgb Conc 34.3 g/dL (32-36); Mean Corpuscular Hgb 30.7 pg (27.0-32.0); Mean Corpuscular Volume 89.7 fL (80-94); Monocyte# 0.68 X10^3/uL; Monocyte% 8.5 % (0-10); NRBC Flagged by Analyzer 0 % (0-5); Neutrophil # 6.26 X10^3/uL (2.7-7.7); Neutrophil % 78.4 % (47-70); Platelet Count 300 K/mm3 (150-450); RBC Distribution Width CV 14.8 % (11.6-14.6); RBC Distribution Width SD 48.3 fl (35.1-43.9); Red Blood Count 4.46 M/mm3 (4.6-6.2)
[2021-07-06] MEDS: Aspirin 81 MG TAB.CHEW 324 MG PO (20:51)
[2021-07-06 21:05] LABS: Anion Gap 8 (5-15); BUN 16 mg/dL (7-18); BUN/Creat Ratio 17.9 RATIO (10-20); Calcium,Total 9.4 mg/dL (8.5-10.1); Chloride 100 mmol/L (98-107); EST Glomerular Filtration Rate 91 mL/min (>60); Est Glom Filt Rate - Afr Amer 110 mL/min (>60); Estimated Creatinine Clearance 91.01 ml/min; Glucose 91 mg/dL (74-106); Potassium 5.3 mmol/L (3.5-5.1); Sodium Level 133 mmol/L (136-145); Troponin-I HS 13 pg/mL (3.0-78.0)
--- NOTE | 2021-07-06 21:37 | EKG12_ITS ---
Test Reason : DYSRHYTHMIA Blood Pressure : / mmHG Vent. Rate : 087 BPM Atrial Rate : 087 BPM P-R Int : 188 ms QRS Dur : 066 ms QT Int : 350 ms P-R-T Axes : 038 -24 -01 degrees QTc Int : 421 ms Normal sinus rhythm Low voltage QRS Inferior infarct , age undetermined Abnormal ECG Confirmed by HUMBERTO FITCH, JACK ([id number]), field map editor MICHAEL SULLIVAN ([id number]) on 07/08/2021 1:09:28 PM Referred By: LOLY Confirmed By:VICKY PAUL MD
[2021-07-06] MEDS: Nitroglycerin SL (ED/IMG/CATH) 0.4 MG TABLET SL ×2 (22:00→22:05)
--- NOTE | 2021-07-06 22:12 | ED.RN ---
Per dr. segundo not to give 3rd dose of nitro d/t not helping pain.
--- NOTE | 2021-07-06 22:20 | PCM.HP.STD ---
HPI - General General Date of Admission: 07/06/21 Date of Service: 07/06/21 Chief Complaint: Chest pain HPI Narrative The patient is a 66 y/o M w/ PMHx: Primary chronic progressive MS w/ Neuromyelitis optica, Depression and Anxiety, Hx NSTEMI w/ multivessel CAD considered not a candidate for CABG, HTN, HLD who initially presented to the [facility] ED on 07/05/21 with history of onset chest discomfort described primarily as a tightness sensation, left sided with similar sensation in his left neck and left arm with difficulty taking a full breath as a result prompting ED evaluation at that time with no marked finding on CXR, CTPA with trop x 2 not marked appearing with mild improvement in his discomfort with ED interventions discharged to home; however, he now returns to the [facility] ED on 07/06/21 with ongoing symptoms, recurrent, rates his discomfort 7/10 in severity. He notes preference for medical management as he notes there was some discussion prior for possible PCI for his multivessel disease since he was not considered a CABG candidate. ED evaluation on 07/05/21 with noted CBC with WC 7.6, hemoglobin 13.8, platelet 249 without marked shift, D-dimer 1.97, BMP with sodium 132, potassium 5.5, BUN/creatinine 19/0.89 otherwise not marked appearing, high-sensitivity cardiac troponin 8 with repeat 11, EKG SR without acute evidence of ischemia, CXR with mild cardiomegaly with no acute cardiopulmonary findings, CTPA with no acute PE or dissection. Currently 07/06/21 ED evaluation w/ work-up including T 98, heart rate 90, BP 169/97, respiratory rate 16, 94 to 99% on room air, CBC with WC 8, hemoglobin 13.7, platelet 300 without marked shift, BMP with sodium 133, potassium 5.3 otherwise not marked appearing, troponin initial 13 with repeat 16, EKG with sinus rhythm with no acute evidence of ischemia. In the ED patient ministered sublingual nitroglycerin, aspirin 324 mg p.o. x1 as well as Tylenol 650 p.o. x1. [facility] Medical History (Updated 07/06/21 @ 23:[address] 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 Multiple sclerosis Multiple sclerosis Multiple sclerosis exacerbation Multiple sclerosis, primary chronic progressive Multiple sclerosis, primary chronic progressive Muscle spasticity Muscle spasticity Neuromyelitis optica Neuromyelitis optica NSTEMI (non-ST elevated myocardial infarction) (11/01/19) Home Medications baclofen 90 mcg INTRATH DAILY 11/28/19 [History Last Taken Unknown] cholecalciferol (vitamin D3) 125 mcg (5,000 unit) capsule 125 mcg PO DAILY 11/28/19 [History Last Taken Unknown] psyllium husk 3.4 gram/5.4 gram oral powder 1 tbsp PO BID g 11/28/19 [History Last Taken Unknown] aspirin 81 mg tablet,delayed release 81 mg PO DAILY@0800 #30 tab 12/31/19 [Rx Last Taken Unknown] lisinopril 2.5 mg tablet 2.5 mg PO DAILY #90 tab 07/14/20 [Rx Last Taken Unknown] levothyroxine 75 mcg capsule 88 mcg PO DAILY 07/23/20 [History Last Taken Unknown] atorvastatin 40 mg tablet See Rx Instructions .ROUTE .COMPLEX #30 tab 12/31/20 [Rx Last Taken Unknown] baclofen 5 mg tablet 15 mg PO Q6H PRN tab 03/10/21 [History Last Taken Unknown] gabapentin 400 mg capsule 400 mg PO Q8H PRN cap 03/10/21 [History Last Taken Unknown] metoprolol tartrate 25 mg tablet 25 mg PO BID #60 tab 06/27/21 [Rx Last Taken Unknown] isosorbide mononitrate 60 mg tablet,extended release 24 hr 60 mg PO DAILY #90 tab 07/06/21 [Rx Last Taken Unknown] nitroglycerin 0.4 mg sublingual tablet 0.4 mg SUBLINGUAL Q5M PRN #25 tab 07/06/21 [Rx Last Taken Unknown] Allergy/AdvReac Type Severity Reaction Status Date / Time No Known Allergies Allergy Verified 07/06/21 20:21 Family History (Updated 07/06/21 @ 23:[address] Cady Addison MD) Mother CVA (cerebral vascular accident) Grandmother CVA (cerebral vascular accident) Father Liver disease due to alcohol Surgical History Hx of appendectomy Social History (Updated 07/06/21 @ 23:[address] Cady Addison MD) household members: none Smoking Status: Never smoker alcohol intake: current details: rare substance use type: does not use ROS ROS Narrative Admission Review of Systems: CONSTITUTIONAL: No weight loss, fever, chills, + weakness or fatigue. HEENT: Eyes: No visual loss, blurred vision, double vision or yellow sclerae. Ears, Nose, Throat: No hearing loss, sneezing, congestion, runny nose or sore throat. SKIN: No rash or itching, lesions, wounds. CARDIOVASCULAR:+ Chest pain, edema, orthopnea, syncopal events. RESPIRATORY: + Shortness of breath, No cough or sputum, wheezing, hemoptysis. GASTROINTESTINAL: No anorexia, nausea, vomiting or diarrhea, abdominal pain, melena, BRBPR. GENITOURINARY: No dysuria, frequency, urgency or retention. NEUROLOGICAL: + Chronic deficits with MS. No headache, dizziness, syncope, change in bowel or bladder control, seizure. MUSCULOSKELETAL: + muscle, back pain, joint pain or stiffness. HEMATOLOGIC: No anemia, bleeding or bruising. LYMPHATICS: No enlarged nodes. No history of splenectomy. PSYCHIATRIC: + history of depression or anxiety. ENDOCRINOLOGIC: No reports of sweating, cold or heat intolerance. No polyuria or polydipsia. ALLERGIES: No history of asthma, hives, eczema or rhinitis. Vital Signs Vital Signs Vital Signs: 07/06/21 20:21 07/06/21 20:48 07/06/21 21:20 Temperature 98 F Temperature Source Temporal Pulse Rate 90 Respiratory Rate 16 17 Blood Pressure 169/97 H 155/94 H Blood Pressure Mean 121 114 Pulse Ox 94 94 99 Oxygen Delivery Method Room Air Room Air 07/06/21 22:00 07/06/21 22:05 07/06/21 22:13 Temperature Temperature Source Pulse Rate 85 90 Respiratory Rate Blood Pressure 150/114 H 139/83 H 132/85 H Blood Pressure Mean 100 Pulse Ox 96 Oxygen Delivery Method Room Air Weight Weight: 242 lb 8.136 oz Body Mass Index (BMI) 32.8 Physical Exam Narrative Physical Examination: General: Awake, alert, oriented x 3 and cooperative, seated upright in the ED bed, fatigued, notes still some distress discomfort. Skin: Normal color, normal turgor, no icterus, no cyanosis. HEENT: AT/NC, EOMI, PERRLA, mildly dry MM, no carotid bruits or JVD noted. Lungs: Diminished, greater bases, moderate effort, no rales, ronchi or wheezing. Heart: Currently regular rate and rhythm; no gallop, rub audible. Abdomen: Soft, obese, NTTP, ND, mildly distant normal BS, no HSM. Extremities: No cyanosis, no clubbing, mild bilateral ankle to distal mtz edema, underlying MS with significant bilateral lower extremity and left upper extremity weakness. Neurological: Patient awake, alert, oriented as noted, cognitive function intact; pupils equally reactive to light and accommodation, cranial nerves II-XII grossly normal, patient with severe chronic deficits secondary to underlying MS especially to the left upper extremity and bilateral lower extremity, unable to even bear weight or pivot, able to primarily move right upper extremity, strength accordingly severely global decreased. Psychiatric: Affect appears fatigued, no acute evidence of depressive or anxiety feelings. Results Lab / Micro Data Result Diagrams: 07/06/21 20:35 07/06/21 20:35 Labs: Laboratory Results - last 24 hr 07/06/21 20:35: WBC 8.0, RBC 4.46 L, Hgb 13.7, Hct 40.0, MCV 89.7, MCH 30.7, MCHC 34.3, RDW Std Deviation 48.3 H, RDW Coeff of Isha 14.8 H, Plt Count 300, MPV 10.0, Immature Gran % (Auto) 0.400, Neut % (Auto) 78.4 H, Lymph % (Auto) 11.3 L, Harnett % (Auto) 8.5, Eos % (Auto) 0.8, Baso % (Auto) 0.6, Absolute Neuts (auto) 6.3, Absolute Lymphs (auto) 0.90, Nucleated RBC % 0 07/06/21 20:35: Sodium 133 L, Potassium 5.3 H, Chloride 100, Carbon Dioxide 25.0, Anion Gap 8, BUN 16, Creatinine 0.90, Estim Creat Clear Calc 91.01, Est GFR (MDRD) Af Amer 110, Est GFR (MDRD) Non-Af 91, BUN/Creatinine Ratio 17.9, Glucose 91, Calcium 9.4, Troponin I High Sens 13 Rhythm Strip Rhythm Strip: Sinus Rhythm Rate: 90 Ectopy: None Assessment & Plan Assessment/Plan (1) Chest pain: QUALIFIERS: Chest pain type: unspecified Qualified Code(s): R07.9 - Chest pain, unspecified PLAN: The patient is a 66 y/o M w/ PMHx: Primary chronic progressive MS w/ Neuromyelitis optica, Depression and Anxiety, Hx NSTEMI w/ multivessel CAD considered not a candidate for CABG, HTN, HLD who initially presented to the [facility] ED on 07/05/21 with history of onset chest discomfort described primarily as a tightness sensation, left sided with similar sensation in his left neck and left arm with difficulty taking a full breath as a result prompting ED evaluation at that time with no marked finding on CXR, CTPA with trop x 2 not marked appearing with mild improvement in his discomfort with ED interventions discharged to home; however, he now returns to the [facility] ED on 07/06/21 with ongoing symptoms, recurrent, rates his discomfort 7/10 in severity. #1. Chest Pain w/ known triple vessel CAD: ED evaluation with CXR with mild cardiomegaly with no acute cardiopulmonary findings, recent 07/05/21 CTPA with no acute PE or dissection, current evaluation with trop x 2 normal. Will admit to PCU, place on a monitored bed to assure no acute myocardial infarction with serial cardiac enzymes and EKGs. FLP in AM. Magnesium pending. Consult Cardiology for evaluation of patient for consideration PCI versus medical management. 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 ASA, NG, morphine. #2. Hyperkalemia, mild: Admission potassium 5.3, not hemolyzed per lab report, will continue judicious hydration, trending downward, repeat level in AM. #3. CAD w/ Hx prior NSTEMI: Per Cardiology records patient s/p NSTEMI 10/2019 w/ severe triple-vessel disease involving calcified left anterior descending artery, calcified circumflex artery with multiple areas of stenosis, and a subtotally occluded nondominant right coronary artery with preserved ejection fraction. Patient was evaluated following catheterization with CABG evaluation which was declined secondary patient's nonvascular medical diagnosis of multiple sclerosis, chronic wheelchair confinement, severe debility with inability to use extremities which would make postop recovery very difficult with decision for medical management. We will continue aspirin, statin, metoprolol, lisinopril, isosorbide regimen. #4. Primary chronic progressive multiple sclerosis with hx neuromyelitis optica: We will continue patient baclofen regimen in addition to as needed baclofen, maintain on fall precautions. #5. Depression and anxiety: Noted in the history however patient is not on any chronic regimen, encourage continued outpatient follow-up. #6. Hypertension: Continue home regimen including metoprolol, lisinopril, isosorbide with hold parameters as needed, PRN hydralazine. #7. Hyperlipidemia: Continue home statin regimen. AM FLP. #8. Hypothyroidism: Continue home synthroid regimen. #9. DVT prophylaxis: SCDs, Lovenox. #10. CODE status: Patient HCPOA and living will is not formally set up yet but he notes this is in process and his intention is to have his eldest daughter as his healthcare power of erisa attorney. Discussed CODE status at length including difference between FULL code, DNR-CCA and DNR-CC status. Following discussions about the differences in these status, requested DNR-CCA, no intubation status. Advanced Care Planning Face to Face Time: 16 minutes. Charges/Coding Visit Charges OBSV E&M: 65831 Initial observation care L3 Procedures Hospitalists Procedures: [id number] Advncd Care Plan 30 Min
[2021-07-06] MEDS: Acetaminophen 325 MG Tablet 650 MG PO (22:40)
[2021-07-06 23:04] LABS: Troponin-I HS 16 pg/mL (3.0-78.0)
--- NOTE | 2021-07-06 23:46 | EKG12_ITS ---
Test Reason : CP ADMISSION Blood Pressure : / mmHG Vent. Rate : 105 BPM Atrial Rate : 078 BPM P-R Int : 194 ms QRS Dur : 064 ms QT Int : 356 ms P-R-T Axes : 020 -21 000 degrees QTc Int : 470 ms Sinus rhythm with frequent Premature ventricular complexes Low voltage QRS Inferior infarct , age undetermined Abnormal ECG When compared with ECG of 06-JUL-2021 21:52, MANUAL COMPARISON REQUIRED, DATA IS UNCONFIRMED Confirmed by HUMBERTO FITCH, JACK ([id number]), editor in chief MICHAEL SULLIVAN ([id number]) on 07/11/2021 10:04:13 A M Referred By: SWATI Confirmed By:VICKY PAUL MD
[2021-07-07] VITALS (12 sets, daily range): BP systolic 138–155; BP diastolic 78–94; PULSE 77–94; RESP 18–20; TEMP 36.4–37; O2SAT 92–95
[2021-07-07] MEDS: 0.9% Normal Saline 1,000 ML 100 ML IV (00:10)
--- NOTE | 2021-07-07 01:26 | PCS.PANDOC ---
PANDEMIC DOCUMENTATION INITIATED: Date: 01/24/2021 Time: 190
[2021-07-07 02:09] LABS: Absolute Lymphocyte Count 1.08 X10^3/uL (0.83-4.51); Absolute Neutrophil Count 5.8 X10^3/uL (2.0-7.7); Basophil# 0.05 X10^3/uL; Basophil% 0.7 % (0-1); Eosinophil# 0.06 X10^3/uL; Eosinophils% 0.8 % (0-5); Hematocrit 36.5 % (40-54); Hemoglobin 12.6 g/dL (13.0-16.5); Lymphocyte # 1.08 X10^3/ul (0.83-4.51); Lymphocyte % 14.1 % (19-41); Mean Corp Hgb Conc 34.5 g/dL (32-36); Mean Corpuscular Hgb 30.9 pg (27.0-32.0); Mean Corpuscular Volume 89.5 fL (80-94); Mean Platelet Vol. 10.2 fl (6.2-12.0); Monocyte% 9.1 % (0-10); NRBC Flagged by Analyzer 0 % (0-5); Neutrophil # 5.75 X10^3/uL (2.7-7.7); Platelet Count 248 K/mm3 (150-450); Red Blood Count 4.08 M/mm3 (4.6-6.2); White Blood Count 7.7 K/mm3 (4.4-11.0)
[2021-07-07] MEDS: Baclofen 10 MG Tablet 15 MG PO ×2 (02:25→21:26)
[2021-07-07 02:32] LABS: ALB/GLOB Ratio 0.9 RATIO (0.9-2.4); AST(SGOT) 36 U/L (15-37); Alanine Aminotransfer ALT/SGPT 38 U/L (16-61); Albumin, Serum 3.2 g/dL (3.2-5.0); Alkaline Phosphatase 92 U/L (45-117); Anion Gap 6 (5-15); BUN 17 mg/dL (7-18); BUN/Creat Ratio 19.1 RATIO (10-20); Calcium,Total 9.2 mg/dL (8.5-10.1); Chloride 102 mmol/L (98-107); Creatinine, Serum 0.89 mg/dL (0.70-1.30); EST Glomerular Filtration Rate 92 mL/min (>60); Est Glom Filt Rate - Afr Amer 111 mL/min (>60); Estimated Creatinine Clearance 92.03 ml/min; Globulin 3.7 g/dL (2.2-4.2); Glucose 101 mg/dL (74-106); Potassium 4.7 mmol/L (3.5-5.1); Protein, Total 6.9 g/dL (6.4-8.2); Sodium Level 134 mmol/L (136-145); Troponin-I HS 21 pg/mL (3.0-78.0)
[2021-07-07] MEDS: LORazepam 2 MG/ML Syringe 0.5 MG IV (04:46)
[2021-07-07] MEDS: Levothyroxine 88 MCG Tablet PO (06:23)
[2021-07-07] MEDS: Menthol/Lanolin/Calamine/Znox 113 GM Tube 1 APPLIC TOPICAL ×4 (08:53→21:32)
[2021-07-07] MEDS: Cholecalciferol (VIT D3) 25 MCG TABLET (1,000 UNITS) 125 MCG PO (08:54)
[2021-07-07] MEDS: Enoxaparin 40 MG/0.4 ML Syringe SC (08:54)
[2021-07-07] MEDS: Isosorbide Mononitrate 60 MG Tablet PO ×2 (08:55→21:26)
[2021-07-07] MEDS: Lisinopril 2.5 MG Tablet PO (08:55)
[2021-07-07] MEDS: Aspirin E.C. 81 MG Tablet PO (08:55)
[2021-07-07] MEDS: Metoprolol Tartrate 25 MG Tablet PO ×2 (08:55→21:27)
--- NOTE | 2021-07-07 09:12 | CON.PCM.CA_ITS ---
Assessment & Plan Assessment/Plan (1) Unstable angina pectoris: PLAN: The patient presents with symptoms of unstable angina pectoris. At the moment his rule out SC protocol is negative by cardiac enzymes and negative by obvious ECG changes. He will continue medical therapy. This will include agents such as aspirin, nitrates, beta-blockers, lipid-lowering agents, and consideration to additional agents such as Ranexa. If the patient is not considered at a tertiary care center for further PCI or CABG then potentially the addition of antiplatelet agents such as clopidogrel/Plavix and/or low-dose anticoagulant agents such as rivaroxaban/Xarelto (2.5 mg p.o. daily) may be an option. (2) CAD (coronary artery disease): PLAN: The patient does have CAD as previously described. He had been evaluated at [facility] for possible CABG. He was declined secondary to the comments noted above. It may not be unreasonable to obtain another interventional/revascularization opinion from another tertiary care center. This was discussed with him. He was agreeable to this approach. Thus his previous cardiac catheterization images are going to be forwarded to [facility] for review by the cardiovascular team for a comment as to whether or not they think the patient may be a candidate for any type of revascularization procedure noting his noncardiac comorbidities. (3) NSTEMI (non-ST elevated myocardial infarction): PLAN: The patient has a history of previous non-ST segment elevation SC. At the moment his cardiac enzymes are negative. He will continue to be monitored. He will continue medical therapy. (4) Multiple sclerosis: PLAN: The patient does have multiple sclerosis which has been debilitating to him. This has raised concerns as his ability to recover from a surgical type procedure. Thus his case will be reviewed by interventional cardiology at [facility] as to whether or not he may be a candidate for any type of percutaneous revascularization. Addt'l Comments The patient's case has been discussed and reviewed with the patient and Dr. Live. This note was generated using a voice recognition system and there may be incorrect words, spelling or punctuation that were not noted when reviewing the office note prior to saving. HPI Consult Data Date of Consult: 07/07/21 HPI Narrative HPI Narrative: NICOLASA FISCHER, is a 66 year old white male who presents for consultation based upon concerns of unstable angina pectoris superimposed upon a history of underlying CAD, non-ST segment elevation SC, and status post CABG evaluation ([facility]-declined secondary to patient's noncardiovascular medical diagnosis with multiple sclerosis, wheelchair confinement, and inability to participate in postoperative recovery related activities). The patient has been complaining of nonexertional chest heaviness as if a elephant was sitting on my chest associated with shortness of breath/dyspnea as well as nausea. He has denied ongoing emesis or diaphoresis. There has been no report of orthopnea or PND. There has been no near-syncope or syncope. He has been on his antianginal medical therapy at home. He had an emergency department evaluation on 07-05-2021. At that time he did not appear to have objective findings of an acute coronary syndrome. He did have an elevated D- dimer. This was further evaluated with a chest CTA which was reported as negative for great vessel disease/thromboembolic disease. The ED recommendation was for continued outpatient cardiovascular and neurologic follow-up. The pat ient was released home. The patient subsequently contacted the office regarding recurrent chest dis comfort. An attempt was made to adjust his medications. However based upon ongoing concerns he presented back to the emergency department for reevaluation. His cardiovascular objective markers were reported as negative. He was treated with additional sublingual nitroglycerin. Per the report he had improvement in his discomfort. He was subsequently recommended for further inpatient evaluation and care. His cardiac enzyme levels have remained negative. He is ECGs have demonstrated sinus rhythm with the appearance of leftward axis and low voltage QRS and an inferior my pattern of indeterminate age cannot be excluded. There did not appear to be any acute electrocardiographic changes. His radiologic studies from 07-05-2021 demonstrated no acute cardiopulmonary disease process. He states that he does feel anxious regarding his cardiovascular disease process and his symptoms. [facility] Medical History (Updated 07/07/21 @ 09:[address] 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 Multiple sclerosis Multiple sclerosis Multiple sclerosis exacerbation Multiple sclerosis, primary chronic progressive Multiple sclerosis, primary chronic progressive Muscle spasticity Muscle spasticity Neuromyelitis optica Neuromyelitis optica NSTEMI (non-ST elevated myocardial infarction) (11/01/19) Unstable angina pectoris Home Medications baclofen 90 mcg INTRATH DAILY 11/28/19 [History Last Taken Unknown] cholecalciferol (vitamin D3) 125 mcg (5,000 unit) capsule 125 mcg PO DAILY 11/28/19 [History Last Taken Unknown] psyllium husk 3.4 gram/5.4 gram oral powder 1 tbsp PO BID g 11/28/19 [History Last Taken Unknown] aspirin 81 mg tablet,delayed release 81 mg PO DAILY@0800 #30 tab 12/31/19 [Rx Last Taken Unknown] lisinopril 2.5 mg tablet 2.5 mg PO DAILY #90 tab 07/14/20 [Rx Last Taken Unknown] levothyroxine 75 mcg capsule 88 mcg PO DAILY 07/23/20 [History Last Taken Unknown] atorvastatin 40 mg tablet See Rx Instructions .ROUTE .COMPLEX #30 tab 12/31/20 [Rx Last Taken Unknown] baclofen 5 mg tablet 15 mg PO Q6H PRN tab 03/10/21 [History Last Taken Unknown] gabapentin 400 mg capsule 400 mg PO Q8H PRN cap 03/10/21 [History Last Taken Unknown] metoprolol tartrate 25 mg tablet 25 mg PO BID #60 tab 06/27/21 [Rx Last Taken Unknown] isosorbide mononitrate 60 mg tablet,extended release 24 hr 60 mg PO DAILY #90 tab 07/06/21 [Rx Last Taken Unknown] nitroglycerin 0.4 mg sublingual tablet 0.4 mg SUBLINGUAL Q5M PRN #25 tab 07/06/21 [Rx Last Taken Unknown] Allergy/AdvReac Type Severity Reaction Status Date / Time No Known Allergies Allergy Verified 07/06/21 20:21 Family History (Updated 07/06/21 @ 23:[address] Cady Addison MD) Mother CVA (cerebral vascular accident) Grandmother CVA (cerebral vascular accident) Father Liver disease due to alcohol Surgical History Hx of appendectomy Social History (Updated 07/06/21 @ 23:[address] Cady Addison MD) household members: none Smoking Status: Never smoker alcohol intake: current details: rare substance use type: does not use ROS Constitutional Constitutional: Reports as per HPI Eyes Eyes: Reports as per HPI ENT HEENT: Reports as per HPI Cardiovascular Cardiovascular: Reports chest pain at rest, dyspnea and nausea Respiratory/Chest Respiratory/Chest: Reports dyspnea Gastrointestinal Gastrointestinal: Reports as per HPI Genitourinary Genitourinary: Reports as per HPI Musculoskeletal Musculoskeletal: Reports as per HPI Integumentary Integumentary: Reports as per HPI Neurologic Neurologic: Reports as per HPI Physical Exam Const alert, oriented x3 and no apparent distress Orientation / Consciousness: awake HEENT normocephalic, head/scalp atraumatic and hearing grossly normal bilaterally Eyes PERRL, EOMs intact bilaterally and conjunctivae normal Neck full ROM, supple and no JVD Resp clear to auscultation bilaterally Cardio regular rate, regular rhythm, S1 normal heart sound and S2 normal heart sound GI normal to inspection, nondistended, normoactive bowel sounds Extremity no pedal edema Skin no rashes or lesions noted Neuro oriented x3 Psych mental status grossly normal Risk Stratification Risk Stratification Applicable: Yes Age >/= 65: No >/= 3 CAD Risk Factors (HTN, HLD, DM, family hx of CAD, or current smoker): No Aspirin Use in the Past 7 Days: Yes Severe Angina (>/= episodes in 24 hours): Yes EKG ST Changes >/= 0.5mm: No Positive Cardiac Marker: No SUPA Risk Stratification Score: 2 SUPA % Risk: 8% Risk Procedure Criteria Type of Procedure Procedure Type: Elective Elective Risks - COVID COVID Risk Discussion: The surgeon/proceduralist and patient have discussed in detail the risk of exposure to and/or potential harm posed by the COVID-19 virus with having a surgery/procedure at this time versus the risk of delaying the surgery/procedure. It is not possible to know either the risk of delaying the surgery or procedure or chance of getting an infection with perfect accuracy, but a joint decision was made between the patient and the surgeon/proceduralist to proceed at this time with the scheduled surgery/procedure as indicated on the consent form. Objective Data Vital Signs: Vital Signs Temp Pulse Resp BP Pulse Ox 98.1 F 94 18 155/94 H 93 07/07/21 08:51 07/07/21 08:55 07/07/21 08:51 07/07/21 08:55 07/07/21 08:51 Oxygen Delivery Method Room Air Weight: 231 lb 11.293 oz Body Mass Index (BMI) 31.4 Intake & Output: Intake and Output for Last 24 Hours 07/05/21 07/06/2122 23:59 23:59 23:59 Output Total 750 / 750 Balance -750 / -750 Lab / Micro Data Result Diagrams: 07/07/21 01:22 07/07/21 01:22 Labs: Laboratory Results - last 24 hr 07/06/21 20:35: WBC 8.0, RBC 4.46 L, Hgb 13.7, Hct 40.0, MCV 89.7, MCH 30.7, MCHC 34.3, RDW Std Deviation 48.3 H, RDW Coeff of Isha 14.8 H, Plt Count 300, MPV 10.0, Immature Gran % (Auto) 0.400, Neut % (Auto) 78.4 H, Lymph % (Auto) 11.3 L, Starr % (Auto) 8.5, Eos % (Auto) 0.8, Baso % (Auto) 0.6, Absolute Neuts (auto) 6.3, Absolute Lymphs (auto) 0.90, Nucleated RBC % 0 07/06/21 20:35: Sodium 133 L, Potassium 5.3 H, Chloride 100, Carbon Dioxide 25.0, Anion Gap 8, BUN 16, Creatinine 0.90, Estim Creat Clear Calc 91.01, Est GFR (MDRD) Af Amer 110, Est GFR (MDRD) Non-Af 91, BUN/Creatinine Ratio 17.9, Glucose 91, Calcium 9.4, Troponin I High Sens 13 07/06/21 22:38: Magnesium 2.0, Troponin I High Sens 16 07/07/21 01:22: Troponin I High Sens 21 07/07/21 01:22: WBC 7.7, RBC 4.08 L, Hgb 12.6 L, Hct 36.5 L, MCV 89.5, MCH 30.9, MCHC 34.5, RDW Std Deviation 49.0 H, RDW Coeff of Isha 15.0 H, Plt Count 248, MPV 10.2, Immature Gran % (Auto) 0.300, Neut % (Auto) 75.0 H, Lymph % (Auto) 14.1 L, Starr % (Auto) 9.1, Eos % (Auto) 0.8, Baso % (Auto) 0.7, Absolute Neuts (auto) 5.8, Absolute Lymphs (auto) 1.08, Nucleated RBC % 0 07/07/21 01:22: Sodium 134 L, Potassium 4.7, Chloride 102, Carbon Dioxide 26.0, Anion Gap 6, BUN 17, Creatinine 0.89, Estim Creat Clear Calc 92.03, Est GFR (MDRD) Af Amer 111, Est GFR (MDRD) Non-Af 92, BUN/Creatinine Ratio 19.1, Glucose 101, Calcium 9.2, Total Bilirubin 0.60, AST 36, ALT 38, Alkaline Phosphatase 92, Total Protein 6.9, Albumin 3.2, Globulin 3.7, Albumin/Globulin Ratio 0.9 Rhythm Strip Rhythm Strip: Sinus Rhythm Rate: 90 Ectopy: None Cardiology Labs/Tests 07/06/21 20:35: WBC 8.0, RBC 4.46 L, Hgb 13.7, Hct 40.0, MCV 89.7, MCH 30.7, MCHC 34.3, Plt Count 300, MPV 10.0, Immature Gran % (Auto) 0.400, Neut % (Auto) 78.4 H, Lymph % (Auto) 11.3 L, Starr % (Auto) 8.5, Eos % (Auto) 0.8, Baso % (Auto) 0.6, Absolute Neuts (auto) 6.3, Nucleated RBC % 0 07/06/21 20:35: Sodium 133 L, Potassium 5.3 H, Chloride 100, Carbon Dioxide 25.0, Anion Gap 8, BUN 16, Creatinine 0.90, Est GFR (MDRD) Af Amer 110, Est GFR (MDRD) Non-Af 91, BUN/Creatinine Ratio 17.9, Glucose 91, Calcium 9.4 07/06/21 22:38: Magnesium 2.0 07/07/21 01:22: WBC 7.7, RBC 4.08 L, Hgb 12.6 L, Hct 36.5 L, MCV 89.5, MCH 30.9, MCHC 34.5, Plt Count 248, MPV 10.2, Immature Gran % (Auto) 0.300, Neut % (Auto) 75.0 H, Lymph % (Auto) 14.1 L, Starr % (Auto) 9.1, Eos % (Auto) 0.8, Baso % (Auto) 0.7, Absolute Neuts (auto) 5.8, Nucleated RBC % 0 07/07/21 01:22: Sodium 134 L, Potassium 4.7, Chloride 102, Carbon Dioxide 26.0, Anion Gap 6, BUN 17, Creatinine 0.89, Est GFR (MDRD) Af Amer 111, Est GFR (MDRD) Non-Af 92, BUN/Creatinine Ratio 19.1, Glucose 101, Calcium 9.2, Total Bilirubin 0.60 Rhythm: Sinus rhythm EKG: As noted above Transthoracic echocardiogram: 11-02-2019 Interpretation Summary Normal LV size. Left ventricular systolic function is normal. The estimated ejection fraction is 65 %. Stage 1 diastolic dysfunction. Mild (1+) tricuspid valve insufficiency. Contrast injection was performed. Cardiac catheterization: 11-04-2019 CONCLUSIONS Severe triple-vessel disease involving calcified left anterior descending artery, calcified circumflex artery with multiple areas of stenosis, and a subtotally occluded nondominant right coronary artery with preserved ejection fraction RECOMMENDATIONS Surgery consult for coronary revascularization DESCRIPTION OF PROCEDURE The patient arrived to the procedure lab. The risks and benefits of the procedure as well as a full description of our services here and current unavailability of surgical backup were fully explained to the patient and/or their significant other prior to the catheterization. The Timeout was completed, verifying the correct patient and procedure. The patient's procedural site was prepped and draped in the usual fashion. Local anesthetic was given subcutaneou sly to right radial region with Lidocaine 2%. Using a modified Seldinger technique, arterial access was obtained via the right radial artery, a 6Fr sheath was inserted. Left Coronary Artery selective angiography was performed in multiple views using a 5 Fr. 4.0 Currie catheter. Right Coronary Artery selective angiography was then performed in multiple views using a 5 Fr. 4.0 Currie catheter. Left Ventriculography was performed in ELLISON projection using a 5 Fr. Pigtail catheter. LV to AO pullback pressures were then recorded.The arterial sheath was pulled and a TR Band was applied for hemostasis CORONARY ANGIOGRAPHY DOMINANCE: Left Dominant LEFT HEART ASSESSMENT Left Ventricular Ejection Fraction: by LV Gram 70 % Normal LV wall motion Normal Left Ventricular systolic function LEFT MAIN: Mild calcification LEFT ANTERIOR DESCENDING ARTERY: Diffusely calcified and diffusely diseased LAD with moderate proximal stenosis approximately 50% mid stenosis for long 70 to 80% lesions CIRCUMFLEX ARTERY: Dominant circumflex artery with moderate proximal disease, first obtuse marginal branch with 70 to 80% ostial stenosis, side branch of this vessel which is subtotally occluded, mid circumflex artery with 80% stenosis at the trifurcation of the distal circumflex artery.. RIGHT CORONARY ARTERY: PROX RCA: is occluded
[2021-07-07] MEDS: amLODIPine 2.5 MG Tablet PO (10:11)
[2021-07-07] MEDS: Ranolazine 500 MG Tablet PO ×2 (10:11→21:26)
--- NOTE | 2021-07-07 10:29 | CASEMGMT ---
SW was informed by RN that patient is interested in going to a longterm. SW met with patient, introduced self and role at [facility]. Patient said he is willing to go to a longterm. SW provided a list of SNF providers including quality and resource use data and consistent with the patient?s preferred geographic region, medical needs, and insurance network. SW let patient know that the facilities highlighted in pink are the ones that take his insurance. Patient is not sure about which facility yet. He has a daughter in [place], son in [place], and a couple of daughters in [place]. Patient also mentioned that he would like to do a Healthcare Power of Welding Foreman. SW let patient know SW can help him with this also. SW asked patient if he wanted SW to call his daughter to help pick a facility. Patient said she is working right now. SW told patient to look over the list and SW can check back in a little bit. Siria Floyd FRAME TRIMMER KRISTAL
--- NOTE | 2021-07-07 10:59 | CASEMGMT ---
TAVO received a phone call from Altagracia a nurse with [facility]. She asked if there are any discharge plans yet. TAVO let her know patient was asking about going to a group home. Altagracia said patient's case loader operator is Emilia Marroquin. Siria Floyd BINDING BENCH WORKER KRISTAL
--- NOTE | 2021-07-07 11:12 | PCM.PN.HOSP ---
Documented by User: Mackenzie Saul NP, SENIOR SOFTWARE ARCHITECT-C 07/07/21 11:30 Subjective Subjective Patient seen and examined. Reports he feels anxious and fatigued. Reports ongoing chest tightness which he states is worse when taking a deep breath. Denies other symptoms or complaints. Requesting SNF at discharge. Objective Data Objective Data Vital Signs: Vital Signs Temp Pulse Resp BP Pulse Ox 98.1 F 94 18 155/94 H 93 07/07/21 08:51 07/07/21 08:55 07/07/21 08:51 07/07/21 08:55 07/07/21 08:51 Oxygen Delivery Method Room Air Weight: 231 lb 11.293 oz Body Mass Index (BMI) 31.4 Intake & Output: Intake and Output for Last 24 Hours 07/05/21 07/06/21 07/07/21 23:59 23:59 23:59 Intake Total 1000 / 1000 Output Total 750 / 750 Balance 250 / 250 Lab / Micro Data Result Diagrams: 07/07/21 01:22 07/07/21 01:22 Labs: Laboratory Results - last 24 hr 07/06/21 20:35: WBC 8.0, RBC 4.46 L, Hgb 13.7, Hct 40.0, MCV 89.7, MCH 30.7, MCHC 34.3, RDW Std Deviation 48.3 H, RDW Coeff of Isha 14.8 H, Plt Count 300, MPV 10.0, Immature Gran % (Auto) 0.400, Neut % (Auto) 78.4 H, Lymph % (Auto) 11.3 L, Frontier % (Auto) 8.5, Eos % (Auto) 0.8, Baso % (Auto) 0.6, Absolute Neuts (auto) 6.3, Absolute Lymphs (auto) 0.90, Nucleated RBC % 0 07/06/21 20:35: Sodium 133 L, Potassium 5.3 H, Chloride 100, Carbon Dioxide 25.0, Anion Gap 8, BUN 16, Creatinine 0.90, Estim Creat Clear Calc 91.01, Est GFR (MDRD) Af Amer 110, Est GFR (MDRD) Non-Af 91, BUN/Creatinine Ratio 17.9, Glucose 91, Calcium 9.4, Troponin I High Sens 13 07/06/21 22:38: Magnesium 2.0, Troponin I High Sens 16 07/07/21 01:22: Troponin I High Sens 21 07/07/21 01:22: WBC 7.7, RBC 4.08 L, Hgb 12.6 L, Hct 36.5 L, MCV 89.5, MCH 30.9, MCHC 34.5, RDW Std Deviation 49.0 H, RDW Coeff of Isha 15.0 H, Plt Count 248, MPV 10.2, Immature Gran % (Auto) 0.300, Neut % (Auto) 75.0 H, Lymph % (Auto) 14.1 L, Frontier % (Auto) 9.1, Eos % (Auto) 0.8, Baso % (Auto) 0.7, Absolute Neuts (auto) 5.8, Absolute Lymphs (auto) 1.08, Nucleated RBC % 0 07/07/21 01:22: Sodium 134 L, Potassium 4.7, Chloride 102, Carbon Dioxide 26.0, Anion Gap 6, BUN 17, Creatinine 0.89, Estim Creat Clear Calc 92.03, Est GFR (MDRD) Af Amer 111, Est GFR (MDRD) Non-Af 92, BUN/Creatinine Ratio 19.1, Glucose 101, Calcium 9.2, Total Bilirubin 0.60, AST 36, ALT 38, Alkaline Phosphatase 92, Total Protein 6.9, Albumin 3.2, Globulin 3.7, Albumin/Globulin Ratio 0.9 Rhythm Strip Rhythm Strip: Sinus Rhythm Rate: 90 Ectopy: None Physical Exam Const alert, oriented x3 and no apparent distress Orientation / Consciousness: awake, oriented to person, oriented to place and oriented to time HEENT normocephalic and moist oral mucous membranes Eyes PERRL, EOMs intact bilaterally and conjunctivae normal Neck no lymphadenopathy Resp clear to auscultation bilaterally Auscultation: diminished lung sounds Cardio regular rate, regular rhythm and no murmurs Peripheral Pulses: pulses 2+ throughout GI normal to inspection, nondistended, normoactive bowel sounds, non-tender and non-distended Extremity normal to inspection Extremity Narrative: Global weakness due to MS, severe lower extremity weakness at baseline. Skin no rashes or lesions noted Lesions: no lesions Rashes: no rashes Trauma: no lacerations or abrasions Neuro CN's II-XII intact bilaterally, no focal motor deficits, no sensory deficits noted and deep tendon reflexes 2+ bilaterally Psych mental status grossly normal Mood & Affect: anxious and flat affect Assessment & Plan Assessment/Plan (1) Unstable angina pectoris: PLAN: 1. Unstable angina pectoris-no EKG changes, troponin negative. Cardiology following. On medical management including aspirin, nitrate, beta blockers, statin, Ranexa. Patient has been evaluated for CABG in the past however he was told he was high risk and declined further intervention at that time. Per cardiology, patient agreeable to additional consult at tertiary care facility. Tertiary facility to review previous imaging and discuss if patient is a candidate for revascularization. 2. CAD, history of NSTEMI-medical management and plan as noted above. 3. Chronic progressive MS-severely debilitated. Requesting SNF at discharge. PT/OT. 4. Hypertension-stable, continue metoprolol, isosorbide. Ranexa added per cardiology. 5. Hyperlipidemia-continue statin. 6. Hypothyroidism-continue Synthroid. 7. Depression/anxiety-uncontrolled. We will begin sertraline which can be titrated as outpatient. As needed anxiolytics. Check vitamin D level. DVT prophylaxis-SCDs, Lovenox This patient was seen by SAMARA Arrington under the supervision of Dr. Live. Documented by User: Dr. Jacky Live MD 07/07/21 12:12 Objective Data Lab / Micro Data Result Diagrams: 07/07/21 01:22 07/07/21 01:22 Assessment & Plan Addt'l Comments This patient was seen in conjunction with SAMARA Arrington . I have independently interviewed and examined the patient and reviewed pertinent historical, laboratory, and other data. Please refer to SAMARA Arrington note for details of this patient's presentation, findings, and recommendations. I have reviewed SAMARA Arrington note and concur with documented findings. In brief, patient is a 66-year-old gentleman with significant comorbidities including coronary artery disease with previous CABG, multiple sclerosis wheelchair confined, depression with anxiety essential hypertension dyslipidemia who was admitted with chest discomfort. Given significant nature of patient symptoms consultation was placed to cardiology patient admitted to monitored bed where he is currently undergoing evaluation Physical Examination: GENERAL: cooperative HEENT: Atraumatic; EYES; Anicteric, Normal Conjunctiva NECK; supple, normal thyroid, RESPIRATORY: Diminished to auscultation CARDIOVASCULAR: Regular S1 S2, GI: soft, normoactive bowel sounds, : No Renal angle tenderness; EXTREMITIES: No edema, no clubbing, NEURO: Awake; antidepressant in place SKIN: No Rash PSYCH; Flat affect Assessment: 1. Chest pain in the patient with significant coronary artery disease 2. CAD with previous CABG 3. Progressive multiple sclerosis 4. Depression with anxiety 5. Essential hypertension 6. Dyslipidemia 7. Hypothyroidism 8. DVT prophylaxis Recommendations: 1. I have discussed the results of my overview and impressions with the patient 2. Options for management were reviewed Total time spent by myself and the advanced practice practitioner evaluating patient, reviewing labs, subsequent management decisions, discussion with patient as well as other providers 40 minutes ( 25 of which was spent by myself) Charges/Coding Visit Charges OBSV E&M: 56540 Subsequent observation care L3
[2021-07-07] MEDS: Sertraline 50 MG Tablet PO (11:54)
[2021-07-07] MEDS: LORazepam 0.5 MG Tablet PO (11:54)
--- NOTE | 2021-07-07 12:45 | CASEMGMT ---
SW went back to patient's room and he asked SW to call his daughter Shiloh. Patient also wanted SW to go over the nursing homes in [facility] that take his insurance. TAVO received a call from patient's daughter Shiloh. Shiloh said she and her siblings are worried about patient living alone. Shiloh would like him to come down her way for short term rehab. Shiloh works at a correction in [place] called [facility]. There is also another facility called [facility]. Shiloh also brought up patient being transferred. She wondered if someone could update her regarding why he needs transferred. TAVO told her SW will ask the nurse to call her. TAVO passed along the message to patient's nurse. Siria GIRALDO
--- NOTE | 2021-07-07 13:04 | CASEMGMT ---
According to the [facility] website, the following are in-network tertiary facilities: [facility], [place], [facility], [facility], [facility], [facility], and . Saul JENSEN CM
--- NOTE | 2021-07-07 14:09 | CHAPLAIN ---
Type of Pastoral Visit _x__ Initial Visit ___ Follow-up Visit ___ On-call Visit ___ General Patient Visit ___ Spiritual Assessment ___ Family Conference ___ Bereavement ___ Rapid Response ___ Code Blue ___ Other (describe below) Pastoral Care Referral From _x__ Patient ___ Family ___ Nurse ___ Physician ___ Call Center Supervisor ___ Vending Machine Servicer ___ Other (describe below) Sacrament/Intervention __x_ Active listening ___ Anointing ___ Shinto ___ Bereavement ___ Communion _x__ Naomy exploration ___ ___ Life review _x__ Prayer ___ Reconciliation ___ Sacrament of Sick _x__ Supportive presence ___ Wedding ___ Other (describe below) Pastoral Comments patient describes that it is time for decisions to be made and he is not sure what to do, his children are discussing it and want more info from Dr. Polanco, patient also states that fear is coming from what happens next and what do I need to do to get to heaven; time given to listen to spiritual and emotional concerns and explore where he can get answers and support; prayer welcomed
--- NOTE | 2021-07-07 14:56 | CASEMGMT ---
SW went to patient's room to complete a Healthcare Power of Cryptographic Clerk. Patient asked SW to call his daughter back. SW completed Healthcare POA with patient. Copies were made and given to patient along with originals. A copy was also placed in patient's chart. TAVO called [facility] and went over the list of nursing homes in [facility] that take patient's insurance. She will review the facilities. She did ask SW to fax a referral to her facility. [facility] fax: [phone]. She had not heard from anyone yet. TAVO spoke with Nurse Practitioner Mackenzie and she said she will call patient's daughter. SW then faxed referral to [facility]. Siria GIRALDO
[2021-07-07] MEDS: Ondansetron 4 MG/2 ML Vial IV (15:41)
[2021-07-07] MEDS: Morphine 2 MG/ML Syringe IV (15:41)
[2021-07-07] MEDS: 0.9% Saline Lock 10 ML Syringe IV ×2 (15:42→21:38)
--- NOTE | 2021-07-07 15:47 | CASEMGMT ---
SW checked back in with patient. He expressed feeling scared. SW listened and provided emotional support to patient. Patient has decided he is in agreement with being transferred to [place]. SW will notify Nurse Practitioner. SW notified Nurse Practitioner, Mackenzie via core text. Siria Floyd AUTOMOTIVE INTERNET SALES CONSULTANT KRISTAL
[2021-07-07] MEDS: oxyCODONE 5 MG Tablet PO (21:25)
[2021-07-07] MEDS: Atorvastatin Calcium 40 MG Tablet PO (21:26)
[2021-07-07] MEDS: Gabapentin 400 MG Capsule PO (21:26)
[2021-07-07] MEDS: proCHLORPERazine 10 MG/2 ML Vial 5 MG IV (21:37)
[2021-07-08 02:00] VITALS: PULSE 77
[2021-07-08 02:45] VITALS: BP 136/79; PULSE 77; RESP 19; TEMP 36.9; O2SAT 92
[2021-07-08] MEDS: Levothyroxine 88 MCG Tablet PO (05:25)
[2021-07-08 07:22] VITALS: PULSE 69
[2021-07-08 08:07] VITALS: BP 144/79; PULSE 74; RESP 16; TEMP 36.5; O2SAT 95
[2021-07-08] MEDS: Gabapentin 400 MG Capsule PO (08:14)
[2021-07-08] MEDS: Baclofen 10 MG Tablet 15 MG PO (08:14)
[2021-07-08] MEDS: oxyCODONE 5 MG Tablet PO (08:14)
[2021-07-08 08:15] VITALS: BP 144/79; PULSE 74
[2021-07-08] MEDS: Cholecalciferol (VIT D3) 25 MCG TABLET (1,000 UNITS) 125 MCG PO (08:15)
[2021-07-08] MEDS: amLODIPine 2.5 MG Tablet PO (08:15)
[2021-07-08] MEDS: Isosorbide Mononitrate 60 MG Tablet PO (08:15)
[2021-07-08] MEDS: Aspirin E.C. 81 MG Tablet PO (08:15)
[2021-07-08] MEDS: Metoprolol Tartrate 25 MG Tablet PO (08:15)
[2021-07-08] MEDS: Sertraline 50 MG Tablet PO (08:15)
[2021-07-08] MEDS: Enoxaparin 40 MG/0.4 ML Syringe SC (08:15)
[2021-07-08] MEDS: Ranolazine 500 MG Tablet PO (08:15)
[2021-07-08] MEDS: Menthol/Lanolin/Calamine/Znox 113 GM Tube 1 APPLIC TOPICAL (08:16)
--- NOTE | 2021-07-08 08:31 | NURSING ---
received bed at [place] [id number] patient signed transfer paper called family let them know
--- NOTE | 2021-07-08 08:34 | PN.CARD_ITS ---
Subjective Subjective The patient is a can alert. At the moment he denies ongoing chest discomfort. Objective Data Vital Signs: Vital Signs Temp Pulse Resp BP Pulse Ox 97.7 F L 74 16 144/79 H 95 07/08/21 08:07 07/08/21 08:15 07/08/21 08:07 07/08/21 08:15 07/08/21 08:07 Oxygen Delivery Method Room Air Weight: 234 lb 2.095 oz Body Mass Index (BMI) 31.4 Intake & Output: Intake and Output for Last 24 Hours 07/06/21 07/07/21 07/08/21 23:59 23:59 23:59 Intake Total 1000 / 1000 150 / 150 Output Total 1150 / 1150 300 / 300 Balance -150 / -150 -150 / -150 Lab / Micro Data Result Diagrams: 07/07/21 01:07/07/21: Rhythm Strip Rhythm Strip: Sinus Rhythm Rate: 90 Ectopy: None Cardiology Labs/Tests Rhythm: Sinus rhythm Physical Exam Const alert, oriented x3 and no apparent distress Orientation / Consciousness: awake HEENT normocephalic, head/scalp atraumatic and hearing grossly normal bilaterally Eyes PERRL, EOMs intact bilaterally and conjunctivae normal Neck full ROM, supple and no JVD Resp clear to auscultation bilaterally Cardio regular rate, regular rhythm, S1 normal heart sound and S2 normal heart sound GI normal to inspection, nondistended, normoactive bowel sounds Extremity no pedal edema Skin no rashes or lesions noted Neuro oriented x3 Psych mental status grossly normal Assessment & Plan Assessment/Plan (1) Unstable angina pectoris: PLAN: The patient presents with symptoms of unstable angina pectoris. At the moment his rule out VT protocol is negative by cardiac enzymes and negative by obvious ECG changes. He will continue medical therapy. This will include agents such as aspirin, nitrates, beta-blockers, lipid-lowering agents, and consideration to additional agents such as Ranexa. His case has been discussed with [facility] interventional cardiology. They reviewed his previous cardiac catheterization images from 2019 . They agreed to accept him in transfer for further evaluation for repeat cardiac catheterization and possible PCI. They agreed the patient was not an ideal patient for CABG based upon his multiple sclerosis and concerns of the postoperative recovery issues. (2) CAD (coronary artery disease): PLAN: The patient does have CAD as previously described. He had been evaluated at [facility] for possible CABG. He was declined secondary to the comments noted above. As noted above his previous cardiac catheterization images were reviewed by [facility] interventional cardiology. They agreed to accept the patient in transfer for repeat cardiac catheterization and possible PCI. (3) NSTEMI (non-ST elevated myocardial infarction): PLAN: The patient has a history of previous non-ST segment elevation VT. At the moment his cardiac enzymes are negative. He will continue to be monitored. He will continue medical therapy. (4) Multiple sclerosis: PLAN: The patient does have multiple sclerosis which has been debilitating to him. This has raised concerns as his ability to recover from a surgical type procedure. Addt'l Comments The patient's case has been discussed at length with the patient, his daughter Shiloh via telephone, and the [facility] hospitalist team. The patient's case and previous cardiac catheterization images were reviewed by Dr. Jacky Saleh at [facility] interventional cardiology. He agreed to accept the patient in transfer for further evaluation and care. This note was generated using a voice recognition system and there may be incorrect words, spelling or punctuation that were not noted when reviewing the office note prior to saving.
--- NOTE | 2021-07-08 08:57 | CASEMGMT ---
TAVO received a voice mail from Chad Torre with [facility]. She would like an update on patient. TAVO called Chad and left her a voice mail letting her know patient is being transferred to [facility]. TAVO let her know prior to being transferred patient's plan was to go to a [facility]. Siria GIRALDO
[2021-07-08] MEDS: LORazepam 0.5 MG Tablet PO (09:08)
--- NOTE | 2021-07-08 09:14 | CASEMGMT ---
This RN CM to room with HERNANDEZ form, explanation done-pt voices understanding, and signs HERNANDEZ at this time. Original to chart and copy to pt. Pt to be transferred to [facility] at this time for further cardiac eval. Pt voices no further questions/concerns/needs. [place] CAMILA ESPINOZA
--- NOTE | 2021-07-08 10:14 | NURSING ---
Report called to CAMILA Guillen at [facility].
--- NOTE | 2021-07-08 12:24 | DS.PCM_ITS ---
Documented by User: Mackenzie Saul NP, COMMAND AND CONTROL SYSTEMS INTEGRATOR-C 07/08/21 12:29 Providers Date of Admission: 07/06/21 Date of Discharge: 07/08/21 Primary Care Physician: Dr. Ritesh Castro MD Consultations 07/06/21 23:32 Consult: Cardiology Routine Consulting Provider: Tye Garza Reason for Consult: Chest pain, known 3 vessel disease, was felt poor candidate for CABG EMERGENT Consult: No MD Notified: Yes Date Notified: 07/06/21 Time Notified: 22:30 Method of Notification: cortext Reason For Visit: CHEST PAIN Diagnosis Discharge Diagnosis (1) Unstable angina pectoris: Status: Acute Code(s): I20.0 - Unstable angina (2) CAD (coronary artery disease): Status: Acute Code(s): I25.10 - Atherosclerotic heart disease of [place] coronary artery without angina pectoris (3) NSTEMI (non-ST elevated myocardial infarction): Status: Resolved Code(s): I21.4 - Non-ST elevation (NSTEMI) myocardial infarction (4) Multiple sclerosis: Status: Acute Code(s): G35 - Multiple sclerosis Medications at Discharge Home Medications baclofen 90 mcg INTRATH DAILY 11/28/19 cholecalciferol (vitamin D3) 125 mcg (5,000 unit) capsule 125 mcg PO DAILY 11/28/19 psyllium husk 3.4 gram/5.4 gram oral powder 1 tbsp PO BID g 11/28/19 aspirin 81 mg tablet,delayed release 81 mg PO DAILY@0800 #30 tab 12/31/19 lisinopril 2.5 mg tablet 2.5 mg PO DAILY #90 tab 07/14/20 levothyroxine 75 mcg capsule 88 mcg PO DAILY 07/23/20 atorvastatin 40 mg tablet See Rx Instructions .ROUTE .COMPLEX #30 tab 12/31/20 baclofen 5 mg tablet 15 mg PO Q6H PRN tab 03/10/21 gabapentin 400 mg capsule 400 mg PO Q8H PRN cap 03/10/21 metoprolol tartrate 25 mg tablet 25 mg PO BID #60 tab 06/27/21 isosorbide mononitrate 60 mg tablet,extended release 24 hr 60 mg PO DAILY #90 tab 07/06/21 nitroglycerin 0.4 mg sublingual tablet 0.4 mg SUBLINGUAL Q5M PRN #25 tab 07/06/21 Hospital Course Operations None Procedures None Summary of Care Provided Hospital Course: Patient is a 66-year-old male admitted 07/06/2021 due to chest pain. 1. Unstable angina pectoris-no EKG changes, troponin negative. Cardiology following. On medical management including aspirin, nitrate, beta blockers, statin, Ranexa. Patient has been evaluated for CABG in the past however he was not an ideal candidate due to progressive MS and concern for postoperative recovery issues. Case discussed by cardiology with [facility] and they will accept him for transfer for further evaluation with repeat heart cath and possible PCI. Patient stable at time of transfer. 2. CAD, history of NSTEMI-medical management and transfer to tertiary facility as noted above. 3. Chronic progressive MS-severely debilitated. Requesting SNF at discharge. PT/OT. 4. Hypertension-stable, continue metoprolol, isosorbide. Ranexa added per cardiology. 5. Hyperlipidemia-continue statin. 6. Hypothyroidism-continue Synthroid. 7. Depression/anxiety-uncontrolled. We will begin sertraline which can be titrated as outpatient. As needed anxiolytics. Vitamin D level pending at discharge, outpatient follow-up. Physical Exam Const alert, oriented x3 and no apparent distress Orientation / Consciousness: awake, oriented to person, oriented to place and oriented to time HEENT normocephalic and moist oral mucous membranes Eyes PERRL, EOMs intact bilaterally and conjunctivae normal Neck no lymphadenopathy Resp clear to auscultation bilaterally Auscultation: diminished lung sounds Cardio regular rate, regular rhythm and no murmurs Peripheral Pulses: pulses 2+ throughout GI normal to inspection, nondistended, normoactive bowel sounds, non-tender and non-distended Extremity normal to inspection Extremity Narrative: Global weakness due to MS, severe lower extremity weakness at baseline. Skin no rashes or lesions noted Lesions: no lesions Rashes: no rashes Trauma: no lacerations or abrasions Neuro CN's II-XII intact bilaterally, no focal motor deficits, no sensory deficits noted and deep tendon reflexes 2+ bilaterally Psych mental status grossly normal Mood & Affect: anxious and flat affect Patient seen and examined prior to discharge. Physical assessment as noted above. Patient is stable for discharge with follow up recommendations as noted above. This patient was seen by SAMARA Arrington under the supervision of Dr. Live. Weight / BMI Weight Weight: 234 lb 2.095 oz Body Mass Index (BMI) 31.4 ABG / Lab / Microbiology Data Result Diagrams: 07/07/21 01:22 07/07/21 01:22 Meaningful Use Info Meaningful Use Diagnoses (Choose all that apply): None applicable Discharge Plan Admission Admit Date/Time: 07/06/21 22:22 Primary Reason for Your Visit: Unstable angina pectoris Attending Provider: Jacky Live Primary Care Provider: Ritesh Castro Consulting Providers: Tye Garza Discharge Orders/Prescriptions Prescriptions: No Action baclofen 10,000 mcg/20mL (500 mcg/mL) solution 90 mcg INTRATH DAILY RF: 0 cholecalciferol (vitamin D3) 125 mcg (5,000 unit) capsule 125 mcg PO DAILY RF: 0 Metamucil 3.4 gram/5.4 gram powder 1 tbsp PO BID RF: 0 gabapentin 400 mg capsule 400 mg PO Q8H PRN (Reason: Leg pain) RF: 0 levothyroxine 75 mcg capsule 88 mcg PO DAILY RF: 0 baclofen 5 mg tablet 15 mg PO Q6H PRN (Reason: Spasms) RF: 0 aspirin 81 mg tablet,delayed release (DR/EC) 81 mg PO DAILY@0800 Qty: 30 RF: 11 lisinopril 2.5 mg tablet 2.5 mg PO DAILY Qty: 90 RF: 3 atorvastatin 40 mg tablet See Rx Instructions .ROUTE .COMPLEX Qty: 30 RF: 11 metoprolol tartrate 25 mg tablet 25 mg PO BID Qty: 60 RF: 11 isosorbide mononitrate 60 mg tablet extended release 24 hr 60 mg PO DAILY Qty: 90 RF: 3 nitroglycerin 0.4 mg tablet, sublingual 0.4 mg sublingual Q5M PRN (Reason: chest pain) Qty: 25 RF: 3 Referrals / Follow Up: Ritesh Castro MD [Primary Care Provider] - Disposition Discharge Orders: Discharge Patient (Routine); Ordered 07/08/21 Ordered By: Mackenzie Saul COMMAND AND CONTROL SYSTEMS INTEGRATOR Documented by User: Dr. Jacky Live MD 07/08/21 12:46 Providers Date of Admission: 07/06/21 Reason For Visit: CHEST PAIN Medications at Discharge Home Medications baclofen 90 mcg INTRATH DAILY 11/28/19 cholecalciferol (vitamin D3) 125 mcg (5,000 unit) capsule 125 mcg PO DAILY 11/28/19 psyllium husk 3.4 gram/5.4 gram oral powder 1 tbsp PO BID g 11/28/19 aspirin 81 mg tablet,delayed release 81 mg PO DAILY@0800 #30 tab 12/31/19 lisinopril 2.5 mg tablet 2.5 mg PO DAILY #90 tab 07/14/20 levothyroxine 75 mcg capsule 88 mcg PO DAILY 07/23/20 atorvastatin 40 mg tablet See Rx Instructions .ROUTE .COMPLEX #30 tab 12/31/20 baclofen 5 mg tablet 15 mg PO Q6H PRN tab 03/10/21 gabapentin 400 mg capsule 400 mg PO Q8H PRN cap 03/10/21 metoprolol tartrate 25 mg tablet 25 mg PO BID #60 tab 06/27/21 isosorbide mononitrate 60 mg tablet,extended release 24 hr 60 mg PO DAILY #90 tab 07/06/21 nitroglycerin 0.4 mg sublingual tablet 0.4 mg SUBLINGUAL Q5M PRN #25 tab 07/06/21 Hospital Course Operations None Summary of Care Provided Minutes Spent on Discharge: 35 Hospital Course: Hospital course;This patient was seen in conjunction with SAMARA Arrington . I have independently interviewed and examined the patient and reviewed pertinent historical, laboratory, and other data. Please refer to SAMARA Arrington note for details of this patient's presentation, findings, and recommendations. I have reviewed SAMARA Arrington note and concur with documented findings. In brief, patient is a 66-year-old gentleman with significant comorbidities including coronary artery disease with previous CABG, multiple sclerosis wheelchair confined, depression with anxiety essential hypertension dyslipidemia who was admitted with chest discomfort. Given significant nature of patient symptoms consultation was placed to cardiology patient admitted to monitored bed where he is currently undergoing evaluation. Cardiology did arrange for patient to be transferred to [place] for possible left heart catheterization and intervention if warranted Physical Examination: GENERAL: cooperative HEENT: Atraumatic; EYES; Anicteric, Normal Conjunctiva NECK; supple, normal thyroid, RESPIRATORY: Diminished to auscultation CARDIOVASCULAR: Regular S1 S2, GI: soft, normoactive bowel sounds, : No Renal angle tenderness; EXTREMITIES: No edema, no clubbing, NEURO: Awake; antidepressant in place SKIN: No Rash PSYCH; Flat affect Assessment: 1. Chest pain in the patient with significant coronary artery disease 2. CAD with previous CABG 3. Progressive multiple sclerosis 4. Depression with anxiety 5. Essential hypertension 6. Dyslipidemia 7. Hypothyroidism 8. DVT prophylaxis Hospital course; as documented above Total time spent by myself and the advanced practice practitioner evaluating patient, reviewing labs, subsequent management decisions, discussion with patient as well as other providers 35 minutes ( 20 of which was spent by myself) ABG / Lab / Microbiology Data Result Diagrams: 07/07/21 01:22 07/07/21 01:22 Discharge Plan Admission Admit Date/Time: 07/06/21 22:22 Primary Reason for Your Visit: Unstable angina pectoris Attending Provider: Jacky Live Primary Care Provider: Ritesh Castro Consulting Providers: Tye Garza Discharge Orders/Prescriptions Prescriptions: No Action baclofen 10,000 mcg/20mL (500 mcg/mL) solution 90 mcg INTRATH DAILY RF: 0 cholecalciferol (vitamin D3) 125 mcg (5,000 unit) capsule 125 mcg PO DAILY RF: 0 Metamucil 3.4 gram/5.4 gram powder 1 tbsp PO BID RF: 0 gabapentin 400 mg capsule 400 mg PO Q8H PRN (Reason: Leg pain) RF: 0 levothyroxine 75 mcg capsule 88 mcg PO DAILY RF: 0 baclofen 5 mg tablet 15 mg PO Q6H PRN (Reason: Spasms) RF: 0 aspirin 81 mg tablet,delayed release (DR/EC) 81 mg PO DAILY@0800 Qty: 30 RF: 11 lisinopril 2.5 mg tablet 2.5 mg PO DAILY Qty: 90 RF: 3 atorvastatin 40 mg tablet See Rx Instructions .ROUTE .COMPLEX Qty: 30 RF: 11 metoprolol tartrate 25 mg tablet 25 mg PO BID Qty: 60 RF: 11 isosorbide mononitrate 60 mg tablet extended release 24 hr 60 mg PO DAILY Qty: 90 RF: 3 nitroglycerin 0.4 mg tablet, sublingual 0.4 mg sublingual Q5M PRN (Reason: chest pain) Qty: 25 RF: 3 Referrals / Follow Up: Ritesh Castro MD [Primary Care Provider] - Disposition Discharge Orders: Discharge Patient (Routine); Ordered 07/08/21 Ordered By: Mackenzie Saul NP Charges/Coding Visit Charges OBSV E&M: 21778 Observation care discharge Hospital Course Consultations Consultations: Consultations 07/06/21 23:32 Consult: Cardiology Routine Consulting Provider: Tye Garza Reason for Consult: Chest pain, known 3 vessel disease, was felt poor candidate for CABG EMERGENT Consult: No MD Notified: Yes Date Notified: 07/06/21 Time Notified: 22:30 Method of Notification: cortext Operations None
[2021-07-12 12:43] LABS: Vitamin D 1,25-Dihydroxy 50.5 pg/mL (19.9-79.3)
== END 2021-07-08 08:20 | disposition short-term general hospital (02) ==
LOC: ED 22:30 → PCU 22:41
PROVIDERS: Nurse Practitioner Family; Admitting Provider Family Medicine; Emergency Provider Emergency Medicine; PCP Family Medicine; Visit Provider Internal Medicine
DX: I21.4 Non-ST elevation (NSTEMI) myocardial infarction (principal); G35 Multiple sclerosis; G36.0 Neuromyelitis optica [Devic]; I25.110 Atherosclerotic heart disease of native coronary artery with unstable angina pectoris; I10 Essential (primary) hypertension; F41.8 Other specified anxiety disorders; E03.9 Hypothyroidism, unspecified; E78.5 Hyperlipidemia, unspecified; I25.2 Old myocardial infarction; Z79.899 Other long term (current) drug therapy; Z79.890 Hormone replacement therapy; Z79.82 Long term (current) use of aspirin; E87.5 Hyperkalemia; R94.31 Abnormal electrocardiogram [ECG] [EKG]
CPT/HCPCS: 36415; 80048; 80053; 82652; 83735; 84484; 85025; 93005; 96361; 96372; 96374; 96375; 97162; 97165; 97802; 99218; 99285; J7030; A4216; G0378; J2405

== ENCOUNTER 2021-08-31 10:38 | Outpatient (CLI) | payer MEDICARE, MEDICAID, SELFPAY | END 2021-08-31 23:59 | disposition home or self-care (01) | LOC: LAB.FUTURE 10:38 | PROVIDERS: PCP Family Medicine; Referring Provider Family Medicine; Visit Provider Family Medicine | DX: R19.7 Diarrhea, unspecified (principal) | CPT/HCPCS: 87493; 87506 ==

== ENCOUNTER 2022-05-18 10:28 | Emergency (ER) | payer MEDICARE, MEDICAID, SELFPAY ==
[2022-05-18 10:30] VITALS: BP 153/92; PULSE 97; RESP 14; TEMP 37.6; O2SAT 95; BMI 30.4
--- NOTE | 2022-05-18 10:33 | EKG12_ITS ---
Test Reason : Blood Pressure : / mmHG Vent. Rate : 100 BPM Atrial Rate : 100 BPM P-R Int : 184 ms QRS Dur : 056 ms QT Int : 326 ms P-R-T Axes : 043 -28 002 degrees QTc Int : 420 ms Normal sinus rhythm Low voltage QRS Inferior infarct , age undetermined Cannot rule out Anterior infarct , age undetermined Abnormal ECG Confirmed by HUMBERTO FITCH, JACK ([id number]), electronic news gathering editor MICHAEL SULLIVAN ([id number]) on 05/23/2022 10:37:03 AM Referred By: Confirmed By:VICKY PAUL MD
--- NOTE | 2022-05-18 10:40 | RAD_ITS ---
STUDY: X-RAY CHEST REASON FOR EXAM: Male, 67 years old. Chest pain and chest pressure. Nausea. TECHNIQUE: Single AP portable view of the chest. COMPARISON: Comparison is made with prior study dated 07/05/2021. FINDINGS: EKG electrode are seen. Increased markings at the lung bases worse on the left side with blunting of left costophrenic angle suggestive of atelectasis. Normal size heart. Normal mediastinum and vandana. Normal visualized pulmonary arteries. There is atherosclerotic tortuosity of the aortic arch and descending thoracic aorta. Normal visualized thoracic spine. Normal visualized ribs, clavicles, and shoulders. Questionable free air beneath the right hemidiaphragm. Correlation with a CT scan of the abdomen is recommended. RAD/Chest 1 View (Portable) IMPRESSION: Findings suggest some bibasilar atelectasis and blunting of the left costophrenic angle. Possible small amount of free air beneath the right hemidiaphragm. Electronically Signed: Abel Zimmerman MD at 11:48 EST ,
[2022-05-18 10:48] LABS: Absolute Lymphocyte Count 0.42 X10^3/uL (0.83-4.51); Absolute Neutrophil Count 4.1 X10^3/uL (2.0-7.7); Basophil# 0.06 X10^3/uL; Basophil% 1.1 % (0-1); Eosinophil# 0.04 X10^3/uL; Eosinophils% 0.7 % (0-5); Hematocrit 40.8 % (40-54); Hemoglobin 13.5 g/dL (13.0-16.5); Lymphocyte # 0.42 X10^3/ul (0.83-4.51); Lymphocyte % 7.5 % (19-41); Mean Corp Hgb Conc 33.1 g/dL (32-36); Mean Corpuscular Hgb 28.8 pg (27.0-32.0); Mean Corpuscular Volume 87.2 fL (80-94); Mean Platelet Vol. 9.6 fl (6.2-12.0); Monocyte% 17.8 % (0-10); NRBC Flagged by Analyzer 0 % (0-5); Neutrophil # 4.07 X10^3/uL (2.7-7.7); Neutrophil % 72.5 % (47-70); POSITIVE DIFFERENTIAL YES; Platelet Count 265 K/mm3 (150-450); RBC Distribution Width CV 15.1 % (11.6-14.6); Red Blood Count 4.68 M/mm3 (4.6-6.2); White Blood Count 5.6 K/mm3 (4.4-11.0)
[2022-05-18 10:49] LABS: Differential Indicated SCAN CRITERIA MET
[2022-05-18 10:51] LABS: Differential Comment SCANNED
--- NOTE | 2022-05-18 11:01 | EX.ED.DYSGE1 ---
HPI History of Present Illness Chief Complaint: Hypertension Narrative Narrative: 67-year-old male past medical history of coronary artery disease, multiple sclerosis, states my legs in my left arm do not work. He presents via EMS with his aide because of body tightness and spasming, nausea without vomiting, and chest tightness. He states his whole chest feels tight. The symptoms began at around 5:00 this morning. He took his baclofen, but it is not relieved his body tightness and muscle tightness. He states that when this happens he usually receives Solu-Medrol intravenously. Once again, he is nauseated but has not vomiting. The nausea is intermittent. He denies any diaphoresis or shortness of breath. No recent fever or chills. No cough or difficulty breathing. 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 Multiple sclerosis Multiple sclerosis Multiple sclerosis exacerbation Multiple sclerosis, primary chronic progressive Multiple sclerosis, primary chronic progressive Muscle spasticity Muscle spasticity Neuromyelitis optica Neuromyelitis optica NSTEMI (non-ST elevated myocardial infarction) (11/01/19) Presence of stent in coronary artery (~07/08/21) Unstable angina pectoris Home Medications baclofen 10,000 mcg/20 mL (500 mcg/mL) intrathecal solution 0 mcg intrathecal CONT 11/28/19 [History Last Taken 05/18/22] cholecalciferol (vitamin D3) 125 mcg (5,000 unit) capsule 125 mcg PO DAILY SUPPLEMENT 11/28/19 [History Last Taken 05/17/22] gabapentin 400 mg capsule 400 mg PO TID PRN LEG PAIN 03/10/21 [History Last Taken Unknown] nitroglycerin 0.4 mg sublingual tablet 0.4 mg sublingual Q5M PRN chest pain #25 tabs 07/06/21 [Rx Last Taken 05/18/22] sertraline 50 mg tablet (Zoloft) 50 mg PO QHS DEPRESSION/ANXIETY 12/20/21 [History Last Taken 05/17/22] aspirin 81 mg chewable tablet 81 mg PO DAILY HEART HEALTH 05/18/22 [History Last Taken 05/18/22] atorvastatin 40 mg tablet 40 mg PO DAILY CHOLESTEROL 05/18/22 [History Last Taken 05/18/22] baclofen 10 mg tablet 15 mg PO Q6H PRN Spasms 05/18/22 [History Last Taken 05/18/22] isosorbide mononitrate 60 mg tablet,extended release 24 hr 60 mg PO DAILY ANGINA 05/18/22 [History Last Taken 05/18/22] levothyroxine 75 mcg tablet 75 mcg PO DAILY THYROID 05/18/22 [History Last Taken 05/18/22] lisinopril 5 mg tablet 5 mg PO DAILY BLOOD PRESSURE 05/18/22 [History Last Taken 05/18/22] metoprolol tartrate 50 mg tablet 50 mg PO DAILY BLOOD PRESSURE 05/18/22 [History Last Taken 05/18/22] ticagrelor 90 mg tablet (Brilinta) 90 mg PO BID BLOOD THINNER 05/18/22 [History Last Taken 05/18/22] Allergy/AdvReac Type Severity Reaction Status Date / Time No Known Allergies Allergy Verified 05/18/22 10:30 Family History Mother CVA (cerebral vascular accident) Grandmother CVA (cerebral vascular accident) Father Liver disease due to alcohol Surgical History Hx of appendectomy Presence of coronary angioplasty implant and graft (~07/08/21) Social History household members: none Smoking Status: Never smoker alcohol intake: current details: rare substance use type: does not use ROS ROS ED ROS Narrative Constitutional: No fever, no chills. HEENT: No sore throat. No neck pain. No loss of vision. No rhinorrhea. Cardiovascular: Positive chest tightness/chest pain. No palpitations. No pedal edema. Respiratory: No cough, no shortness of breath. Abdominal: No abdominal pain. Intermittent nausea. No vomiting. No diarrhea. Genitourinary: No dysuria. No hematuria. Musculoskeletal: No myalgias. No arthralgias. Neurologic: No headaches. No dizziness. No lightheadedness. Positive muscle tightness throughout body and spasticity. Skin: No rash. No change in color. Psychiatric: No depression. No anxiety. EXAM Physical Exam Narrative Exam Narrative: Afebrile. Vital signs noted. HEENT: Normocephalic. Atraumatic. PERRL, EOMI. Neck soft and supple. No point tenderness or step off. Cardiovascular: Regular rate and rhythm. No murmurs, rubs, or gallops appreciated. Respiratory: No tachypnea. Lungs clear to auscultation bilaterally. Gastrointestinal: Abdomen soft, nontender, with normoactive bowel sounds. No rebound or guarding. Neurological: Awake. Alert. Consistent with MS with mild muscle spasticity. No spontaneous movement of legs or left arm especially. Skin: No rash. Normal color. No pallor. Musculoskeletal: No pedal edema. Full range of motion extremities. Const Vital Signs: 05/18/22 10:30 05/18/22 12:39 05/18/22 13:00 Temperature 99.6 F H Temperature Source Oral Pulse Rate 97 88 89 Respiratory Rate 14 18 18 Blood Pressure 153/92 H 150/90 H 148/78 H Blood Pressure Mean 112 110 101 Pulse Ox 95 95 99 Oxygen Delivery Method Room Air Room Air Room Air 05/18/22 14:00 05/18/22 15:00 05/18/22 16:00 Temperature 97.8 F Temperature Source Pulse Rate 84 86 88 Respiratory Rate 16 17 16 Blood Pressure 128/56 H 158/91 H 138/72 H Blood Pressure Mean 80 113 Pulse Ox 94 93 94 Oxygen Delivery Method Room Air Room Air MDM MDM MDM Narrative Medical decision making narrative: Initial laboratory work was obtained. EKG interpreted by myself demonstrates normal sinus rhythm at 100 bpm without ectopy or acute ST changes. No STEMI. No significant change from EKG dated June 2021. CBC is grossly normal with a normal white count of 5.6, hemoglobin normal at 13.5, hematocrit 40.8. Platelet count normal at 265. Sodium slightly low 133. Initial high-sensitivity troponin is 8. Repeat is 12. This is less than 7 so I feel it is safe to discharge him home. Chest x-ray interpreted by myself shows no acute process except for perhaps bibasilar atelectasis. Radiology read possible small amount of free air underneath the right diaphragm. When asked, patient states he was having some abdominal pain. His abdomen is soft without crepitance. I obtained a CT of the abdomen pelvis which shows no acute process, no free air. There is a large amount of fecal material in the colon. Patient states he had a headache and he was concerned about his blood pressure being elevated. It is only 140 systolic and it was as low as the 120s, but he states he is usually around 100-1 10. I obtained a CT of the brain which shows no acute process. He was given Tylenol for his headache. Patient states that when he coughs, his whole body locks up. Additionally, he states when his baclofen is not working, he usually receives intravenous Solu-Medrol. He was given 125 mg intravenously. Although his work-up is essentially negative here, he was concerned about his chest tightness. I do not feel that a breathing treatment is indicated. EKG was repeated and interpreted by myself because of his continued chest tightness reported and it demonstrates normal sinus rhythm at 91 bpm without ectopy or acute ST changes. No STEMI. I discussed the patient with Dr. Anderson who reiterated that there was no neurologist here. She requested that SOC consult be performed. In discussion with the SOC neurologist, he suggested having his baclofen pump evaluated as an outpatient. Patient sees a spasticity specialist at [facility], Dr. Yolanda Mendoza. I was able to speak with Dr. Mendoza who will contact the patient tomorrow morning to evaluate his baclofen pump. I feel he can be discharged safely home with close follow-up to his neurologist/specialist. Return instructions to the emergency department were reviewed. Disposition is discharged home in stable condition. Lab Data Attestation: I reviewed the patient's lab results. Labs: Laboratory Results - last 24 hr 05/18/22 05/18/22 05/18/22 10:31 10:31 14:35 WBC 5.6 RBC 4.68 Hgb 13.5 Hct 40.8 MCV 87.2 MCH 28.8 MCHC 33.1 RDW Std Deviation 48.0 H RDW Coeff of Isha 15.1 H Plt Count 265 MPV 9.6 Immature Gran % (Auto) 0.400 Neut % (Auto) 72.5 H Lymph % (Auto) 7.5 L [place] % (Auto) 17.8 H Eos % (Auto) 0.7 Baso % (Auto) 1.1 H Absolute Neuts (auto) 4.1 Absolute Lymphs (auto) 0.42 L Nucleated RBC % 0 Differential Comment SCANNED Sodium 133 L Potassium 4.6 Chloride 101 Carbon Dioxide 24.0 Anion Gap 8 BUN 21 H Creatinine 0.78 Estim Creat Clear Calc 103.63 Est GFR (MDRD) Af Amer 129 Est GFR (MDRD) Non-Af 107 BUN/Creatinine Ratio 27.1 H Glucose 100 Calcium 9.2 Troponin I High Sens 8 12 Radiography Diagnostic Testing: Clinical Impression(s) from Imaging Studies Chest X-Ray 05/18/22 10:40 IMPRESSION: Findings suggest some bibasilar atelectasis and blunting of the left costophrenic angle. Possible small amount of free air beneath the right hemidiaphragm. Electronically Signed: Abel Zimmerman MD at 11:48 EST , Abdomen/Pelvis CT 05/18/22 12:01 IMPRESSION: Large amount of fecal material is seen in the colon. Bibasilar atelectasis slightly more prominent on the right lung base. Electronically Signed: Abel Zimmerman MD at 12:57 EST , Brain CT 05/18/22 12:04 IMPRESSION: Normal unenhanced CT scan of the brain. Electronically Signed: Abel Zimmerman MD at 12:58 EST , Discharge Plan Triage Chief Complaint: Hypertension Other Complaint: Chest Pain Nausea/Vomiting ED Provider: Yang Pascual Dx/Rx/DC Orders Clinical Impression: Multiple sclerosis, Chest pain, Muscle tightness Instructions: Multiple Sclerosis Dc, ED Chest Pain, Uncertain Cause Prescriptions: No Action baclofen 10,000 mcg/20mL (500 mcg/mL) solution 0 mcg INTRATH CONT Rx Instructions: VIA PUMP cholecalciferol (vitamin D3) 125 mcg (5,000 unit) capsule 125 mcg PO DAILY gabapentin 400 mg capsule 400 mg PO TID PRN (Reason: LEG PAIN) sertraline [Zoloft] 50 mg tablet 50 mg PO QHS baclofen 10 mg tablet 15 mg PO Q6H PRN (Reason: Spasms) Label Comments: TAKE 1 & 1/2 (ONE AND ONE-HALF) TABLETS BY MOUTH EVERY 6 HOURS NEEDED aspirin [Aspirin Low-Strength] 81 mg Tablet,Chewable 81 mg PO DAILY levothyroxine 75 mcg tablet 75 mcg PO DAILY Label Comments: Take 1 tablet by mouth every morning atorvastatin 40 mg tablet 40 mg PO DAILY isosorbide mononitrate 60 mg tablet extended release 24 hr 60 mg PO DAILY metoprolol tartrate 50 mg tablet 50 mg PO DAILY lisinopril 5 mg tablet 5 mg PO DAILY Brilinta 90 mg tablet 90 mg PO BID nitroglycerin 0.4 mg tablet, sublingual 0.4 mg sublingual Q5M PRN (Reason: chest pain) Qty: 25 3RF Rx Instructions: do not exceed 3 doses per episode Primary Care Provider: Ritesh Castro Referrals: Ritesh Castro MD [Primary Care Provider] - Activity Restrictions/Additional Instructions: Call Dr. Mendoza tomorrow to have your baclofen pump evaluated. Continue your oral baclofen. Disposition Disposition: Home, Self Care Discharge Date/Time: 05/18/22 18:33
[2022-05-18 11:03] LABS: Anion Gap 8 (5-15); BUN 21 mg/dL (7-18); BUN/Creat Ratio 27.1 RATIO (10-20); Calcium,Total 9.2 mg/dL (8.5-10.1); Chloride 101 mmol/L (98-107); Creatinine, Serum 0.78 mg/dL (0.70-1.30); EST Glomerular Filtration Rate 107 mL/min (>60); Est Glom Filt Rate - Afr Amer 129 mL/min (>60); Estimated Creatinine Clearance 103.63 ml/min; Glucose 100 mg/dL (74-106); Potassium 4.6 mmol/L (3.5-5.1); Sodium Level 133 mmol/L (136-145); Troponin-I HS 8 pg/mL (3.0-78.0)
--- NOTE | 2022-05-18 12:01 | CT_ITS ---
STUDY: CT ABDOMEN AND PELVIS WITHOUT CONTRAST REASON FOR EXAM: Male, 67 years old. Questionable free intra-abdominal peritoneal air. RADIATION DOSAGE (If Supplied By Facility): CTDIvol = ( 24.04 ) mGy, DLP = ( 1435.39 ) mGycm TECHNIQUE: Transaxial images were obtained from the dome of the diaphragm to the symphysis pubis without oral contrast, and without intravenous contrast. Sagittal and coronal images were reconstructed. Individualized dose optimization techniques were used for this CT. COMPARISON: None. FINDINGS: Increased markings at the lung bases slightly more prominent on the right side suggestive of atelectasis superimposed on scarring. Coronary artery calcification. Minimal degree of pericardial thickening. No evidence of free intraperitoneal air. There is colonic interposition anterior to the liver. Normal liver. Findings suggestive of small gallstones in the dependent portion of the gallbladder lumen. Normal spleen. Normal pancreas. Normal bilateral adrenal glands. Normal right kidney. Normal left kidney. Normal visualized stomach. Normal small intestine. Large amount of fecal material is seen in the colon. The appendix is visualized and appears normal. There is diffuse atherosclerotic calcification of the abdominal aorta and its major visceral branches, without a demonstrated aneurysm. Normal inferior vena cava. Normal retroperitoneum. Normal urinary bladder. Small bilateral inguinal hernias containing fat. There are degenerative changes of the visualized lumbar spine. CT/Abdomen/Pelvis without Cont IMPRESSION: Large amount of fecal material is seen in the colon. Bibasilar atelectasis slightly more prominent on the right lung base. Electronically Signed: Abel Zimmerman MD at 12:57 EST ,
--- NOTE | 2022-05-18 12:04 | CT_ITS ---
STUDY: CT BRAIN WITHOUT CONTRAST REASON FOR EXAM: Male, 67 years old. Headaches. RADIATION DOSAGE (If Supplied By Facility): CTDIvol = ( 44.99 ) mGy, DLP = ( 880.47 ) mGycm TECHNIQUE: Transaxial CT imaging of the brain was performed without administration of intravenous contrast material. Individualized dose optimization techniques were used for this CT. COMPARISON: Comparison is made with prior study dated 11/01/2019. FINDINGS: Normal soft tissue structures. Normal calvarium. Normal size ventricles and extra-axial spaces for the patient''s age. Normal white matter tracts of the cerebral hemispheres. Normal basal ganglia and thalami. Normal brainstem. Normal cerebellum. There is no intracranial hemorrhage. There are no findings of an acute ischemic infarction. Atherosclerotic calcification of the vertebral arteries and cavernous portions of the internal carotid arteries bilaterally. Normal visualized paranasal sinuses. CT/Brain/Head without Contrast IMPRESSION: Normal unenhanced CT scan of the brain. Electronically Signed: Abel Zimmerman MD at 12:58 EST ,
[2022-05-18] MEDS: MethylPREDNISolone 125 MG/2 ML Vial IV (12:17)
--- NOTE | 2022-05-18 12:26 | EKG12_ITS ---
Test Reason : REPEAT- INCREASED PAIN Blood Pressure : / mmHG Vent. Rate : 091 BPM Atrial Rate : 091 BPM P-R Int : 170 ms QRS Dur : 056 ms QT Int : 332 ms P-R-T Axes : 046 -30 005 degrees QTc Int : 408 ms Normal sinus rhythm Left axis deviation Low voltage QRS Inferior infarct , age undetermined Abnormal ECG Confirmed by HUMBERTO FITCH, JACK ([id number]), field map editor MICHAEL SULLIVAN ([id number]) on 05/23/2022 10:38:23 AM Referred By: NORM Confirmed By:VICKY PAUL MD
[2022-05-18 12:39] VITALS: BP 150/90; PULSE 88; RESP 18; O2SAT 95
[2022-05-18] MEDS: Ondansetron 4 MG/2 ML Vial IV (12:39)
[2022-05-18 13:00] VITALS: BP 148/78; PULSE 89; RESP 18; O2SAT 99
[2022-05-18] MEDS: Acetaminophen 325 MG Tablet 650 MG PO (13:20)
--- NOTE | 2022-05-18 13:27 | NURSING ---
DR ELI FOR DR ZHENG
[2022-05-18 14:00] VITALS: BP 128/56; PULSE 84; RESP 16; O2SAT 94
[2022-05-18 15:00] VITALS: BP 158/91; PULSE 86; RESP 17; O2SAT 93
[2022-05-18 15:05] LABS: Troponin-I HS 12 pg/mL (3.0-78.0)
[2022-05-18 16:00] VITALS: BP 138/72; PULSE 88; RESP 16; TEMP 36.6; O2SAT 94
--- NOTE | 2022-05-18 16:04 | NURSING ---
CALLED [facility], ETA IS 90 MIN
--- NOTE | 2022-05-18 17:53 | NURSING ---
CALLED [facility], ETA IS NOW 182
== END 2022-05-18 18:33 | disposition home or self-care (01) ==
PROVIDERS: Emergency Provider Emergency Medicine; PCP Family Medicine; Visit Provider Emergency Medicine
DX: G35 Multiple sclerosis (principal); R07.9 Chest pain, unspecified; R11.2 Nausea with vomiting, unspecified; I25.10 Atherosclerotic heart disease of native coronary artery without angina pectoris; I10 Essential (primary) hypertension
CPT/HCPCS: 70450; 71045; 74176; 80048; 84484; 85025; 93005; 96374; 96375; 99285; A4216; J2405

== ENCOUNTER → 2022-05-31 | Outpatient (CLI) | payer MEDICARE, MEDICAID, SELFPAY ==
[2022-05-31 15:59] LABS: T4 Free Direct 1.48 ng/dL (0.76-1.46); Thyroid Stim Hormone (TSH) 3.83 uIU/mL (0.358-3.74)
== END | disposition home or self-care (01) ==
LOC: MFPLAB 13:37
PROVIDERS: PCP Family Medicine; Referring Provider Family Medicine; Visit Provider Family Medicine
DX: E03.9 Hypothyroidism, unspecified (principal)
CPT/HCPCS: 36415; 84439; 84443; 84481

== ENCOUNTER 2022-11-02 19:49 | Observation (INO) | payer MEDICARE, MEDICAID, SELFPAY ==
[2022-11-02 19:50] VITALS: BP 138/97; PULSE 115; RESP 12; TEMP 36.2; O2SAT 96; BMI 30.2
--- NOTE | 2022-11-02 20:02 | EDS_ITS ---
HPI History of Present Illness Chief Complaint: Chest Pain Informant: patient Onset/Context/Timing Onset: Today Activity at onset: gradual Timing: Continuous Quality: Positive for Heaviness Location: Substernal Worsened By: Nothing Relieved By: NTG Associated Symptoms: Positive for Lightheadedness and Palpitations; Negative for Nausea, Vomiting, Diaphoresis, Dyspnea, Cough, Fever or Acid Reflux Narrative Narrative: Patient presents with chest pain that began today. Patient states it came on gradually. Patient describes it as a heaviness. Patient states it is over the substernal area. Patient states he got better when EMS administered sublingual nitroglycerin. Patient states nothing makes it worse. Patient admits to some lightheadedness whenever he sits up. Patient states he felt like his heart was racing. Patient denies any nausea or vomiting. Patient denies any shortness of breath or cough. Patient denies any fevers or diaphoresis. 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 Multiple sclerosis Multiple sclerosis Multiple sclerosis exacerbation Multiple sclerosis, primary chronic progressive Multiple sclerosis, primary chronic progressive Muscle spasticity Muscle spasticity Neuromyelitis optica Neuromyelitis optica NSTEMI (non-ST elevated myocardial infarction) (11/01/19) Presence of stent in coronary artery (~07/08/21) Unstable angina pectoris Home Medications baclofen 10,000 mcg/20 mL (500 mcg/mL) intrathecal solution 0 mcg intrathecal CONT 11/28/19 [History Last Taken 05/18/22] cholecalciferol (vitamin D3) 125 mcg (5,000 unit) capsule 125 mcg PO DAILY SUPPLEMENT 11/28/19 [History Last Taken 05/17/22] gabapentin 400 mg capsule 400 mg PO TID PRN LEG PAIN 03/10/21 [History Last Taken Unknown] nitroglycerin 0.4 mg sublingual tablet 0.4 mg sublingual Q5M PRN chest pain #25 tabs 07/06/21 [Rx Last Taken 05/18/22] sertraline 50 mg tablet (Zoloft) 50 mg PO QHS DEPRESSION/ANXIETY 12/20/21 [History Last Taken 05/17/22] aspirin 81 mg chewable tablet 81 mg PO DAILY HEART HEALTH 05/18/22 [History Last Taken 05/18/22] atorvastatin 40 mg tablet 40 mg PO DAILY CHOLESTEROL 05/18/22 [History Last Taken 05/18/22] baclofen 10 mg tablet 15 mg PO Q6H PRN Spasms 05/18/22 [History Last Taken 05/18/22] levothyroxine 75 mcg tablet 75 mcg PO DAILY THYROID 05/18/22 [History Last Taken 05/18/22] lisinopril 5 mg tablet 5 mg PO DAILY BLOOD PRESSURE 05/18/22 [History Last Taken 05/18/22] ticagrelor 90 mg tablet (Brilinta) 90 mg PO BID BLOOD THINNER 05/18/22 [History Last Taken 05/18/22] isosorbide mononitrate 60 mg tablet,extended release 24 hr 60 mg PO DAILY ANGINA #90 tabs 08/16/22 [Rx Last Taken Unknown] metoprolol tartrate 25 mg tablet 12.5 mg PO BID #30 tabs 10/19/22 [Rx Last Taken Unknown] Allergy/AdvReac Type Severity Reaction Status Date / Time No Known Allergies Allergy Verified 11/02/22 19:50 Family History Mother CVA (cerebral vascular accident) Grandmother CVA (cerebral vascular accident) Father Liver disease due to alcohol Surgical History Hx of appendectomy Presence of coronary angioplasty implant and graft (~07/08/21) Social History household members: none Smoking Status: Never smoker alcohol intake: current details: rare substance use type: does not use ROS ROS ED Constitutional Constitutional ED: Denies chills or fever(s) Eyes Eyes: Denies blurry vision or change in vision ENT ENT ED: Reports rhinorrhea; Denies sore throat Cardiovascular Cardiovascular: Reports chest pain and palpitations Respiratory/Chest Respiratory/Chest: Denies cough or dyspnea Gastrointestinal Gastrointestinal: Denies abdominal pain, nausea or vomiting Genitourinary Genitourinary ED: Denies dysuria or hematuria Musculoskeletal Musculoskeletal: Reports neck pain; Denies back pain Integumentary Denies abscess or rash Neurologic Neurologic: Denies headache(s) or weakness Allergic/Immunologic Allergic/Immunologic ED: Denies mouth swelling or urticaria EXAM Physical Exam Const Vital Signs: 11/02/22 19:50 11/02/22 19:55 11/02/22 20:19 Temperature 97.1 F L Temperature Source Temporal Pulse Rate 115 H Respiratory Rate 12 Respiratory Effort Normal Non-Labored Blood Pressure 138/97 H Blood Pressure Mean 110 Pulse Ox 96 95 Oxygen Delivery Method Room Air Room Air 11/02/22 20:19 Temperature Temperature Source Pulse Rate 86 Respiratory Rate Respiratory Effort Blood Pressure 140/89 H Blood Pressure Mean Pulse Ox Oxygen Delivery Method Positive well nourished, well developed and obese General Appearance ED: well developed Nutritional Appearance: obese HEENT normocephalic and atraumatic Eyes PERRL and EOMs intact bilaterally Neck supple and no JVD Chest Wall palpation of chest normal Resp normal respiratory effort and clear to auscultation bilaterally Effort and Inspection: Negative for respiratory distress Cardio regular rate and regular rhythm GI normal to inspection, nondistended, normoactive bowel sounds, soft to palpation, non-tender and non-distended Extremity normal to inspection General Extremety ED: Yes edema; Negative for tenderness General Extremity: edema bilateral lower extremity Details: trace Neuro oriented x3, CN's II-XII intact bilaterally and no sensory deficits noted Sensorium / Orientation: awake and alert Motor Exam: strength 5/5 throughout Psych mental status grossly normal Heart Score History: Moderately Suspicious ECG: Normal Age: >/= 65 years Risk Factors: >/= 3 Risk Factors or History of CAD Troponin: </= Normal Limit Score: 5 MDM MDM MDM Narrative Medical decision making narrative: Differential diagnosis includes cardiac dysrhythmia, cardiac ischemia, pneumonia, pneumothorax, pulmonary embolism, and musculoskeletal pain. EKG will be obtained to assess for cardiac dysrhythmia and cardiac ischemia. Chest x-ray will be obtained to assess for pneumonia and pneumothorax. CBC will be obtained to assess for leukocytosis and anemia. Basic metabolic profile will be obtained to assess for electrolyte abnormality and renal function. High-sensitivity troponin will be obtained to assess for cardiac ischemia. D-dimer will be obtained to assess for pulmonary embolism. History & Record Review Discussion w/independent historian: Patient and Family Lab Data Attestation: I reviewed the patient's lab results. Lab results narrative: CBC was reviewed and was essentially within normal limits. Basic metabolic profile was reviewed and was within normal limits with the exception of a mild hyponatremia of 132. High-sensitivity troponin was reviewed and was normal at 7. D-dimer was reviewed and was slightly elevated at 0.72. 2-hour repeat high- sensitivity troponin was reviewed and was normal at 9. BNP was reviewed and was normal at 54.2. Labs: Laboratory Results - last 24 hr 11/02/22 11/02/22 11/02/22 19:42 19:42 19:42 WBC 7.1 RBC 4.57 L Hgb 13.3 Hct 39.8 L MCV 87.1 MCH 29.1 MCHC 33.4 RDW Std Deviation 53.1 H RDW Coeff of Isha 16.8 H Plt Count 354 MPV 9.5 Immature Gran % (Auto) 0.400 Neut % (Auto) 79.2 H Lymph % (Auto) 10.5 L [place] % (Auto) 8.4 Eos % (Auto) 0.9 Baso % (Auto) 0.6 Absolute Neuts (auto) 5.6 Absolute Lymphs (auto) 0.74 L Nucleated RBC % 0 D-Dimer Quant (PE/DVT) 0.72 H* Sodium 132 L Potassium 4.9 Chloride 99 Carbon Dioxide 27.0 Anion Gap 6 BUN 16 Creatinine 0.74 Estim Creat Clear Calc 109.23 Est GFR (MDRD) Af Amer 137 Est GFR (MDRD) Non-Af 113 BUN/Creatinine Ratio 21.7 H Glucose 81 Calcium 10.0 Troponin I High Sens 7 B-Natriuretic Peptide 11/02/22 11/02/22 19:42 22:15 WBC RBC Hgb Hct MCV MCH MCHC RDW Std Deviation RDW Coeff of Isha Plt Count MPV Immature Gran % (Auto) Neut % (Auto) Lymph % (Auto) [place] % (Auto) Eos % (Auto) Baso % (Auto) Absolute Neuts (auto) Absolute Lymphs (auto) Nucleated RBC % D-Dimer Quant (PE/DVT) Sodium Potassium Chloride Carbon Dioxide Anion Gap BUN Creatinine Estim Creat Clear Calc Est GFR (MDRD) Af Amer Est GFR (MDRD) Non-Af BUN/Creatinine Ratio Glucose Calcium Troponin I High Sens 9 B-Natriuretic Peptide 54.2 Radiography Diagnostic Testing: Clinical Impression(s) from Imaging Studies Chest X-Ray 11/02/22 20:27 IMPRESSION: Mild bibasilar linear scarring versus atelectasis. Otherwise, no acute findings. Electronically Signed: Levar Burgos MD at 20:45 EDT , Chest CTA 11/02/22 21:01 IMPRESSION: 1. No pulmonary embolus identified. 2. Mild lung scarring and atelectatic changes. 3. Atherosclerotic coronary arterial disease. Electronically Signed: Levar Burgos MD at 21:57 EDT , Portable 1 view chest x-ray was obtained. On my independent interpretation, lung wu show mild bibasilar scarring versus atelectasis. There is normal cardiac silhouette. Bony thorax is normal. There is no acute process noted. Radiologist also interpreted the x-ray and agrees. Because of the elevated D-dimer, CTA of the chest was obtained. There is no pulmonary embolism noted. There is mild lung scarring and atelectasis noted. There is atherosclerotic coronary artery disease noted. This was interpreted by the radiologist and was also independently reviewed by myself. EKG Initial EKG: Attestation: I personally reviewed and interpreted this EKG as follows: Interpretation: Sinus Rhythm (102) and No Acute Injury Pattern Comments: EKG was obtained. On my independent interpretation, it showed a sinus tachycardia with a rate of 102. VA interval, QRS interval, and QTc intervals were all normal. There is borderline left axis deviation at -26. There are no acute ST or T wave changes. There is low voltage across the precordial leads. Prior EKG tracings: available for review Prior: Unchanged (05/18/2022) Management Discussion w/another healthcare provider: Hospitalist Treatment and Re-Evaluation :: Patient was given aspirin here. Patient states his chest heaviness comes and goes. Patient states his last cardiac catheterization was over a year ago and he had stents placed at that time. Patient has a HEART score of 5. Because of this, I feel the patient would benefit from further evaluation. Case will be discussed with the hospitalist for admission for observation. Patient and family understand and are agreeable with the plan. All questions were answered. Discharge Plan Triage Chief Complaint: Chest Pain ED Provider: Shree Espinosa Dx/Rx/DC Orders Clinical Impression: Chest pain, CAD (coronary artery disease) Prescriptions: No Action baclofen 10,000 mcg/20mL (500 mcg/mL) solution 0 mcg INTRATH CONT Rx Instructions: VIA PUMP cholecalciferol (vitamin D3) 125 mcg (5,000 unit) capsule 125 mcg PO DAILY gabapentin 400 mg capsule 400 mg PO TID PRN (Reason: LEG PAIN) sertraline [Zoloft] 50 mg tablet 50 mg PO QHS baclofen 10 mg tablet 15 mg PO Q6H PRN (Reason: Spasms) Label Comments: TAKE 1 & 1/2 (ONE AND ONE-HALF) TABLETS BY MOUTH EVERY 6 HOURS NEEDED aspirin [Aspirin Low-Strength] 81 mg Tablet,Chewable 81 mg PO DAILY levothyroxine 75 mcg tablet 75 mcg PO DAILY Label Comments: Take 1 tablet by mouth every morning atorvastatin 40 mg tablet 40 mg PO DAILY lisinopril 5 mg tablet 5 mg PO DAILY Brilinta 90 mg tablet 90 mg PO BID nitroglycerin 0.4 mg tablet, sublingual 0.4 mg sublingual Q5M PRN (Reason: chest pain) Qty: 25 3RF Rx Instructions: do not exceed 3 doses per episode isosorbide mononitrate 60 mg tablet extended release 24 hr 60 mg PO DAILY Qty: 90 3RF metoprolol tartrate 25 mg tablet 12.5 mg PO BID Qty: 30 11RF Primary Care Provider: Ritesh Castro Referrals: Ritesh Castro MD [Primary Care Provider] - Disposition Disposition: Acute Care Hospital [facility]
--- NOTE | 2022-11-02 20:11 | EKG12_ITS ---
Test Reason : CP Blood Pressure : / mmHG Vent. Rate : 102 BPM Atrial Rate : 102 BPM P-R Int : 172 ms QRS Dur : 068 ms QT Int : 310 ms P-R-T Axes : 025 -26 029 degrees QTc Int : 404 ms Sinus tachycardia Low voltage QRS Borderline ECG Confirmed by ESTHER MANSFIELD MD ([id number]), editor in chief MICHAEL SULLIVAN ([id number]) on 11/03/2022 1:28:58 PM Referred By: PC Confirmed By:ESTHER MANSFIELD MD
[2022-11-02 20:19] VITALS: BP 140/89; PULSE 86; O2SAT 95
[2022-11-02] MEDS: Nitroglycerin SL (ED/IMG/CATH) 0.4 MG TABLET SL (20:19)
--- NOTE | 2022-11-02 20:27 | RAD_ITS ---
INDICATION: chest pain EXAMINATION/TECHNIQUE: X-RAY - AP view of chest COMPARISON: Chest x-ray from 05/18/2022 FINDINGS: LINES/DEVICES: None. LUNGS: No overt pulmonary edema or focal airspace consolidation. Mild bibasilar linear opacities again noted. No sizable pleural effusion. No detectable pneumothorax. There is stable interpositioning of gas-filled colon within upper abdomen below diaphragm. MEDIASTINUM AND CARDIOVASCULAR STRUCTURES: Heart size within normal limits for imaging technique. Atherosclerotic calcifications along aorta. BONES AND SOFT TISSUES: Skeletal degenerative changes. RAD/Chest 1 View (Portable) IMPRESSION: Mild bibasilar linear scarring versus atelectasis. Otherwise, no acute findings. Electronically Signed: Levar Burgos MD at 20:45 EDT ,
[2022-11-02 20:29] LABS: Absolute Lymphocyte Count 0.74 X10^3/uL (0.83-4.51); Absolute Neutrophil Count 5.6 X10^3/uL (2.0-7.7); Basophil# 0.04 X10^3/uL; Basophil% 0.6 % (0-1); Eosinophil# 0.06 X10^3/uL; Eosinophils% 0.9 % (0-5); Hematocrit 39.8 % (40-54); Hemoglobin 13.3 g/dL (13.0-16.5); Lymphocyte # 0.74 X10^3/ul (0.83-4.51); Lymphocyte % 10.5 % (19-41); Mean Corp Hgb Conc 33.4 g/dL (32-36); Mean Corpuscular Hgb 29.1 pg (27.0-32.0); Mean Corpuscular Volume 87.1 fL (80-94); Mean Platelet Vol. 9.5 fl (6.2-12.0); Monocyte# 0.59 X10^3/uL; Monocyte% 8.4 % (0-10); NRBC Flagged by Analyzer 0 % (0-5); Neutrophil # 5.59 X10^3/uL (2.7-7.7); Neutrophil % 79.2 % (47-70); Platelet Count 354 K/mm3 (150-450); RBC Distribution Width CV 16.8 % (11.6-14.6); RBC Distribution Width SD 53.1 fl (35.1-43.9); Red Blood Count 4.57 M/mm3 (4.6-6.2); White Blood Count 7.1 K/mm3 (4.4-11.0)
[2022-11-02 20:42] LABS: D-Dimer Quantitative (DVT/PE) 0.72 FEU/ug/m (0.27-0.49)
[2022-11-02 20:46] LABS: Anion Gap 6 (5-15); BUN 16 mg/dL (7-18); BUN/Creat Ratio 21.7 RATIO (10-20); Chloride 99 mmol/L (98-107); Creatinine, Serum 0.74 mg/dL (0.70-1.30); EST Glomerular Filtration Rate 113 mL/min (>60); Est Glom Filt Rate - Afr Amer 137 mL/min (>60); Estimated Creatinine Clearance 109.23 ml/min; Glucose 81 mg/dL (74-106); Potassium 4.9 mmol/L (3.5-5.1); Sodium Level 132 mmol/L (136-145); Troponin-I HS (w/2H Reflex) 7 pg/mL (3.0-78.0)
--- NOTE | 2022-11-02 21:01 | CT_ITS ---
STUDY: CTA CHEST REASON FOR EXAM: Male, 67 years old with chest heaviness, lightheadedness, elevated d-dimer. TECHNIQUE: CT angiogram of chest was performed with the intravenous administration of 100 ml [id number]. Post-processing of the angiographic images was performed, with MIP and MPR reconstructions. Individualized dose optimization techniques were used for this CT. COMPARISON: CTA chest from 07/05/2021 FINDINGS: PULMONARY ARTERIES: No pulmonary arterial filling defects identified. AORTA AND VISUALIZED GREAT VESSELS: Mild atherosclerosis with no thoracic aortic aneurysm or dissection. Great vessels are patent. HEART AND PERICARDIUM: Normal size heart with prominent coronary arterial calcifications. No significant pericardial effusion. MEDIASTINUM AND PALLAVI: No mediastinal or hilar adenopathy. Esophagus is unremarkable. LUNGS, PLEURA AND LARGE AIRWAYS: Mild scattered bilateral atelectatic changes and linear scarring. No discrete pulmonary mass or focal airspace consolidation. Benign punctate calcified granuloma lingular segment left upper lobe. No pneumothorax or pleural effusion. BONES: Stable skeletal degenerative changes with no acute osseous abnormality. Chronic left rib fractures again noted. CHEST WALL: No chest wall mass or acute findings. VISUALIZED ABDOMEN: No acute findings. CT/CTA Chest W/WO Contrast IMPRESSION: 1. No pulmonary embolus identified. 2. Mild lung scarring and atelectatic changes. 3. Atherosclerotic coronary arterial disease. Electronically Signed: Levar Burgos MD at 21:57 EDT ,
[2022-11-02 22:19] LABS: Reflex Troponin-HS? (from REC) Y
[2022-11-02 22:35] LABS: BNP,B-Type NATRIURETIC PEPTIDE 54.2 pg/mL (0-100)
[2022-11-02 22:38] LABS: Troponin-I HS 9 pg/mL (3.0-78.0)
--- NOTE | 2022-11-02 22:52 | HP.PCM.HOS_ITS ---
HPI - General General Date of Admission: 11/02/22 Date of Service: 11/02/22 Chief Complaint: Chest pain HPI Narrative NICOLASA FISCHER, is a 67 M with a significant history of multiple sclerosis; CAD status post stents on dual antiplatelet therapy who presents to the emergency department with progressively worsening substernal chest pain that started about 6 hours presentation. He rated his pain as a 5 on a scale of 1-10. The pain is nonradiating. The pain worsens with taking a deep breath. Patient was given aspirin and nitroglycerin to help with the pain. Associated with his symptom is lightheadedness. He denies any nausea or vomiting. Also in the past week patient have noticed swelling of his bilateral legs. [facility] Medical History Abnormal EKG Atherosclerosis of coronary artery without angina pectoris Atherosclerotic heart disease of 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 Multiple sclerosis Multiple sclerosis Multiple sclerosis exacerbation Multiple sclerosis, primary chronic progressive Multiple sclerosis, primary chronic progressive Muscle spasticity Muscle spasticity Neuromyelitis optica Neuromyelitis optica NSTEMI (non-ST elevated myocardial infarction) (11/01/19) Presence of stent in coronary artery (~07/08/21) Unstable angina pectoris Medical History no medical history no medical history Home Medications baclofen 10,000 mcg/20 mL (500 mcg/mL) intrathecal solution 0 mcg intrathecal CONT 11/28/19 [History Last Taken 05/18/22] cholecalciferol (vitamin D3) 125 mcg (5,000 unit) capsule 125 mcg PO DAILY SUPPLEMENT 11/28/19 [History Last Taken 05/17/22] gabapentin 400 mg capsule 400 mg PO TID PRN LEG PAIN 03/10/21 [History Last Taken Unknown] nitroglycerin 0.4 mg sublingual tablet 0.4 mg sublingual Q5M PRN chest pain #25 tabs 07/06/21 [Rx Last Taken 05/18/22] sertraline 50 mg tablet (Zoloft) 50 mg PO QHS DEPRESSION/ANXIETY 12/20/21 [History Last Taken 05/17/22] aspirin 81 mg chewable tablet 81 mg PO DAILY HEART HEALTH 05/18/22 [History Last Taken 05/18/22] atorvastatin 40 mg tablet 40 mg PO DAILY CHOLESTEROL 05/18/22 [History Last Taken 05/18/22] baclofen 10 mg tablet 15 mg PO Q6H PRN Spasms 05/18/22 [History Last Taken 05/18/22] levothyroxine 75 mcg tablet 75 mcg PO DAILY THYROID 05/18/22 [History Last Taken 05/18/22] lisinopril 5 mg tablet 5 mg PO DAILY BLOOD PRESSURE 05/18/22 [History Last Taken 05/18/22] ticagrelor 90 mg tablet (Brilinta) 90 mg PO BID BLOOD THINNER 05/18/22 [History Last Taken 05/18/22] isosorbide mononitrate 60 mg tablet,extended release 24 hr 60 mg PO DAILY ANGINA #90 tabs 08/16/22 [Rx Last Taken Unknown] metoprolol tartrate 25 mg tablet 12.5 mg PO BID #30 tabs 10/19/22 [Rx Last Taken Unknown] Allergy/AdvReac Type Severity Reaction Status Date / Time No Known Allergies Allergy Verified 11/02/22 19:50 Family History Mother CVA (cerebral vascular accident) Grandmother CVA (cerebral vascular accident) Father Liver disease due to alcohol Surgical History Hx of appendectomy Presence of coronary angioplasty implant and graft (~07/08/21) Social History household members: none number of children: 4 service: No current occupational status: disabled Smoking Status: Never smoker alcohol intake: current details: rare substance use type: does not use ROS ROS Narrative Pertinent positives and pertinent negatives as noted in HPI. All other systems were reviewed and are negative Vital Signs Vital Signs Vital Signs: 11/02/22 19:50 11/02/22 19:55 11/02/22 20:19 Temperature 97.1 F L Temperature Source Temporal Pulse Rate 115 H Respiratory Rate 12 Respiratory Effort Normal Non-Labored Blood Pressure 138/97 H Blood Pressure Mean 110 Pulse Ox 96 95 Oxygen Delivery Method Room Air Room Air 11/02/22 20:19 Temperature Temperature Source Pulse Rate 86 Respiratory Rate Respiratory Effort Blood Pressure 140/89 H Blood Pressure Mean Pulse Ox Oxygen Delivery Method Weight Weight: 100.97 kg Body Mass Index (BMI) 30.2 Physical Exam Narrative Physical exam: General: Well-nourished, well-developed. Head: Normocephalic, atraumatic, no tenderness Eyes: Vision is grossly intact. EOMI ENT, no trauma, moist mucous membranes, no rhinorrhea Neck: Nontender, No thyromegaly. CVS: Regular rate and rhythm. S1-S2 present. No murmur, gallop or rub. Respiratory : clear to auscultation bilaterally, chest wall nontender Abdomen: Soft, nontender, nondistended, normal bowel sounds, no masses : Deferred Back: Nontender, no CVA tenderness, no midline spinal tenderness, deformities, step-offs Extremities: Able to raise right upper extremity. Unable to raise left upper extremity. Unable to raise bilateral lower extremity. Skin: Normal color, no trauma, abrasions Neuro: Alert, oriented, cranial nerves II through XII grossly intact. Psychiatry: Normal mood. Normal affect. Not depressed. Not anxious. Results Lab / Micro Data Attestation: I reviewed the patient's lab results. Result Diagrams: 11/03/22 02:40 11/03/22 02:40 Labs: Laboratory Results - last 24 hr 11/02/22 19:42: WBC 7.1, RBC 4.57 L, Hgb 13.3, Hct 39.8 L, MCV 87.1, MCH 29.1, MCHC 33.4, RDW Std Deviation 53.1 H, RDW Coeff of Isha 16.8 H, Plt Count 354, MPV 9.5, Immature Gran % (Auto) 0.400, Neut % (Auto) 79.2 H, Lymph % (Auto) 10.5 L, [place] % (Auto) 8.4, Eos % (Auto) 0.9, Baso % (Auto) 0.6, Absolute Neuts (auto) 5.6, Absolute Lymphs (auto) 0.74 L, Nucleated RBC % 0 11/02/22 19:42: D-Dimer Quant (PE/DVT) 0.72 H* 11/02/22 19:42: Sodium 132 L, Potassium 4.9, Chloride 99, Carbon Dioxide 27.0, Anion Gap 6, BUN 16, Creatinine 0.74, Estim Creat Clear Calc 109.23, Est GFR (MDRD) Af Amer 137, Est GFR (MDRD) Non-Af 113, BUN/Creatinine Ratio 21.7 H, Glucose 81, Calcium 10.0, Troponin I High Sens 7 11/02/22 19:42: B-Natriuretic Peptide 54.2 11/02/22 22:15: Troponin I High Sens 9 Radiology Impression Chest X-Ray 11/02/22 20:27 IMPRESSION: Mild bibasilar linear scarring versus atelectasis. Otherwise, no acute findings. Electronically Signed: Levar Burgos MD at 20:45 EDT , Chest CTA 11/02/22 21:01 IMPRESSION: 1. No pulmonary embolus identified. 2. Mild lung scarring and atelectatic changes. 3. Atherosclerotic coronary arterial disease. Electronically Signed: Levar Burgos MD at 21:57 EDT , Assessment & Plan Assessment/Plan (1) Chest pain: (2) HTN (hypertension): PLAN: Plan Chest pain Place on a monitored bed at PCU Impression of chest x-ray by radiologist:Mild bibasilar linear scarring versus atelectasis. Otherwise, no acute findings. Actual CXR image was independently visualized. No acute cardiopulmonary process was noted. Actual EKG tracing was independently visualized. EKG with no acute abnormalities per ASA 81 mg p.o. daily and Brilinta twice daily continued. High intensity statin continued. We will check lipid panel. Initial high sensitive troponin was negative, trend. Stat EKG as needed for chest pain Chemical stress test in the AM if the cardiac enzymes are negative. Of note patient has multiple sclerosis and is immobile. He cannot due to treadmill stress test. Lisinopril, and Sorbide and metoprolol continued. Hypertension Blood pressure is not within goal Home blood pressure medication continued. Trend blood pressure and adjust blood pressure medications. DVT prophylaxis: SCDs ordered. Charges/Coding Visit Charges Inpatient E&M: 41049 Init Hosp L2
[2022-11-02 23:10] VITALS: BP 125/80; PULSE 79; RESP 14; TEMP 36.2; O2SAT 95
--- NOTE | 2022-11-02 23:13 | EKG12_ITS ---
Test Reason : ADMIT EKG Blood Pressure : / mmHG Vent. Rate : 078 BPM Atrial Rate : 078 BPM P-R Int : 160 ms QRS Dur : 068 ms QT Int : 352 ms P-R-T Axes : 007 -25 011 degrees QTc Int : 401 ms Normal sinus rhythm Low voltage QRS Borderline ECG When compared with ECG of 18-MAY-2022 12:05, Criteria for Inferior infarct are no longer Present Confirmed by SHYLA FITCH, ESTHER ([id number]), fashion editor MICHAEL SULLIVAN ([id number]) on 11/03/2022 1:31:26 PM Referred By: DR HAY Confirmed By:ESTHER MANSFIELD MD
[2022-11-02 23:52] VITALS: BMI 29.2
[2022-11-02 23:55] VITALS: BP 133/73; PULSE 75; RESP 16; TEMP 37; O2SAT 94
[2022-11-03] VITALS (7 sets, daily range): BP systolic 118–128; BP diastolic 70–74; PULSE 67–90; RESP 18; TEMP 36.5–36.9; O2SAT 93–98; BMI 29.2
[2022-11-03] MEDS: Baclofen 10 MG Tablet 15 MG PO (02:04)
[2022-11-03 02:57] LABS: Absolute Lymphocyte Count 1.04 X10^3/uL (0.83-4.51); Absolute Neutrophil Count 5.7 X10^3/uL (2.0-7.7); Basophil# 0.04 X10^3/uL; Basophil% 0.5 % (0-1); Eosinophil# 0.06 X10^3/uL; Eosinophils% 0.8 % (0-5); Hematocrit 36.3 % (40-54); Hemoglobin 12.5 g/dL (13.0-16.5); Lymphocyte # 1.04 X10^3/ul (0.83-4.51); Lymphocyte % 13.5 % (19-41); Mean Corp Hgb Conc 34.4 g/dL (32-36); Mean Corpuscular Hgb 30.1 pg (27.0-32.0); Mean Corpuscular Volume 87.5 fL (80-94); Mean Platelet Vol. 9.5 fl (6.2-12.0); Monocyte# 0.85 X10^3/uL; NRBC Flagged by Analyzer 0 % (0-5); Neutrophil # 5.71 X10^3/uL (2.7-7.7); Neutrophil % 73.8 % (47-70); Platelet Count 309 K/mm3 (150-450); RBC Distribution Width CV 16.9 % (11.6-14.6); RBC Distribution Width SD 53.6 fl (35.1-43.9); Red Blood Count 4.15 M/mm3 (4.6-6.2); White Blood Count 7.7 K/mm3 (4.4-11.0)
[2022-11-03 03:35] LABS: Troponin-I HS 11 pg/mL (3.0-78.0)
[2022-11-03 03:42] LABS: Anion Gap 10 (5-15); BUN 15 mg/dL (7-18); BUN/Creat Ratio 23.4 RATIO (10-20); Calcium,Total 9.3 mg/dL (8.5-10.1); Chloride 102 mmol/L (98-107); Cholesterol 131 mg/dL (200); Creatinine, Serum 0.64 mg/dL (0.70-1.30); EST Glomerular Filtration Rate 133 mL/min (>60); Est Glom Filt Rate - Afr Amer 161 mL/min (>60); Glucose 68 mg/dL (74-106); High Density Lipoprotein 49 mg/dL; Sodium Level 134 mmol/L (136-145); Triglycerides 90 mg/dL; Very Low Density Lipoprotein 18 mg/dL (5-40)
--- NOTE | 2022-11-03 05:55 | ECHOCS_ITS ---
Reason For Study: Chest Pain Procedure This was a 2D Doppler, Color Flow transthoracic echocardiogram. Very technically difficult study due to patients body habitus and being unable to lay in the left lateral position. Echo done with patient supine, contrast injection was performed. Exam performed portable in patient room. Left Ventricle Normal LV size. Left ventricular systolic function is normal. The estimated ejection fraction is 60 %. Stage 1 diastolic dysfunction. No regional wall motion abnormalities noted. Right Ventricle Normal RV size. Normal systolic function. Atria Normal left atrium. Normal right atrium. Mitral Valve The mitral valve is structurally normal. No prolapse or stenosis seen. Tricuspid Valve The tricuspid valve is not well visualized. Aortic Valve The aortic valve is not well visualized. Pulmonic Valve The pulmonic valve is not well visualized. Great Vessels Normal aortic root. The pulmonary is not well visualized. Normal inferior vena cava. Pericardium/Pleural No pericardial effusion. Medication Diluted definity 3ml given slow IV push to enhance endocardial definition. MMode/2D Measurements & Calculations LVIDd: 4.3 cm IVSd: 1.2 cm Ao root diam: 3.6 cm LVIDs: 2.6 cm LVPWd: 0.96 cm LA dimension: 3.1 cm FS: 40.3 % Time Measurements MV dec time: 0.16 sec Doppler Measurements & Calculations MV E max matias: 72.8 cm/sec Lat Peak E' Matias: 10.3 cm/sec Med Peak E' Matias: 10.0 cm/sec MV A max matias: 128.8 cm/sec E/E' lat: 7.1 E/E' med: 7.3 MV E/A: 0.57 MV V2 max: 134.7 cm/sec MV P1/2t max matias: 86.7 cm/sec Ao V2 max: 144.6 cm/sec MV max P.3 mmHg MV P1/2t: 83.2 msec Ao max P.4 mmHg MV V2 mean: 67.2 cm/sec MV mean P.2 mmHg MV dec slope: 305.1 cm/sec2 MV V2 VTI: 23.6 cm MVA(P1/2t): 2.6 cm2 LV V1 max: 125.5 cm/sec PA V2 max: 87.9 cm/sec LV V1 max P.3 mmHg PA V2 mean: 64.8 cm/sec ECHO/Echo Complete W/ Contrast Interpretation Summary Normal LV size. Left ventricular systolic function is normal. The estimated ejection fraction is 60 %. Stage 1 diastolic dysfunction. Contrast injection was performed. Ordering Physician: Joseph Weeks Performed By: Aayush Faustin RCS
[2022-11-03] MEDS: 0.9% Saline Lock 10 ML Syringe IV (06:04)
[2022-11-03] MEDS: Levothyroxine 75 MCG Tablet PO (06:07)
[2022-11-03] MEDS: Aspirin 81 MG TAB.CHEW PO (06:07)
[2022-11-03] MEDS: Menthol/Lanolin/Calamine/Znox 113 GM Tube 1 APPLIC TOPICAL (06:07)
[2022-11-03] MEDS: Lisinopril 5 MG Tablet PO (06:07)
[2022-11-03] MEDS: TICAGRELOR 90 MG TABLET PO (06:08)
[2022-11-03] MEDS: Metoprolol Tartrate 25 MG Tablet PO (09:35)
[2022-11-03] MEDS: Isosorbide Mononitrate 60 MG Tablet PO (09:36)
[2022-11-03] MEDS: Cholecalciferol (Vit D3) 125 MCG CAPSULE (5,000 UNITS) PO (09:36)
[2022-11-03] MEDS: Ranolazine 500 MG Tablet 1000 MG PO (09:45)
--- NOTE | 2022-11-03 11:08 | PCM.DC.SUM ---
Providers Date of Admission: 11/02/22 Date of Discharge: 11/03/22 Primary Care Physician: Dr. Ritesh Castro MD Reason For Visit: CHEST PAIN Diagnosis Discharge Diagnosis (1) Chest pain: Status: Acute Code(s): R07.9 - Chest pain, unspecified (2) HTN (hypertension): Status: Chronic Code(s): I10 - Essential (primary) hypertension Medications at Discharge Home Medications baclofen 10,000 mcg/20 mL (500 mcg/mL) intrathecal solution 0 mcg intrathecal CONT 11/28/19 cholecalciferol (vitamin D3) 125 mcg (5,000 unit) capsule 125 mcg PO DAILY SUPPLEMENT 11/28/19 gabapentin 400 mg capsule 400 mg PO TID PRN LEG PAIN 03/10/21 nitroglycerin 0.4 mg sublingual tablet 0.4 mg sublingual Q5M PRN chest pain #25 tabs 07/06/21 sertraline 50 mg tablet (Zoloft) 50 mg PO QHS DEPRESSION/ANXIETY 12/20/21 aspirin 81 mg chewable tablet 81 mg PO DAILY HEART HEALTH 05/18/22 atorvastatin 40 mg tablet 40 mg PO DAILY CHOLESTEROL 05/18/22 baclofen 10 mg tablet 15 mg PO Q6H PRN Spasms 05/18/22 levothyroxine 75 mcg tablet 75 mcg PO DAILY THYROID 05/18/22 lisinopril 5 mg tablet 5 mg PO DAILY BLOOD PRESSURE 05/18/22 ticagrelor 90 mg tablet (Brilinta) 90 mg PO BID BLOOD THINNER 05/18/22 isosorbide mononitrate 60 mg tablet,extended release 24 hr 60 mg PO DAILY ANGINA #90 tabs 08/16/22 metoprolol tartrate 25 mg tablet 25 mg PO BID #30 tabs 11/03/22 ranolazine 500 mg tablet,extended release,12 hr 1,000 mg PO BID #60 tabs 11/03/22 Hospital Course Operations None Procedures EKG and - (Chest x-ray/CTA chest) Summary of Care Provided Minutes Spent on Discharge: 37 Hospital Course: Mr. Carmen is a 67-year-old white male who presents emergency department on 10/31/2022 with chest pain. The patient does have a history of coronary disease and is on dual antiplatelet therapy. His last stent placement was in June 2021 at which time he presented here with an NSTEMI. At that time he was transferred to [facility] after cardiology reviewed images with them. PCI was done. He had previously been known to have triple-vessel disease and was evaluated by cardiothoracic surgery and was denied intervention based on their concerns for his history of multiple sclerosis and concerns with postoperative recovery. Upon presenting to the emergency department this time he was complaining of worsening substernal chest pain that started about 6 hours prior to presentation. He rated his pain at 5 out of 10 and the pain was nonradiating. Pain was pleuritic and he was given aspirin and nitroglycerin help with the pain. CTA was done the emergency department that did not show any PE or dissection given that the pain was more pleuritic in nature. The patient did state the nitroglycerin did help some. He is currently chest pain-free. He was admitted to the PCU and his cardiac enzymes were cycled. They are negative. Stress test was ordered initially however with his history I discussed the case with cardiology and they agreed that a stress test would likely be futile at this point with his history of triple-vessel disease. They felt since his cardiac enzymes were negative he could probably go home with an increase in his beta-yoav from 12.5 mg p.o. twice daily to 25 mg p.o. twice daily and we added Ranexa 1000 mg p.o. twice daily as well. He had his first dose of Ranexa prior to discharge. They also recommended close follow-up and appointment was made for him on 11/23/2022. The patient was chest pain-free after admission. We did discuss that if his symptoms come back or are not abated with the medical therapy that he needs to return to the emergency department for more evaluation at which time he may require cardiac catheterization however this would likely need to be done at a tertiary center given his history. Prescriptions for metoprolol 25 mg p.o. twice daily and Ranexa 1000 mg daily were sent to his pharmacy. He is to follow-up with cardiology as scheduled above. I have also asked him to follow-up with his primary care physician to be seen within next week. Discharge diagnoses: Chest pain History of CAD Hyperlipidemia Hypothyroidism Hypertension Depression Multiple sclerosis Neuropathy Physical Exam Narrative Patient denies any current chest pain. States he did take some nitroglycerin and it did resolve his symptoms. Has known coronary disease and was denied for CABG due to postoperative concerns with his history of MS and his overall functional status. Stent placed in June 2021 when he was admitted with an NSTEMI and elevated troponin. He was transferred to [facility] at that time and this is where he was reviewed for CABG. States he was recently on metoprolol 25 mg p.o. twice daily but via phone consultation with nurse practitioner at the physical therapy technician office his beta-yoav was reduced to 12.5 mg p.o. twice daily for heart rates in the upper 40s to 50s at times. He also stated his blood pressure was high at those times as well. Blood pressures have been stable and heart rates are in the 80s to 90s for the most part while he has been hospitalized. His low heart rates were asymptomatic. Const alert, oriented x3, no apparent distress and no limitations Constitutional Narrative: Overweight, anxious, upper middle-aged, white male, lying in bed watching television, peers comfortable and nontoxic, chronically ill-appearing General Appearance: cooperative, comfortable, well kempt and well developed Orientation / Consciousness: awake, oriented to person, oriented to place and oriented to time Exam Limitations: no limitations Nutritional Appearance: overweight HEENT normocephalic, head/scalp atraumatic, hearing grossly normal bilaterally and moist oral mucous membranes HEENT Narrative: Mallampati 3 Eyes PERRL and conjunctivae normal Eyes Narrative: No scleral icterus Neck Neck Narrative: Trachea midline, no thyroid enlargement Resp normal respiratory effort, no retractions, no use of accessory muscles and clear to auscultation bilaterally Auscultation: Negative for rales, rhonchi or wheezes Cardio regular rate, regular rhythm, S1 normal heart sound, S2 normal heart sound, no murmurs, no rub, no gallops and no clicks GI normal to inspection, nondistended, normoactive bowel sounds and soft to palpation Extremity Extremity Narrative: Trace bilateral lower extremity edema, no cyanosis or clubbing Skin skin turgor normal, no jaundice, no petechiae and no mottling Skin Narrative: Skin is pale Neuro oriented x3 Neuro Narrative: Decreased movement and strength due to MS-chronic, no new focal deficits Sensorium / Orientation: awake, alert, oriented to person, oriented to place and oriented to time Speech: speech normal Psych Psych Narrative: Patient was anxious especially with regards to recurrent chest pain issues. Mood & Affect: anxious Weight / BMI Weight Weight: 97.8 kg Body Mass Index (BMI) 29.2 ABG / Lab / Microbiology Data Result Diagrams: 11/03/22 02:40 11/03/22 02:40 Laboratory: Laboratory Results - last 24 hr 11/02/22 19:42: WBC 7.1, RBC 4.57 L, Hgb 13.3, Hct 39.8 L, MCV 87.1, MCH 29.1, MCHC 33.4, RDW Std Deviation 53.1 H, RDW Coeff of Isha 16.8 H, Plt Count 354, MPV 9.5, Immature Gran % (Auto) 0.400, Neut % (Auto) 79.2 H, Lymph % (Auto) 10.5 L, [place] % (Auto) 8.4, Eos % (Auto) 0.9, Baso % (Auto) 0.6, Absolute Neuts (auto) 5.6, Absolute Lymphs (auto) 0.74 L, Nucleated RBC % 0 11/02/22 19:42: D-Dimer Quant (PE/DVT) 0.72 H* 11/02/22 19:42: Sodium 132 L, Potassium 4.9, Chloride 99, Carbon Dioxide 27.0, Anion Gap 6, BUN 16, Creatinine 0.74, Estim Creat Clear Calc 109.23, Est GFR (MDRD) Af Amer 137, Est GFR (MDRD) Non-Af 113, BUN/Creatinine Ratio 21.7 H, Glucose 81, Calcium 10.0, Troponin I High Sens 7 11/02/22 19:42: B-Natriuretic Peptide 54.2 11/02/22 22:15: Troponin I High Sens 9 11/03/22 02:40: WBC 7.7, RBC 4.15 L, Hgb 12.5 L, Hct 36.3 L, MCV 87.5, MCH 30.1, MCHC 34.4, RDW Std Deviation 53.6 H, RDW Coeff of Isha 16.9 H, Plt Count 309, MPV 9.5, Immature Gran % (Auto) 0.400, Neut % (Auto) 73.8 H, Lymph % (Auto) 13.5 L, [place] % (Auto) 11.0 H, Eos % (Auto) 0.8, Baso % (Auto) 0.5, Absolute Neuts (auto) 5.7, Absolute Lymphs (auto) 1.04, Nucleated RBC % 0 11/03/22 02:40: Sodium 134 L, Potassium 5.0, Chloride 102, Carbon Dioxide 22.0, Anion Gap 10, BUN 15, Creatinine 0.64 L, Estim Creat Clear Calc 126.30, Est GFR (MDRD) Af Amer 161, Est GFR (MDRD) Non-Af 133, BUN/Creatinine Ratio 23.4 H, Glucose 68 L, Calcium 9.3, Triglycerides 90, Cholesterol 131, LDL Cholesterol 64, VLDL Cholesterol 18, HDL Cholesterol 49 11/03/22 02:40: Troponin I High Sens 11 Radiography Diagnostic Testing: Radiology Impression Chest X-Ray 11/02/22 20:27 IMPRESSION: Mild bibasilar linear scarring versus atelectasis. Otherwise, no acute findings. Electronically Signed: Levar Burgos MD at 20:45 EDT , Chest CTA 11/02/22 21:01 IMPRESSION: 1. No pulmonary embolus identified. 2. Mild lung scarring and atelectatic changes. 3. Atherosclerotic coronary arterial disease. Electronically Signed: Levar Burgos MD at 21:57 EDT , Meaningful Use Info Meaningful Use Diagnoses (Choose all that apply): None applicable Discharge Plan Admission Admit Date/Time: 11/02/22 22:53 Primary Reason for Your Visit: chest pain Attending Provider: Aylin Smith Primary Care Provider: Ritesh Castro Consulting Providers: Joseph Weeks Instructions Additional Instructions / Restrictions: 1. Please increase her beta-yoav as discussed. Heart rates in the 40s to 50s are okay if they are asymptomatic especially with elevated blood pressures. This medicine will help reduce her blood pressure as well. 2. Please follow-up with cardiology as noted below and with your primary care physician within the next week if possible -Call PCP office after discharge to get an appointment Discharge Orders/Prescriptions Prescriptions: New metoprolol tartrate 25 mg Tablet 25 mg PO BID Qty: 30 0RF ranolazine 500 mg Tablet Extended Release 12 Hr 1,000 mg PO BID Qty: 60 1RF Continued baclofen 10,000 mcg/20mL (500 mcg/mL) solution 0 mcg INTRATH CONT Rx Instructions: VIA PUMP abdominal cholecalciferol (vitamin D3) 125 mcg (5,000 unit) capsule 125 mcg PO DAILY gabapentin 400 mg capsule 400 mg PO TID PRN (Reason: LEG PAIN) sertraline [Zoloft] 50 mg tablet 50 mg PO QHS baclofen 10 mg tablet 15 mg PO Q6H PRN (Reason: Spasms) Label Comments: TAKE 1 & 1/2 (ONE AND ONE-HALF) TABLETS BY MOUTH EVERY 6 HOURS NEEDED aspirin 81 mg Tablet,Chewable 81 mg PO DAILY levothyroxine 75 mcg tablet 75 mcg PO DAILY Label Comments: Take 1 tablet by mouth every morning atorvastatin 40 mg tablet 40 mg PO DAILY lisinopril 5 mg tablet 5 mg PO DAILY Brilinta 90 mg tablet 90 mg PO BID nitroglycerin 0.4 mg tablet, sublingual 0.4 mg sublingual Q5M PRN (Reason: chest pain) Qty: 25 3RF Rx Instructions: do not exceed 3 doses per episode isosorbide mononitrate 60 mg tablet extended release 24 hr 60 mg PO DAILY Qty: 90 3RF Discontinued metoprolol tartrate 25 mg tablet 12.5 mg PO BID Qty: 30 11RF Referrals / Follow Up: Ritesh Castro MD [Primary Care Provider] - Within 1 Week (Please call to set up an appointment) Odell Paz NP, [employer] [Med Staff - Adv Practice Prof] - 11/23/22 11:00 am Disposition Disposition (needs filled in before D/C Order can be placed): Home, Self Care Charges/Coding Visit Charges Inpatient E&M: 56361 Disch Hosp >30min
--- NOTE | 2022-11-03 12:02 | CASEMGMT ---
Patient is being discharged and needs transportation home. TAVO met with patient and he said he will need cot transportation home. Patient's d/c orders are in computer. Patient does not want to eat before leaving. Patient's friend Selam will be at his apartment when he gets there. Selam's number is: [phone]. TAVO called [facility] and arranged for patient to get picked up at 1p. TAVO notified patient, RN, and clinical secretary. Plan: d/c home via [facility] cot. Siria GIRALDO
== END 2022-11-03 14:58 | disposition home or self-care (01) ==
LOC: ED 22:52 → PCU 23:28
PROVIDERS: Admitting Provider Hospitalist; Emergency Provider Emergency Medicine; PCP Family Medicine; Visit Provider Internal Medicine
DX: R07.89 Other chest pain (principal); G35 Multiple sclerosis; I25.10 Atherosclerotic heart disease of native coronary artery without angina pectoris; Z79.02 Long term (current) use of antithrombotics/antiplatelets; E78.5 Hyperlipidemia, unspecified; G62.9 Polyneuropathy, unspecified; I10 Essential (primary) hypertension; I25.2 Old myocardial infarction; R00.2 Palpitations; Z79.82 Long term (current) use of aspirin; E03.9 Hypothyroidism, unspecified; Z79.890 Hormone replacement therapy; Z79.899 Other long term (current) drug therapy; E87.1 Hypo-osmolality and hyponatremia; F32.A Depression, unspecified
CPT/HCPCS: 36415; 71045; 71275; 80048; 80061; 83880; 84484; 85025; 85379; 93005; 93306; 99221; 99285; Q9957; Q9967; A4216; C8929; G0378

== ENCOUNTER 2022-11-25 13:53 | Emergency (ER) | payer MEDICARE, MEDICAID, SELFPAY ==
[2022-11-25 13:54] VITALS: BP 84/58; PULSE 65; RESP 16; TEMP 35.4; O2SAT 93
--- NOTE | 2022-11-25 14:04 | ED.RN ---
PT REPORTS INITALLY COULD NOT MANAGE SALIVA OR FLUID. WAS ABLE TO TOLERATED WATER AND POP FOR SQUAD. BY TIME ARRIVED TO ED. STATESI CAN SWALLOW NOW WITHOUT FEELING LIKE IT WANTS TO COME BACK UP. SWALLOWING SALIVA WITHOUT DIFFICULTY.
--- NOTE | 2022-11-25 14:06 | ED.RN ---
PT WHEEL CHAIR BOUND. AND BD DOES NOT WT.
[2022-11-25] MEDS: Glucagon 1 MG/ML Syringe IV (14:37)
[2022-11-25] MEDS: 0.9% Normal Saline 1,000 ML 1000 ML IV (14:37)
[2022-11-25 15:13] VITALS: BP 89/57; PULSE 56; RESP 14; O2SAT 95
--- NOTE | 2022-11-25 15:29 | ED.RN ---
pt. states that he feels better and feels like the foreign body passed. Dr. Espinosa ok'd pt. to try to drink something. Pt. given a coke.
--- NOTE | 2022-11-25 15:55 | EDS_ITS ---
HPI HPI - GI History of Present Illness Chief Complaint: Foreign Body Abdominal Pain/Flank Pain Onset: Today Nausea/Vomiting/Emesis GI Symptom: Positive for Nausea and Vomiting Onset: Today Quality: Positive for Nonbilious; Negative for Blood streaks, Coffee ground or Hematemesis Diarrhea/Melena/Hematochezia GI Symptom: Negative for Diarrhea, Melena or Hematochezia Associated Symptoms Associated Symptoms: Negative for Dysuria, Frequency or Hematuria Narrative Narrative: Patient presents with difficulty swallowing today. Patient states that he was eating a banana when it felt like it became stuck. Patient states it feels like it is stuck behind his Priyank's apple. Patient denies any difficulty breathing. Patient states that he is able to swallow his own saliva. Patient states he tried swallowing Coke but was unable to keep it down. Patient denies any chest pain. Patient has a history of MS. 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 HTN (hypertension) Multiple sclerosis Multiple sclerosis Multiple sclerosis exacerbation Multiple sclerosis, primary chronic progressive Multiple sclerosis, primary chronic progressive Muscle spasticity Muscle spasticity Neuromyelitis optica Neuromyelitis optica NSTEMI (non-ST elevated myocardial infarction) (11/01/19) Presence of stent in coronary artery (~07/08/21) Unstable angina pectoris Home Medications baclofen 10,000 mcg/20 mL (500 mcg/mL) intrathecal solution 0 mcg intrathecal CONT 11/28/19 [History Last Taken 05/18/22] cholecalciferol (vitamin D3) 125 mcg (5,000 unit) capsule 125 mcg PO DAILY SUPPLEMENT 11/28/19 [History Last Taken 05/17/22] gabapentin 400 mg capsule 400 mg PO TID PRN LEG PAIN 03/10/21 [History Last Taken Unknown] nitroglycerin 0.4 mg sublingual tablet 0.4 mg sublingual Q5M PRN chest pain #25 tabs 07/06/21 [Rx Last Taken 05/18/22] sertraline 50 mg tablet (Zoloft) 50 mg PO QHS DEPRESSION/ANXIETY 12/20/21 [History Last Taken 05/17/22] aspirin 81 mg chewable tablet 81 mg PO DAILY HEART HEALTH 05/18/22 [History Last Taken 05/18/22] atorvastatin 40 mg tablet 40 mg PO DAILY CHOLESTEROL 05/18/22 [History Last Taken 05/18/22] baclofen 10 mg tablet 15 mg PO Q6H PRN Spasms 05/18/22 [History Last Taken 05/18/22] levothyroxine 75 mcg tablet 75 mcg PO DAILY THYROID 05/18/22 [History Last Taken 05/18/22] ticagrelor 90 mg tablet (Brilinta) 90 mg PO BID BLOOD THINNER 05/18/22 [History Last Taken 05/18/22] isosorbide mononitrate 60 mg tablet,extended release 24 hr 60 mg PO DAILY ANGINA #90 tabs 08/16/22 [Rx Last Taken Unknown] ranolazine 500 mg tablet,extended release,12 hr 1,000 mg PO BID #60 tabs 11/03/22 [Rx Last Taken Unknown] lisinopril 5 mg tablet 5 mg PO DAILY BLOOD PRESSURE #90 tabs 11/13/22 [Rx Last Taken Unknown] furosemide 40 mg tablet 40 mg PO DAILY PRN 11/23/22 [History Last Taken Unknown] metoprolol succinate 25 mg tablet,extended release 24 hr 25 mg PO DAILY #30 tabs 11/23/22 [Rx Last Taken Unknown] Allergy/AdvReac Type Severity Reaction Status Date / Time No Known Allergies Allergy Verified 11/25/22 14:02 Family History Mother CVA (cerebral vascular accident) Grandmother CVA (cerebral vascular accident) Father Liver disease due to alcohol Surgical History Hx of appendectomy Presence of coronary angioplasty implant and graft (~07/08/21) Social History household members: none number of children: 4 current occupational status: disabled Smoking Status: Never smoker alcohol intake: current details: rare substance use type: does not use ROS ROS ED Constitutional Constitutional ED: Denies chills or fever(s) Eyes Eyes: Denies blurry vision or change in vision ENT ENT ED: Denies rhinorrhea or sore throat Cardiovascular Cardiovascular: Denies chest pain or palpitations Respiratory/Chest Respiratory/Chest: Denies cough or dyspnea Gastrointestinal Gastrointestinal: Reports nausea and vomiting Genitourinary Genitourinary ED: Denies dysuria or hematuria Musculoskeletal Musculoskeletal: Denies back pain or neck pain Integumentary Denies abscess or rash Neurologic Neurologic: Denies headache(s) or weakness Allergic/Immunologic Allergic/Immunologic ED: Denies mouth swelling or urticaria EXAM Physical Exam Const Vital Signs: 11/25/22 13:54 11/25/22 14:02 11/25/22 15:13 Temperature 95.7 F L Temperature Source Oral Pulse Rate 65 56 L Respiratory Rate 16 14 Respiratory Effort Normal Respiratory Pattern Normal Blood Pressure 84/58 L 89/57 L Blood Pressure Mean 66 67 Pulse Ox 93 95 Oxygen Delivery Method Room Air Room Air Positive well nourished and well developed General Appearance ED: well developed and NAD HEENT Reports moist mucous membranes Neck supple and no JVD Resp normal respiratory effort and clear to auscultation bilaterally Cardio regular rate and regular rhythm GI non-tender and non-distended Palpation: soft Neuro CN's II-XII intact bilaterally, moves all extremities and no sensory deficits noted Sensorium / Orientation: alert Psych mental status grossly normal MDM MDM MDM Narrative Medical decision making narrative: Patient was given IV fluids and glucagon. Patient was able to start to swallow after this. Patient felt better. Patient was able to swallow Coke. Patient had no vomiting. Patient was instructed to follow-up with his primary care physician in 5 to 7 days. Patient understood and was agreeable with the plan. All questions were answered. Discharge Plan Triage Chief Complaint: Foreign Body ED Provider: Shree Espinosa Dx/Rx/DC Orders Clinical Impression: Food impaction of esophagus, Multiple sclerosis Instructions: ED Esophageal Foreign Body, Resolved Prescriptions: No Action baclofen 10,000 mcg/20mL (500 mcg/mL) solution 0 mcg INTRATH CONT Rx Instructions: VIA PUMP abdominal cholecalciferol (vitamin D3) 125 mcg (5,000 unit) capsule 125 mcg PO DAILY gabapentin 400 mg capsule 400 mg PO TID PRN (Reason: LEG PAIN) sertraline [Zoloft] 50 mg tablet 50 mg PO QHS furosemide 40 mg tablet 40 mg PO DAILY PRN metoprolol succinate 25 mg tablet extended release 24 hr 25 mg PO DAILY Qty: 30 11RF baclofen 10 mg tablet 15 mg PO Q6H PRN (Reason: Spasms) Label Comments: TAKE 1 & 1/2 (ONE AND ONE-HALF) TABLETS BY MOUTH EVERY 6 HOURS NEEDED aspirin 81 mg Tablet,Chewable 81 mg PO DAILY levothyroxine 75 mcg tablet 75 mcg PO DAILY Label Comments: Take 1 tablet by mouth every morning atorvastatin 40 mg tablet 40 mg PO DAILY Brilinta 90 mg tablet 90 mg PO BID ranolazine 500 mg Tablet Extended Release 12 Hr 1,000 mg PO BID Qty: 60 1RF nitroglycerin 0.4 mg tablet, sublingual 0.4 mg sublingual Q5M PRN (Reason: chest pain) Qty: 25 3RF Rx Instructions: do not exceed 3 doses per episode isosorbide mononitrate 60 mg tablet extended release 24 hr 60 mg PO DAILY Qty: 90 3RF lisinopril 5 mg tablet 5 mg PO DAILY Qty: 90 3RF Primary Care Provider: Ritesh Castro Referrals: Ritesh Castro MD [Primary Care Provider] - 5-7 Days Disposition Disposition: Home, Self Care
--- NOTE | 2022-11-25 15:58 | NURSING ---
CALLED [facility], ETA IS 90 MIN
[2022-11-25 16:37] VITALS: BP 90/62; PULSE 72; O2SAT 97
== END 2022-11-25 17:25 | disposition home or self-care (01) ==
PROVIDERS: Emergency Provider Emergency Medicine; PCP Family Medicine; Visit Provider Emergency Medicine
DX: T18.128A Food in esophagus causing other injury, initial encounter (principal); G35 Multiple sclerosis; I10 Essential (primary) hypertension; I25.10 Atherosclerotic heart disease of native coronary artery without angina pectoris; F32.A Depression, unspecified; Z79.899 Other long term (current) drug therapy; Z79.82 Long term (current) use of aspirin; Z95.5 Presence of coronary angioplasty implant and graft; Z90.49 Acquired absence of other specified parts of digestive tract; I25.2 Old myocardial infarction
CPT/HCPCS: 96361; 96374; 99285; J7030; J1610

== ENCOUNTER 2022-11-28 13:39 | Observation (INO) | payer MEDICARE, MEDICAID, SELFPAY ==
[2022-11-28] VITALS (7 sets, daily range): BP systolic 108–155; BP diastolic 77–96; PULSE 63–87; RESP 12–23; TEMP 36.3–36.8; O2SAT 93–96; BMI 30.7; BMI 30.1
--- NOTE | 2022-11-28 13:57 | ED.VIS.CHEST ---
HPI History of Present Illness Chief Complaint: Chest Pain Detail of Chief Complaint: Chest pain Informant: patient Narrative Narrative: Patient presents with chest discomfort that started this morning around 4 AM. Patient states that it waxes and wanes in intensity but does not think it completely went away at any point. Patient describes some slight weakness in the right arm compared to usual. He also has some tingling to his face. Patient has history of MS. Patient tells me he had 2 cardiac stents placed a little over a year ago. He denies recent travel or surgery. No history of PE or DVT. He did take some nitroglycerin at home which lowered his blood pressure but really did not help his chest discomfort very much. Currently rates the discomfort maybe a 5 out of 10. 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 HTN (hypertension) Multiple sclerosis Multiple sclerosis Multiple sclerosis exacerbation Multiple sclerosis, primary chronic progressive Multiple sclerosis, primary chronic progressive Muscle spasticity Muscle spasticity Neuromyelitis optica Neuromyelitis optica NSTEMI (non-ST elevated myocardial infarction) (11/01/19) Presence of stent in coronary artery (~07/08/21) Unstable angina pectoris Home Medications baclofen 10,000 mcg/20 mL (500 mcg/mL) intrathecal solution 0 mcg intrathecal CONT 11/28/19 [History Last Taken 05/18/22] cholecalciferol (vitamin D3) 125 mcg (5,000 unit) capsule 125 mcg PO DAILY SUPPLEMENT 11/28/19 [History Last Taken 05/17/22] gabapentin 400 mg capsule 400 mg PO TID PRN LEG PAIN 03/10/21 [History Last Taken Unknown] nitroglycerin 0.4 mg sublingual tablet 0.4 mg sublingual Q5M PRN chest pain #25 tabs 07/06/21 [Rx Last Taken 05/18/22] sertraline 50 mg tablet (Zoloft) 50 mg PO QHS DEPRESSION/ANXIETY 12/20/21 [History Last Taken 05/17/22] aspirin 81 mg chewable tablet 81 mg PO DAILY HEART HEALTH 05/18/22 [History Last Taken 05/18/22] atorvastatin 40 mg tablet 40 mg PO DAILY CHOLESTEROL 05/18/22 [History Last Taken 05/18/22] baclofen 10 mg tablet 15 mg PO Q6H PRN Spasms 05/18/22 [History Last Taken 05/18/22] levothyroxine 75 mcg tablet 75 mcg PO DAILY THYROID 05/18/22 [History Last Taken 05/18/22] ticagrelor 90 mg tablet (Brilinta) 90 mg PO BID BLOOD THINNER 05/18/22 [History Last Taken 05/18/22] isosorbide mononitrate 60 mg tablet,extended release 24 hr 60 mg PO DAILY ANGINA #90 tabs 08/16/22 [Rx Last Taken Unknown] ranolazine 500 mg tablet,extended release,12 hr 1,000 mg PO BID #60 tabs 11/03/22 [Rx Last Taken Unknown] lisinopril 5 mg tablet 5 mg PO DAILY BLOOD PRESSURE #90 tabs 11/13/22 [Rx Last Taken Unknown] furosemide 40 mg tablet 40 mg PO DAILY PRN edema 11/23/22 [History Last Taken Unknown] metoprolol succinate 25 mg tablet,extended release 24 hr 25 mg PO DAILY #30 tabs 11/23/22 [Rx Last Taken Unknown] Allergy/AdvReac Type Severity Reaction Status Date / Time No Known Allergies Allergy Verified 11/25/22 14:02 Family History Mother CVA (cerebral vascular accident) Grandmother CVA (cerebral vascular accident) Father Liver disease due to alcohol Surgical History Hx of appendectomy Presence of coronary angioplasty implant and graft (~07/08/21) Social History household members: none number of children: 4 current occupational status: disabled Smoking Status: Never smoker alcohol intake: current details: rare substance use type: does not use ROS ROS ED Review of Systems ROS Unobtainable: other Constitutional Constitutional ED: Reports lethargy; Denies chills, fever(s), sweats or weight loss Eyes Eyes: Denies blurry vision, change in vision or diplopia ENT ENT ED: Denies rhinorrhea or sore throat Cardiovascular Cardiovascular: Reports chest pain; Denies orthopnea or racing heartbeat Respiratory/Chest Respiratory/Chest: Denies cough, dyspnea, dyspnea on exertion, orthopnea or sputum Gastrointestinal Gastrointestinal: Denies abdominal pain, diarrhea, nausea or vomiting Genitourinary Genitourinary ED: Denies dysuria, hematuria or urinary frequency Musculoskeletal Musculoskeletal: Denies arthralgias, back pain, myalgias or neck pain Integumentary Denies abscess, Abrasions or rash Neurologic Neurologic: Denies headache(s) or weakness Psychiatric Psychiatric: Denies anxiety, depression or suicidal thoughts Endocrine Endocrinology: Denies polydipsia, polyphagia or polyuria Hematologic/Lymphatic Hematologic/Lymphatic: Denies easy bleeding, easy bruising or lymphadenopathy Allergic/Immunologic Allergic/Immunologic ED: Denies mouth swelling, tongue swelling or urticaria EXAM Physical Exam Const Vital Signs: 11/28/22 13:40 11/28/22 13:45 11/28/22 13:49 Temperature 97.3 F L Temperature Source Temporal Pulse Rate 78 75 Respiratory Rate 18 13 Respiratory Effort Normal Blood Pressure 108/78 131/96 H Blood Pressure Mean 88 107 Pulse Ox 94 95 Oxygen Delivery Method Room Air Room Air 11/28/22 14:14 11/28/22 15:06 Temperature Temperature Source Pulse Rate 75 Respiratory Rate 20 H Respiratory Effort Blood Pressure 155/95 H Blood Pressure Mean 115 Pulse Ox 95 Oxygen Delivery Method Room Air Room Air Positive well nourished and well developed General Appearance ED: well developed and NAD HEENT Reports TM's clear and moist mucous membranes normocephalic and atraumatic; Negative for trauma or tenderness Tympanic Membrane ED: Yes TM's clear Eyes PERRL and EOMs intact bilaterally General Eye ED: Negative for pale conjunctiva or scleral icterus Neck no lymphadenopathy, supple and no JVD General: Negative for tenderness Chest Wall inspection of chest normal and palpation of chest normal Chest: Negative for tenderness Resp normal respiratory effort and clear to auscultation bilaterally Effort and Inspection: Negative for respiratory distress or pain with movement Auscultation: Negative for rhonchi, wheezes or diminished lung sounds Cardio regular rate, regular rhythm, S1 normal heart sound, S2 normal heart sound and no murmurs Peripheral Pulses: pulses 2+ throughout GI normal to inspection, nondistended, normoactive bowel sounds, soft to palpation, non-tender, non-distended and no masses Back/Spine no CVA tenderness and no thoracic nor lumbar tenderness Extremity normal to inspection General Extremety ED: Negative for edema General Extremity: Negative for edema Neuro oriented x3, CN's II-XII intact bilaterally, no sensory deficits noted and gait normal Sensorium / Orientation: awake, alert, oriented to person, oriented to place and oriented to time Motor Exam: strength 5/5 throughout and strength abnormal Psych mental status grossly normal Skin no rashes or lesions noted and no wounds Heart Score History: Moderately Suspicious ECG: Nonspecific Repolarization Age: >/= 65 years Risk Factors: >/= 3 Risk Factors or History of CAD Troponin: </= Normal Limit Score: 6 MDM MDM MDM Narrative Medical decision making narrative: Presents with chest discomfort since this morning with history of coronary artery disease. In the differential would be acute coronary syndrome versus PE versus GI etiology. Patient complaining of some paresthesias to his face as well as some odd sensations in his right arm. Unclear if these are related to his MS although he states he has not had the sensations like this before. Anxiety could be in the differential and he does state that he feels nervous as heck. Patient had an EKG obtained on arrival showed sinus rhythm with a ventricular rate of 71 bpm with low voltage and left axis deviation. When compared with prior EKG from November 03, 2022 no significant changes noted. Patient had received aspirin by EMS. He had taken nitroglycerin at home and this did not seem to help his pain. I did order 25 mcg of fentanyl IV. Patient had a CBC with differential that showed a white count of 9.9 with hemoglobin 11.6 and platelet count of 221. Chemistries unremarkable. Troponin was normal at 15. D-dimer was 0.57. Chest x-ray 1 view obtained was interpreted by myself as no acute disease process and radiology in agreement. This point patient's heart score is a 6 and he is considered high risk for acute coronary syndrome. Etiology of his pain is unclear. We will discussed with hospitalist evaluate patient for admission for cardiac rule out. Lab Data Attestation: I reviewed the patient's lab results. Labs: Laboratory Results - last 24 hr 11/28/22 11/28/22 11/28/22 14:09 14:09 14:09 WBC 9.9 RBC 3.96 L Hgb 11.6 L Hct 33.6 L MCV 84.8 MCH 29.3 MCHC 34.5 RDW Std Deviation 49.1 H RDW Coeff of Isha 16.0 H Plt Count 221 MPV 9.9 Immature Gran % (Auto) 0.400 Neut % (Auto) 86.4 H Lymph % (Auto) 6.7 L [place] % (Auto) 5.3 Eos % (Auto) 1.0 Baso % (Auto) 0.2 Absolute Neuts (auto) 8.6 H Absolute Lymphs (auto) 0.67 L Nucleated RBC % 0 D-Dimer Quant (PE/DVT) 0.57 H* Sodium 127 L Potassium 5.8 H Chloride 95 L Carbon Dioxide 26.0 Anion Gap 6 BUN 21 H Creatinine 0.98 Estim Creat Clear Calc 82.48 Est GFR (MDRD) Af Amer 99 Est GFR (MDRD) Non-Af 81 BUN/Creatinine Ratio 21.4 H Glucose 68 L Calcium 9.4 Troponin I High Sens 15 Radiography Chest X-Ray - ED: 1 View Diagnostic Testing: Clinical Impression(s) from Imaging Studies Chest X-Ray 11/28/22 14:15 IMPRESSION: There are no acute findings. Electronically Signed: Trent Nogueira MD at 14:37 EDT Reading Location ID and State: [facility] / [place] , Service support , 1 view chest x-ray obtained interpreted by myself as no evidence of infiltrate or acute disease process. Radiology in agreement. EKG Initial EKG: Attestation: I personally reviewed and interpreted this EKG as follows: Comments: Sinus rhythm with a rate of 71 bpm with low voltage and a ventricular rate of 71 bpm Discharge Plan Triage Chief Complaint: Chest Pain ED Provider: Shannan Godwin Dx/Rx/DC Orders Clinical Impression: Chest pain, History of hypertension, History of coronary artery disease Prescriptions: No Action baclofen 10,000 mcg/20mL (500 mcg/mL) solution 0 mcg INTRATH CONT Rx Instructions: VIA PUMP abdominal cholecalciferol (vitamin D3) 125 mcg (5,000 unit) capsule 125 mcg PO DAILY gabapentin 400 mg capsule 400 mg PO TID PRN (Reason: LEG PAIN) sertraline [Zoloft] 50 mg tablet 50 mg PO QHS furosemide 40 mg tablet 40 mg PO DAILY PRN (Reason: edema) metoprolol succinate 25 mg tablet extended release 24 hr 25 mg PO DAILY Qty: 30 11RF baclofen 10 mg tablet 15 mg PO Q6H PRN (Reason: Spasms) Label Comments: TAKE 1 & 1/2 (ONE AND ONE-HALF) TABLETS BY MOUTH EVERY 6 HOURS NEEDED aspirin 81 mg Tablet,Chewable 81 mg PO DAILY levothyroxine 75 mcg tablet 75 mcg PO DAILY Label Comments: Take 1 tablet by mouth every morning atorvastatin 40 mg tablet 40 mg PO DAILY Brilinta 90 mg tablet 90 mg PO BID ranolazine 500 mg Tablet Extended Release 12 Hr 1,000 mg PO BID Qty: 60 1RF nitroglycerin 0.4 mg tablet, sublingual 0.4 mg sublingual Q5M PRN (Reason: chest pain) Qty: 25 3RF Rx Instructions: do not exceed 3 doses per episode isosorbide mononitrate 60 mg tablet extended release 24 hr 60 mg PO DAILY Qty: 90 3RF lisinopril 5 mg tablet 5 mg PO DAILY Qty: 90 3RF Primary Care Provider: Ritesh Castro Referrals: Ritesh Castro MD [Primary Care Provider] - Disposition Disposition: Acute Care Hospital [facility]
[2022-11-28] MEDS: 0.9% Normal Saline 1,000 ML 150 ML IV (14:10)
--- NOTE | 2022-11-28 14:15 | RAD_ITS ---
STUDY: XR Chest 1 View 11/28/2022 2:16 PM REASON FOR EXAM: Male, 67 years old. CHEST PAIN chest pain COMPARISON: 5.25.23 TECHNIQUE: XR Chest 1 View FINDINGS: There is no demonstrated pleural abnormality. Normal heart size. Normal mediastinum. Normal vandana. Prominent appearing increased interstitial lung markings. Normal visualized pulmonary arteries. There is atherosclerotic calcification of the aortic arch with tortuosity. There are diffuse degenerative changes of the visualized thoracic spine. There is degenerative osteoarthritis of the bilateral shoulders. There is no demonstrated abnormality of the visualized soft tissue structures of the upper abdomen. RAD/Chest 1 View (Portable) IMPRESSION: There are no acute findings. Electronically Signed: Trent Nogueira MD at 14:37 EDT ,
[2022-11-28 14:17] LABS: Absolute Lymphocyte Count 0.67 X10^3/uL (0.83-4.51); Absolute Neutrophil Count 8.6 X10^3/uL (2.0-7.7); Basophil# 0.02 X10^3/uL; Basophil% 0.2 % (0-1); Hematocrit 33.6 % (40-54); Hemoglobin 11.6 g/dL (13.0-16.5); Lymphocyte # 0.67 X10^3/ul (0.83-4.51); Lymphocyte % 6.7 % (19-41); Mean Corp Hgb Conc 34.5 g/dL (32-36); Mean Corpuscular Hgb 29.3 pg (27.0-32.0); Mean Corpuscular Volume 84.8 fL (80-94); Mean Platelet Vol. 9.9 fl (6.2-12.0); Monocyte# 0.53 X10^3/uL; Monocyte% 5.3 % (0-10); NRBC Flagged by Analyzer 0 % (0-5); Neutrophil # 8.57 X10^3/uL (2.7-7.7); Neutrophil % 86.4 % (47-70); Platelet Count 221 K/mm3 (150-450); RBC Distribution Width SD 49.1 fl (35.1-43.9); Red Blood Count 3.96 M/mm3 (4.6-6.2); White Blood Count 9.9 K/mm3 (4.4-11.0)
[2022-11-28 14:36] LABS: Anion Gap 6 (5-15); BUN 21 mg/dL (7-18); BUN/Creat Ratio 21.4 RATIO (10-20); Calcium,Total 9.4 mg/dL (8.5-10.1); Chloride 95 mmol/L (98-107); Creatinine, Serum 0.98 mg/dL (0.70-1.30); D-Dimer Quantitative (DVT/PE) 0.57 FEU/ug/m (0.27-0.49); EST Glomerular Filtration Rate 81 mL/min (>60); Est Glom Filt Rate - Afr Amer 99 mL/min (>60); Estimated Creatinine Clearance 82.48 ml/min; Glucose 68 mg/dL (74-106); Potassium 5.8 mmol/L (3.5-5.1); Sodium Level 127 mmol/L (136-145); Troponin-I HS (w/2H Reflex) 15 pg/mL (3.0-78.0)
--- NOTE | 2022-11-28 14:36 | ED.RN ---
DDIMER 0.57. DR SANDERS NOTIFIED
--- NOTE | 2022-11-28 15:49 | NURSING ---
DR PARK FOR DR SANDERS
[2022-11-28] MEDS: fentaNYL 100 MCG/2 ML Ampul 25 MCG IV (15:50)
--- NOTE | 2022-11-28 15:56 | NURSING ---
PCU OBS CHEST PAIN MARCYS
[2022-11-28 16:14] LABS: Reflex Troponin-HS? (from REC) Y
--- NOTE | 2022-11-28 16:21 | PCM.HP.STD ---
HPI - General General Date of Admission: 11/28/22 HPI Narrative NICOLASA FISCHER, is a 67 M who presents to the hospital with 5 out of 10 chest pain that is similar to the chest pain he had about a month ago. At that time he had an echo which was unremarkable and his troponins remained stable. Initial troponin in the ER was 15, and his pain started around 4 in the morning. He finds it intermittent but he does not think that it is ever completely resolved. He does have a history of MS. He had stents placed at a tertiary facility in the beginning of 2021 and given his triple-vessel disease he was told at that time that he was only a candidate for medical therapy. And he would likely be transferred to a tertiary center if he needed a heart cath. 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 HTN (hypertension) Multiple sclerosis Multiple sclerosis Multiple sclerosis exacerbation Multiple sclerosis, primary chronic progressive Multiple sclerosis, primary chronic progressive Muscle spasticity Muscle spasticity Neuromyelitis optica Neuromyelitis optica NSTEMI (non-ST elevated myocardial infarction) (11/01/19) Presence of stent in coronary artery (~07/08/21) Unstable angina pectoris Home Medications cholecalciferol (vitamin D3) 125 mcg (5,000 unit) capsule 125 mcg PO DAILY SUPPLEMENT 11/28/19 [History Last Taken 11/27/22] gabapentin 400 mg capsule 400 mg PO TID PRN LEG PAIN 03/10/21 [History Last Taken 11/27/22] nitroglycerin 0.4 mg sublingual tablet 0.4 mg sublingual Q5M PRN chest pain #25 tabs 07/06/21 [Rx Last Taken 11/28/22] sertraline 50 mg tablet (Zoloft) 50 mg PO QHS DEPRESSION/ANXIETY 12/20/21 [History Last Taken 11/27/22] aspirin 81 mg chewable tablet 81 mg PO DAILY HEART HEALTH 05/18/22 [History Last Taken 11/28/22] atorvastatin 40 mg tablet 40 mg PO DAILY CHOLESTEROL 05/18/22 [History Last Taken 11/27/22] baclofen 10 mg tablet 15 mg PO Q6H PRN Spasms 05/18/22 [History Last Taken 11/27/22] levothyroxine 75 mcg tablet 75 mcg PO DAILY THYROID 05/18/22 [History Last Taken 11/28/22] ticagrelor 90 mg tablet (Brilinta) 90 mg PO BID BLOOD THINNER 05/18/22 [History Last Taken 11/28/22] isosorbide mononitrate 60 mg tablet,extended release 24 hr 60 mg PO DAILY ANGINA #90 tabs 08/16/22 [Rx Last Taken 11/27/22] ranolazine 500 mg tablet,extended release,12 hr 1,000 mg PO BID #60 tabs 11/03/22 [Rx Last Taken 11/28/22] lisinopril 5 mg tablet 5 mg PO DAILY BLOOD PRESSURE #90 tabs 11/13/22 [Rx Last Taken 11/28/22] furosemide 40 mg tablet 40 mg PO DAILY PRN edema 11/23/22 [History Last Taken 11/25/22] metoprolol succinate 25 mg tablet,extended release 24 hr 25 mg PO DAILY #30 tabs 11/23/22 [Rx Last Taken 11/28/22] Allergy/AdvReac Type Severity Reaction Status Date / Time No Known Allergies Allergy Verified 11/25/22 14:02 Family History Mother CVA (cerebral vascular accident) Grandmother CVA (cerebral vascular accident) Father Liver disease due to alcohol Surgical History Hx of appendectomy Presence of coronary angioplasty implant and graft (~07/08/21) Social History (Updated 11/28/22 @ 17:08 by Candelaria Lazo) household members: none housing: apartment number of children: 4 current occupational status: disabled Smoking Status: Never smoker alcohol intake: current details: rare substance use type: does not use ROS Constitutional Constitutional: Denies chills, fatigue, fever(s) or malaise Eyes Eyes: Denies blurry vision ENT HEENT: Denies headache(s) or nasal discharge Cardiovascular Cardiovascular: Reports chest pain; Denies dyspnea on exertion or syncope Respiratory/Chest Respiratory/Chest: Denies cough, shortness of breath at rest or shortness of breath with exertion Gastrointestinal Gastrointestinal: Denies constipation, diarrhea, nausea or vomiting Genitourinary Genitourinary: Denies dysuria Neurologic Neurologic: Denies focal weakness, numbness or tremor(s) Psychiatric Psychiatric: Denies anxiety or depression Vital Signs Vital Signs Vital Signs: 11/28/22 13:40 11/28/22 13:45 11/28/22 13:49 Temperature 97.3 F L Temperature Source Temporal Pulse Rate 78 75 Respiratory Rate 18 13 Respiratory Effort Normal Blood Pressure 108/78 131/96 H Blood Pressure Mean 88 107 Pulse Ox 94 95 Oxygen Delivery Method Room Air Room Air 11/28/22 14:14 11/28/22 15:06 11/28/22 15:22 Temperature Temperature Source Pulse Rate 75 72 Respiratory Rate 20 H 12 Respiratory Effort Blood Pressure 155/95 H 149/92 H Blood Pressure Mean 115 111 Pulse Ox 95 95 Oxygen Delivery Method Room Air Room Air Room Air 11/28/22 15:52 Temperature 98.3 F Temperature Source Temporal Pulse Rate 87 Respiratory Rate 23 H Respiratory Effort Blood Pressure 144/89 H Blood Pressure Mean 107 Pulse Ox 94 Oxygen Delivery Method Room Air Weight Weight: 226 lb 13.69 oz Body Mass Index (BMI) 30.7 Physical Exam Narrative General: Alert, Oriented x3, Cooperative, No apparent distress HEENT: Atraumatic, PERRLA, EOMI, Normocephalic Oral: Moist Mucosa Neck: Supple, No JVD Lungs: Clear to auscultation, Normal air movement, No rhonchi, No wheeze, No rales Cardiovascular: Regular rate, Regular Rhythm, Normal S1, Normal S2, No murmurs Abdomen: Soft, Non Tender, Non-Distended, No Hepato-splenomegaly Extremities: No edema, Capillary Refill Less than 3 Seconds Skin: No rashes, No breakdown Musculoskeletal: No Tenderness to Palpation of Joints or Extremities Neurological: Highly diminished motor activity in his legs and his left upper extremity due to MS, chronic neurological symptoms are at baseline Psych/Mental Status: Normal Affect, anxious Results Lab / Micro Data Result Diagrams: 11/29/22 05:10 11/29/22 05:10 Labs: Laboratory Results - last 24 hr 11/28/22 14:09: WBC 9.9, RBC 3.96 L, Hgb 11.6 L, Hct 33.6 L, MCV 84.8, MCH 29.3, MCHC 34.5, RDW Std Deviation 49.1 H, RDW Coeff of Isha 16.0 H, Plt Count 221, MPV 9.9, Immature Gran % (Auto) 0.400, Neut % (Auto) 86.4 H, Lymph % (Auto) 6.7 L, [place] % (Auto) 5.3, Eos % (Auto) 1.0, Baso % (Auto) 0.2, Absolute Neuts (auto) 8.6 H, Absolute Lymphs (auto) 0.67 L, Nucleated RBC % 0 11/28/22 14:09: D-Dimer Quant (PE/DVT) 0.57 H* 11/28/22 14:09: Sodium 127 L, Potassium 5.8 H, Chloride 95 L, Carbon Dioxide 26.0, Anion Gap 6, BUN 21 H, Creatinine 0.98, Estim Creat Clear Calc 82.48, Est GFR (MDRD) Af Amer 99, Est GFR (MDRD) Non-Af 81, BUN/Creatinine Ratio 21.4 H, Glucose 68 L, Calcium 9.4, Troponin I High Sens 15 Radiology Impression Chest X-Ray 11/28/22 14:15 IMPRESSION: There are no acute findings. Electronically Signed: Trent Nogueira MD at 14:37 EDT Reading Location ID and State: [facility] / [place] , Service support , Assessment & Plan Assessment/Plan (1) Chest pain: PLAN: Plan 1. Chest pain/CAD status post stent/HTN//HLD ? Initial troponin is unremarkable we will obtain serial troponins ? At this point given his cardiac history a stress test is likely unhelpful therefore plan will be that if his troponins stay negative he will be discharged to follow-up with cardiology if his troponins do increased consults will be placed to cardiology and he would likely need transfer to a tertiary center ? We will resume all of his home cardiac medications 2. Hypothyroidism ? Stable ? Continue Synthroid 3. Anxiety/depression ? Stable ? Continue with his home medications ? Given his chronic diagnosis of MS I do recommend that he follow-up with therapy 4. Primary progressive MS ? He states that he is not a candidate for any further medications that he was initially diagnosed in 2013 and it has progressed to the point where he is now wheelchair-bound in a motorized wheelchair ? She does take baclofen and has a baclofen pump secondary to muscle spasms due to his MS DVT: Low risk 75 minutes was spent on direct patient care as well as chart review and collaboration with colleagues Charges/Coding Visit Charges Inpatient E&M: 26790 Init Hosp L3
[2022-11-28 17:06] LABS: Troponin-I HS 14 pg/mL (3.0-78.0)
[2022-11-28] MEDS: Baclofen 10 MG Tablet 15 MG PO (18:41)
[2022-11-28 20:47] LABS: Troponin-I HS 14 pg/mL (3.0-78.0)
[2022-11-28] MEDS: TICAGRELOR 90 MG TABLET PO (21:20)
[2022-11-28] MEDS: Sertraline 50 MG Tablet PO (21:21)
[2022-11-28] MEDS: Atorvastatin Calcium 40 MG Tablet PO (21:21)
[2022-11-28] MEDS: Ranolazine 500 MG Tablet 1000 MG PO (21:21)
[2022-11-28] MEDS: 0.9% Saline Lock 10 ML Syringe IV (21:56)
[2022-11-29] VITALS (7 sets, daily range): BP systolic 135–168; BP diastolic 76–97; PULSE 75–91; RESP 16–18; TEMP 36.1–36.6; O2SAT 93–97
[2022-11-29] MEDS: Levothyroxine 75 MCG Tablet PO (05:11)
[2022-11-29 05:47] LABS: Absolute Lymphocyte Count 0.56 X10^3/uL (0.83-4.51); Basophil# 0.03 X10^3/uL; Basophil% 0.4 % (0-1); Eosinophil# 0.11 X10^3/uL; Eosinophils% 1.5 % (0-5); Hematocrit 34.3 % (40-54); Lymphocyte # 0.56 X10^3/ul (0.83-4.51); Lymphocyte % 7.7 % (19-41); Mean Corpuscular Hgb 29.9 pg (27.0-32.0); Mean Corpuscular Volume 85.5 fL (80-94); Mean Platelet Vol. 9.9 fl (6.2-12.0); Monocyte# 0.56 X10^3/uL; Monocyte% 7.7 % (0-10); NRBC Flagged by Analyzer 0 % (0-5); POSITIVE DIFFERENTIAL YES; Platelet Count 231 K/mm3 (150-450); RBC Distribution Width CV 15.9 % (11.6-14.6); RBC Distribution Width SD 49.3 fl (35.1-43.9); Red Blood Count 4.01 M/mm3 (4.6-6.2); White Blood Count 7.3 K/mm3 (4.4-11.0)
[2022-11-29 06:01] LABS: Differential Indicated SCAN CRITERIA MET
[2022-11-29 06:07] LABS: Differential Comment SCANNED
[2022-11-29 06:21] LABS: Anion Gap 6 (5-15); BUN 19 mg/dL (7-18); BUN/Creat Ratio 23.3 RATIO (10-20); Calcium,Total 9.4 mg/dL (8.5-10.1); Chloride 101 mmol/L (98-107); Creatinine, Serum 0.82 mg/dL (0.70-1.30); EST Glomerular Filtration Rate 101 mL/min (>60); Est Glom Filt Rate - Afr Amer 122 mL/min (>60); Estimated Creatinine Clearance 98.58 ml/min; Glucose 59 mg/dL (74-106); Potassium 5.2 mmol/L (3.5-5.1); Sodium Level 131 mmol/L (136-145)
[2022-11-29] MEDS: Metoprolol(XL)Succ 25 MG Tablet PO (08:36)
[2022-11-29] MEDS: Lisinopril 5 MG Tablet PO (08:36)
[2022-11-29] MEDS: TICAGRELOR 90 MG TABLET PO (08:37)
[2022-11-29] MEDS: Cholecalciferol (Vit D3) 125 MCG CAPSULE (5,000 UNITS) PO (08:37)
[2022-11-29] MEDS: Ranolazine 500 MG Tablet 1000 MG PO (08:37)
[2022-11-29] MEDS: Aspirin 81 MG TAB.CHEW PO (08:38)
[2022-11-29] MEDS: Isosorbide Mononitrate 60 MG Tablet PO (08:40)
--- NOTE | 2022-11-29 10:19 | PCM.DC ---
Discharge Instructions Diet Discharge Diet: Low fat / Low cholesterol Activity Discharge Activity: Return to Normal Activity Dressing / Incision Call your doctor if you observe: Fever of 101 or Higher, Shortness of breath, Dizziness, Fainting spells, Swelling in the ankles, Chest pain and Increased palpitations (irregular heartbeat) Follow Up Care Test Results: Test results from this visit will be discussed in further detail at your follow-up appointment, if applicable. Discharge Plan Admission Admit Date/Time: 11/28/22 15:56 Attending Provider: Wilber Bhardwaj Primary Care Provider: Ritesh Castro Instructions Additional Instructions / Restrictions: If you notice that your blood pressure after taking medications is lower in the morning then you can consider taking your isosorbide mononitrate as well as your lisinopril at bedtime and take the rest of your medications in the morning Discharge Orders/Prescriptions Prescriptions: Continued cholecalciferol (vitamin D3) 125 mcg (5,000 unit) capsule 125 mcg PO DAILY gabapentin 400 mg capsule 400 mg PO TID PRN (Reason: LEG PAIN) sertraline [Zoloft] 50 mg tablet 50 mg PO QHS furosemide 40 mg tablet 40 mg PO DAILY PRN (Reason: edema) metoprolol succinate 25 mg tablet extended release 24 hr 25 mg PO DAILY Qty: 30 11RF baclofen 10 mg tablet 15 mg PO Q6H PRN (Reason: Spasms) Label Comments: TAKE 1 & 1/2 (ONE AND ONE-HALF) TABLETS BY MOUTH EVERY 6 HOURS NEEDED aspirin 81 mg Tablet,Chewable 81 mg PO DAILY levothyroxine 75 mcg tablet 75 mcg PO DAILY Label Comments: Take 1 tablet by mouth every morning atorvastatin 40 mg tablet 40 mg PO DAILY Brilinta 90 mg tablet 90 mg PO BID ranolazine 500 mg Tablet Extended Release 12 Hr 1,000 mg PO BID Qty: 60 1RF nitroglycerin 0.4 mg tablet, sublingual 0.4 mg sublingual Q5M PRN (Reason: chest pain) Qty: 25 3RF Rx Instructions: do not exceed 3 doses per episode isosorbide mononitrate 60 mg tablet extended release 24 hr 60 mg PO DAILY Qty: 90 3RF lisinopril 5 mg tablet 5 mg PO DAILY Qty: 90 3RF Referrals / Follow Up: Ritesh Castro MD [Primary Care Provider] - 12/07/22 3:00 pm Odell Paz EMPLOYEE RELATIONS ADVISOR, EMPLOYEE RELATIONS ADVISOR-C [Med Staff - Adv Practice Prof] - 12/29/22 10:00 am Disposition Disposition (needs filled in before D/C Order can be placed): Home, Self Care
--- NOTE | 2022-11-29 10:25 | PHA.DC.MR ---
Pharmacy Service has performed discharge medication reconciliation for this patient. The patient's discharge medication list was reviewed for discrepancies and discrepancies were resolved. Home Medications cholecalciferol (vitamin D3) 125 mcg (5,000 unit) capsule 125 mcg PO DAILY SUPPLEMENT 11/28/19 gabapentin 400 mg capsule 400 mg PO TID PRN LEG PAIN 03/10/21 nitroglycerin 0.4 mg sublingual tablet 0.4 mg sublingual Q5M PRN chest pain #25 tabs 07/06/21 sertraline 50 mg tablet (Zoloft) 50 mg PO QHS DEPRESSION/ANXIETY 12/20/21 aspirin 81 mg chewable tablet 81 mg PO DAILY HEART HEALTH 05/18/22 atorvastatin 40 mg tablet 40 mg PO DAILY CHOLESTEROL 05/18/22 baclofen 10 mg tablet 15 mg PO Q6H PRN Spasms 05/18/22 levothyroxine 75 mcg tablet 75 mcg PO DAILY THYROID 05/18/22 ticagrelor 90 mg tablet (Brilinta) 90 mg PO BID BLOOD THINNER 05/18/22 isosorbide mononitrate 60 mg tablet,extended release 24 hr 60 mg PO DAILY ANGINA #90 tabs 08/16/22 ranolazine 500 mg tablet,extended release,12 hr 1,000 mg PO BID #60 tabs 11/03/22 lisinopril 5 mg tablet 5 mg PO DAILY BLOOD PRESSURE #90 tabs 11/13/22 furosemide 40 mg tablet 40 mg PO DAILY PRN edema 11/23/22 metoprolol succinate 25 mg tablet,extended release 24 hr 25 mg PO DAILY #30 tabs 11/23/22
--- NOTE | 2022-11-29 12:07 | CASEMGMT ---
Patient is ready for discharge home. Patient will need ambulance ride home due to having MS. TAVO spoke with patient and his aide Steve will be there when he gets home. However, she cannot be there until 430. TAVO called [facility] and arranged for patient to get picked up at 430 via cot. TAVO notified RN and national secretary. Siria Floyd CUT OUT WORKER KRISTAL
--- NOTE | 2022-11-29 13:29 | CHAPLAIN ---
Type of Pastoral Visit _x__ Initial Visit ___ Follow-up Visit ___ On-call Visit ___ General Patient Visit ___ Spiritual Assessment ___ Family Conference ___ Bereavement ___ Rapid Response ___ Code Blue ___ Other (describe below) Pastoral Care Referral From _x__ Patient ___ Family ___ Nurse ___ Physician ___ Content Checker ___ Subway Guard ___ Other (describe below) Sacrament/Intervention _x__ Active listening ___ Anointing ___ Roman Catholic ___ Bereavement ___ Communion _x__ Naomy exploration ___ _x__ Life review _x__ Prayer ___ Reconciliation ___ Sacrament of Sick _x__ Supportive presence ___ Wedding ___ Other (describe below) Pastoral Comments patient welcoming of presence as he admits to feelings of apprehension and anxiety on going home alone with developing heart issue; pt stays alone but has an aide for several hours and children live in the area; pt has an alert button also; pt believes that if he can get through a few days without incident that he will feel better; pt acknowledges that he may need to have family meeting to discuss a move in a facility; discussion to identify other things that give calm and peace; pt acknowledges that he prays for help and welcomes prayer at this time too; pt expresses thanks for the concern and time
--- NOTE | 2022-11-29 15:21 | PCM.DC.SUM ---
Providers Date of Admission: 11/28/22 Primary Care Physician: Dr. Ritesh Castro MD Reason For Visit: Chest pain Diagnosis Discharge Diagnosis (1) Chest pain: Status: Acute Code(s): R07.9 - Chest pain, unspecified Medications at Discharge Home Medications cholecalciferol (vitamin D3) 125 mcg (5,000 unit) capsule 125 mcg PO DAILY SUPPLEMENT 11/28/19 gabapentin 400 mg capsule 400 mg PO TID PRN LEG PAIN 03/10/21 nitroglycerin 0.4 mg sublingual tablet 0.4 mg sublingual Q5M PRN chest pain #25 tabs 07/06/21 sertraline 50 mg tablet (Zoloft) 50 mg PO QHS DEPRESSION/ANXIETY 12/20/21 aspirin 81 mg chewable tablet 81 mg PO DAILY HEART HEALTH 05/18/22 atorvastatin 40 mg tablet 40 mg PO DAILY CHOLESTEROL 05/18/22 baclofen 10 mg tablet 15 mg PO Q6H PRN Spasms 05/18/22 levothyroxine 75 mcg tablet 75 mcg PO DAILY THYROID 05/18/22 ticagrelor 90 mg tablet (Brilinta) 90 mg PO BID BLOOD THINNER 05/18/22 isosorbide mononitrate 60 mg tablet,extended release 24 hr 60 mg PO DAILY ANGINA #90 tabs 08/16/22 ranolazine 500 mg tablet,extended release,12 hr 1,000 mg PO BID #60 tabs 11/03/22 lisinopril 5 mg tablet 5 mg PO DAILY BLOOD PRESSURE #90 tabs 11/13/22 furosemide 40 mg tablet 40 mg PO DAILY PRN edema 11/23/22 metoprolol succinate 25 mg tablet,extended release 24 hr 25 mg PO DAILY #30 tabs 11/23/22 Hospital Course Operations None Procedures None Summary of Care Provided Minutes Spent on Discharge: 36 Hospital Course: Per HPI: NICOLASA FISCHER, is a 67 M who presents to the hospital with 5 out of 10 chest pain that is similar to the chest pain he had about a month ago.? At that time he had an echo which was unremarkable and his troponins remained stable.? Initial troponin in the ER was 15, and his pain started around 4 in the morning.? He finds it intermittent but he does not think that it is ever completely resolved.? He does have a history of MS.? He had stents placed at a tertiary facility in the beginning of 2021 and given his triple-vessel disease he was told at that time that he was only a candidate for medical therapy.? And he would likely be transferred to a tertiary center if he needed a heart cath. Hospital Course: 1. Chest pain/CAD status post stent/HTN/HLD?67-year-old male with a history of MS who is wheelchair-bound presents to the hospital with chest pain. He says it is a similar pain/pressure that occurred a month ago in October. At that time troponins were unremarkable and given his triple-vessel disease he is not a candidate for heart bypass and he would be a risky stent that would need to be transferred to a tertiary care center. At that point they elected for medical management. His presentation this time was very similar to October and his troponins were all unremarkable. He did have an echo during his October admission so that was not repeated during this admission. In discussing his medical history, I do think it is that a large proportion of his issues could be due to anxiety secondary to the obvious prognosis of primary progressive MS and we discussed the role for therapy both individual and with his children given his diagnosis and his prognosis. No changes were made to his medications, he was concerned about some hypotension that would occur periodically with his metoprolol and looking on his medications I discussed with him that if he does notice any episodes of hypotension that he could transition to taking his isosorbide and his lisinopril at night before bed and taking his metoprolol and Lasix in the morning. I do recommend he follow-up with cardiology on discharge. I discussed with him the plan for possible discharge today and he expressed understanding of the risk benefits of going home and would like to go home today. He denies any further chest pain today. 2. Hypothyroidism, anxiety, depression, primary progressive MS are all chronic medical conditions which complicate his care. His home medications were continued where appropriate Physical Exam Narrative General: Alert, Oriented x3, Cooperative, No apparent distress HEENT: Atraumatic, PERRLA, EOMI, Normocephalic Oral: Moist Mucosa Neck: Supple, No JVD Lungs: Clear to auscultation, Normal air movement, No rhonchi, No wheeze, No rales Cardiovascular: Regular rate, Regular Rhythm, Normal S1, Normal S2, No murmurs Abdomen: Soft, Non Tender, Non-Distended, No Hepato-splenomegaly Extremities: No edema, Capillary Refill Less than 3 Seconds Skin: No rashes, No breakdown Musculoskeletal: No Tenderness to Palpation of Joints or Extremities Neurological: Highly diminished motor activity in his legs and his left upper extremity due to MS, chronic neurological symptoms are at baseline Psych/Mental Status: Normal Affect, anxious Weight / BMI Weight Weight: 222 lb 0.088 oz Body Mass Index (BMI) 30.1 ABG / Lab / Microbiology Data Result Diagrams: 11/29/22 05:10 11/29/22 05:10 Laboratory: Laboratory Results - last 24 hr 11/28/22 16:31: Troponin I High Sens 14 11/28/22 19:47: Troponin I High Sens 14 11/29/22 05:10: Sodium 131 L, Potassium 5.2 H, Chloride 101, Carbon Dioxide 24.0, Anion Gap 6, BUN 19 H, Creatinine 0.82, Estim Creat Clear Calc 98.58, Est GFR (MDRD) Af Amer 122, Est GFR (MDRD) Non-Af 101, BUN/Creatinine Ratio 23.3 H, Glucose 59 L, Calcium 9.4 11/29/22 05:10: WBC 7.3, RBC 4.01 L, Hgb 12.0 L, Hct 34.3 L, MCV 85.5, MCH 29.9, MCHC 35.0, RDW Std Deviation 49.3 H, RDW Coeff of Isha 15.9 H, Plt Count 231, MPV 9.9, Immature Gran % (Auto) 0.700, Neut % (Auto) 82.0 H, Lymph % (Auto) 7.7 L, [place] % (Auto) 7.7, Eos % (Auto) 1.5, Baso % (Auto) 0.4, Absolute Neuts (auto) 6.0, Absolute Lymphs (auto) 0.56 L, Nucleated RBC % 0, Differential Comment SCANNED D/C Instructions Discharge Diet: Low fat / Low cholesterol Call your doctor if you observe: Fever of 101 or Higher, Shortness of breath, Dizziness, Fainting spells, Swelling in the ankles, Chest pain and Increased palpitations (irregular heartbeat) Meaningful Use Info Meaningful Use Diagnoses (Choose all that apply): None applicable Discharge Plan Admission Admit Date/Time: 11/28/22 15:56 Attending Provider: Wilber Bhardwaj Primary Care Provider: Ritesh Castro Instructions Additional Instructions / Restrictions: If you notice that your blood pressure after taking medications is lower in the morning then you can consider taking your isosorbide mononitrate as well as your lisinopril at bedtime and take the rest of your medications in the morning Discharge Orders/Prescriptions Prescriptions: Continued cholecalciferol (vitamin D3) 125 mcg (5,000 unit) capsule 125 mcg PO DAILY gabapentin 400 mg capsule 400 mg PO TID PRN (Reason: LEG PAIN) sertraline [Zoloft] 50 mg tablet 50 mg PO QHS furosemide 40 mg tablet 40 mg PO DAILY PRN (Reason: edema) metoprolol succinate 25 mg tablet extended release 24 hr 25 mg PO DAILY Qty: 30 11RF baclofen 10 mg tablet 15 mg PO Q6H PRN (Reason: Spasms) Label Comments: TAKE 1 & 1/2 (ONE AND ONE-HALF) TABLETS BY MOUTH EVERY 6 HOURS NEEDED aspirin 81 mg Tablet,Chewable 81 mg PO DAILY levothyroxine 75 mcg tablet 75 mcg PO DAILY Label Comments: Take 1 tablet by mouth every morning atorvastatin 40 mg tablet 40 mg PO DAILY Brilinta 90 mg tablet 90 mg PO BID ranolazine 500 mg Tablet Extended Release 12 Hr 1,000 mg PO BID Qty: 60 1RF nitroglycerin 0.4 mg tablet, sublingual 0.4 mg sublingual Q5M PRN (Reason: chest pain) Qty: 25 3RF Rx Instructions: do not exceed 3 doses per episode isosorbide mononitrate 60 mg tablet extended release 24 hr 60 mg PO DAILY Qty: 90 3RF lisinopril 5 mg tablet 5 mg PO DAILY Qty: 90 3RF Referrals / Follow Up: Ritesh Castro MD [Primary Care Provider] - 12/07/22 3:00 pm Odell Paz NP, [facility] [Med Staff - [facility] Practice Prof] - 12/29/22 10:00 am Disposition Disposition (needs filled in before D/C Order can be placed): Home, Self Care Charges/Coding Visit Charges Inpatient E&M: 78958 Disch Hosp >30min
--- NOTE | 2022-11-29 17:04 | NURSING ---
Patient discharged to home via ambulance.
== END 2022-11-29 16:37 | disposition home or self-care (01) ==
LOC: ED 15:28 → PCU 16:25
PROVIDERS: Admitting Provider Family Medicine; Emergency Provider Emergency Medicine; PCP Family Medicine; Visit Provider Family Medicine
DX: R07.89 Other chest pain (principal); G35 Multiple sclerosis; E03.9 Hypothyroidism, unspecified; Z79.82 Long term (current) use of aspirin; F41.9 Anxiety disorder, unspecified; I10 Essential (primary) hypertension; I25.10 Atherosclerotic heart disease of native coronary artery without angina pectoris; Z79.02 Long term (current) use of antithrombotics/antiplatelets; E78.5 Hyperlipidemia, unspecified; R20.2 Paresthesia of skin; Z95.5 Presence of coronary angioplasty implant and graft; I25.2 Old myocardial infarction; Z79.899 Other long term (current) drug therapy; Z79.890 Hormone replacement therapy; F32.A Depression, unspecified
CPT/HCPCS: 36415; 71045; 80048; 84484; 85025; 85379; 93005; 96361; 96374; 99221; 99285; J7030; A4216; G0378

== ENCOUNTER 2022-11-30 18:02 | Emergency (ER) | payer MEDICARE, MEDICAID, SELFPAY ==
[2022-11-30 18:05] VITALS: BP 161/101; PULSE 68; RESP 23; TEMP 37.1; O2SAT 97; BMI 29.4
[2022-11-30 19:30] LABS: Troponin-I HS 15 pg/mL (3.0-78.0)
[2022-11-30 19:33] VITALS: BP 150/90; PULSE 77; RESP 20; O2SAT 95
--- NOTE | 2022-11-30 19:43 | EX.ED.DYSGE1 ---
HPI <TAWANDA Mitchell - Last Filed: 11/30/22 20:42> History of Present Illness Chief Complaint: Hypertension Narrative Narrative: Patient presenting today due to constant midsternal chest heaviness that he has had since 11/28/2022. He reports that he came to the ED that day and was admitted for observation, he was discharged 11/29/2022. Upon discharge, he still was experiencing the chest heaviness, it has not worsened in severity. However, earlier this evening he became concerned because his blood pressure was 158/109 and wanted to come in for evaluation. He reports a history of cardiac stenting and a prior GA that took place in 2019. He was told at that time he was not a candidate for bypass for his triple-vessel disease due to his immobility from multiple sclerosis and was treated medically instead. He has taken 3 nitros today to try to bring his blood pressure down. He denies any fever, chills, shortness of breath, abdominal pain, nausea, and vomiting. 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 HTN (hypertension) Multiple sclerosis Multiple sclerosis Multiple sclerosis exacerbation Multiple sclerosis, primary chronic progressive Multiple sclerosis, primary chronic progressive Muscle spasticity Muscle spasticity Neuromyelitis optica Neuromyelitis optica NSTEMI (non-ST elevated myocardial infarction) (11/01/19) Presence of stent in coronary artery (~07/08/21) Unstable angina pectoris Home Medications cholecalciferol (vitamin D3) 125 mcg (5,000 unit) capsule 125 mcg PO DAILY SUPPLEMENT 11/28/19 [History Last Taken 11/27/22] gabapentin 400 mg capsule 400 mg PO TID PRN LEG PAIN 03/10/21 [History Last Taken 11/27/22] nitroglycerin 0.4 mg sublingual tablet 0.4 mg sublingual Q5M PRN chest pain #25 tabs 07/06/21 [Rx Last Taken 11/28/22] sertraline 50 mg tablet (Zoloft) 50 mg PO QHS DEPRESSION/ANXIETY 12/20/21 [History Last Taken 11/27/22] aspirin 81 mg chewable tablet 81 mg PO DAILY HEART HEALTH 05/18/22 [History Last Taken 11/28/22] atorvastatin 40 mg tablet 40 mg PO DAILY CHOLESTEROL 05/18/22 [History Last Taken 11/27/22] baclofen 10 mg tablet 15 mg PO Q6H PRN Spasms 05/18/22 [History Last Taken 11/27/22] levothyroxine 75 mcg tablet 75 mcg PO DAILY THYROID 05/18/22 [History Last Taken 11/28/22] ticagrelor 90 mg tablet (Brilinta) 90 mg PO BID BLOOD THINNER 05/18/22 [History Last Taken 11/28/22] isosorbide mononitrate 60 mg tablet,extended release 24 hr 60 mg PO DAILY ANGINA #90 tabs 08/16/22 [Rx Last Taken 11/27/22] ranolazine 500 mg tablet,extended release,12 hr 1,000 mg PO BID #60 tabs 11/03/22 [Rx Last Taken 11/28/22] lisinopril 5 mg tablet 5 mg PO DAILY BLOOD PRESSURE #90 tabs 11/13/22 [Rx Last Taken 11/28/22] furosemide 40 mg tablet 40 mg PO DAILY PRN edema 11/23/22 [History Last Taken 11/25/22] metoprolol succinate 25 mg tablet,extended release 24 hr 25 mg PO DAILY #30 tabs 11/23/22 [Rx Last Taken 11/28/22] Allergy/AdvReac Type Severity Reaction Status Date / Time No Known Allergies Allergy Verified 11/25/22 14:02 Family History Mother CVA (cerebral vascular accident) Grandmother CVA (cerebral vascular accident) Father Liver disease due to alcohol Surgical History Hx of appendectomy Presence of coronary angioplasty implant and graft (~07/08/21) Social History household members: none housing: apartment number of children: 4 current occupational status: disabled Smoking Status: Never smoker alcohol intake: current details: rare substance use type: does not use ROS <TAWANDA Mitchell - Last Filed: 11/30/22 20:42> ROS ED Constitutional Constitutional ED: Denies chills or fever(s) Cardiovascular Cardiovascular: Reports chest pain; Denies palpitations Respiratory/Chest Respiratory/Chest: Denies cough or dyspnea Gastrointestinal Gastrointestinal: Denies abdominal pain, nausea or vomiting Musculoskeletal Musculoskeletal: Denies arthralgias or myalgias Neurologic Neurologic: Denies weakness EXAM <TAWANDA Mitchell - Last Filed: 11/30/22 20:42> Physical Exam Const Vital Signs: 11/30/22 18:05 11/30/22 19:33 11/30/22 20:13 Temperature 98.7 F Temperature Source Oral Pulse Rate 68 77 69 Respiratory Rate 23 H 20 H 25 H Blood Pressure 161/101 H 150/90 H 145/100 H Blood Pressure Mean 121 110 Pulse Ox 97 95 96 Oxygen Delivery Method Room Air Room Air Positive well nourished, well developed and no apparent distress General Appearance ED: well developed HEENT Reports normocephalic and head/scalp atraumatic Mouth ED: Yes moist mucous membranes normal Eyes PERRL and EOMs intact bilaterally Neck full ROM and supple Chest Wall inspection of chest normal Resp normal respiratory effort and clear to auscultation bilaterally Cardio regular rate and regular rhythm GI soft to palpation, non-tender, non-distended and no masses Back/Spine normal ROM and normal to inspection Extremity normal to inspection and full ROM Neuro oriented x3, CN's II-XII intact bilaterally, moves all extremities, no focal motor deficits and no sensory deficits noted Sensorium / Orientation: awake and alert Psych mental status grossly normal and thought process normal Skin no rashes or lesions noted and no wounds <Dr. Manuel Bobby MD - Last Filed: 11/30/22 22:02> Physical Exam Const Vital Signs: 11/30/22 18:05 11/30/22 19:33 11/30/22 20:13 Temperature 98.7 F Temperature Source Oral Pulse Rate 68 77 69 Respiratory Rate 23 H 20 H 25 H Blood Pressure 161/101 H 150/90 H 145/100 H Blood Pressure Mean 121 110 Pulse Ox 97 95 96 Oxygen Delivery Method Room Air Room Air MDM <TAWANDA Mitchell - Last Filed: 11/30/22 20:42> MDM MDM Narrative Medical decision making narrative: Patient presenting today for evaluation for his elevated blood pressure that has been elevated since this morning and midsternal chest pressure that he has had for the past 2 days that is unchanged. Blood pressure here is 150/90. He is well-appearing and in no acute distress. Patient was just discharged from the hospital yesterday after being admitted on 11/28 due to the midsternal chest discomfort he is still experiencing. Troponins were monitored while in the hospital and he was discharged home in stable condition. He does have a history of GA and stent placement. Given he just had laboratory work performed, I will just order a troponin and EKG to rule out ACS. Troponin is WNL, EKG shows a first-degree AV block with no ST elevation. At this point, I think would be most appropriate for him to follow-up with his PCP. Repeat blood pressure is 145/100. He will be discharged home in stable condition and is comfortable with plan. Lab Data Attestation: I reviewed the patient's lab results. Labs: Laboratory Results - last 24 hr 11/30/22 18:41 Troponin I High Sens 15 EKG Initial EKG: Comments: 67 bpm, sinus rhythm with first-degree AV block, left axis deviation, no ST elevation, reviewed and interpreted by attending ED physician <Dr. Manuel Bobby MD - Last Filed: 11/30/22 22:02> [facility] Narrative Medical decision making narrative: Patient presenting today for evaluation for his elevated blood pressure that has been elevated since this morning and midsternal chest pressure that he has had for the past 2 days that is unchanged. Blood pressure here is 150/90. He is well-appearing and in no acute distress. Patient was just discharged from the hospital yesterday after being admitted on 11/28 due to the midsternal chest discomfort he is still experiencing. Troponins were monitored while in the hospital and he was discharged home in stable condition. He does have a history of GA and stent placement. Given he just had laboratory work performed, I will just order a troponin and EKG to rule out ACS. Troponin is WNL, EKG shows a first-degree AV block with no ST elevation. At this point, I think would be most appropriate for him to follow-up with his PCP. Repeat blood pressure is 145/100. He will be discharged home in stable condition and is comfortable with plan. I have personally performed a face to face assessment of the patient and have reviewed the BING Note. I performed a substantive portion of the visit including all aspects of the following. My luna findings include: History is for continuous pain. Patient had similar presentation and was admitted to the hospital on November 28. He had serial enzymes which were all negative. He was discharged home in stable condition with persistent chest pain. Patient was concerned because his blood pressure was elevated. Patient was told from an emergency medicine standpoint the blood pressure needs to be much higher than what he is telling us for us to be concerned. There are no symptoms to suggest thoracic aortic dissection. He has no neurologic symptoms. He has no GI symptoms. Exam is elderly gentleman who appears in no distress. HEENT exam is unremarkable. Heart is regular. Rate is normal. There is no murmur, gallop or rub. Lungs are clear to auscultation with no labored breathing. Breath sounds are symmetric. Abdomen is soft nontender with no palp pulsatile mass or abdominal bruit. Medical Decision Making EKG was obtained which was normal. Troponin was repeated which is normal. With days of pain and a normal EKG and normal troponin patient was informed this is not his heart. Patient was informed based on review of his records the etiology of his chest pain is unknown. He needs to follow-up with his doctor to investigate things that are other than his heart. Other additions or changes: [None] Lab Data Labs: Laboratory Results - last 24 hr 11/30/22 18:41 Troponin I High Sens 15 Discharge Plan Triage Chief Complaint: Hypertension ED Midlevel Provider: Hope Damon ED Provider: Manuel Bobby Dx/Rx/DC Orders Clinical Impression: Hypertension, Chest pressure Instructions: ED Chest Pain, Uncertain Cause, ED Hypertension, Established Prescriptions: No Action cholecalciferol (vitamin D3) 125 mcg (5,000 unit) capsule 125 mcg PO DAILY gabapentin 400 mg capsule 400 mg PO TID PRN (Reason: LEG PAIN) sertraline [Zoloft] 50 mg tablet 50 mg PO QHS furosemide 40 mg tablet 40 mg PO DAILY PRN (Reason: edema) metoprolol succinate 25 mg tablet extended release 24 hr 25 mg PO DAILY Qty: 30 11RF baclofen 10 mg tablet 15 mg PO Q6H PRN (Reason: Spasms) Label Comments: TAKE 1 & 1/2 (ONE AND ONE-HALF) TABLETS BY MOUTH EVERY 6 HOURS NEEDED aspirin 81 mg Tablet,Chewable 81 mg PO DAILY levothyroxine 75 mcg tablet 75 mcg PO DAILY Label Comments: Take 1 tablet by mouth every morning atorvastatin 40 mg tablet 40 mg PO DAILY Brilinta 90 mg tablet 90 mg PO BID ranolazine 500 mg Tablet Extended Release 12 Hr 1,000 mg PO BID Qty: 60 1RF nitroglycerin 0.4 mg tablet, sublingual 0.4 mg sublingual Q5M PRN (Reason: chest pain) Qty: 25 3RF Rx Instructions: do not exceed 3 doses per episode isosorbide mononitrate 60 mg tablet extended release 24 hr 60 mg PO DAILY Qty: 90 3RF lisinopril 5 mg tablet 5 mg PO DAILY Qty: 90 3RF Primary Care Provider: Ritesh Castro Referrals: Ritesh Castro MD [Primary Care Provider] - 3-5 Days Activity Restrictions/Additional Instructions: Please follow-up with your PCP, return for any worsening symptoms. Disposition Disposition: Home, Self Care Discharge Date/Time: 11/30/22 21:33
[2022-11-30 20:13] VITALS: BP 145/100; PULSE 69; RESP 25; O2SAT 96
== END 2022-11-30 21:33 | disposition home or self-care (01) ==
PROVIDERS: Physician Assistant; Emergency Provider Emergency Medicine; PCP Family Medicine; Visit Provider Emergency Medicine
DX: I10 Essential (primary) hypertension (principal); I25.119 Atherosclerotic heart disease of native coronary artery with unspecified angina pectoris; R07.89 Other chest pain; Z95.5 Presence of coronary angioplasty implant and graft; I25.2 Old myocardial infarction; Z79.899 Other long term (current) drug therapy; F32.A Depression, unspecified; Z79.82 Long term (current) use of aspirin; Z79.02 Long term (current) use of antithrombotics/antiplatelets; Z90.49 Acquired absence of other specified parts of digestive tract
CPT/HCPCS: 84484; 93005; 99284; A4216

== ENCOUNTER → 2022-12-07 | Outpatient (CLI) | payer MEDICARE, MEDICAID, SELFPAY ==
[2022-12-07 17:51] LABS: Free T3 1.5 pg/mL (2.18-3.98); T4 Free Direct 1.15 ng/dL (0.76-1.46); Thyroid Stim Hormone (TSH) 4.62 uIU/mL (0.358-3.74)
== END | disposition home or self-care (01) ==
LOC: MFPLAB 15:27
PROVIDERS: PCP Family Medicine; Visit Provider Family Medicine
DX: E03.9 Hypothyroidism, unspecified (principal)
CPT/HCPCS: 36415; 84439; 84443; 84481

== ENCOUNTER 2023-02-25 10:39 | Inpatient (IN) | payer MEDICARE, MEDICAID, SELFPAY ==
[2023-02-25] VITALS (11 sets, daily range): BP systolic 133–166; BP diastolic 73–100; PULSE 82–105; RESP 15–19; TEMP 36.4–37.4; O2SAT 92–97; BMI 30.2; BMI 29.3
--- NOTE | 2023-02-25 11:01 | EKG12_ITS ---
Test Reason : CP Blood Pressure : / mmHG Vent. Rate : 082 BPM Atrial Rate : 082 BPM P-R Int : 156 ms QRS Dur : 066 ms QT Int : 474 ms P-R-T Axes : 016 -18 003 degrees QTc Int : 553 ms Critical Test Result: Long QTc Normal sinus rhythm Low voltage QRS Inferior infarct (cited on or before 28-NOV-2022) Abnormal ECG Confirmed by SHYLA FITCH, ESTHER ([id number]), supervising editor trailer SETH MUNOZ ([id number]) on 02/27/2023 2:00:54 PM Referred By: Confirmed By:ESTHER MANSFIELD MD
--- NOTE | 2023-02-25 11:01 | ED.VIS.CHEST ---
HPI History of Present Illness Chief Complaint: Chest Pain Narrative Narrative: 67-year-old male past medical history of multiple sclerosis, states that he is nonambulatory, has past medical history of coronary artery disease with 2 stents placed, presents with chest pain that he has had since yesterday when he woke up. States that there is more of a tightness in his chest and pressure sensation. It feels as if someone is sitting on his chest. He received aspirin and nitroglycerin per EMS which improved his symptoms as well. He states at times when he gets chest pain he takes nitro or lisinopril which seems to help. 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 He presents via EMS because of the continued chest pain that he has had since yesterday morning. He denies any nausea or vomiting, no shortness of breath, no fever but he has a dry cough since yesterday as well. 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 History of coronary artery disease History of hypertension HTN (hypertension) Multiple sclerosis Multiple sclerosis Multiple sclerosis exacerbation Multiple sclerosis, primary chronic progressive Multiple sclerosis, primary chronic progressive Muscle spasticity Muscle spasticity Neuromyelitis optica Neuromyelitis optica NSTEMI (non-ST elevated myocardial infarction) (11/01/19) Presence of stent in coronary artery (~07/08/21) Unstable angina pectoris Home Medications cholecalciferol (vitamin D3) 125 mcg (5,000 unit) capsule 125 mcg PO DAILY SUPPLEMENT 11/28/19 [History Last Taken 11/27/22] gabapentin 400 mg capsule 400 mg PO TID PRN LEG PAIN 03/10/21 [History Last Taken 11/27/22] nitroglycerin 0.4 mg sublingual tablet 0.4 mg sublingual Q5M PRN chest pain #25 tabs 07/06/21 [Rx Last Taken 11/28/22] sertraline 50 mg tablet (Zoloft) 50 mg PO QHS DEPRESSION/ANXIETY 12/20/21 [History Last Taken 11/27/22] aspirin 81 mg chewable tablet 81 mg PO DAILY HEART HEALTH 05/18/22 [History Last Taken 11/28/22] atorvastatin 40 mg tablet 40 mg PO DAILY CHOLESTEROL 05/18/22 [History Last Taken 11/27/22] baclofen 10 mg tablet 15 mg PO Q6H PRN Spasms 05/18/22 [History Last Taken 11/27/22] isosorbide mononitrate 60 mg tablet,extended release 24 hr 60 mg PO DAILY ANGINA #90 tabs 08/16/22 [Rx Last Taken 11/27/22] furosemide 40 mg tablet 40 mg PO DAILY PRN edema 11/23/22 [History Last Taken 11/25/22] metoprolol succinate 25 mg tablet,extended release 24 hr 25 mg PO DAILY #30 tabs 11/23/22 [Rx Last Taken 11/28/22] ranolazine 1,000 mg tablet,extended release,12 hr 1,000 mg PO BID #180 tabs 12/14/22 [Rx Last Taken Unknown] levothyroxine 88 mcg tablet 88 mcg PO DAILY 12/29/22 [History Last Taken Unknown] lisinopril 10 mg tablet 5 mg PO DAILY BLOOD PRESSURE 12/29/22 [History Last Taken Unknown] ticagrelor 90 mg tablet (Brilinta) 90 mg PO BID BLOOD THINNER #180 tabs 01/26/23 [Rx Last Taken Unknown] Allergy/AdvReac Type Severity Reaction Status Date / Time No Known Allergies Allergy Verified 12/29/22 11:24 Family History Mother CVA (cerebral vascular accident) Grandmother CVA (cerebral vascular accident) Father Liver disease due to alcohol Surgical History Hx of appendectomy Presence of coronary angioplasty implant and graft (~07/08/21) Social History household members: none housing: apartment number of children: 4 current occupational status: disabled Smoking Status: Never smoker alcohol intake: current details: rare substance use type: does not use ROS ROS ED ROS Narrative Constitutional: No fever, no chills. HEENT: No sore throat. No neck pain. No loss of vision. No rhinorrhea. Cardiovascular: Chest pressure/chest pain. No palpitations. No pedal edema. Respiratory: No cough, no shortness of breath. Abdominal: No abdominal pain. No nausea. No vomiting. Genitourinary: No dysuria. No hematuria. Musculoskeletal: No myalgias. No arthralgias. Neurologic: No headaches. No dizziness. No lightheadedness. Baseline with MS with limited range of motion of bilateral lower extremities and left upper extremity. Skin: No rash. No change in color. Psychiatric: No depression. No anxiety. EXAM Physical Exam Narrative Exam Narrative: Afebrile. Vital signs noted. HEENT: Normocephalic. Atraumatic. PERRL, EOMI. Neck soft and supple. No point tenderness or step off. Cardiovascular: Regular rate and rhythm. No murmurs, rubs, or gallops appreciated. Respiratory: No tachypnea. Lungs clear to auscultation bilaterally. Gastrointestinal: Abdomen soft, nontender, with normoactive bowel sounds. No rebound or guarding. Neurological: Awake. Alert. Son with MS with limited range of motion of bilateral lower extremities and left upper extremity, at baseline per patient. Skin: No rash. Normal color. No pallor. Musculoskeletal: No pedal edema. Full range of motion extremities. Const Vital Signs: 02/25/23 10:40 02/25/23 11:09 02/25/23 11:09 Temperature 97.6 F L Temperature Source Temporal Pulse Rate 82 Respiratory Rate 19 H Respiratory Effort Normal Respiratory Depth Respiratory Pattern Blood Pressure 166/96 H Blood Pressure Mean 119 Pulse Ox 93 Oxygen Delivery Method Room Air 02/25/23 11:14 02/25/23 11:14 02/25/23 12:00 Temperature Temperature Source Pulse Rate 89 Respiratory Rate 15 Respiratory Effort Normal Respiratory Depth Normal Respiratory Pattern Normal Blood Pressure Blood Pressure Mean Pulse Ox 93 Oxygen Delivery Method Room Air Room Air 02/25/23 13:00 Temperature Temperature Source Pulse Rate 84 Respiratory Rate 15 Respiratory Effort Respiratory Depth Respiratory Pattern Blood Pressure Blood Pressure Mean Pulse Ox 92 Oxygen Delivery Method Room Air Heart Score History: Moderately Suspicious ECG: Normal Age: >/= 65 years Risk Factors: >/= 3 Risk Factors or History of CAD Score: 5 MDM MDM MDM Narrative Medical decision making narrative: Concern is for non-STEMI/unstable angina versus atypical chest pain. Pneumonia is lower on the differential diagnosis because the history and physical is not suggestive of that as he has a dry cough and no fever. Comprehensive work-up was pursued. Although he was given nitroglycerin and aspirin in EMS/squad, I do feel that he should try another nitroglycerin for his anginal symptoms. EKG was obtained and interpreted by myself as normal sinus rhythm at 82 bpm without ectopy or acute ST changes. No STEMI. He does have prolonged QTc at 553. I reviewed his laboratory work from today and he has normal white count of 7.6, hemoglobin stable at 12.5, hematocrit 36.3, platelet count normal at 412. Electrolyte panel shows sodium level 129 with chloride 97 but he seems to have a chronic hyponatremia and chronic hypochloremia. He was bolused 500 mL of normal saline. BUN is normal at 14 with creatinine 0.79, glucose appropriately elevated at 93 with a normal anion gap of 6. Initial high-sensitivity troponin is 4 with repeat being 5. X-ray in 1 view was interpreted by myself independently as no acute process. I reviewed the radiology report which confirms my independent interpretation. However, upon repeat examination, he states his pressure has returned. I reviewed his prior records including his cardiology visit at [facility] in December. At that time, his stress testing was deferred secondary to triple-vessel disease that is severe. His cardiac catheterization from 2019 did show severe vessel disease. Given his symptoms of unstable angina, I did discuss the patient with Dr. Garza with cardiology who thinks that the patient should be admitted and observed for further evaluation and cardiac consultation tomorrow morning. I will discuss the patient with the hospitalist. Patient is in stable condition. History & Record Review Discussion w/independent historian: Patient Additional record(s) reviewed:: Prior outpatient record, Prior ED visit and Prior labs Lab Data Attestation: I reviewed the patient's lab results. Labs: Laboratory Results - last 24 hr 02/25/23 02/25/23 11:00 13:26 WBC 7.6 RBC 3.99 L Hgb 12.5 L Hct 36.3 L MCV 91.0 MCH 31.3 MCHC 34.4 RDW Std Deviation 47.4 H RDW Coeff of Isha 14.2 Plt Count 412 MPV 9.2 Immature Gran % (Auto) 0.500 Neut % (Auto) 81.0 H Lymph % (Auto) 5.1 L Waldo % (Auto) 12.2 H Eos % (Auto) 0.7 Baso % (Auto) 0.5 Absolute Neuts (auto) 6.2 Absolute Lymphs (auto) 0.39 L Nucleated RBC % 0 Sodium 129 L Potassium 4.5 Chloride 97 L Carbon Dioxide 26.0 Anion Gap 6 BUN 14 Creatinine 0.79 Estim Creat Clear Calc 102.32 Est GFR (MDRD) Af Amer 126 Est GFR (MDRD) Non-Af 104 BUN/Creatinine Ratio 17.7 Glucose 93 Calcium 9.1 Troponin I High Sens 4 5 Radiography Diagnostic Testing: Clinical Impression(s) from Imaging Studies Chest X-Ray 02/25/23 11:20 IMPRESSION: No interval change Electronically Signed: Vincent Hernandez MD at 11:43 EDT , Management Discussion w/another healthcare provider: Hospitalist (Dr. Gonzalez) and Medical Physicist (Dr. Garza) Discharge Plan Triage Chief Complaint: Chest Pain Other Complaint: Shortness of Breath ED Provider: Yang Pascual Dx/Rx/DC Orders Prescriptions: No Action cholecalciferol (vitamin D3) 125 mcg (5,000 unit) capsule 125 mcg PO DAILY gabapentin 400 mg capsule 400 mg PO TID PRN (Reason: LEG PAIN) sertraline [Zoloft] 50 mg tablet 50 mg PO QHS furosemide 40 mg tablet 40 mg PO DAILY PRN (Reason: edema) metoprolol succinate 25 mg tablet extended release 24 hr 25 mg PO DAILY Qty: 30 11RF levothyroxine 88 mcg tablet 88 mcg PO DAILY Patient Comments: Take 1 tablet by mouth every morning lisinopril 10 mg tablet 5 mg PO DAILY baclofen 10 mg tablet 15 mg PO Q6H PRN (Reason: Spasms) Patient Comments: TAKE 1 & 1/2 (ONE AND ONE-HALF) TABLETS BY MOUTH EVERY 6 HOURS NEEDED aspirin 81 mg Tablet,Chewable 81 mg PO DAILY atorvastatin 40 mg tablet 40 mg PO DAILY nitroglycerin 0.4 mg tablet, sublingual 0.4 mg sublingual Q5M PRN (Reason: chest pain) Qty: 25 3RF Rx Instructions: do not exceed 3 doses per episode isosorbide mononitrate 60 mg tablet extended release 24 hr 60 mg PO DAILY Qty: 90 3RF ranolazine 1,000 mg tablet extended release 12 hr 1,000 mg PO BID Qty: 180 3RF Brilinta 90 mg tablet 90 mg PO BID Qty: 180 3RF Primary Care Provider: Ritesh Castro Referrals: Ritesh Castro MD [Primary Care Provider] -
[2023-02-25 11:16] LABS: Absolute Lymphocyte Count 0.39 X10^3/uL (0.83-4.51); Absolute Neutrophil Count 6.2 X10^3/uL (2.0-7.7); Basophil# 0.04 X10^3/uL; Basophil% 0.5 % (0-1); Eosinophil# 0.05 X10^3/uL; Eosinophils% 0.7 % (0-5); Hematocrit 36.3 % (40-54); Hemoglobin 12.5 g/dL (13.0-16.5); Lymphocyte # 0.39 X10^3/ul (0.83-4.51); Lymphocyte % 5.1 % (19-41); Mean Corp Hgb Conc 34.4 g/dL (32-36); Mean Corpuscular Hgb 31.3 pg (27.0-32.0); Mean Platelet Vol. 9.2 fl (6.2-12.0); Monocyte# 0.93 X10^3/uL; Monocyte% 12.2 % (0-10); NRBC Flagged by Analyzer 0 % (0-5); Neutrophil # 6.16 X10^3/uL (2.7-7.7); POSITIVE DIFFERENTIAL YES; Platelet Count 412 K/mm3 (150-450); RBC Distribution Width CV 14.2 % (11.6-14.6); RBC Distribution Width SD 47.4 fl (35.1-43.9); Red Blood Count 3.99 M/mm3 (4.6-6.2); White Blood Count 7.6 K/mm3 (4.4-11.0)
[2023-02-25 11:17] LABS: Differential Indicated SCAN CRITERIA MET
--- NOTE | 2023-02-25 11:20 | RAD_ITS ---
STUDY: X-RAY CHEST REASON FOR EXAM: Male, 67 years old. Chest pain TECHNIQUE: Single AP portable view of the chest. COMPARISON: 11/28/2022 FINDINGS: EKG leads overlie the chest Underexpanded lungs with persistent left basilar atelectasis. No interval change since the previous study. Normal size heart. Normal mediastinum and vandana. Normal visualized pulmonary arteries. Normal visualized aortic arch and descending thoracic aorta. Normal visualized thoracic spine. Normal visualized ribs, clavicles, and shoulders. There is no demonstrated abnormality of the visualized soft tissue structures of the upper abdomen. RAD/Chest 1 View (Portable) IMPRESSION: No interval change Electronically Signed: Vincent Hernandez MD at 11:43 EDT ,
[2023-02-25 11:34] LABS: Anion Gap 6 (5-15); BUN 14 mg/dL (7-18); BUN/Creat Ratio 17.7 RATIO (10-20); Calcium,Total 9.1 mg/dL (8.5-10.1); Chloride 97 mmol/L (98-107); Creatinine, Serum 0.79 mg/dL (0.70-1.30); EST Glomerular Filtration Rate 104 mL/min (>60); Est Glom Filt Rate - Afr Amer 126 mL/min (>60); Estimated Creatinine Clearance 102.32 ml/min; Glucose 93 mg/dL (74-106); Potassium 4.5 mmol/L (3.5-5.1); Sodium Level 129 mmol/L (136-145); Troponin-I HS (w/2H Reflex) 4 pg/mL (3.0-78.0)
[2023-02-25] MEDS: 0.9% Normal Saline (500mL Bag) 500 ML 999 ML IV (13:13)
[2023-02-25 13:14] LABS: Reflex Troponin-HS? (from REC) Y
[2023-02-25 13:48] LABS: Troponin-I HS 5 pg/mL (3.0-78.0)
--- NOTE | 2023-02-25 14:55 | PCM.HP.STD ---
HPI - General General Date of Admission: 02/25/23 Date of Service: 02/25/23 Chief Complaint: Chest pain HPI Narrative Jose Carmen is a 67-year-old male with history of MS, hypothyroidism, hypertension, coronary artery disease with stenting in 2021 who presented to [facility] 02/25/2023 with chest pain and since yesterday. The pain has been present since yesterday when he woke up and it is a tightness and pressure like someone sitting on his chest. Aspirin and nitroglycerin possible to help symptoms per EMS. Troponin negative, chest x-ray with no interval change and EKG with normal sinus rhythm of 82 without ectopy or acute ST changes and no STEMI, QTc noted to be 553. In the past he was evaluated for CABG as he has triple-vessel disease but was not felt to be a good CABG candidate due to postop recovery related concerns with his multiple sclerosis so he was optimized medically. Given his history ED physician contacted cardiology in the emergency department they recommended admission with cardiac consultation in the a.m. Hospitalist contacted for admission. Patient evaluated at bedside. He reports that he has had the chest discomfort as well as cough and shortness of breath since yesterday morning and they have never completely gone away, he endorsed nitroglycerin may have helped slightly but did not take it away and dry cough is one of his main complaints. His saturations are 91 to 92% on room air but denies any history of any lung problems. He has not had a bowel movement for 2 to 3 days reports chronic form, has chronic weakness and numbness and tingling with his MS, has chronic swelling in his lower extremities that has been unchanged. 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 History of coronary artery disease History of hypertension HTN (hypertension) Multiple sclerosis Multiple sclerosis Multiple sclerosis exacerbation Multiple sclerosis, primary chronic progressive Multiple sclerosis, primary chronic progressive Muscle spasticity Muscle spasticity Neuromyelitis optica Neuromyelitis optica NSTEMI (non-ST elevated myocardial infarction) (11/01/19) Presence of stent in coronary artery (~07/08/21) Unstable angina pectoris Home Medications cholecalciferol (vitamin D3) 125 mcg (5,000 unit) capsule 125 mcg PO DAILY SUPPLEMENT 11/28/19 [History Last Taken 11/27/22] gabapentin 400 mg capsule 400 mg PO TID PRN LEG PAIN 03/10/21 [History Last Taken 11/27/22] nitroglycerin 0.4 mg sublingual tablet 0.4 mg sublingual Q5M PRN chest pain #25 tabs 07/06/21 [Rx Last Taken 11/28/22] sertraline 50 mg tablet (Zoloft) 50 mg PO QHS DEPRESSION/ANXIETY 12/20/21 [History Last Taken 11/27/22] aspirin 81 mg chewable tablet 81 mg PO DAILY HEART HEALTH 05/18/22 [History Last Taken 11/28/22] atorvastatin 40 mg tablet 40 mg PO DAILY CHOLESTEROL 05/18/22 [History Last Taken 11/27/22] baclofen 10 mg tablet 15 mg PO Q6H PRN Spasms 05/18/22 [History Last Taken 11/27/22] isosorbide mononitrate 60 mg tablet,extended release 24 hr 60 mg PO DAILY ANGINA #90 tabs 08/16/22 [Rx Last Taken 11/27/22] furosemide 40 mg tablet 40 mg PO DAILY PRN edema 11/23/22 [History Last Taken 11/25/22] metoprolol succinate 25 mg tablet,extended release 24 hr 25 mg PO DAILY #30 tabs 11/23/22 [Rx Last Taken 11/28/22] ranolazine 1,000 mg tablet,extended release,12 hr 1,000 mg PO BID #180 tabs 12/14/22 [Rx Last Taken Unknown] levothyroxine 88 mcg tablet 88 mcg PO DAILY 12/29/22 [History Last Taken Unknown] lisinopril 10 mg tablet 5 mg PO DAILY BLOOD PRESSURE 12/29/22 [History Last Taken Unknown] ticagrelor 90 mg tablet (Brilinta) 90 mg PO BID BLOOD THINNER #180 tabs 01/26/23 [Rx Last Taken Unknown] Allergy/AdvReac Type Severity Reaction Status Date / Time No Known Allergies Allergy Verified 12/29/22 11:24 Family History Mother CVA (cerebral vascular accident) Grandmother CVA (cerebral vascular accident) Father Liver disease due to alcohol Surgical History Hx of appendectomy Presence of coronary angioplasty implant and graft (~07/08/21) Social History household members: none housing: apartment number of children: 4 current occupational status: disabled Smoking Status: Never smoker alcohol intake: current details: rare substance use type: does not use ROS ROS Narrative General: Denies fever/chills HENT: Denies headache, denies stuffy nose, denies sore throat EYES: Denies changes in vision Resp: Dry cough and shortness of breath Cardiac: Substernal chest pressure GI: Denies abdominal pain, denies changes in bowel, denies nausea/vomiting : Denies changes in urination Extremity: Bilateral lower extremity swelling chronic MSK: Chronic weakness Neuro: Chronic numbness and tingling Heme: Denies any bleeding or bruising Skin: Denies rashes Psychiatric: No complaints voiced Vital Signs Vital Signs Vital Signs: 02/25/23 10:40 02/25/23 11:09 02/25/23 11:09 Temperature 97.6 F L Temperature Source Temporal Pulse Rate 82 Respiratory Rate 19 H Respiratory Effort Normal Respiratory Depth Respiratory Pattern Blood Pressure 166/96 H Blood Pressure Mean 119 Pulse Ox 93 Oxygen Delivery Method Room Air 02/25/23 11:14 02/25/23 11:14 02/25/23 12:00 Temperature Temperature Source Pulse Rate 89 Respiratory Rate 15 Respiratory Effort Normal Respiratory Depth Normal Respiratory Pattern Normal Blood Pressure Blood Pressure Mean Pulse Ox 93 Oxygen Delivery Method Room Air Room Air 02/25/23 13:00 Temperature Temperature Source Pulse Rate 84 Respiratory Rate 15 Respiratory Effort Respiratory Depth Respiratory Pattern Blood Pressure Blood Pressure Mean Pulse Ox 92 Oxygen Delivery Method Room Air Weight Weight: 101.3 kg Body Mass Index (BMI) 30.2 Physical Exam Narrative General: Alert, oriented, no apparent distress HEENT: Atraumatic, normocephalic Eyes: Anicteric, normal conjunctiva, extraocular movements grossly intact Neck: Supple Respiratory: Clear to auscultation bilaterally, normal respiratory effort Cardiovascular: Regular rate and rhythm GI: Slightly firm but nontender Extremities: Bilateral lower extremity edema with trace pitting Musculoskeletal: Laying in bed, baseline deficits Neuro: Baseline deficits Skin: No rashes appreciated Psych: Cooperative Results Lab / Micro Data 02/25/23 11:00 02/25/23 11:00 Labs: Laboratory Results - last 24 hr 02/25/23 11:00: WBC 7.6, RBC 3.99 L, Hgb 12.5 L, Hct 36.3 L, MCV 91.0, MCH 31.3, MCHC 34.4, RDW Std Deviation 47.4 H, RDW Coeff of Isha 14.2, Plt Count 412, MPV 9.2, Immature Gran % (Auto) 0.500, Neut % (Auto) 81.0 H, Lymph % (Auto) 5.1 L, Hart % (Auto) 12.2 H, Eos % (Auto) 0.7, Baso % (Auto) 0.5, Absolute Neuts (auto) 6.2, Absolute Lymphs (auto) 0.39 L, Nucleated RBC % 0, Sodium 129 L, Potassium 4.5, Chloride 97 L, Carbon Dioxide 26.0, Anion Gap 6, BUN 14, Creatinine 0.79, Estim Creat Clear Calc 102.32, Est GFR (MDRD) Af Amer 126, Est GFR (MDRD) Non-Af 104, BUN/Creatinine Ratio 17.7, Glucose 93, Calcium 9.1, Troponin I High Sens 4 02/25/23 13:26: Troponin I High Sens 5 Radiology Impression Chest X-Ray 02/25/23 11:20 IMPRESSION: No interval change Electronically Signed: Vincent Hernandez MD at 11:43 EDT Reading Location ID and State: [address] [place] [address] , Service support , Assessment & Plan Assessment/Plan (1) Presence of stent in coronary artery: (2) HTN (hypertension): (3) Multiple sclerosis: PLAN: Plan #Chest pain -Hx stents and known triple vessel dz, previously stress test deferred d/t known triple vessel dz -Troponins negative and EKG non ischemic however given history and current presenting complaints concern for cardiac etiology of his chest pain -Cardiology contacted and recommended admission and cardiology c/s in AM. -Upon further discussion do not think that pain is consistent with unstable angina and given patient's additional complaints of new onset dry cough and shortness of breath will check COVID and CTA -We will also check echocardiogram limited to assess for wall motion abnormalities -Continue aspirin, patient already on Brilinta, Imdur, Ranexa #History of coronary artery disease with stenting in 2021 and known triple vessel dz -Last saw Esme Ca with cardiology 12/29/2022 -Cont aspirin, Brilinta, BB, statin -Cards c/s #Hx hfpef -Patient with echocardiogram 11/03/2022 with stage I diastolic dysfunction -Daily weights, i's and o's -Holding prn Lasix #Hypertension -Continue medications #Multiple sclerosis -Nonambulatory -Supportive care -Continue baclofen as needed #Chronic hyponatremia -Asymptomatic, further management and follow-up as outpatient #Hypothyroidism -Continue Synthroid #DVT ppx: Lovenox subcu Jazz Gonzalez MD Charges/Coding Visit Charges Inpatient E&M: 92846 Init Hosp L2
--- NOTE | 2023-02-25 15:04 | CT_ITS ---
STUDY: CTA CHEST REASON FOR EXAM: Male, 67 years old. concern for PE RADIATION DOSAGE (If Supplied By Facility): CTDIvol = ( 9.03 ) mGy, DLP = ( 409.60 ) mGycm TECHNIQUE: The examination was performed with the intravenous administration of IV 100mL Isovue-370. Post-processing of the angiographic images was performed, with multiplanar reformation and 3D reconstruction. Individualized dose optimization techniques were used for this CT. COMPARISON: None. FINDINGS: Normal enhancement of the main pulmonary artery and right and left pulmonary arteries. Normal enhancement of the bilateral peripheral pulmonary arteries. There is no demonstrated pulmonary embolism. Normal thoracic aorta and visualized great vessels. There is no demonstrated aortic dissection. There is cardiomegaly. There is a small pericardial effusion. Normal mediastinum. Normal hilar regions. Normal visualized trachea and bronchi. The lungs are well expanded. Normal pulmonary parenchyma. Small right pleural effusion. Large left pleural effusion with some left lower lobe atelectasis. Normal chest wall structures. Multiple healed left rib fractures. Normal visualized upper abdomen. CT/CTA Chest W/WO Contrast IMPRESSION: 1. No CT evidence of pulmonary embolism. 2. Small right pleural effusion. 3. Large left pleural effusion with left lower lobe atelectasis. 4. Cardiomegaly with small pericardial effusion. Electronically Signed: Chetan Donovan MD at 16:28 EDT ,
--- NOTE | 2023-02-25 15:38 | EKG12_ITS ---
Test Reason : ADMISSION-CP Blood Pressure : / mmHG Vent. Rate : 097 BPM Atrial Rate : 097 BPM P-R Int : 190 ms QRS Dur : 064 ms QT Int : 314 ms P-R-T Axes : 032 -16 018 degrees QTc Int : 398 ms Normal sinus rhythm Low voltage QRS Inferior infarct , age undetermined Abnormal ECG When compared with ECG of 25-FEB-2023 10:52, MANUAL COMPARISON REQUIRED, DATA IS UNCONFIRMED Confirmed by SHYLA FITCH, ESTHER ([id number]), film and video editor SETH MUNOZ ([id number]) on 03/21/2023 1:46:34 PM Referred By: Confirmed By:ESTHER MANSFIELD MD
--- NOTE | 2023-02-25 17:54 | PCM.HOSP.N ---
Hospitalist Note Pt covid positive, given baseline functional status and history feel he would be at high risk for progressing to severe COVID, will start steroids and remdesivir. Additionally patient with large pleural effusion, will place order for thoracentesis
[2023-02-25 18:36] LABS: Troponin-I HS 8 pg/mL (3.0-78.0)
[2023-02-25 19:48] LABS: Prothrombin Time (Protime)PT. 12.7 SECONDS (11.7-14.9)
[2023-02-25 19:49] LABS: Fibrinogen 750 mg/dl (203-444)
[2023-02-25 19:57] LABS: AST(SGOT) 24 U/L (15-37); Alanine Aminotransfer ALT/SGPT 23 U/L (16-61); Albumin, Serum 2.9 g/dL (3.2-5.0); Alkaline Phosphatase 68 U/L (45-117); Bilirubin, Direct 0.27 mg/dL (0.00-0.30); CPK Total, Creatine Kinase 79 U/L (39-308); Globulin 4.4 g/dL (2.2-4.2); LDH 145 U/L (87-241); Protein, Total 7.3 g/dL (6.4-8.2)
[2023-02-25 20:03] LABS: Procalcitonin 0.07 ng/mL (0.00-0.09)
[2023-02-25] MEDS: 0.9% Saline Lock 10 ML Syringe IV (20:06)
[2023-02-25] MEDS: Remdesivir 200 MG in 0.9% Normal Saline (250mL Bag) 210 ML 250 MG IV (20:06)
[2023-02-25] MEDS: dexAMETHasone 10 MG/ML Vial 6 MG IV (20:06)
[2023-02-25] MEDS: Acetaminophen 325 MG Tablet 650 MG PO (20:07)
[2023-02-25 20:16] LABS: D-Dimer Quantitative (DVT/PE) 7.17 FEU/ug/m (0.27-0.49)
[2023-02-25] MEDS: TICAGRELOR 90 MG TABLET PO (22:22)
[2023-02-25] MEDS: Atorvastatin Calcium 40 MG Tablet PO (22:23)
[2023-02-25] MEDS: Ranolazine 500 MG Tablet 1000 MG PO (22:23)
[2023-02-25] MEDS: Sertraline 50 MG Tablet PO (22:23)
[2023-02-25] MEDS: Metoprolol(XL)Succ 25 MG Tablet PO (23:01)
[2023-02-25] MEDS: MELATONIN 3 MG TABLET PO (23:17)
[2023-02-25] MEDS: oxyCODONE 5 MG Tablet 2.5 MG PO (23:17)
--- NOTE | 2023-02-26 | FLU_PTH ---
PATIENT: NICOLASA FISCHER LOC: [facility] U#:[id number] AGE/SX: 67/M ROOM: [facility] RE02/26/[address]: Dr. Michelle Beltre MD : 1955 BED: 1 DIS: 03/01/2023 SPEC #: [id number] RECD: 02/26/23 14:39 STATUS: ANUSHA RENinoska #: [id number] JAXON: 02/26/23 00:[address]: Michelle Beltre DEPT: CYTOLOGY RECD BY: Pop Morrell ENTERED: 02/27/23 10:22 SP TYPE: Fluid OTHR DR: MD Dr. Ritesh Diez MD Dr. Paige Pierce, MD Tissues: THORACIC FLUID Procedures: Special Stain Group II Surgery Specimen Level IV Cytospin Fluid HEADER OPERATION: Thoracentesis left chest PRE-OP DIAGNOSIS: Pleural effusion TISSUE SUBMITTED: Thoracentesis fluid for cytology DIAGNOSIS CYTOLOGY Thoracentesis fluid for cytology (cytospin): Negative for malignant cells. AM:johnnie 02/28/2023 CYTOLOGY STUDY Slides are reviewed. CYTOLOGY GROSS Received is 80 ml of cloudy yellow fluid labeled with the patient's name and and designated per the requisition as thoracentesis. Submitted for cytology preparation including cell block. / johnnie 02/27/2023 TC:5 CPT: 72849, 83084
[2023-02-26 03:17] VITALS: BP 110/70; PULSE 99; RESP 16; TEMP 37; O2SAT 96
[2023-02-26 04:07] VITALS: BMI 29.3
[2023-02-26 06:45] LABS: Absolute Lymphocyte Count 0.37 X10^3/uL (0.83-4.51); Absolute Neutrophil Count 7.8 X10^3/uL (2.0-7.7); Basophil# 0.02 X10^3/uL; Basophil% 0.2 % (0-1); Hemoglobin 11.1 g/dL (13.0-16.5); Lymphocyte # 0.37 X10^3/ul (0.83-4.51); Lymphocyte % 4.3 % (19-41); Mean Corp Hgb Conc 33.6 g/dL (32-36); Mean Corpuscular Hgb 30.7 pg (27.0-32.0); Mean Corpuscular Volume 91.4 fL (80-94); Mean Platelet Vol. 9.3 fl (6.2-12.0); Monocyte# 0.41 X10^3/uL; Monocyte% 4.7 % (0-10); NRBC Flagged by Analyzer 0 % (0-5); Neutrophil % 90.3 % (47-70); POSITIVE DIFFERENTIAL YES; Platelet Count 428 K/mm3 (150-450); RBC Distribution Width CV 14.6 % (11.6-14.6); Red Blood Count 3.61 M/mm3 (4.6-6.2); White Blood Count 8.6 K/mm3 (4.4-11.0)
[2023-02-26 06:52] LABS: Differential Indicated SCAN CRITERIA MET
--- NOTE | 2023-02-26 07:19 | CON.PCM.CA_ITS ---
Assessment & Plan Assessment/Plan (1) Chest pain, atypical: PLAN: Patient presents with atypical chest pain unrelated to his coronary dis ease and with his normal EKG and normal cardiac enzymes no further testing will be performed at this particular time. Patient had echocardiogram performed 4 months ago which demonstrated preserved ejection fraction with diastolic dysfunction. * Will humbly sign off at this time. (2) HTN (hypertension): PLAN: His blood pressure is under normal control and my recommendation is to continue the current medical therapy. Aggressive blood pressure control should be continued. Will increase SAMI inhibitor to 10 mg a day. (3) Presence of stent in coronary artery: PLAN: Patient has a history of previous coronary disease with stenting as noted above. This can be further evaluated as an outpatient. HPI Consult Data Date of Consult: 02/26/23 HPI Narrative HPI Narrative: NICOLASA FISCHER, is a 67 M who presents with chest discomfort. Due to his previous cardiac history cardiology was called for evaluation and management. He has a history of MS, hypothyroidism, hypertension, coronary artery disease status post cardiac catheterization in 2021 demonstrating a normal left main coronary artery, left anterior descending artery with diffuse disease, high-grade proximal circumflex artery stenosis, high-grade obtuse marginal vessel stenosis and a totally occluded right coronary artery with preserved ejection fraction. He underwent PCI and stenting of the proximal left circumflex artery with a 5 mm x 24 mm stent, and obtuse marginal branch with a 2.5 x 38 mm stent. Since then he has been followed in the [facility] office. He presented to the emergency room with chest pain related concerns. The history was presented without any other concomitant data and admission was recommended. However EKG was noted to be normal sinus rhythm with a rate of 82 bpm without any acute changes and cardiac troponin enzymes were normal. Further questioning demonstrated a dry cough with low saturations D-dimer was noted to be markedly elevated and CT scan demonstrated a pleural effusion and COVID test was noted to be positive. He denies any further chest discomfort. 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 History of coronary artery disease History of hypertension HTN (hypertension) Multiple sclerosis Multiple sclerosis Multiple sclerosis exacerbation Multiple sclerosis, primary chronic progressive Multiple sclerosis, primary chronic progressive Muscle spasticity Muscle spasticity Neuromyelitis optica Neuromyelitis optica NSTEMI (non-ST elevated myocardial infarction) (11/01/19) Presence of stent in coronary artery (~07/08/21) Unstable angina pectoris Home Medications cholecalciferol (vitamin D3) 125 mcg (5,000 unit) capsule 125 mcg PO DAILY SUPPLEMENT 11/28/19 [History Last Taken 11/27/22] gabapentin 400 mg capsule 400 mg PO TID PRN LEG PAIN 03/10/21 [History Last Taken 11/27/22] nitroglycerin 0.4 mg sublingual tablet 0.4 mg sublingual Q5M PRN chest pain #25 tabs 07/06/21 [Rx Last Taken 11/28/22] sertraline 50 mg tablet (Zoloft) 50 mg PO QHS DEPRESSION/ANXIETY 12/20/21 [History Last Taken 11/27/22] aspirin 81 mg chewable tablet 81 mg PO DAILY HEART HEALTH 05/18/22 [History Last Taken 11/28/22] atorvastatin 40 mg tablet 40 mg PO QHS CHOLESTEROL 05/18/22 [History Last Taken 11/27/22] baclofen 10 mg tablet 15 mg PO Q6H PRN Spasms 05/18/22 [History Last Taken 11/27/22] isosorbide mononitrate 60 mg tablet,extended release 24 hr 60 mg PO DAILY ANGINA #90 tabs 08/16/22 [Rx Last Taken 11/27/22] furosemide 40 mg tablet 40 mg PO DAILY PRN edema 11/23/22 [History Last Taken 11/25/22] metoprolol succinate 25 mg tablet,extended release 24 hr 25 mg PO DAILY #30 tabs 11/23/22 [Rx Last Taken 11/28/22] ranolazine 1,000 mg tablet,extended release,12 hr 1,000 mg PO BID #180 tabs 12/14/22 [Rx Last Taken Unknown] lisinopril 10 mg tablet 5 mg PO PRN BLOOD PRESSURE 12/29/22 [History Last Taken Unknown] ticagrelor 90 mg tablet (Brilinta) 90 mg PO BID BLOOD THINNER #180 tabs 01/26/23 [Rx Last Taken Unknown] levothyroxine 75 mcg tablet 75 mcg PO DAILY Thyroid 02/25/23 [History Last Taken Unknown] Allergy/AdvReac Type Severity Reaction Status Date / Time No Known Allergies Allergy Verified 12/29/22 11:24 Family History Mother CVA (cerebral vascular accident) Grandmother CVA (cerebral vascular accident) Father Liver disease due to alcohol Surgical History Hx of appendectomy Presence of coronary angioplasty implant and graft (~07/08/21) Social History household members: none housing: apartment number of children: 4 current occupational status: disabled Smoking Status: Never smoker alcohol intake: current details: rare substance use type: does not use Risk Stratification Risk Stratification Applicable: No Objective Data Vital Signs: Vital Signs Temp Pulse Resp BP Pulse Ox O2 Del Method O2 Flow Rate 98.6 F 99 16 110/70 96 Nasal Cannula 2 02/26/23 03:17 02/26/23 03:17 02/26/23 03:17 02/26/23 03:17 02/26/23 03:17 02/26/23 04:30 02/26/23 04:30 Oxygen Flow Rate (L/min) 2 Oxygen Delivery Method Nasal Cannula Weight: 216 lb 4.375 oz Body Mass Index (BMI) 29.3 Intake & Output: Intake and Output for Last 24 Hours 02/24/23 02/25/23 02/26/23 23:59 23:59 23:59 Intake Total 750 / 750 Balance 750 / 750 Lab / Micro Data 02/26/23 05:15 02/26/23 05:15 Labs: Laboratory Results - last 24 hr 02/25/23 11:00: WBC 7.6, RBC 3.99 L, Hgb 12.5 L, Hct 36.3 L, MCV 91.0, MCH 31.3, MCHC 34.4, RDW Std Deviation 47.4 H, RDW Coeff of Isha 14.2, Plt Count 412, MPV 9.2, Immature Gran % (Auto) 0.500, Neut % (Auto) 81.0 H, Lymph % (Auto) 5.1 L, [place] % (Auto) 12.2 H, Eos % (Auto) 0.7, Baso % (Auto) 0.5, Absolute Neuts (auto) 6.2, Absolute Lymphs (auto) 0.39 L, Nucleated RBC % 0, Sodium 129 L, Potassium 4.5, Chloride 97 L, Carbon Dioxide 26.0, Anion Gap 6, BUN 14, Creatinine 0.79, Estim Creat Clear Calc 102.32, Est GFR (MDRD) Af Amer 126, Est GFR (MDRD) Non-Af 104, BUN/Creatinine Ratio 17.7, Glucose 93, Calcium 9.1, Troponin I High Sens 4 02/25/23 13:26: Troponin I High Sens 5 02/25/23 18:00: PT 12.7, INR 1.0, Fibrinogen 750 H, D-Dimer Quant (PE/DVT) 7.17 H*, Total Bilirubin 0.70, Direct Bilirubin 0.27, AST 24, ALT 23, Alkaline Phosphatase 68, Lactate Dehydrogenase 145, Total Creatine Kinase 79, Troponin I High Sens 8, C-React Prot Ext Range 91.90 H, Total Protein 7.3, Albumin 2.9 L, Globulin 4.4 H, Procalcitonin 0.07 02/25/23 19:42: Lactic Acid 1.0 02/26/23 05:15: WBC 8.6, RBC 3.61 L, Hgb 11.1 L, Hct 33.0 L, MCV 91.4, MCH 30.7, MCHC 33.6, RDW Std Deviation 49.0 H, RDW Coeff of Isha 14.6, Plt Count 428, MPV 9.3, Immature Gran % (Auto) 0.500, Neut % (Auto) 90.3 H, Lymph % (Auto) 4.3 L, [place] % (Auto) 4.7, Eos % (Auto) 0.0, Baso % (Auto) 0.2, Absolute Neuts (auto) 7.8 H, Absolute Lymphs (auto) 0.37 L, Nucleated RBC % 0 Micro: Microbiology 02/25/23 16:12 Nasal Secretion SARS-CoV-2 & FLU Antigen (Rapid) - Final SARS-CoV-2 (COVID 19) Cardiology Labs/Tests 02/25/23 11:00: WBC 7.6, RBC 3.99 L, Hgb 12.5 L, Hct 36.3 L, MCV 91.0, MCH 31.3, MCHC 34.4, Plt Count 412, MPV 9.2, Immature Gran % (Auto) 0.500, Neut % (Auto) 81.0 H, Lymph % (Auto) 5.1 L, [place] % (Auto) 12.2 H, Eos % (Auto) 0.7, Baso % (Auto) 0.5, Absolute Neuts (auto) 6.2, Nucleated RBC % 0, Sodium 129 L, Potassium 4.5, Chloride 97 L, Carbon Dioxide 26.0, Anion Gap 6, BUN 14, Creatinine 0.79, Est GFR (MDRD) Af Amer 126, Est GFR (MDRD) Non-Af 104, BUN/Creatinine Ratio 17.7, Glucose 93, Calcium 9.1 02/25/23 18:00: PT 12.7, INR 1.0, D-Dimer Quant (PE/DVT) 7.17 H*, Total Bilirubin 0.70, Direct Bilirubin 0.27 02/25/23 19:42: Lactic Acid 1.0 02/26/23 05:15: WBC 8.6, RBC 3.61 L, Hgb 11.1 L, Hct 33.0 L, MCV 91.4, MCH 30.7, MCHC 33.6, Plt Count 428, MPV 9.3, Immature Gran % (Auto) 0.500, Neut % (Auto) 90.3 H, Lymph % (Auto) 4.3 L, [place] % (Auto) 4.7, Eos % (Auto) 0.0, Baso % (Auto) 0.2, Absolute Neuts (auto) 7.8 H, Nucleated RBC % 0 Rhythm: EKG: ECHO: Stress Test: Cardiac Cath: PCI: CT Surgery: Holter monitor: EPS: PPM: CXR: Chest CT Scan: Radiography Diagnostic Testing: Radiology Impression Chest X-Ray 02/25/23 11:20 IMPRESSION: No interval change Electronically Signed: Vincent Hernandez MD at 11:43 EDT , Chest CTA 02/25/23 15:04 IMPRESSION: 1. No CT evidence of pulmonary embolism. 2. Small right pleural effusion. 3. Large left pleural effusion with left lower lobe atelectasis. 4. Cardiomegaly with small pericardial effusion. Electronically Signed: Chetan Donovan MD at 16:28 EDT ,
--- NOTE | 2023-02-26 07:30 | US_ITS ---
PROCEDURE: ULTRASOUND GUIDED THORACENTESIS. DATE: February 26, 2023.. INDICATION: Male, 67 years old. Left pleural effusion. PHYSICIAN: Abel Zimmerman M.D. PROCEDURE: The risks, benefits, and alternatives to the procedure were explained to the patient. The specific risks of bleeding, infection, and pneumothorax requiring chest tube insertion were discussed and accepted. Written informed consent was obtained. Ultrasonographic evaluation of the left lower pleural space was carried out. An adequate pocket was identified. The patient was placed in the sitting, upright position. The overlying skin was prepped and draped in sterile fashion. 1% lidocaine was administered subcutaneously for local anesthesia. Under ultrasound guidance, a 5 [place] thoracentesis needle/catheter system was advanced into the left posterior lower pleural fluid collection. Approximately 800 mL of lelia-colored fluid was drained. The catheter was removed, and a sterile dressing was applied. A specimen was collected and sent to the laboratory for analysis, as requested by the referring clinician. The patient tolerated the procedure well. A chest x-ray was ordered. US/Thoracentesis W US IMPRESSION: Ultrasound-guided left thoracentesis. Electronically Signed: Abel Zimmerman MD at 15:06 EDT ,
[2023-02-26 07:37] LABS: ALB/GLOB Ratio 0.6 RATIO (0.9-2.4); AST(SGOT) 23 U/L (15-37); Alanine Aminotransfer ALT/SGPT 20 U/L (16-61); Albumin, Serum 2.6 g/dL (3.2-5.0); Alkaline Phosphatase 59 U/L (45-117); Anion Gap 14 (5-15); BUN 18 mg/dL (7-18); Calcium,Total 8.8 mg/dL (8.5-10.1); Chloride 100 mmol/L (98-107); Cholesterol 128 mg/dL (200); Creatinine, Serum 0.86 mg/dL (0.70-1.30); EST Glomerular Filtration Rate 95 mL/min (>60); Est Glom Filt Rate - Afr Amer 115 mL/min (>60); Estimated Creatinine Clearance 93.99 ml/min; Globulin 4.1 g/dL (2.2-4.2); Glucose 81 mg/dL (74-106); High Density Lipoprotein 39 mg/dL; Protein, Total 6.7 g/dL (6.4-8.2); Sodium Level 132 mmol/L (136-145); Thyroid Stim Hormone (TSH) 2.87 uIU/mL (0.358-3.74); Triglycerides 71 mg/dL; Very Low Density Lipoprotein 14 mg/dL (5-40)
[2023-02-26 09:00] VITALS: BP 114/59; PULSE 71; RESP 16; TEMP 37.2; O2SAT 97
[2023-02-26] MEDS: dexAMETHasone 10 MG/ML Vial 6 MG IV (09:32)
[2023-02-26] MEDS: 0.9% Normal Saline (1000mL) 1,000 ML 15 ML IV (09:33)
[2023-02-26] MEDS: Aspirin E.C. 81 MG Tablet PO (09:37)
[2023-02-26] MEDS: Isosorbide Mononitrate 60 MG Tablet PO (09:37)
[2023-02-26] MEDS: TICAGRELOR 90 MG TABLET PO ×2 (09:37→21:12)
--- NOTE | 2023-02-26 09:38 | CASEMGMT ---
Insurance review for hospitals In-network with [facility] insurance if transfer is recommended is as follows: [facility], [place], [facility], [facility], [facility], [facility], [facility] ([facility]), and . Brook Sin, Discharge Planning Asst.
[2023-02-26] MEDS: Ranolazine 500 MG Tablet 1000 MG PO ×2 (09:44→21:12)
[2023-02-26] MEDS: Baclofen 10 MG Tablet 15 MG PO (09:45)
[2023-02-26 14:08] VITALS: BP 60/39; BP 75/46; BP 78/47; BP 82/46; PULSE 67; PULSE 75; PULSE 76; PULSE 77; RESP 16; O2SAT 97; O2SAT 98
[2023-02-26] MEDS: Lidocaine 2% (20 ml mdv) 20 ML Vial INFILT (14:10)
--- NOTE | 2023-02-26 14:24 | PN_ITS ---
Subjective Subjective Patient seen and examined. His caregiver was by his bedside. He had no active complaints. Chest pain had improve. He denied any shortness of breath,a nd denied any nausea, vomiting, shortness of breath or any other symptoms. Review of systems is otherwise negative. He is on 2L of oxygen by nasal canula Objective Data Objective Data Vital Signs: Vital Signs Temp Pulse Resp BP Pulse Ox O2 Del Method O2 Flow Rate 98.9 F 71 16 114/59 L 97 Nasal Cannula 2 02/26/23 09:00 02/26/23 09:00 02/26/23 09:00 02/26/23 09:00 02/26/23 09:00 02/26/23 09:30 02/26/23 09:30 Oxygen Flow Rate (L/min) 2 Oxygen Delivery Method Nasal Cannula Weight: 216 lb 4.375 oz Body Mass Index (BMI) 29.3 Intake & Output: Intake and Output for Last 24 Hours 02/24/23 02/25/23 02/26/23 23:59 23:59 23:59 Intake Total 750 / 750 Output Total 100 / 100 Balance 750 / 750 -100 / -100 Lab / Micro Data 02/26/23 05:15 02/26/23 05:15 Labs: Laboratory Results - last 24 hr 02/25/23 18:00: PT 12.7, INR 1.0, Fibrinogen 750 H, D-Dimer Quant (PE/DVT) 7.17 H*, Total Bilirubin 0.70, Direct Bilirubin 0.27, AST 24, ALT 23, Alkaline Phosphatase 68, Lactate Dehydrogenase 145, Total Creatine Kinase 79, Troponin I High Sens 8, C-React Prot Ext Range 91.90 H, Total Protein 7.3, Albumin 2.9 L, Globulin 4.4 H, Procalcitonin 0.07 02/25/23 19:42: Lactic Acid 1.0 02/26/23 05:15: WBC 8.6, RBC 3.61 L, Hgb 11.1 L, Hct 33.0 L, MCV 91.4, MCH 30.7, MCHC 33.6, RDW Std Deviation 49.0 H, RDW Coeff of Isha 14.6, Plt Count 428, MPV 9.3, Immature Gran % (Auto) 0.500, Neut % (Auto) 90.3 H, Lymph % (Auto) 4.3 L, [place] % (Auto) 4.7, Eos % (Auto) 0.0, Baso % (Auto) 0.2, Absolute Neuts (auto) 7.8 H, Absolute Lymphs (auto) 0.37 L, Nucleated RBC % 0, Sodium 132 L, Potassium 4.0, Chloride 100, Carbon Dioxide 18.0 L, Anion Gap 14, BUN 18, Creatinine 0.86, Estim Creat Clear Calc 93.99, Est GFR (MDRD) Af Amer 115, Est GFR (MDRD) Non-Af 95, BUN/Creatinine Ratio 21.0 H, Glucose 81, Calcium 8.8, Total Bilirubin 0.60, AST 23, ALT 20, Alkaline Phosphatase 59, Total Protein 6.7, Albumin 2.6 L, Globulin 4.1, Albumin/Globulin Ratio 0.6 L, Triglycerides 71, Cholesterol 128, LDL Cholesterol 75, VLDL Cholesterol 14, HDL Cholesterol 39 L, TSH 2.87 Micro: Microbiology 02/25/23 16:12 Nasal Secretion SARS-CoV-2 & FLU Antigen (Rapid) - Final SARS-CoV-2 (COVID 19) Radiography Diagnostic Testing: Radiology Impression Chest CTA 02/25/23 15:04 IMPRESSION: 1. No CT evidence of pulmonary embolism. 2. Small right pleural effusion. 3. Large left pleural effusion with left lower lobe atelectasis. 4. Cardiomegaly with small pericardial effusion. Electronically Signed: Chetan Donovan MD at 16:28 EDT , Physical Exam Const alert, oriented x3 and no apparent distress General Appearance: cooperative HEENT normocephalic, head/scalp atraumatic, moist oral mucous membranes and oropharynx normal Eyes PERRL Neck no lymphadenopathy and supple Lymph Lymphatic: no lymphadenopathy noted and no lymphedema noted Resp Resp Narrative: Mildly diminished breath sounds bibasally. No wheezes or crackles. On 2 L of oxygen. Cardio regular rate, regular rhythm, S1 normal heart sound, S2 normal heart sound and no murmurs GI normal to inspection, nondistended, normoactive bowel sounds, soft to palpation, non-tender and non-distended Extremity normal capillary refill, no clubbing, cyanosis or edema and no calf tenderness Skin General Skin Exam: no breakdown Neuro CN's II-XII intact bilaterally Motor Exam: general weakness Psych thought process normal and cooperative Assessment & Plan Assessment/Plan (1) Chest pain, atypical: PLAN: Plan #Hypoxia due to covid 19 infection and large left pleural effusion * Currently on remdesivir and Decadron. On 2 L of oxygen. * Chest pain and shortness of breath is improving. * Breathing treatments bronchodilators. Titrate oxygen to maintain saturation above 90%. * #Left pleural effusion * CT chest showed a large left pleural effusion with left lower lobe atelectasis as well as a small right pleural effusion and cardiomegaly with small pericardial effusion and no evidence of PE * Will check BNP. Will likely benefit from diuresis. * he also had thoracentesis today * #Hypotension * Patient noted to be hypotensive with blood pressure down to 79/42 after he had a thoracentesis. We will give a bolus of normal saline 1 L and monitor. * #Elevated D dimer * D-dimer was over 7. CT of the chest was negative for any evidence of PE. However this does increase his chances of getting a blood clot in light of his COVID infection. * We will therefore start on low-dose Eliquis 2.5 mg twice daily for 2 weeks to help decrease his risk of blood clot. * #CAD s/p CABG: On aspirin and statin as well as beta-yoav and SAMI inhibitor. Sublingual nitroglycerin as needed #Hypothyroidism: On Synthroid #History of multiple sclerosis * Has baclofen pump in place. Follow-up with neurology on outpatient basis. DVT prophylaxis: eliquis 2.5mg bid; will start tomorrow as he had thoracentesis today. Currently on lovenox, will continue. Charges/Coding Visit Charges Inpatient E&M: 26585 Subs Hosp L3
--- NOTE | 2023-02-26 14:45 | RAD_ITS ---
STUDY: X-RAY CHEST REASON FOR EXAM: Male, 67 years old. Post thora TECHNIQUE: AP inspiration and expiration views. COMPARISON: Comparison is made with prior study dated February 25, 2023. FINDINGS: EKG electrodes are seen. The patient is status post left thoracentesis. No evidence of pneumothorax. Mild degree of pleural-parenchymal changes persist. RAD/Chest Insp/Exp 2 View IMPRESSION: No evidence of pneumothorax following a left thoracentesis. Electronically Signed: Abel Zimmerman MD at 15:05 EDT ,
[2023-02-26 14:51] LABS: Cytology, Body Fluid / CSF SEE PATHOLOGY REPORT
[2023-02-26 15:15] LABS: Body Fluid Mononuclear WBC # 0.551 10^3/uL; Body Fluid Mononuclear WBC % 92.6 %; Body Fluid Polynuclear WBC # 0.044 10^3/uL; Body Fluid Polynuclear WBC % 7.4 %; Body Fluid Total Cells Counted 0.813 10^3/ul; White Blood Count/Body Fluid 0.595 10^3/uL
[2023-02-26 15:20] VITALS: BP 71/42; PULSE 62; RESP 18; TEMP 36.8; O2SAT 99
[2023-02-26 15:28] LABS: LDH,Body Fluid 106 Units/L (Not Establ.); Protein, Body Fluid 4.3 g/dL (Not Establ.)
[2023-02-26 15:57] LABS: Appearance/Body Fluid CLEAR; Auto B Fluid Analyzer BKGD Ct COUNTS W/IN LIMITS (W/IN LIMITS); Color/Body Fluid YELLOW; Red Cell Count/Body Fluid 575 /mm3; Source- Body Fluid THORACENTESIS
[2023-02-26 16:02] LABS: Lymphocytes 55 %; Macrophages 15 %; Mesothelial Cells 3 %; Monocytes 9 %; Neutrophil (Segs) 18 %
[2023-02-26 16:03] LABS: Body Fluid QC Type(s) BF1Q
[2023-02-26] MEDS: 0.9% Normal Saline (1000mL) 1,000 ML 999 ML IV (16:27)
[2023-02-26 16:31] LABS: BNP,B-Type NATRIURETIC PEPTIDE 275.5 pg/mL (0-100)
[2023-02-26 17:10] VITALS: BP 86/52; PULSE 71; RESP 16; TEMP 36.4; O2SAT 98
[2023-02-26 19:19] LABS: Glucose, Body Fluid 91 mg/dL (40-70)
[2023-02-26] MEDS: Sertraline 50 MG Tablet PO (21:12)
[2023-02-26] MEDS: Atorvastatin Calcium 40 MG Tablet PO (21:12)
[2023-02-26] MEDS: MELATONIN 3 MG TABLET PO (21:12)
[2023-02-26] MEDS: Remdesivir 100 MG in 0.9% Normal Saline (250mL Bag) 230 ML 250 MG IV (21:37)
[2023-02-26 22:07] VITALS: BP 102/56; PULSE 73; RESP 16; TEMP 36.9; O2SAT 97
[2023-02-27 03:00] VITALS: BP 98/68; PULSE 75; RESP 16; TEMP 36.9; O2SAT 97
[2023-02-27] MEDS: Levothyroxine 75 MCG Tablet PO (05:16)
[2023-02-27 05:26] VITALS: BMI 29.7
[2023-02-27 09:00] VITALS: BP 111/61; PULSE 66; RESP 18; TEMP 36.3; O2SAT 96; BMI 29.7
[2023-02-27] MEDS: dexAMETHasone 10 MG/ML Vial 6 MG IV (09:02)
[2023-02-27] MEDS: Aspirin E.C. 81 MG Tablet PO (09:02)
[2023-02-27] MEDS: Isosorbide Mononitrate 60 MG Tablet PO (09:02)
[2023-02-27] MEDS: Ranolazine 500 MG Tablet 1000 MG PO ×2 (09:02→20:58)
[2023-02-27] MEDS: TICAGRELOR 90 MG TABLET PO ×2 (09:02→20:58)
[2023-02-27] MEDS: Enoxaparin 40 MG/0.4 ML Syringe SC (09:03)
[2023-02-27] MEDS: 0.9% Saline Lock 10 ML Syringe IV (09:03)
[2023-02-27 09:32] LABS: Absolute Lymphocyte Count 0.59 X10^3/uL (0.83-4.51); Absolute Neutrophil Count 5.2 X10^3/uL (2.0-7.7); Basophil# 0.01 X10^3/uL; Basophil% 0.1 % (0-1); Hematocrit 31.4 % (40-54); Hemoglobin 10.3 g/dL (13.0-16.5); Lymphocyte # 0.59 X10^3/ul (0.83-4.51); Lymphocyte % 8.8 % (19-41); Mean Corp Hgb Conc 32.8 g/dL (32-36); Mean Corpuscular Hgb 29.9 pg (27.0-32.0); Mean Corpuscular Volume 91.3 fL (80-94); Monocyte# 0.88 X10^3/uL; Monocyte% 13.1 % (0-10); NRBC Flagged by Analyzer 0 % (0-5); Neutrophil # 5.19 X10^3/uL (2.7-7.7); Neutrophil % 77.3 % (47-70); POSITIVE DIFFERENTIAL YES; Platelet Count 352 K/mm3 (150-450); RBC Distribution Width CV 14.6 % (11.6-14.6); RBC Distribution Width SD 49.1 fl (35.1-43.9); Red Blood Count 3.44 M/mm3 (4.6-6.2); White Blood Count 6.7 K/mm3 (4.4-11.0)
[2023-02-27 09:39] LABS: Differential Indicated SCAN CRITERIA MET
[2023-02-27 10:22] LABS: Anion Gap 7 (5-15); BUN 27 mg/dL (7-18); BUN/Creat Ratio 30.6 RATIO (10-20); Calcium,Total 8.4 mg/dL (8.5-10.1); Chloride 102 mmol/L (98-107); Creatinine, Serum 0.88 mg/dL (0.70-1.30); EST Glomerular Filtration Rate 92 mL/min (>60); Est Glom Filt Rate - Afr Amer 111 mL/min (>60); Estimated Creatinine Clearance 91.86 ml/min; Glucose 94 mg/dL (74-106); Sodium Level 132 mmol/L (136-145)
--- NOTE | 2023-02-27 11:13 | PN_ITS ---
Subjective Subjective Patient seen and examined. He had no active complaints. He said he is feeling better. His BP was running low yesterday after thoracentesis but this improved. He is down to room air now. Review of systems is otherwise negative. Objective Data Objective Data Vital Signs: Vital Signs Temp Pulse Resp BP Pulse Ox O2 Del Method O2 Flow Rate 97.4 F L 66 18 111/61 96 Room Air 2 02/27/23 09:00 02/27/23 09:00 02/27/23 09:00 02/27/23 09:00 02/27/23 09:00 02/27/23 09:00 02/27/23 03:00 Oxygen Flow Rate (L/min) [3] 2 Oxygen Flow Rate (L/min) [2] 2 Oxygen Flow Rate (L/min) [1 ( 2 Initial Baseline)] Oxygen Flow Rate (L/min) 2 Oxygen Delivery Method [4] Room Air Oxygen Delivery Method [3] Nasal Cannula Oxygen Delivery Method [2] Nasal Cannula Oxygen Delivery Method [1 ( Nasal Cannula Initial Baseline)] Oxygen Delivery Method Room Air Weight: 219 lb 5.759 oz Body Mass Index (BMI) 29.7 Intake & Output: Intake and Output for Last 24 Hours 02/25/23 02/26/23 02/27/23 23:59 23:59 23:59 Intake Total 750 / 750 1610.25 / 1610.25 500 / 500 Output Total 1800 / 1800 200 / 200 Balance 750 / 750 -189.75 / -189.75 300 / 300 Lab / Micro Data 02/27/23 08:40 02/27/23 08:40 Labs: Laboratory Results - last 24 hr 02/26/23 05:15: B-Natriuretic Peptide 275.5 H 02/26/23 14:10: Fluid Source THORACENTESIS, Fluid Color YELLOW, Fluid Appearance CLEAR, Fluid WBC 0.595, Fluid RBC 575, Fluid Tot Cell Count 0.813, Fld P olynuclear WBCs # 0.044, Fld Polynuclear WBCs % 7.4, Fluid Mononuclear WBCs 0.551, Fld Mononuclear WBCs % 92.6, Fluid Neutrophils 18, Fluid Lymphocytes 55, Fluid Monocytes 9, Fluid Macrophages 15, Fld Mesothelial Cells 3, Fl Pathologist Comment May follow, Fluid Glucose 91 H, Fluid Total Protein 4.3, Fluid LDH 106, Fluid Comment 2 SEE COMMENT 02/27/23 08:40: WBC 6.7, RBC 3.44 L, Hgb 10.3 L, Hct 31.4 L, MCV 91.3, MCH 29.9, MCHC 32.8, RDW Std Deviation 49.1 H, RDW Coeff of Isha 14.6, Plt Count 352, MPV 9.0, Immature Gran % (Auto) 0.700, Neut % (Auto) 77.3 H, Lymph % (Auto) 8.8 L, [place] % (Auto) 13.1 H, Eos % (Auto) 0.0, Baso % (Auto) 0.1, Absolute Neuts (auto) 5.2, Absolute Lymphs (auto) 0.59 L, Nucleated RBC % 0, Differential Comment COMMENT, Sodium 132 L, Potassium 4.0, Chloride 102, Carbon Dioxide 23.0, Anion Gap 7, BUN 27 H, Creatinine 0.88, Estim Creat Clear Calc 91.86, Est GFR (MDRD) Af Amer 111, Est GFR (MDRD) Non-Af 92, BUN/Creatinine Ratio 30.6 H, Glucose 94, Calcium 8.4 L Micro: Microbiology 02/26/23 14:10 Fluid - Thoracentesis Fluid Gram Stain - Final 02/26/23 14:10 Fluid - Thoracentesis Fluid Body Fluid Culture - Preliminary No growth-Final to follow 02/25/23 16:12 Nasal Secretion SARS-CoV-2 & FLU Antigen (Rapid) - Final SARS-CoV-2 (COVID 19) Radiography Diagnostic Testing: Radiology Impression Thoracentesis Ultrasound 02/26/23 07:30 IMPRESSION: Ultrasound-guided left thoracentesis. Electronically Signed: Abel Zimmerman MD at 15:06 EDT , Chest X-Ray 02/26/23 14:45 IMPRESSION: No evidence of pneumothorax following a left thoracentesis. Electronically Signed: Abel Zimmerman MD at 15:05 EDT , Physical Exam Const alert, oriented x3 and no apparent distress General Appearance: cooperative HEENT normocephalic, head/scalp atraumatic, moist oral mucous membranes and oropharynx normal Eyes PERRL Neck no lymphadenopathy and supple Lymph Lymphatic: no lymphadenopathy noted and no lymphedema noted Resp Resp Narrative: Mildly diminished breath sounds bibasally. No wheezes or crackles. On room air. Cardio regular rate, regular rhythm, S1 normal heart sound, S2 normal heart sound and no murmurs GI normal to inspection, nondistended, normoactive bowel sounds, soft to palpation, non-tender and non-distended Extremity normal capillary refill, no clubbing, cyanosis or edema and no calf tenderness Skin General Skin Exam: no breakdown Neuro CN's II-XII intact bilaterally Neuro Narrative: weakness in all extremities due to history of myasthenia gravis. Motor Exam: general weakness Psych thought process normal and cooperative Appearance: appropriate Assessment & Plan Assessment/Plan (1) Chest pain, atypical: PLAN: Plan #Hypoxia due to covid 19 infection and large left pleural effusion * Currently on remdesivir and Decadron. now on room air * Chest pain and shortness of breath is improving. * Breathing treatments bronchodilators. Titrate oxygen to maintain saturation above 90%. * #Left pleural effusion * CT chest showed a large left pleural effusion with left lower lobe atelectasis as well as a small right pleural effusion and cardiomegaly with small pericardial effusion and no evidence of PE * had left sided thoracentesis yesterday with removal of ~800cc of lelia colored fluid. * #Hypotension * was hypotensive after thoracentesis, but this improved with IVF hydration. * Will monitor. BP meds held due to hypotension; will continue holding. * #Elevated D dimer * D-dimer was over 7. CT of the chest was negative for any evidence of PE. However this does increase his chances of getting a blood clot in light of his COVID infection. * We will therefore start on low-dose Eliquis 2.5 mg twice daily for 2 weeks to help decrease his risk of blood clot. Will initiate eliquis today. * #CAD s/p CABG: On aspirin and statin as well as beta-yoav and SAMI inhibitor. Sublingual nitroglycerin as needed #Hypothyroidism: On Synthroid #History of multiple sclerosis * Has baclofen pump in place. Follow-up with neurology on outpatient basis. DVT prophylaxis: will start elliquis 2.5mg bid today due to markedly elevated D dimer. Charges/Coding Visit Charges Inpatient E&M: 37592 Subs Hosp L2
--- NOTE | 2023-02-27 13:30 | CASEMGMT ---
Addendum entered by Fouzia Avendano 02/27/23 14:39: Pt's caregivers through [employer] are Tiffanie and Selam. Addendum entered by Fouzia Avendano 02/27/23 14:38: Pt's other 2 adult children, Shiloh and Xiomara, live in [place]. Original Note: RN ALEXIS PREPLEATER CM to room to meet with patient for initial transition planning/care coordination assessment. RN ALEXIS introduced self and role at [facility]. Pt voices understanding and consents to assessment at this time. Pt resting in bed in no distress at this time. Caregiver, Tiffanie, @ bedside. Pt is A/O at this time and answers all questions appropriately. Care providers, pharmacy, and demographics verified/updated at this time. PCP: Dr Castro Specialists: BERNARDINO/Dr Garza-cardiology, Dr Rosales in [place] for MS, Dr Mendoza--for Baclofen pump Preferred Pharmacy: [facility] retail @ d/c. Otherwise, uses [facility]. Insurance:My Care [facility] Community Plan/[facility] Prescription Benefit: Yes Living Will/HPOA: Has both LW and HCPOA, who is his daughter, Rose. LNOK: 4 adult children. Rose Erasto/FAUSTINO dtr. Son, Jerman. Living Arrangements: Lives alone in one-story home w/ramp entrance. Pt is W/C bound. Uses [id number] device. Has aides from [employer] through Waiver program: 2 x's/day, 7 days a week: M-W: 9A-3PM and 5:30-9 PM TH and Fri: 9A-1P and 5:30 PM-9 PM. Sat/Sun they come in AM and PM, but hours vary. They assist w/bathing/dressing, getting OOB in AM, and assisting to bed @ HS, meals, grocery shopping, laundry, and other household tasks. Transportation: [place] or friend, using pt's W/C accessible van. Pt states will need cot transport home @ discharge. TAVO, Siria, aware. DME: States has the following DME: shower chair, hospital bed, hand held shower, walker, power W/C, medical alert, [id number] device, BP machine, pulse ox, and CPAP from [facility]. Pt does not have oxygen. Pt states the CPAP does not work so he has not been using it. He states [employer] has looked at it once but it is still not working and interested in having them check it again and would like CAMILA ESPINOZA to call for f/u. CAMILA ESPINOZA placed call to Claudy @ [employer] and VM left requesting they f/u with pt about PAP not working. Pt states no need for further DME at this time. HHC/SNF: Hx: [facility] and [facility] and has had [facility] HHC in the past. Pt states would like [facility] @ d/c. Call placed to Madie @ [facility] and referral made for SN, PT/OT. Pt wishes to return home w/[facility] HHC and resumption of aides through [employer]. Pt states an aide will need to be @ his house when he arrives at home to assist him w/getting situated in his home. RN ALEXIS or SW to work on coordinating transportation and aides through [employer] to ensure a safe discharge once pt is medically ready for d/c. CM to follow for any further discharge planning/needs. Pt voices no further concerns/needs at this time. Advised pt to ask for CM if any further questions/concerns/needs arise. Voices understanding. Plan: Home w/HHC and resumption of aides through [employer]. Brittney FLORES RN, CM
[2023-02-27 15:00] VITALS: BP 124/65; PULSE 73; RESP 18; TEMP 36.3; O2SAT 97
--- NOTE | 2023-02-27 15:03 | CASEMGMT ---
RN ALEXIS received call back from [facility] and they are able to accept patient with planned start of care for 03/01/23. CM will continue to follow this patient and plan for safe discharge.
[2023-02-27 15:14] LABS: Pathologist Comment/Body Fluid Reviewed
[2023-02-27] MEDS: Baclofen 10 MG Tablet 15 MG PO (16:21)
[2023-02-27] MEDS: Sertraline 50 MG Tablet PO (20:58)
[2023-02-27] MEDS: Atorvastatin Calcium 40 MG Tablet PO (20:58)
[2023-02-27] MEDS: APIXABAN 2.5 MG TABLET (WCH) PO (20:58)
[2023-02-27] MEDS: Remdesivir 100 MG in 0.9% Normal Saline (250mL Bag) 230 ML 250 MG IV (20:59)
[2023-02-27 21:13] VITALS: BP 138/82; PULSE 72; RESP 16; TEMP 36.6; O2SAT 95
[2023-02-27 21:18] VITALS: BP 138/82; PULSE 72; RESP 16; TEMP 36.6; O2SAT 94
[2023-02-28 03:00] VITALS: BP 139/75; PULSE 76; RESP 16; TEMP 36.6; O2SAT 94
[2023-02-28] MEDS: Levothyroxine 75 MCG Tablet PO ×2 (04:21→20:49)
[2023-02-28 11:21] VITALS: BP 144/85; PULSE 77; RESP 16; TEMP 36.4; O2SAT 94
[2023-02-28] MEDS: TICAGRELOR 90 MG TABLET PO ×2 (11:27→20:49)
[2023-02-28] MEDS: Aspirin E.C. 81 MG Tablet PO (11:27)
[2023-02-28] MEDS: dexAMETHasone 10 MG/ML Vial 6 MG IV (11:27)
[2023-02-28] MEDS: APIXABAN 2.5 MG TABLET (WCH) PO ×2 (11:28→20:49)
[2023-02-28] MEDS: Ranolazine 500 MG Tablet 1000 MG PO ×2 (11:29→20:48)
[2023-02-28] MEDS: Baclofen 10 MG Tablet 15 MG PO (11:29)
[2023-02-28] MEDS: 0.9% Saline Lock 10 ML Syringe IV (11:35)
[2023-02-28] MEDS: Isosorbide Mononitrate 60 MG Tablet PO (11:53)
--- NOTE | 2023-02-28 12:29 | PN_ITS ---
Subjective Subjective Patient seen and examined. His breathing had improved but he said he did not feel as well as he did yesterday. When I pulled while he said he was having some numbness and tingling in his right hand. This made him concerned because he lived alone. Though he usually had aides coming in, he had to perform most of his activities of daily living by himself mainly using his right hand. He therefore wants to see if his right hand will improve before he goes on. Review of systems otherwise negative. He has remained hemodynamically stable and is on room air. Objective Data Objective Data Vital Signs: Vital Signs Temp Pulse Resp BP Pulse Ox O2 Del Method O2 Flow Rate 97.5 F L 77 16 144/85 H 94 Room Air 2 02/28/23 11:21 02/28/23 11:21 02/28/23 11:21 02/28/23 11:21 02/28/23 11:21 02/28/23 11:21 02/27/23 03:00 Oxygen Flow Rate (L/min) [3] 2 Oxygen Flow Rate (L/min) [2] 2 Oxygen Flow Rate (L/min) [1 ( 2 Initial Baseline)] Oxygen Flow Rate (L/min) 2 Oxygen Delivery Method [4] Room Air Oxygen Delivery Method [3] Nasal Cannula Oxygen Delivery Method [2] Nasal Cannula Oxygen Delivery Method [1 ( Nasal Cannula Initial Baseline)] Oxygen Delivery Method Room Air Weight: 219 lb 5.759 oz Body Mass Index (BMI) 29.7 Intake & Output: Intake and Output for Last 24 Hours 02/26/23 02/27/23 02/28/23 23:59 23:59 23:59 Intake Total 1610.25 / 1610.25 1450 / 1450 600 / 600 Output Total 1800 / 1800 1650 / 1650 900 / 900 Balance -189.75 / -189.75 -200 / -200 -300 / -300 Lab / Micro Data 02/27/23 08:40 02/27/23 08:40 Labs: Laboratory Results - last 24 hr 02/26/23 14:10: Fl Pathologist Comment Reviewed Micro: Microbiology 02/26/23 14:10 Fluid - Thoracentesis Fluid Gram Stain - Final 02/26/23 14:10 Fluid - Thoracentesis Fluid Body Fluid Culture - Preliminary No growth-Final to follow 02/26/23 14:10 Fluid - Thoracentesis Fluid Anaerobic Culture - Preliminary No growth in 48 hours. 02/25/23 16:12 Nasal Secretion SARS-CoV-2 & FLU Antigen (Rapid) - Final SARS-CoV-2 (COVID 19) Physical Exam Const alert, oriented x3 and no apparent distress General Appearance: cooperative HEENT normocephalic, head/scalp atraumatic, moist oral mucous membranes and oropharynx normal Eyes PERRL Neck no lymphadenopathy and supple Lymph Lymphatic: no lymphadenopathy noted and no lymphedema noted Resp Resp Narrative: Mildly diminished breath sounds bibasally. No wheezes or crackles. On room air. Cardio regular rate, regular rhythm, S1 normal heart sound, S2 normal heart sound and no murmurs GI normal to inspection, nondistended, normoactive bowel sounds, soft to palpation, non-tender and non-distended Extremity normal capillary refill, no clubbing, cyanosis or edema and no calf tenderness Skin General Skin Exam: no breakdown Neuro CN's II-XII intact bilaterally Neuro Narrative: weakness in all extremities due to history of myasthenia gravis. Numbness and tingling in right hand due to myasthenia gravis; able to fully flex and extend right hand Motor Exam: general weakness Psych thought process normal and cooperative Appearance: appropriate Assessment & Plan Assessment/Plan (1) Chest pain, atypical: PLAN: Plan #Hypoxia due to covid 19 infection and large left pleural effusion * Currently on remdesivir and Decadron. remains on room air * Chest pain and shortness of breath is improving. * Breathing treatments bronchodilators. Titrate oxygen to maintain saturation above 90%. * #Left pleural effusion * CT chest showed a large left pleural effusion with left lower lobe atelectasis as well as a small right pleural effusion and cardiomegaly with small pericardial effusion and no evidence of PE * had left sided thoracentesis with removal of ~800cc of lelia colored fluid. * #Hypotension * was hypotensive after thoracentesis, but this improved with IVF hydration. * hypotension has resovled. BP now in 140s systolic. Will resume BP meds * #Elevated D dimer * D-dimer was over 7. CT of the chest was negative for any evidence of PE. However this does increase his chances of getting a blood clot in light of his COVID infection. * on low-dose Eliquis 2.5 mg twice daily for 2 weeks to help decrease his risk of blood clot. * #CAD s/p CABG: On aspirin and statin as well as beta-yoav and SAMI inhibitor. Sublingual nitroglycerin as needed #Hypothyroidism: On Synthroid #History of multiple sclerosis * Has baclofen pump in place. Follow-up with neurology on outpatient basis. DVT prophylaxis: on eliquis 2.5mg bid today due to markedly elevated D dimer. DIsposition: Patient states he does not feel well enough to go home due to the numbness and tingling in his right hand. This is all likely due to his myasthenia gravis. Anticipate discharge tomorrow. Charges/Coding Visit Charges Inpatient E&M: 05630 Subs Hosp L2
[2023-02-28 15:00] VITALS: O2SAT 94
--- NOTE | 2023-02-28 15:03 | CHAPLAIN ---
Type of Pastoral Visit ___ Initial Visit ___ Follow-up Visit ___ On-call Visit ___ General Patient Visit ___ Spiritual Assessment ___ Family Conference ___ Bereavement ___ Rapid Response ___ Code Blue ___ Other (describe below) Pastoral Care Referral From ___ Patient ___ Family ___ Nurse ___ Physician ___ Software Sales Manager ___ Turn Down Man ___ Other (describe below) Sacrament/Intervention ___ Active listening ___ Anointing ___ Voodoo ___ Bereavement ___ Communion ___ Naomy exploration ___ ___ Life review ___ Prayer ___ Reconciliation ___ Sacrament of Sick ___ Supportive presence ___ Wedding ___ Other (describe below) Pastoral Comments phone call made into COVID isolation room; caregiver answers the phone and gives to patient to talk; pt responds to questions appropriately; pt states he might be feeling better and that the staff tell him he is doing better; pt says that he is managing; pt states that the phone call is helpful; a prayer is also given at this time; short encounter of support and concern
[2023-02-28 16:09] LABS: Amylase Body Fluid 20 U/L (.); pH, Body Fluid 11254 7.3 (Not Estab.)
[2023-02-28 16:22] VITALS: BP 140/78; PULSE 77; RESP 16; TEMP 36.3; O2SAT 93
[2023-02-28] MEDS: Acetaminophen 325 MG Tablet 650 MG PO (16:28)
[2023-02-28] MEDS: Sertraline 50 MG Tablet PO (20:48)
[2023-02-28] MEDS: Remdesivir 100 MG in 0.9% Normal Saline (250mL Bag) 230 ML 250 MG IV (20:48)
[2023-02-28] MEDS: Atorvastatin Calcium 40 MG Tablet PO (20:49)
[2023-02-28 20:50] VITALS: PULSE 71
[2023-02-28] MEDS: Metoprolol(XL)Succ 25 MG Tablet PO (20:50)
[2023-02-28 21:42] VITALS: BP 140/78; PULSE 71; RESP 16; TEMP 36.4; O2SAT 95
[2023-03-01] MEDS: Baclofen 10 MG Tablet 15 MG PO ×2 (01:44→09:26)
[2023-03-01 03:00] VITALS: BP 141/72; PULSE 71; RESP 16; TEMP 36.9; O2SAT 94
[2023-03-01 04:17] VITALS: BMI 29.5
[2023-03-01 07:36] LABS: Absolute Lymphocyte Count 0.87 X10^3/uL (0.83-4.51); Absolute Neutrophil Count 9.6 X10^3/uL (2.0-7.7); Basophil# 0.02 X10^3/uL; Basophil% 0.2 % (0-1); Hematocrit 32.8 % (40-54); Hemoglobin 10.8 g/dL (13.0-16.5); Lymphocyte # 0.87 X10^3/ul (0.83-4.51); Lymphocyte % 7.5 % (19-41); Mean Corp Hgb Conc 32.9 g/dL (32-36); Mean Corpuscular Hgb 29.4 pg (27.0-32.0); Mean Corpuscular Volume 89.4 fL (80-94); Monocyte# 1.01 X10^3/uL; Monocyte% 8.7 % (0-10); NRBC Flagged by Analyzer 0 % (0-5); Neutrophil # 9.55 X10^3/uL (2.7-7.7); Neutrophil % 82.7 % (47-70); Platelet Count 406 K/mm3 (150-450); RBC Distribution Width CV 14.2 % (11.6-14.6); RBC Distribution Width SD 46.2 fl (35.1-43.9); Red Blood Count 3.67 M/mm3 (4.6-6.2); White Blood Count 11.6 K/mm3 (4.4-11.0)
[2023-03-01 08:01] LABS: Anion Gap 5 (5-15); BUN 19 mg/dL (7-18); BUN/Creat Ratio 26.9 RATIO (10-20); Calcium,Total 8.4 mg/dL (8.5-10.1); Chloride 105 mmol/L (98-107); Creatinine, Serum 0.71 mg/dL (0.70-1.30); EST Glomerular Filtration Rate 119 mL/min (>60); Est Glom Filt Rate - Afr Amer 144 mL/min (>60); Estimated Creatinine Clearance 113.85 ml/min; Glucose 101 mg/dL (74-106); Sodium Level 134 mmol/L (136-145)
[2023-03-01 09:00] VITALS: BP 159/83; PULSE 74; RESP 16; TEMP 36.4; O2SAT 94
[2023-03-01] MEDS: Lisinopril 10 MG Tablet PO (09:25)
[2023-03-01] MEDS: TICAGRELOR 90 MG TABLET PO (09:26)
[2023-03-01] MEDS: dexAMETHasone 10 MG/ML Vial 6 MG IV (09:26)
[2023-03-01] MEDS: 0.9% Saline Lock 10 ML Syringe IV (09:26)
[2023-03-01] MEDS: APIXABAN 2.5 MG TABLET (WCH) PO (09:26)
[2023-03-01] MEDS: Ranolazine 500 MG Tablet 1000 MG PO (09:26)
[2023-03-01] MEDS: Aspirin E.C. 81 MG Tablet PO (09:26)
[2023-03-01] MEDS: Isosorbide Mononitrate 60 MG Tablet PO (09:26)
--- NOTE | 2023-03-01 10:41 | CASEMGMT ---
CAMILA ESPINOZA NOTE: Matty Ramachandran @ [facility], SOC slated for tomorrow. She was made aware Dr Beltre states she is discharging pt today. Brittney FLORES RNCM
[2023-03-01 11:25] VITALS: BP 148/58; TEMP 36.4
--- NOTE | 2023-03-01 11:25 | DCINST_ITS ---
Discharge Instructions Diet Discharge Diet: Low fat / Low cholesterol Activity Discharge Activity: Return to Normal Activity Weight Bearing Status: Weight bearing as tolerated Dressing / Incision Call your doctor if you observe: Fever of 101 or Higher, Shortness of breath, Dizziness and Chest pain Follow Up Care Test Results: Test results from this visit will be discussed in further detail at your follow- up appointment, if applicable. Discharge Plan Admission Admit Date/Time: 02/26/23 16:38 Primary Reason for Your Visit: COVID 19 infection Attending Provider: Michelle Beltre Primary Care Provider: Ritesh Castro Consulting Providers: Tye Garza; Jazz Gonzalez Instructions Patient Instructions: DENNIS RN Thoracentesis Dc Additional Instructions / Restrictions: you are at increased risk of bleeding whilst on the eliquis in addition to the aspirin and brilinta. The eliquis is to be taken for 2 weeks to reduce the chances of blood clots in light of hte markedly elevated D dimer. If you notice any blood in your stool, or see dark stools, cough up or vomit any blood, call your PCP or go to the ED immediately, and stop taking eliquis. Discharge Orders/Prescriptions Prescriptions: New Eliquis 5 mg Tablet 2.5 mg PO BID Qty: 28 0RF dexamethasone 6 mg tablet 6 mg PO DAILY Qty: 5 0RF Continued cholecalciferol (vitamin D3) 125 mcg (5,000 unit) capsule 125 mcg PO DAILY gabapentin 400 mg capsule 400 mg PO TID PRN (Reason: LEG PAIN) sertraline [Zoloft] 50 mg tablet 50 mg PO QHS furosemide 40 mg tablet 40 mg PO DAILY PRN (Reason: edema) metoprolol succinate 25 mg tablet extended release 24 hr 25 mg PO DAILY Qty: 30 11RF lisinopril 10 mg tablet 5 mg PO PRN baclofen 10 mg tablet 15 mg PO Q6H PRN (Reason: Spasms) Patient Comments: TAKE 1 & 1/2 (ONE AND ONE-HALF) TABLETS BY MOUTH EVERY 6 HOURS NEEDED aspirin 81 mg Tablet,Chewable 81 mg PO DAILY atorvastatin 40 mg tablet 40 mg PO QHS levothyroxine 75 mcg tablet 75 mcg PO DAILY Patient Comments: Take 1 tablet by mouth every morning nitroglycerin 0.4 mg tablet, sublingual 0.4 mg sublingual Q5M PRN (Reason: chest pain) Qty: 25 3RF Rx Instructions: do not exceed 3 doses per episode isosorbide mononitrate 60 mg tablet extended release 24 hr 60 mg PO DAILY Qty: 90 3RF ranolazine 1,000 mg tablet extended release 12 hr 1,000 mg PO BID Qty: 180 3RF Brilinta 90 mg tablet 90 mg PO BID Qty: 180 3RF Referrals / Follow Up: Ritesh Castro MD [Primary Care Provider] - Within 2 Weeks Disposition Disposition (needs filled in before D/C Order can be placed): Home Health Service
--- NOTE | 2023-03-01 11:37 | DS.PCM_ITS ---
Providers Date of Admission: 02/26/23 Date of Discharge: 03/01/23 Primary Care Physician: Dr. Ritesh Castro MD Consultations 02/25/23 15:38 Consult: Cardiology Routine Consulting Provider: Tye Garza Reason for Consult: chest pain EMERGENT Consult: No MD Notified: Yes Date Notified: 02/25/23 Time Notified: 15:04 Method of Notification: ED Physician Initiated Reason For Visit: CHEST PAIN R/O Diagnosis Discharge Diagnosis (1) Chest pain, atypical: Status: Acute Code(s): R07.89 - Other chest pain Plan #Hypoxia due to covid 19 infection and large left pleural effusion * Currently on remdesivir and Decadron. remains on room air * Chest pain and shortness of breath is improving. * Breathing treatments bronchodilators. Titrate oxygen to maintain saturation above 90%. * #Left pleural effusion * CT chest showed a large left pleural effusion with left lower lobe atelectasis as well as a small right pleural effusion and cardiomegaly with small pericard ial effusion and no evidence of PE * had left sided thoracentesis with removal of ~800cc of lelia colored fluid. * #Hypotension * was hypotensive after thoracentesis, but this improved with IVF hydration. * hypotension has resovled. BP now in 140s systolic. Will resume BP meds * #Elevated D dimer * D-dimer was over 7. CT of the chest was negative for any evidence of PE. However this does increase his chances of getting a blood clot in light of his COVID infection. * on low-dose Eliquis 2.5 mg twice daily for 2 weeks to help decrease his risk of blood clot. * #CAD s/p CABG: On aspirin and statin as well as beta-yoav and SAMI inhibitor. Sublingual nitroglycerin as needed #Hypothyroidism: On Synthroid #History of multiple sclerosis * Has baclofen pump in place. Follow-up with neurology on outpatient basis. DVT prophylaxis: on eliquis 2.5mg bid today due to markedly elevated D dimer. DIsposition: Patient states he does not feel well enough to go home due to the numbness and tingling in his right hand. This is all likely due to his myasthenia gravis. Anticipate discharge tomorrow. Medications at Discharge Home Medications cholecalciferol (vitamin D3) 125 mcg (5,000 unit) capsule 125 mcg PO DAILY SUPPLEMENT 11/28/19 gabapentin 400 mg capsule 400 mg PO TID PRN LEG PAIN 03/10/21 nitroglycerin 0.4 mg sublingual tablet 0.4 mg sublingual Q5M PRN chest pain #25 tabs 07/06/21 sertraline 50 mg tablet (Zoloft) 50 mg PO QHS DEPRESSION/ANXIETY 12/20/21 aspirin 81 mg chewable tablet 81 mg PO DAILY HEART HEALTH 05/18/22 atorvastatin 40 mg tablet 40 mg PO QHS CHOLESTEROL 05/18/22 baclofen 10 mg tablet 15 mg PO Q6H PRN Spasms 05/18/22 isosorbide mononitrate 60 mg tablet,extended release 24 hr 60 mg PO DAILY ANGINA #90 tabs 08/16/22 furosemide 40 mg tablet 40 mg PO DAILY PRN edema 11/23/22 metoprolol succinate 25 mg tablet,extended release 24 hr 25 mg PO DAILY blood pressure #30 tabs 11/23/22 ranolazine 1,000 mg tablet,extended release,12 hr 1,000 mg PO BID heart #180 tabs 12/14/22 lisinopril 10 mg tablet 5 mg PO PRN BLOOD PRESSURE 12/29/22 ticagrelor 90 mg tablet (Brilinta) 90 mg PO BID BLOOD THINNER #180 tabs 01/26/23 levothyroxine 75 mcg tablet 75 mcg PO DAILY Thyroid 02/25/23 apixaban 2.5 mg tablet (Eliquis) 2.5 mg PO BID #28 tabs 03/01/23 dexamethasone 6 mg tablet 6 mg PO DAILY #5 tabs 03/01/23 Hospital Course Operations None Procedures None Summary of Care Provided Minutes Spent on Discharge: 55 Hospital Course: Patient is a 67 y/o male with a PMH as outlined including multiple sclerosis, hypothyroidism, hypertension and coronary artery disease with stents done in 2021. She was admitted through the ED on 02/25/2023 with complaint of chest pain which had been going on since the day before admission. On admission EKG showed no acute ST changes and chest x-ray showed no acute cardiopulmonary process. He was admitted and managed for chest pain to rule out ACS. COVID done was positive. D dimer was markedly elevated but CTA was negative for any evidence of PE. He was started on remdesivir and Decadron. Patient was found to have a large left-sided pleural effusion on the CTA. He had thoracentesis with removal of 800 cc of fluid. He was weaned down to room air. Hospital course was complicated by hypotension after the thoracentesis which resolved with administration of IV fluids. He was on eliquis 2.5mg bid to take for 2 weeks to decrease his risk of a blood clot in light of the markedly elevated D-dimer. Patient also complained of some numbness and tingling in his right hand which was thought to be due to his multiple sclerosis and subsequently resolved. He remained stable and was discharged home on 03/01/2023. He is to follow-up with his primary care doctor within 1 to 2 weeks. He was counseled that he was at increased risk of bleeding due to him being on aspirin and Brilinta as well as the Eliquis being added on for 2 weeks to decrease his risk of blood clots on account of markedly elevated D-dimer in the setting of COVID. He was therefore counseled to go to the ED and/or call his PCP if he noted any rectal bleeding, dark stools or coughed up blood or vomited blood. Patient was seen and examined prior to discharge. He had no complaints. Numbness and tingling had improved. His caregiver was by his bedside. Review of systems otherwise negative. Labs and vitals reviewed. Medication reviewed and reconciled. Physical Exam Const alert, oriented x3 and no apparent distress General Appearance: cooperative, comfortable and well kempt Orientation / Consciousness: awake HEENT normocephalic, head/scalp atraumatic, hearing grossly normal bilaterally, moist oral mucous membranes and oropharynx normal Mouth: oral and palatal mucosa normal Eyes PERRL, EOMs intact bilaterally and conjunctivae normal Neck no lymphadenopathy and supple Lymph Lymphatic: no lymphadenopathy noted and no lymphedema noted Resp Resp Narrative: Mildly diminished breath sounds bibasally. No wheezes or crackles. On room air. Cardio regular rate, regular rhythm, S1 normal heart sound, S2 normal heart sound and no murmurs GI normal to inspection, nondistended, normoactive bowel sounds, soft to palpation, non-tender and non-distended Extremity normal to inspection, full ROM, normal capillary refill, no clubbing, cyanosis or edema and no calf tenderness Skin no rashes or lesions noted and no wounds General Skin Exam: no breakdown Neuro oriented x3 and CN's II-XII intact bilaterally Neuro Narrative: weakness in all extremities due to history of myasthenia gravis. Sensorium / Orientation: awake and alert Motor Exam: general weakness Psych thought process normal and cooperative Appearance: appropriate Weight / BMI Weight Weight: 217 lb 6.012 oz Body Mass Index (BMI) 29.5 ABG / Lab / Microbiology Data 03/01/23 07:05 03/01/23 07:05 Laboratory: Laboratory Results - last 24 hr 02/26/23 14:10: Fluid pH 7.3, Fluid Amylase 20, Miscellaneous Cytology SEE PATHOLOGY REPORT 03/01/23 07:05: WBC 11.6 H, RBC 3.67 L, Hgb 10.8 L, Hct 32.8 L, MCV 89.4, MCH 29.4, MCHC 32.9, RDW Std Deviation 46.2 H, RDW Coeff of Isha 14.2, Plt Count 406, MPV 9.0, Immature Gran % (Auto) 0.900, Neut % (Auto) 82.7 H, Lymph % (Auto) 7.5 L, [place] % (Auto) 8.7, Eos % (Auto) 0.0, Baso % (Auto) 0.2, Absolute Neuts (auto) 9.6 H, Absolute Lymphs (auto) 0.87, Nucleated RBC % 0, Sodium 134 L, Potassium 4.0, Chloride 105, Carbon Dioxide 24.0, Anion Gap 5, BUN 19 H, Creatinine 0.71, Estim Creat Clear Calc 113.85, Est GFR (MDRD) Af Amer 144, Est GFR (MDRD) Non-Af 119, BUN/Creatinine Ratio 26.9 H, Glucose 101, Calcium 8.4 L Microbiology: Microbiology 02/26/23 14:10 Fluid - Thoracentesis Fluid Gram Stain - Final 02/26/23 14:10 Fluid - Thoracentesis Fluid Body Fluid Culture - Final Culture exhibits no growth. 02/26/23 14:10 Fluid - Thoracentesis Fluid Anaerobic Culture - Preliminary No growth in 48 hours. 02/25/23 16:12 Nasal Secretion SARS-CoV-2 & FLU Antigen (Rapid) - Final SARS-CoV-2 (COVID 19) D/C Instructions Discharge Diet: Low fat / Low cholesterol Discharge Activity: Return to Normal Activity Weight Bearing Status: Weight bearing as tolerated Call your doctor if you observe: Fever of 101 or Higher, Shortness of breath, Di zziness and Chest pain Meaningful Use Info Meaningful Use Diagnoses (Choose all that apply): None applicable Discharge Plan Admission Admit Date/Time: 02/26/23 16:38 Primary Reason for Your Visit: COVID 19 infection Attending Provider: Michelle Beltre Primary Care Provider: Ritesh Castro Consulting Providers: Tye Garza; Jazz Gonzalez Instructions Patient Instructions: DENNIS RN Thoracentesis Dc Additional Instructions / Restrictions: you are at increased risk of bleeding whilst on the eliquis in addition to the aspirin and brilinta. The eliquis is to be taken for 2 weeks to reduce the chances of blood clots in light of hte markedly elevated D dimer. If you notice any blood in your stool, or see dark stools, cough up or vomit any blood, call your PCP or go to the ED immediately, and stop taking eliquis. Discharge Orders/Prescriptions Prescriptions: New dexamethasone 6 mg tablet 6 mg PO DAILY Qty: 5 0RF Eliquis 2.5 mg tablet 2.5 mg PO BID Qty: 28 0RF Continued cholecalciferol (vitamin D3) 125 mcg (5,000 unit) capsule 125 mcg PO DAILY gabapentin 400 mg capsule 400 mg PO TID PRN (Reason: LEG PAIN) sertraline [Zoloft] 50 mg tablet 50 mg PO QHS furosemide 40 mg tablet 40 mg PO DAILY PRN (Reason: edema) metoprolol succinate 25 mg tablet extended release 24 hr 25 mg PO DAILY Qty: 30 11RF lisinopril 10 mg tablet 5 mg PO PRN baclofen 10 mg tablet 15 mg PO Q6H PRN (Reason: Spasms) Patient Comments: TAKE 1 & 1/2 (ONE AND ONE-HALF) TABLETS BY MOUTH EVERY 6 HOURS NEEDED aspirin 81 mg Tablet,Chewable 81 mg PO DAILY atorvastatin 40 mg tablet 40 mg PO QHS levothyroxine 75 mcg tablet 75 mcg PO DAILY Patient Comments: Take 1 tablet by mouth every morning nitroglycerin 0.4 mg tablet, sublingual 0.4 mg sublingual Q5M PRN (Reason: chest pain) Qty: 25 3RF Rx Instructions: do not exceed 3 doses per episode isosorbide mononitrate 60 mg tablet extended release 24 hr 60 mg PO DAILY Qty: 90 3RF ranolazine 1,000 mg tablet extended release 12 hr 1,000 mg PO BID Qty: 180 3RF Brilinta 90 mg tablet 90 mg PO BID Qty: 180 3RF Referrals / Follow Up: Ritesh Castro MD [Primary Care Provider] - Within 2 Weeks (please call the office to schedule a f/u appt. ) Disposition Disposition (needs filled in before D/C Order can be placed): Home Health Service Charges/Coding Visit Charges Inpatient E&M: 19970 Disch Hosp >30min
[2023-03-01] MEDS: Acetaminophen 325 MG Tablet 650 MG PO (11:38)
--- NOTE | 2023-03-01 12:28 | CASEMGMT ---
TAVO spoke with patient and he would like transport set up as soon as possible. Patient's caregiver Tiffanie is with patient right now and will meet him at his home. TAVO asked Brook hanna/grant estate planning director to please set up transport. Siria Floyd HEEL FINISHER KRISTAL
== END 2023-03-01 13:32 | disposition home health service (06) | DRG 178 ==
LOC: ED 14:51 → PCU 15:01
PROVIDERS: Admitting Provider Internal Medicine; Emergency Provider Emergency Medicine; PCP Family Medicine; Visit Provider Student in an Organized Health Care Education/Training Program
DX: U07.1 COVID-19 (principal); E87.1 Hypo-osmolality and hyponatremia; I50.32 Chronic diastolic (congestive) heart failure; J90 Pleural effusion, not elsewhere classified; J98.11 Atelectasis; I11.0 Hypertensive heart disease with heart failure; I25.10 Atherosclerotic heart disease of native coronary artery without angina pectoris; E87.8 Other disorders of electrolyte and fluid balance, not elsewhere classified; I95.9 Hypotension, unspecified; G35 Multiple sclerosis; E03.9 Hypothyroidism, unspecified; I25.82 Chronic total occlusion of coronary artery; Z79.82 Long term (current) use of aspirin; Z95.5 Presence of coronary angioplasty implant and graft; Z82.3 Family history of stroke; Z79.02 Long term (current) use of antithrombotics/antiplatelets
CPT/HCPCS: 32555; 36415; 71045; 71046; 71275; 80048; 80053; 80061; 80076; 82150; 82550; 82945; 83605; 83615; 83880; 83986; 84145; 84156; 84157; 84443; 84484; 85025; 85379; 85384; 85610; 86140; 87070; 87075; 87205; 87428; 88108; 88305; 88313; 89050; 93005; 94668; 97166; 99285; J7030; J7050; Q9967; A4216; J0248